=== PATIENT | female | born 1955 | race Caucasian/White ===

== ENCOUNTER 2022-06-17 10:00 | Outpatient (RCR) | payer MEDICARE, SELFPAY | END 2022-06-17 10:05 | disposition home or self-care (01) | LOC: PT 10:00 | PROVIDERS: Visit Provider Nurse Practitioner Family | DX: R26.81 Unsteadiness on feet (principal) | CPT/HCPCS: 97110; 97116; 97163 ==

== ENCOUNTER 2024-07-05 14:23 | Inpatient (IN) | payer MEDICARE, SELFPAY ==
[2024-07-05] VITALS (17 sets, daily range): BP systolic 106–149; BP diastolic 48–80; PULSE 90–120; RESP 20–40; TEMP 33.2–36.8; O2SAT 94–100; BMI 29.1
--- NOTE | 2024-07-05 14:35 | PC.NURSE ---
placed patient on bear hugger
--- NOTE | 2024-07-05 14:38 | ED_ITS ---
<Statement entered by Avelina Conteh MD - 07/06/24 15:49> I was consulted by the JANET, and we discussed the complexity of the problems being addressed. I approved the treatment and management plan for this patient's care in the emergency department, thus performing a substantive portion of the medical decision making. Avelina Conteh MD, VICTORINO, FACEP Discharge Plan Disposition Patient Disposition: Admitted Clinical Impressions Clinical Impression: Shock, Severe sepsis, DKA (diabetic ketoacidosis), DANAY (acute kidney injury), Acute hyponatremia, Hypokalemia, Non-ST elevation [place] (NSTEMI), Urinary tract infectious disease Discharge ED Provider: Hany Cunningham General Adult HPI General Chief complaint: Altered Mental Status Stated complaint: weakness Time Seen by Provider: 07/05/24 14:37 History of Present Illness HPI narrative: Patient presents via EMS for acute encephalopathy. EMS was called to her residence after patient was found sitting in 30 degree weather outside and on heated garage and shorts and a sweatshirt. She was incoherent on EMS arrival. Patient was found by her friend and noted that her blood sugar was high. Last known well was sometime yesterday. At the time of my exam patient is obtunded but is protecting her airway has a good gag reflex is moving all 4 extremities with no focal deficits however she does open her eyes to painful stimuli and is only making incomprehensible sounds. The remainder of her review of systems is unobtainable due to the patient's mental status currently Related Data Home Medications ?Medication ?Instructions ?Recorded ?Confirmed lisinopril 30 mg tablet 30 mg PO DAILY 07/05/24 07/05/24 paroxetine HCl 20 mg tablet 20 mg PO DAILY 07/05/24 07/05/24 Allergies Allergy/AdvReac Type Severity Reaction Status Date / Time Thiothixene Allergy Unknown Uncoded 02/23/19 13:55 [facility] Disclaimer: The information contained in this section may have been updated after the patient was seen, as this information can be updated by other users. Medical History (Updated 07/05/24 @ 18:48 by Giovanna Cordova RN) Diabetes mellitus Diabetes Diabetes Social History (Updated 07/05/24 @ 18:38 by Giovanna Cordova RN) Smoking Status: Unknown if ever smoked alcohol intake: never substance use type: denies use and marijuana (she did try 1 puff on THC back in 1971; nothing since then) current occupational status: disabled Travel in the last 8 weeks: None number of children: 0 Other Medical History Have you received the Pneumonia Vaccine: No ROS Obtained: Yes unobtainable due to mental status Physical Exam General General appearance: obtunded Head Head exam: atraumatic and normal inspection Eye Eye exam: Present normal appearance, PERRL and EOMI ENT ENT exam: Present mucous membranes dry Neck Neck exam: Present normal inspection and full ROM Chest Chest inspection: Present normal inspection and symmetric chest wall rise Respiratory Respiratory exam: Present normal lung sounds bilaterally and other (Tachypnea); Absent respiratory distress or accessory muscle use Cardiovascular Cardiovascular exam: Present tachycardia Neurological Exam Neurological exam: Absent alert or oriented X3 Medical Decision Making Medical Records Medical records reviewed: Yes I reviewed the patient's medical records. Screening: Per USPSTF and CDC recommendations, given the prevalence of disease in our region, it is our hospital?s policy to screen for HIV and viral Hepatitis for all patients aged 18 and over and those with ongoing risk factors. Óscar Inquiry Pt receiving controlled substance: No Vital Signs: 07/05/24 14:23 07/05/24 14:55 07/05/24 15:00 Temperature 91.8 F L 91.9 F L 92.3 F L Temperature Source Rectal Pulse Rate 97 H Pulse Rate [Left Radial] 90 Respiratory Rate 33 H 35 H 34 H Blood Pressure 138/67 138/65 Blood Pressure [Right Arm] 138/67 Blood Pressure Mean [Right Arm] 90 Blood Pressure Source [Right Arm] 02 Sat by Pulse Oximetry 96 94 L Oxygen Delivery Method Nasal Cannula Oxygen Flow Rate (LPM) 2 07/05/24 15:30 07/05/24 16:13 07/05/24 16:30 Temperature 92.1 F L 91.8 F L 91.8 F L Temperature Source Pulse Rate 101 H 114 H 91 H Pulse Rate [Left Radial] Respiratory Rate 32 H 29 H 34 H Blood Pressure 146/70 H 114/67 130/61 Blood Pressure [Right Arm] Blood Pressure Mean [Right Arm] Blood Pressure Source [Right Arm] 02 Sat by Pulse Oximetry 98 99 99 Oxygen Delivery Method Room Air Room Air Room Air Oxygen Flow Rate (LPM) 07/05/24 17:00 07/05/24 17:31 07/05/24 18:00 Temperature 92.1 F L 92.8 F L 98.0 F Temperature Source Pulse Rate 112 H 111 H 120 H Pulse Rate [Left Radial] Respiratory Rate 40 H 33 H 20 Blood Pressure 117/68 112/48 L 130/70 Blood Pressure [Right Arm] Blood Pressure Mean [Right Arm] Blood Pressure Source [Right Arm] 02 Sat by Pulse Oximetry 99 99 Oxygen Delivery Method Room Air Room Air Oxygen Flow Rate (LPM) 07/05/24 18:00 Temperature 93.0 F L Temperature Source Core Pulse Rate Pulse Rate [Left Radial] Respiratory Rate 23 Blood Pressure Blood Pressure [Right Arm] 112/48 L Blood Pressure Mean [Right Arm] 69 Blood Pressure Source [Right Arm] Automatic Cuff 02 Sat by Pulse Oximetry 99 Oxygen Delivery Method Room Air Oxygen Flow Rate (LPM) Lab Data Lab results reviewed: Yes I reviewed the patient's lab results. Lab Results 07/05/24 14:40: WBC 19.5 H, RBC 5.77 H, Hgb 16.4 H, Hct 51.5 H, MCV 89.3, MCH 28.4, MCHC 31.8, RDW 13.3, Plt Count 250, MPV 10.9 H, Neut % (Auto) 81.2 H, L ymph % (Auto) 5.2 L, [place] % (Auto) 11.5 H, Eos % (Auto) 0.0 L, Baso % (Auto) 0.7, Neut # (Auto) 15.8 H, Lymph # (Auto) 1.0, [place] # (Auto) 2.2 H, Eos # (Auto) 0.0, Baso # (Auto) 0.1, Total Counted 100, Neutrophils % (Manual) 93 H, L ymphocytes % (Manual) 4 L, Monocytes % (Manual) 3, Platelet Estimate Normal, RBC Morphology Normal, Sodium 130 L, Potassium 3.3 L, Chloride 100, Carbon Dioxide < 5 L*, Anion Gap 28.3 H, BUN 36 H, Creatinine 1.40 H, Estimated Creat Clear 48, E stimated GFR 37 L, Est GFR ( Amer) 45 L, Glucose 581 H*, Hemoglobin A1c 12.6 H, Calcium 9.9, Phosphorus 3.5, Magnesium 2.9 H, Total Bilirubin 0.6, AST 27, ALT 26, Alkaline Phosphatase 200 H, Troponin I 0.13 H, NT-Pro-B Natriuret Pep 671 H, Total Protein 7.5, Albumin 4.3, Globulin 3.1, Albumin/Globulin Ratio 1.4, Lipase 106, Procalcitonin 2.11 H, Acetone Level Small 07/05/24 14:41: SARS-CoV-2 (PCR) Not detected, Influenza Type A (PCR) Not detected, Influenza Type B (PCR) Not detected, RSV (PCR) Not detected, Rhinovirus (PCR) Not detected 07/05/24 14:47: VBG pH 6.89 L, VBG pCO2 26.9 L, VBG pO2 48.8 H, VBG HCO3 5.0 L, VBG Total CO2 5.8 L, VBG O2 Saturation 75.0 H, VBG Base Excess -28.1 L, VBG Lactic Acid 4.5 H 07/05/24 14:56: Urine Color Yellow, Urine Appearance Sl cloudy, Urine pH 5.5, Ur Specific [place] 1.025, Urine Protein 1+ A, Urine Glucose (UA) 2+, Urine Ketones 3+, Urine Blood 3+ A, Urine Nitrate Negative, Urine Bilirubin 1+ A, Urine Urobilinogen 0.2, Ur Leukocyte Esterase Negative, Urine RBC 3-5, Urine WBC 3-5, Ur Squamous Epith Cells 3-5, Urine Bacteria 1+, Fine Granular Casts 3-5, Urine Opiates Screen Negative, Urine Methadone Screen Negative, Ur Barbituates Screen Negative, Ur Phencyclidine Scrn Negative, Ur Amphetamines Screen Negative, U Benzodiazepines Scrn Negative, Urine Cocaine Screen Negative, U Marijuana (THC) Screen Negative 07/05/24 14:40 07/05/24 18:26 Orders (Tests/Meds): ED MEDICATIONS Generic Name Dose Route Start Last Admin Trade Name Freq PRN Reason Stop Dose Admin Acetaminophen 650 mg 07/05/24 17:31 Acetaminophen 325mg Tab PO 08/04/24 17:30 Q4HP PRN Fever or Mild Pain (1-3) Dextrose 50 ml 07/05/24 17:38 Dextrose 50% 50ml Syringe (Crash Cart) IVP 08/04/24 17:37 NEEDED PRN Per Dka Protocol for FSBS </= 50 Enoxaparin Sodium 40 mg 07/06/24 09:00 Enoxaparin 40mg/0.4ml Syringe SUBCUT 08/05/24 08:59 DAILY POL[facility] Piperacillin Sod/Tazobactam 100 mls @ 200 mls/hr 07/05/24 15:30 07/05/24 15:28 Sod 4.5 gm/ Sodium Chloride IV 07/15/24 15:29 200 mls/hr Q6H POLINA Administration Sodium Bicarbonate 150 meq/ 1,150 mls @ 150 mls/hr 07/05/24 15:30 07/05/24 16:04 Sodium Chloride IV 08/04/24 15:29 200 mls/hr .Q7H40M POLINA Administration Potassium Chloride/Water 100 mls @ 50 mls/hr 07/05/24 17:29 07/05/24 18:49 Potassium Chloride 20meq/100ml Ivpb IV 07/05/24 21:28 50 mls/hr Q2H POLINA Administration Insulin Human Regular 100 unit 101 mls @ 2.02 mls/hr 07/05/24 17:45 / Sodium Chloride IV 08/04/24 17:44 .Q24H POLINA Protocol 2 UNIT/HR Cefepime HCl 2 gm/ Sodium 100 mls @ 200 mls/hr 07/06/24 00:00 Chloride IV 07/16/24 00:00 Q12H [facility] Miscellaneous 1 each 07/05/24 17:45 Vancomycin Consult Request NOTAPPLIC 08/04/24 17:44 CONSULT PHARMACY [facility] Ondansetron HCl 4 mg 07/05/24 17:31 Ondansetron 4mg/2ml Vial IV 08/04/24 17:30 Q8HP PRN Nausea Discontinued Medications Generic Name Dose Route Start Last Admin Trade Name Freq PRN Reason Stop Dose Admin Sodium Chloride 1,710 mls @ 855 mls/hr 07/05/24 15:12 07/05/24 15:16 Sod Chlor 0.9% 1000ml Bag 30 ml/kg infuse over 2 hr (1710 ml) 07/05/24 17:11 855 mls/hr IV Administration .Q2H ONE Piperacillin Sod/Tazobactam 50 mls @ 100 mls/hr 07/05/24 15:15 07/05/24 15:25 Sod 3.375 gm/ Sodium Chloride IV 07/15/24 15:14 Not Given Q6H POLINA Vancomycin/PEG/NADA/Lysine/Water 1.25 gm in 250 mls @ 125 mls/hr 07/05/24 16:00 07/05/24 15:29 Vancomycin 1.25gm/250ml (Peg) Premix IV 07/05/24 17:59 125 mls/hr ONCE ONE Administration Sodium Bicarbonate 150 meq/ 1,150 mls @ 200 mls/hr 07/05/24 15:22 07/05/24 16:51 Dextrose IV 08/04/24 15:21 Not Given .Q5H45M [facility] Insulin Human Regular 100 unit 101 mls @ 5.05 mls/hr 07/05/24 15:30 07/05/24 17:03 / Sodium Chloride IV 08/04/24 15:29 7 unit/hr .Q20H [facility] 7.07 mls/hr Titration Protocol 5 UNIT/HR Sodium Chloride 1,000 mls @ 999 mls/hr 07/05/24 17:29 Sod Chlor 0.9% 1000ml Bag IV 07/05/24 18:29 .Q1H1M ONE Iopamidol 75 ml 07/05/24 15:51 07/05/24 15:53 Iopamidol-370 (76%);100ml Bottle IV 07/05/24 15:52 75 ml ONCE ONE Administration Miscellaneous 1 each 07/05/24 15:15 07/05/24 15:25 Vancomycin Consult Request NOTAPPLIC 08/04/24 15:14 1 each CONSULT PHARMACY [facility] Administration Sodium Chloride 10 ml 07/05/24 15:51 07/05/24 15:52 Sodium Chloride 0.9% 10ml Syr (Rad Only) IV 07/05/24 15:52 10 ml ONCE ONE Administration ORDERS Category Date Time Status CT abdomen pelvis w con Stat Cat Scan 07/05/24 15:[address] chest w con Stat Cat Scan 07/05/24 15:[address] head/brain wo con Stat Cat Scan 07/05/24 14:45 Completed Consult to Physician [CONS] Routine Cons 07/05/24 17:17 Ordered XR chest portable Stat Exams 07/05/24 14:45 Completed Acetone, Serum (Rapid) Stat Lab 07/05/24 14:40 Completed BNP [NT Pro Brain Natriuretic Pep.] Stat Lab 07/05/24 14:40 Completed Basic Metabolic Panel Q4H Lab 07/05/24 18:26 Completed Basic Metabolic Panel Q4H Lab 07/05/24 21:45 Ordered Basic Metabolic Panel Q4H Lab 07/06/24 01:45 Ordered Basic Metabolic Panel Q4H Lab 07/06/24 05:45 Ordered Basic Metabolic Panel Q4H Lab 07/06/24 09:45 Ordered Basic Metabolic Panel Q4H Lab 07/06/24 13:45 Ordered CBC w/Auto Diff [Complete Blood Count Auto Diff] Stat Lab 07/05/24 14:40 Completed CMP [Comprehensive Metabolic Panel] Stat Lab 07/05/24 14:40 Completed Hemoglobin A1C Stat Lab 07/05/24 14:40 Completed Lipase Stat Lab 07/05/24 14:40 Completed Magnesium Q4H Lab 07/05/24 18:26 Completed Magnesium Q4H Lab 07/05/24 21:45 Ordered Magnesium Q4H Lab 07/06/24 01:45 Ordered Magnesium Q4H Lab 07/06/24 05:45 Ordered Magnesium Q4H Lab 07/06/24 09:45 Ordered Magnesium Q4H Lab 07/06/24 13:45 Ordered Magnesium Stat Lab 07/05/24 14:40 Completed Mini Respiratory Panel Stat Lab 07/05/24 14:41 Completed Phosphorous Q4H Lab 07/05/24 18:26 Completed Phosphorous Q4H Lab 07/05/24 21:45 Ordered Phosphorous Q4H Lab 07/06/24 01:45 Ordered Phosphorous Q4H Lab 07/06/24 05:45 Ordered Phosphorous Q4H Lab 07/06/24 09:45 Ordered Phosphorous Q4H Lab 07/06/24 13:45 Ordered Phosphorous Stat Lab 07/05/24 14:40 Completed Procalcitonin Stat Lab 07/05/24 14:40 Completed Trop I [Troponin I] Stat Lab 07/05/24 14:40 Completed Troponin I Q3H Lab 07/05/24 18:26 Completed Troponin I Q3H Lab 07/05/24 21:00 Ordered UA [Urinalysis and Microscopic] Stat Lab 07/05/24 14:56 Completed UDS [Drug Screen,Urine] Stat Lab 07/05/24 14:56 Completed Blood Culture Stat Micro 07/05/24 15:22 Received Urine Culture Stat Micro 07/05/24 14:56 Received VBG [Venous Blood Gas] Stat RT 01/02/25 14:47 Completed Tissue Perfus/Sepsis Re-Eval Sepsis Re-Evaluation Performed: Yes Date Performed: 07/05/24 Time Performed: 17:30 HEART Score History (anamnesis): Slightly suspicious ECG: Non-specific disturbance Age: >65 years Risk factors: 3 or more risk factors Troponin: 1-3x normal limit HEART Score: 6 Medical Decision Narrative: In summary patient is a 68-year-old female who presents to the emergency department for evaluation of her mental status. Patient is normotensive at the time my exam at 138/67 pulse 90 breathing 33 times a minute satting at 96% on room air but is 91.8 rectal temp upon arrival, . Physical exam show that she has a Glascow coma score of 2 3 and 5 for total of 10. There is a strong odor of acetone on her breath and patient has profoundly dry oral mucosa. She responds to deep painful stimuli but immediately seems to be sleeping after noxious stimuli is removed. I can find no focal neurologic deficits other than her level of consciousness and I find no evidence of trauma visible currently.. Differential diagnosis includes DKA versus sepsis versus stroke versus ACS versus undifferentiated shock versus other viral or bacterial infection etc. Initial workup will be conducted with hematologic labs twelve-lead EKG CT scan of the head CT of the chest abdomen pelvis urinalysis urine drug screen VBG blood cultures. Initial interventions include sepsis bolus, rewarming with multipronged approach of Penelope hugger warm fluids warm blankets, broad-spectrum antibiotics. Initial workup reviewed by me shows multiple derangements with a white count of 19.5 however hemoglobin and hematocrit of 16.4 and 51.5 suggesting slight hemoconcentration with an absolute neutrophil count of 15.8 venous blood gas shows a pH of 6.89 pCO2 of 26.9 with a VBG lactic acid of 4.5, CMP is significant for shows pseudohyponatremia with a sodium of 130 potassium 3.3 chloride of 100 CO2 is undetectable at less than 5 gap is 28.3 BUN is 36 creatinine 1.4 GFR of 37 initial serum glucose of 581 with a hemoglobin A1c of 12.6 initial magnesium is 2.9, alk phos is 200 initial troponin is 0.13 NT proBNP is 671 procalcitonin is 2.11 urinalysis shows 1+ protein 2+ glucose 3+ ketones 3+ blood nitrite negative leukocyte Estrace negative on the dipstick however microscopic exam shows 3-5 reds 3-5 whites 3-5 squamous epithelial cells from the catheter specimen 1+ bacteria urine drug screen is negative for all agents tested and a small amount of acetone in her blood and many respiratory panel was negative. Upon repeat evaluation at 1700 hrs. patient's mentation was better she was able to answer questions appropriately but still had confusion. Patient actually showed warming Ro and core body temperature was 94 at that reassessment. Patient still does not know what transpired but does know that she is at [facility] in [place]. Given this had interactive discussion with hospital medicine regarding patient management and she will be admitted to the ICU for further evaluation and care. Critical Care Critical Care Time Critical Care Time: Yes Attestation: On 07/05/24, the high probability of a clinically significant, sudden or life threatening deterioration of the following systems: Cardiovascular, neurologic, cardiopulmonary; required my full and direct attention, intervention and personal management. The time I documented below is in addition to time spent performing reported procedures but includes the following listed in this critical care notation. Total Time Total Critical Care Time: 55
--- NOTE | 2024-07-05 14:40 | PC.NURSE ---
started a liter warmed iv fluids normal saline
--- NOTE | 2024-07-05 14:40 | ECG_ITS ---
APPROVED REPORT Exam: Resting ECG HR:98 bpm ECG Measurements Heart Rate 98 AXES MA 160 P 48 QRSd 91 QRS 3 QT 388 T 89 QTc 443 Conclusion SINUS RHYTHM PROBABLE INFERIOR MYOCARDIAL INFARCTION , OF INDETERMINATE AGE [35 ms Q WAVE IN II/aVF] ABNORMAL ECG UNCONFIRMED REPORT Electronically signed by : ENE DIA, 07/06/2024 06:51:34
--- NOTE | 2024-07-05 14:45 | XR_ITS ---
FINAL REPORT CLINICAL HISTORY: Shock, encephalopathy FINDINGS: A portable view of the chest is obtained. Cardiac and mediastinal silhouettes are normal. The lungs are clear. There is no pleural effusion or pneumothorax. IMPRESSION: No acute process on this portable exam. Reviewed, Interpreted and Dictated by Melissa Chaudhari MD Transcribed by Myra Carlisle Authenticated and [facility]
--- NOTE | 2024-07-05 14:45 | CT_ITS ---
FINAL REPORT TECHNIQUE: Thin section axial images were obtained from skull base to vertex without contrast. Coronal reconstruction images were obtained from the axial data. Exam was performed using dose reduction technique. CLINICAL HISTORY: Acute encephalopathy FINDINGS: There is age-appropriate atrophy. There is no mass effect or midline shift. There is no intracranial hemorrhage. There is no hydrocephalus. The basilar cisterns are preserved. The posterior fossa is without acute abnormality. The soft tissues are without acute abnormality. No acute osseous abnormality is identified. IMPRESSION: No acute intracranial abnormality. Reviewed, Interpreted and Dictated by Melissa Chaudhari MD Transcribed by Myra Carlisle Authenticated and . [facility]
[2024-07-05 14:55] LABS: Coronavirus 19, PCR Not Detected (NotDetected); Human Rhinovirus Not Detected (NotDetected); Influenza A, PCR Not Detected (NotDetected); Influenza B, PCR Not Detected (NotDetected); Respiratory Syncytial Virus Not Detected (NotDetected)
[2024-07-05 14:58] LABS: Albumin Level 4.3 g/dl (3.5-5.0); Basophils # 0.1 K/mm3 (0-0.2); Basophils % 0.7 % (0.1-2.0); Chloride 100 mmol/L (98-107); Hematocrit 51.5 % (37.0-47.0); Hemoglobin 16.4 g/dL (12.2-16.2); Lymphocytes % 5.2 % (10-50); Mean Corpuscular HGB Conc 31.8 g/dL (31.8-35.4); Mean Corpuscular Hemoglobin 28.4 pg (27.0-31.2); Mean Corpuscular Volume 89.3 fl (81-99); Mean Platelet Volume 10.9 fl (7.4-10.4); Monocytes # 2.2 K/mm3 (0.1-1.0); Monocytes % 11.5 % (1.7-9.3); Neutrophils # 15.8 K/mm3 (1.8-7.8); Neutrophils % 81.2 % (37.0-80.0); Platelet Count 250 K/mm3 (142-424); Red Blood Count 5.77 M/mm3 (4.20-5.40); Red Cell Distribution Width 13.3 % (11.5-17.5); White Blood Count 19.5 K/mm3 (4.8-10.8)
[2024-07-05 14:59] LABS: Sodium 130 mmol/L (136-145)
[2024-07-05 15:01] LABS: Microscopic, Urine URINE MICROSCOPIC (MICROSCOPIC)
[2024-07-05 15:03] LABS: Appearance,Urine SL CLOUDY (Clear); Blood, Urine 3+ (Negative); Color,Urine YELLOW (Yellow); Glucose,Urine (UA) 2+ (Negative); Ketones,Urine 3+ (Negative); Leukocyte Esterase,Urine Negative (Negative); Nitrate,Urine Negative (Negative); PH,Urine 5.5 (5.0-8.5); Protein,Urine 1+ (Negative); Specific Gravity, Urine 1.025 (1.005-1.030); Urobilinogen,Urine 0.2 EU/dl (0.2)
[2024-07-05 15:03] LABS: MANUAL DIFFERENTIAL MANUAL DIFFERENTIAL (MANUAL DIFF)
[2024-07-05 15:06] LABS: Bilirubin,Urine 1+ (Negative)
[2024-07-05 15:07] LABS: Alanine Aminotransferase 26 U/L (12-78); Albumin/Globulin Ratio 1.4 (1.1-1.8); Alkaline Phosphatase 200 U/L (38-126); Aspartate Amino Transferase 27 U/L (14-36); Bilirubin,Total 0.6 mg/dl (0.2-1.3); Blood Urea Nitrogen 36 mg/dl (7-17); Calcium 9.9 mg/dl (8.4-10.2); Creatinine Clearance Estimated 48 mL/min (50-200); Estimated Glomerular Filt Rate 37 ml/min (>60); GFR (African American) 45 ML/MIN (>60); Globulin 3.1 g/dL (1.3-3.2); Magnesium 2.9 mg/dl (1.6-2.3); Phosphorous 3.5 mg/dl (2.5-4.5); Total Protein,Serum 7.5 g/dl (6.3-8.2)
[2024-07-05 15:08] LABS: VBG Base Excess -28.1 mmol/L (-2.4-2.3); VBG PCO2 26.9 mmol/L (35-51); VBG PO2 48.8 mmol/L (28-40); VBG Total CO2 5.8 mmol/L (23-27)
--- NOTE | 2024-07-05 15:09 | PC.NURSE ---
CRITICAL VBG PT NAME AND R/V. DR COSTA NOTIFIED
[2024-07-05 15:10] LABS: VBG PH 6.89 mmol/L (7.31-7.41)
[2024-07-05 15:10] LABS: Bacteria,Urine 1+ /lpf
[2024-07-05 15:11] LABS: Lactate Venous 4.5 mmol/L (0.4-2.0)
--- NOTE | 2024-07-05 15:14 | PC.NURSE ---
CRITICAL CO2 LESS THAN 5, GLUCOSE 581. PT NAME AND R/V. DR COSTA NOTIFIED
--- NOTE | 2024-07-05 15:14 | CT_ITS ---
FINAL REPORT TECHNIQUE: Thin section axial images were obtained from the thoracic inlet through the upper abdomen after intravenous contrast injection. Reconstruction images were obtained from the axial data. Exam was performed using dose reduction technique. CLINICAL HISTORY: Shock, hyperglycemia, encephalopathy FINDINGS: There is no mediastinal, hilar, or axillary lymphadenopathy. There is no pleural or pericardial effusion. The heart size is normal. There is a 5 mm subpleural right lower lobe nodule seen on series 3 image 38. The lungs are otherwise clear. No acute osseous abnormality. IMPRESSION: No acute intrathoracic abnormality. Reviewed, Interpreted and Dictated by Melissa Chaudhari MD Transcribed by Myra Carlisle Authenticated and . [facility]
[2024-07-05 15:15] LABS: Carbon Dioxide < 5 mmol/L (22.0-30.0); Glucose 581 mg/dl (74-100)
--- NOTE | 2024-07-05 15:15 | CT_ITS ---
FINAL REPORT TECHNIQUE: Thin section axial images were obtained through the abdomen after intravenous contrast. Reconstruction images were obtained from the axial data. Exam was performed using dose reduction techniques. CLINICAL HISTORY: Shock, hypoglycemia, encephalopathy FINDINGS: The liver is homogeneous. There is no focal lesion. The gallbladder is mildly distended. There is no biliary ductal dilatation. The spleen, adrenal glands, and pancreas are unremarkable. There is no renal stone or hydronephrosis. There is a very small hypodense right renal lesion which is favored to represent a cyst. There is no small bowel obstruction. There is no abdominal lymphadenopathy or ascites. The appendix is not visualized but there are no secondary signs of appendicitis. The GI tract is without acute abnormality. The uterus is lobulated in contour consistent with fibroids. No adnexal masses seen. There is no lymphadenopathy or ascites. No acute osseous changes are seen. IMPRESSION: No CT evidence of acute intra-abdominal or intrapelvic abnormality. Reviewed, Interpreted and Dictated by Melissa Chaudhari MD Transcribed by Myra Carlisle Authenticated and [facility]
[2024-07-05 15:16] LABS: Anion Gap 28.3 mEq/L (5-15); Potassium 3.3 mmoL/L (3.5-5.1)
[2024-07-05] MEDS: SODIUM CHLORIDE 855 ML IV (15:16)
[2024-07-05 15:18] LABS: Lymphocytes % 4 % (10-50); Monocytes % 3 % (2-9); Neutrophils % 93 % (42-76); Total Cells Counted 100
[2024-07-05 15:19] LABS: NT Pro Brain Natriuretic Pep. 671 pg/mL (0-125); Troponin I 0.13 ng/ml (0.00-0.034)
[2024-07-05 15:23] LABS: Procalcitonin 2.11 ng/mL (0.0-2.0)
[2024-07-05] MEDS: VANCOMYCIN CONSULT REQUEST 1 EACH NOTAPPLIC ×2 (15:25→21:09)
--- NOTE | 2024-07-05 15:26 | HMH.PHAINT1 ---
Pharmacy Intervention Comments: MEDICATION RECONCILIATION COMPLETED ON PATIENT USING EXTERNAL FILL HISTORY FROM PHARMACY. -TIANA VALDEZ, MISTYD
[2024-07-05] MEDS: PIPERACILLIN/TAZO 4.5 GM in 0.9 % SODIUM CHLORIDE 100 ML IV ×2 (15:28→21:25)
[2024-07-05] MEDS: VANCOMYCIN/WATER FOR INJ (PEG) 1.25 GM/250 ML PIGGYBACK IV (15:29)
[2024-07-05 15:40] LABS: Acetone, Serum (Rapid) Small (None Detect)
[2024-07-05 15:40] LABS: Barbiturates Screen,Urine Negative ng/ml (<200); Benzodiazepines Screen,Urine Negative ng/ml (<200)
[2024-07-05 15:41] LABS: Amphetamine/Metha Screen,Urine Negative ng/ml (<1000)
[2024-07-05 15:42] LABS: Cannabinoid Screen,Urine Negative ng/ml (<50); Cocaine Screen,Urine Negative ng/ml (<300)
[2024-07-05 15:43] LABS: Methadone Screen,Urine Negative ng/ml (<300); Opiate Screen,Urine Negative ng/ml (<300)
[2024-07-05 15:44] LABS: Phencyclidine Screen,Urine Negative ng/ml (<25)
[2024-07-05 15:51] LABS: Hemoglobin A1C 12.6 % (4.0-6.0)
[2024-07-05] MEDS: SODIUM CHLORIDE 0.9% 10ML SYR (RAD ONLY) 10 ML IV (15:52)
[2024-07-05] MEDS: IOPAMIDOL-370 (76%);100ML BOTTLE 75 ML IV (15:53)
[2024-07-05 15:59] LABS: Platelet Estimate Normal; RBC Morphology Normal
[2024-07-05] MEDS: INSULIN REGULAR, HUMAN 100 UNIT in 0.9 % SODIUM CHLORIDE 100 ML 5.05 UNIT IV (16:01)
[2024-07-05] MEDS: SODIUM BICARBONATE 150 MEQ in 0.9 % SODIUM CHLORIDE 1000ML 1,000 ML 200 MEQ IV (16:04)
--- NOTE | 2024-07-05 17:23 | PC.NURSE ---
CARLOS ALBERTO RIVAS SPEAKING WITH HOSPITALIST
--- NOTE | 2024-07-05 17:27 | PC.NURSE ---
DRAWER IN [facility] NOTIFIED OF ADMISSION
--- NOTE | 2024-07-05 17:31 | P.HP_ITS ---
History of Present Illness *Admission Date: 07/05/24 *Reason for visit:: DKA, sepsis *History of present illness: Le Vogel is a 68-year-old female with a medical history significant for diabetes, hypertension, anxiety/depression who was found by EMS sitting in a nonheated garage, in per patient she was apparently waiting for them. Patient has significant alteration in mental status upon arrival, GCS around 8. Workup in the ED significant for WBC 19.5, VBG pH 6.89, pCO2 26.9, lactic acid 4.5, undetectable bicarb, AGAP 28.3, glucose 581, ketonuria, procalcitonin 2.11, troponin 0.13. CXR, head/chest/abdomen/pelvis CTs did not show acute findings. She was given vancomycin, Zosyn and started on DKA protocol. Case discussed with ED provider decision was made to admit patient for DKA and possible sepsis. [facility] Disclaimer: The information contained in this section may have been updated after the patient was seen, as this information can be updated by other users. Medical History (Updated 07/05/24 @ 18:48 by Giovanna Cordova RN) Diabetes mellitus Diabetes Diabetes Social History (Updated 07/05/24 @ 20:34 by MICAELA Brady) Smoking Status: Unknown if ever smoked alcohol intake: never substance use type: denies use and marijuana (she did try 1 puff on THC back in 1971; nothing since then) current occupational status: disabled Travel in the last 8 weeks: None number of children: 0 Have you lived/traveled outside [place] in past 30 days?: No Contact w/someone who lives/traveled outside US past 30 days?: No Exposure to someone with infectious disease in past 14 days?: No Do you have a fever (greater than 100.4 F or 38 C)?: No Have you tested positive for COVID-19: No Exposed to someone with COVID-19 in past 14 days?: No Do you have a sore throat?: No Do you have a cough?: No Do you have any weakness?: Yes Do you have any diarrhea?: No Are you experiencing any unusual bleeding?: No Do you have any muscle aches/pain?: No Do you have any abdominal pain?: No Are you experiencing loss of taste or smell?: No Other Medical History Have you received the Pneumonia Vaccine: No Meds Home Medications and Allergies Home Medications ?Medication ?Instructions ?Recorded ?Confirmed ?Type lisinopril 30 mg tablet 30 mg PO DAILY 07/05/24 07/05/24 History paroxetine HCl 20 mg tablet 20 mg PO DAILY 07/05/24 07/05/24 History New Prescriptions to Start Prescriptions: Allergies Allergy/AdvReac Type Severity Reaction Status Date / Time Thiothixene Allergy Unknown Uncoded 02/23/19 13:55 Exam Data for Last 24 hours Vital signs and Labs for Last 24 Hours: Temp Pulse Resp BP Pulse Ox O2 Del Method O2 Flow Rate 92.1 F L 112 H 40 H 117/68 99 Room Air 2 07/05/24 17:00 07/05/24 17:00 07/05/24 17:00 07/05/24 17:00 07/05/24 17:00 07/05/24 17:00 07/05/24 14:23 Laboratory Results - last 24 hr 07/05/24 14:40: WBC 19.5 H, RBC 5.77 H, Hgb 16.4 H, Hct 51.5 H, MCV 89.3, MCH 28.4, MCHC 31.8, RDW 13.3, Plt Count 250, MPV 10.9 H, Neut % (Auto) 81.2 H, Lymph % (Auto) 5.2 L, [place] % (Auto) 11.5 H, Eos % (Auto) 0.0 L, Baso % (Auto) 0.7, Neut # (Auto) 15.8 H, Lymph # (Auto) 1.0, [place] # (Auto) 2.2 H, Eos # (Auto) 0.0, Baso # (Auto) 0.1, Total Counted 100, Neutrophils % (Manual) 93 H, Lymphocytes % (Manual) 4 L, Monocytes % (Manual) 3, Platelet Estimate Normal, RBC Morphology Normal, Sodium 130 L, Potassium 3.3 L, Chloride 100, Carbon Dioxide < 5 L*, Anion Gap 28.3 H, BUN 36 H, Creatinine 1.40 H, Estimated Creat Clear 48, Estimated GFR 37 L, Est GFR ( Amer) 45 L, Glucose 581 H*, Hemoglobin A1c 12.6 H, Calcium 9.9, Phosphorus 3.5, Magnesium 2.9 H, Total Bilirubin 0.6, AST 27, ALT 26, Alkaline Phosphatase 200 H, Troponin I 0.13 H, NT-Pro-B Natriuret Pep 671 H, Total Protein 7.5, Albumin 4.3, Globulin 3.1, Albumin/Globulin Ratio 1.4, Procalcitonin 2.11 H, Acetone Level Small 07/05/24 14:41: SARS-CoV-2 (PCR) Not detected, Influenza Type A (PCR) Not detected, Influenza Type B (PCR) Not detected, RSV (PCR) Not detected, Rhinovirus (PCR) Not detected 07/05/24 14:47: VBG pH 6.89 L, VBG pCO2 26.9 L, VBG pO2 48.8 H, VBG HCO3 5.0 L, VBG Total CO2 5.8 L, VBG O2 Saturation 75.0 H, VBG Base Excess -28.1 L, VBG Lactic Acid 4.5 H 07/05/24 14:56: Urine Color Yellow, Urine Appearance Sl cloudy, Urine pH 5.5, Ur Specific [place] 1.025, Urine Protein 1+ A, Urine Glucose (UA) 2+, Urine Ketones 3+, Urine Blood 3+ A, Urine Nitrate Negative, Urine Bilirubin 1+ A, Urine Urobilinogen 0.2, Ur Leukocyte Esterase Negative, Urine RBC 3-5, Urine WBC 3-5, Ur Squamous Epith Cells 3-5, Urine Bacteria 1+, Fine Granular Casts 3-5, Urine Opiates Screen Negative, Urine Methadone Screen Negative, Ur Barbituates Screen Negative, Ur Phencyclidine Scrn Negative, Ur Amphetamines Screen Negative, U Benzodiazepines Scrn Negative, Urine Cocaine Screen Negative, U Marijuana (THC) Screen Negative I & O for Last 24 hours: Intake & Output 07/02/24 07/03/24 07/04/24 07/05/24 23:59 23:59 23:59 23:59 Intake Total 5.218 / 5.218 Output Total 850 / 850 Balance -844.782 / -844.782 Weight 79.379 kg Constitutional Constitutional: no acute distress Comments: Lethargic *Routine HEENT Exam Head: Present normocephalic Eye: Present EOMI and PERRL ENT: Present mucous membranes moist *Routine Neck Exam Neck: Present supple; Absent lymphadenopathy *Routine Respiratory Exam Respiratory: Present CTA bilaterally *Routine Cardiovascular Exam Cardiovascular: Present RRR *Routine Abdominal Exam Abdominal: Present soft and normoactive bowel sounds; Absent tenderness *Routine Rectal Exam Rectal:: deferred *Routine Genitalia Exam Genitalia:: deferred *Routine Extremities Exam Extremities: Absent cyanosis, clubbing or edema *Routine Skin Exam Skin: Present warm; Absent rash *Routine Neurological Exam Neurological: Present alert Assessment and Plan *Assessment and plan (1) DKA (diabetic ketoacidosis): Status: Acute Qualifiers: Diabetes mellitus complication detail: without coma Category: Medical Code(s): E11.10 - Type 2 diabetes mellitus with ketoacidosis without coma Plan Le Vogel is a 68-year-old female with a medical history significant for diabetes, hypertension, anxiety/depression who was found by EMS sitting in a nonheated garage, in per patient she was apparently waiting for them. Patient has significant alteration in mental status upon arrival, GCS around 8. Workup in the ED significant for WBC 19.5, VBG pH 6.89, pCO2 26.9, lactic acid 4.5, undetectable bicarb, AGAP 28.3, glucose 581, ketonuria, procalcitonin 2.11, troponin 0.13. CXR, head/chest/abdomen/pelvis CTs did not show acute findings. She was given vancomycin, Zosyn and started on DKA protocol. Case discussed with ED provider decision was made to admit patient for DKA and possible sepsis. #DKA #Insulin-dependent diabetes ? VBG pH 6.89, lactic acid 4.5, undetectable bicarb, AGAP 28.3, glucose 581, ketonuria, potassium 3.3. Hemoglobin A1c 12.6. ? Patient is mentating better now. States she had yogurt a few days ago and has had diarrhea that has resolved. Has had nausea/vomiting, and significant fatigue over the past few days. ? Given 1.7 L sepsis bolus in the ED. Ordered another 1 L NS bolus. ? Insulin drip held for now, will recheck and replete potassium before restarti ng insulin drip. Can be restarted if potassium greater than 3.5, but IV potassium will need to be added to the bicarb drip as below. ? Ordered IV potassium 40mEq. ? Continue bicarb drip at 150 mL/h. ? BMP every 4 hours. Follow-up potassium, AGAP, bicarb. ? Once AGAP closes x 2 and bicarb greater than 18 and tolerating p.o. intake, bridged with long-acting SQ insulin based on weight. #Leukocytosis, elevated procalcitonin #Sinus tachycardia #Hypothermia ? Patient was found in a cold garage, unclear how long she has been there. Continue Penelope hugger. ? No evidence of infection at this time, though procalcitonin is elevated. ? WBC 19.5 with unclear source at this time. Procalcitonin 2.11. ? Patient complains of sore throat, will test for strep and full respiratory panel. - Continue Vancomycin, Zosyn for emperic coverage. - Follow-up blood cultures. #Hypertension ? Resume home medications once reconciled. #Anxiety/depression ? Resume home medications once reconciled. Full code Lovenox 40 mg
[2024-07-05 17:44] LABS: Lipase 106 U/L (23-300)
[2024-07-05] MEDS: KCl 20mEq/100ml 100 ML 50 MEQ IV ×2 (18:49→22:08)
[2024-07-05 18:54] LABS: Blood Urea Nitrogen 33 mg/dl (7-17); Calcium 9.1 mg/dl (8.4-10.2); Chloride 111 mmol/L (98-107); Creatinine Clearance Estimated 67 mL/min (50-200); Estimated Glomerular Filt Rate 62 ml/min (>60); GFR (African American) 75 ML/MIN (>60); Glucose 367 mg/dl (74-100); Magnesium 2.3 mg/dl (1.6-2.3); Phosphorous 2.6 mg/dl (2.5-4.5); Sodium 136 mmol/L (136-145)
[2024-07-05 19:00] LABS: Anion Gap 22.9 mEq/L (5-15); Carbon Dioxide < 5 mmol/L (22.0-30.0)
[2024-07-05 19:08] LABS: Reflex Lactic Add Lactic Reflex
[2024-07-05 19:10] LABS: Potassium 2.9 mmoL/L (3.5-5.1)
--- NOTE | 2024-07-05 19:11 | PC.NURSE ---
d/c insulin drip due to potassium being below 3.5 per md.
[2024-07-05 19:21] LABS: Troponin I 0.93 ng/ml (0.00-0.034)
[2024-07-05 19:56] LABS: Lactic Acid Follow Up (RFLX 1) 1.8 mmol/L (0.7-2.1)
[2024-07-05] MEDS: ONDANSETRON 4MG/2ML VIAL 4 MG IV (20:25)
[2024-07-05 21:41] LABS: Chloride 106 mmol/L (98-107); Potassium 3.2 mmoL/L (3.5-5.1); Sodium 132 mmol/L (136-145)
[2024-07-05 21:44] LABS: Blood Urea Nitrogen 30 mg/dl (7-17); Calcium 7.6 mg/dl (8.4-10.2); Creatinine Clearance Estimated 67 mL/min (50-200); Estimated Glomerular Filt Rate 99 ml/min (>60); GFR (African American) 120 ML/MIN (>60); Glucose 231 mg/dl (74-100)
[2024-07-05 21:45] LABS: Magnesium 1.9 mg/dl (1.6-2.3)
[2024-07-05 21:46] LABS: Anion Gap 24.2 mEq/L (5-15); Carbon Dioxide < 5 mmol/L (22.0-30.0)
[2024-07-05 21:47] LABS: Phosphorous 1.9 mg/dl (2.5-4.5)
--- NOTE | 2024-07-05 21:48 | PC.NURSE ---
Received critical from Luz in lab. Patient Phos 1.9, CO2 <5. Hospitalist aware.
[2024-07-05 22:00] LABS: Troponin I 3.96 ng/ml (0.00-0.034)
[2024-07-05] MEDS: SODIUM BICARBONATE 150 MEQ in 0.9 % SODIUM CHLORIDE 1000ML 1,000 ML IV (22:00)
--- NOTE | 2024-07-05 22:01 | PC.NURSE ---
Critical called from Luz in lab. Patient troponin 3.96, Hospitalist aware.
[2024-07-05 22:25] LABS: VBG Base Excess -20.3 mmol/L (-2.4-2.3); VBG Oxygen Saturation 95.8 % (50-70); VBG PO2 77.8 mmol/L (28-40); VBG Total CO2 8.6 mmol/L (23-27)
[2024-07-05 22:26] LABS: Lactate Venous 2.1 mmol/L (0.4-2.0); VBG PCO2 21.4 mmol/L (35-51); VBG PH 7.19 mmol/L (7.31-7.41)
--- NOTE | 2024-07-05 22:28 | P.EN_ITS ---
Problem: Patient is in the ICU. Still receiving bicarb drip. Waiting for potassium to elevate above 3.5 then will restart insulin.. Noting that the patient still remains nauseated. And talks with a very raspy voice. Patient was able to talk with me and explained that she believes on 07/02 she had some yogurt and milk and then started to throw up within 30 minutes. She did have s ome bouts of diarrhea but this continued through the next day. She questions whether she got a whole of some food poisoning.. She was unable to contact friends who are coming to get her but she was so weak she could not get down the steps of her apartment so she had to sit on her buttocks and slide down had some difficulty opening the door when her friends arrived and was found lying inside the door and the friends helped her up into a chair but required an ambulance to come to the hospital.. Patient is now awake and alert able to talk to me clearly., Presently on bicarb drip 200 cc an hour for fluid replacement, insulin drip is on hold as the potassium was slightly low. exam:, Patient is alert and oriente having some throat pain related probably to her vomiting . Lozano catheter is in place. IVs are running as directed. Fingerstick blood sugar was 234 Respiratory rate is still 29. Improved labs on last venous blood gas with pH to 7.18. Noting increase in troponin on labs.. Patient denies any shortness of breath or chest pain Plan : Spoke with Dr. Aviles by phone. Monitoring the increase in troponin twelve-lead EKG showed no changes. Do not feel that there is any cardiac event taking place at this time. But due to the changes in the what the patient has been through will consult cardiology and in the morning to help follow. The patient's hemoglobin A1c is 12.5 but find that she has not been on any medication. Was going to give one-time sliding scale of insulin but that has been put on hold have doctor talking to the doctor we will go ahead and restart the insulin drip at this time.. Labs are ordered for 1:45 in the morning so we will be able to monitor potassium. Patient is slowly improving and moving in the right direction we will be looking for a decrease in respiratory rate. Monitor labs and will have serial troponins.
--- NOTE | 2024-07-05 22:39 | ECG_ITS ---
APPROVED REPORT Exam: Resting ECG HR:110 bpm ECG Measurements Heart Rate 110 AXES NC 143 P 34 QRSd 92 QRS 3 QT 358 T 71 QTc 423 Conclusion SINUS TACHYCARDIA NONSPECIFIC T-WAVE ABNORMALITY ABNORMAL RHYTHM ECG UNCONFIRMED REPORT Electronically signed by : Florentino Marley MD 07/07/2024 12:22:44
[2024-07-05] MEDS: PHENOL THROAT SPRAY 177 ML BOTTLE MM (22:58)
[2024-07-05] MEDS: INSULIN REGULAR, HUMAN 100 UNIT in 0.9 % SODIUM CHLORIDE 100 ML 8.02 UNIT IV (23:20)
[2024-07-05] MEDS: INSULIN REGULAR, HUMAN 100 UNIT in 0.9 % SODIUM CHLORIDE 100 ML IV (23:46)
[2024-07-06] VITALS (32 sets, daily range): BP systolic 117–145; BP diastolic 57–79; PULSE 98–117; RESP 15–34; TEMP 36.5–37.6; O2SAT 94–100; BMI 28.9; BMI 29.3
[2024-07-06] MEDS: 0.9% NaCl w/20mEq KCL 1,000 ML 150 ML IV (00:07)
[2024-07-06] MEDS: PHENOL THROAT SPRAY 177 ML BOTTLE MM (01:27)
[2024-07-06] MEDS: CEFEPIME HCL 2 GM in 0.9 % SODIUM CHLORIDE 100 ML IV (01:36)
[2024-07-06 02:01] LABS: Chloride 109 mmol/L (98-107); Sodium 142 mmol/L (136-145)
[2024-07-06 02:04] LABS: Anion Gap 16.3 mEq/L (5-15); Blood Urea Nitrogen 25 mg/dl (7-17); Carbon Dioxide 19 mmol/L (22.0-30.0); Creatinine Clearance Estimated 67 mL/min (50-200); Estimated Glomerular Filt Rate 122 ml/min (>60); GFR (African American) 148 ML/MIN (>60)
[2024-07-06 02:05] LABS: Calcium 6.4 mg/dl (8.4-10.2); Glucose 224 mg/dl (74-100); Magnesium 1.6 mg/dl (1.6-2.3)
[2024-07-06 02:10] LABS: Phosphorous 1.4 mg/dl (2.5-4.5); Potassium 2.3 mmoL/L (3.5-5.1)
[2024-07-06] MEDS: KCl 20mEq/100ml 100 ML 50 MEQ IV ×5 (02:56→13:52)
[2024-07-06] MEDS: POTASSIUM CHLORIDE 20MEQ TAB 40 MEQ PO ×2 (02:56→11:44)
[2024-07-06] MEDS: PIPERACILLIN/TAZO 4.5 GM in 0.9 % SODIUM CHLORIDE 100 ML IV ×4 (03:26→21:46)
--- NOTE | 2024-07-06 03:44 | EXP.EVENT.NO ---
As noted in the other event note decided to start the insulin drip again. Had BMP rechecked and potassium had dropped to 2.3 EXAM: Patient unchanged and stable Plan: Talking with the ICU staff have put in an order for 40 of KCl p.o. and then also to do the 40 by IV. This is because 80 would need to be given by IV would take about [address] I feel we can put the potassium back can at a quicker rate and then consider what to do with the insulin drip if needed depending upon the PA of the venous blood gas that will be drawn here in the next hour and a half Noting that patient is stable at this time and being constantly monitored 0600: Blood cultures t returned with Klebsiella pneumonia, patient is on appropriate antibiotics that should have coverage of that bacteria. Potassium has improved back up to 3.4 after insulin drip start CO2 remains low patient continues to have a respiratory rate close to 30, blood sugars continue to run in the mid 250s presently not receiving insulin at this moment do not want to drive the potassium back into the cells. The patient is stable at this time there is no cardiac activity that is suspicious for problem and patient seems to be stable
[2024-07-06] MEDS: VANCOMYCIN HCL 750 MG in 0.9 % SODIUM CHLORIDE 250 ML 125 MG IV (04:13)
[2024-07-06] MEDS: humaLOG 100 UNITS/ML 10ML VIAL (SSI) SUBCUT ×2 (05:43→23:55)
[2024-07-06 05:47] LABS: VBG Base Excess -23.3 mmol/L (-2.4-2.3); VBG HCO3 6.2 mmol/L (23-30); VBG Oxygen Saturation 99.2 % (50-70); VBG Total CO2 6.8 mmol/L (23-27)
[2024-07-06 05:52] LABS: Chloride 108 mmol/L (98-107); Potassium 3.4 mmoL/L (3.5-5.1); Sodium 133 mmol/L (136-145)
[2024-07-06 05:54] LABS: Lactate Venous 2.7 mmol/L (0.4-2.0); VBG PCO2 19.9 mmol/L (35-51); VBG PH 7.11 mmol/L (7.31-7.41)
[2024-07-06 05:55] LABS: Blood Urea Nitrogen 24 mg/dl (7-17); Creatinine Clearance Estimated 66 mL/min (50-200); Estimated Glomerular Filt Rate 99 ml/min (>60); GFR (African American) 120 ML/MIN (>60)
[2024-07-06 05:56] LABS: Anion Gap 23.4 mEq/L (5-15); Glucose 256 mg/dl (74-100); Phosphorous 2.2 mg/dl (2.5-4.5)
[2024-07-06 05:59] LABS: Carbon Dioxide < 5 mmol/L (22.0-30.0)
--- NOTE | 2024-07-06 06:00 | ECG_ITS ---
APPROVED REPORT Exam: Resting ECG HR:111 bpm ECG Measurements Heart Rate 111 AXES MN 193 P 240 QRSd 100 QRS 19 QT 348 T 64 QTc 414 Conclusion SINUS TACHYCARDIA NONSPECIFIC T-WAVE ABNORMALITY ABNORMAL RHYTHM ECG UNCONFIRMED REPORT Electronically signed by : Florentino Marley MD 07/07/2024 12:22:32
[2024-07-06 07:45] LABS: Basophils % 0.2 % (0.1-2.0); Hematocrit 44.3 % (37.0-47.0); Lymphocytes # 0.5 K/mm3 (0.7-4.5); Lymphocytes % 4.3 % (10-50); Mean Corpuscular HGB Conc 32.3 g/dL (31.8-35.4); Mean Corpuscular Hemoglobin 28.1 pg (27.0-31.2); Mean Platelet Volume 10.9 fl (7.4-10.4); Monocytes # 1.7 K/mm3 (0.1-1.0); Monocytes % 13.1 % (1.7-9.3); Neutrophils # 10.4 K/mm3 (1.8-7.8); Neutrophils % 81.8 % (37.0-80.0); Platelet Count 185 K/mm3 (142-424); Red Blood Count 5.09 M/mm3 (4.20-5.40); Red Cell Distribution Width 13.5 % (11.5-17.5); White Blood Count 12.7 K/mm3 (4.8-10.8)
--- NOTE | 2024-07-06 07:45 | CA_ITS ---
APPROVED REPORT EXAM: Comprehensive 2D, Doppler, and color-flow Echocardiogram [employer]: GAUTAM Hagen, RVS Ht: 5 ft 4 in Wt: 173lbs BSA: 1.84 BP: 112/48 mmHg Indications: DKA, DANAY, NSTEMI, increasedTroponin, Shock, AMS Echo Enhancing Agent Comments: Technically limited due to low paraternal windows 2D Dimensions IVSd 0.87 cm F: 0.6-1.0 LVEF (Visual) 46.20 % PWd 0.82 cm F: 0.6 - 1.0 LA Volume 41.90 mL LVDd 3.70 cm F: 3.9 - 5.3 LA Volume Index [id number] mL/m2 (M/F) 16-34 LVDs 3.16 cm F: 2.2 - 3.5 Left Atrium 3.49 cm F: 2.7 - 3.8 M-Mode Dimensions LA Diam 3.68 cm (1.9-4.0) EPSs 0.39 cm TAPSE 2.34 (<1.7) LV Diastology E Decel Time 180 (160-240 msec) E/A Ratio 0.79 MED A' 12.40 cm/s LAT A' 16.90 cm/s Aortic Valve LISA Index 1.43 cm2/m2 AoV Peak Wil. 145.0 (50-130 cm/s) AO Peak GR. 8.40 mmHg AO Mean GR. 4.10 (<5 mmHg) AO VTI 24.9 (18-25 cm) LISA (VTI) 2.68 (2.5-4.5 cm2) Mitral Valve MV A Velocity 120.0 (40-130 cm/s) E/A Ratio 0.79 Left Ventricle The left ventricle is normal size. The left ventricular systolic function is normal. The left ventricular ejection fraction is within the normal range. There is increased LV wall thickness. There is normal LV segmental wall motion. The left ventricular diastolic function is normal. LVEF is 65%. Right Ventricle The right ventricle is normal size. The right ventricular systolic function is normal. Atria The left atrium size is normal. The right atrium size is normal. There is no Doppler evidence of interatrial shunt. Aortic Valve The aortic valve is mildly thickened. There is no aortic valvular stenosis. Trace aortic regurgitation is present. Mitral Valve The mitral valve is normal in structure. No evidence of mitral valve stenosis. Trace mitral regurgitation. Tricuspid Valve Tricuspid valve is grossly normal in structure and function. Trace tricuspid regurgitation. There is insufficient TR jet to estimate RVSP. Pulmonic Valve The pulmonary valve is normal in structure. Trace pulmonic regurgitation. Great Vessels The aortic root is not well visualized. IVC is normal in size and collapses >50% with inspiration. Pericardium There is no pericardial effusion. Other Information Study Quality: Technically Difficult Conclusion Technically difficult study due to poor accoustic windows. Normal biventricular systolic function. No significant valvular stenosis or regurgitation. Electronically signed by : Caron Burns MD 07/06/2024 11:04:13
--- NOTE | 2024-07-06 08:01 | P.CONPHA_ITS ---
Pharmacy Consult Date: 07/06/24 Time: 08:02 Referring provider: DR. DOMINGUEZ Reason for Consult:: VANCOMYCIN DOSING Allergies Allergy/AdvReac Type Severity Reaction Status Date / Time Thiothixene Allergy Unknown Uncoded 02/23/19 13:55 Home Medications ?Medication ?Instructions ?Recorded ?Confirmed ?Type lisinopril 30 mg tablet 30 mg PO DAILY 07/05/24 07/05/24 History paroxetine HCl 20 mg tablet 20 mg PO DAILY 07/05/24 07/05/24 History New Prescriptions to Start Prescriptions: Height: 1.65 m Weight: 78.698 kg Laboratory Results:: Laboratory Results - last 24 hr 07/05/24 14:40: WBC 19.5 H, RBC 5.77 H, Hgb 16.4 H, Hct 51.5 H, MCV 89.3, MCH 28.4, MCHC 31.8, RDW 13.3, Plt Count 250, MPV 10.9 H, Neut % (Auto) 81.2 H, Lymph % (Auto) 5.2 L, [place] % (Auto) 11.5 H, Eos % (Auto) 0.0 L, Baso % (Auto) 0.7, Neut # (Auto) 15.8 H, Lymph # (Auto) 1.0, [place] # (Auto) 2.2 H, Eos # (Auto) 0.0, Baso # (Auto) 0.1, Total Counted 100, Neutrophils % (Manual) 93 H, Lymphocytes % (Manual) 4 L, Monocytes % (Manual) 3, Platelet Estimate Normal, RBC Morphology Normal, Sodium 130 L, Potassium 3.3 L, Chloride 100, Carbon Dioxide < 5 L*, Anion Gap 28.3 H, BUN 36 H, Creatinine 1.40 H, Estimated Creat Clear 48, Estimated GFR 37 L, Est GFR ( Amer) 45 L, Glucose 581 H*, Hemoglobin A1c 12.6 H, Calcium 9.9, Phosphorus 3.5, Magnesium 2.9 H, Total Bilirubin 0.6, AST 27, ALT 26, Alkaline Phosphatase 200 H, Troponin I 0.13 H, NT-Pro-B Natriuret Pep 671 H, Total Protein 7.5, Albumin 4.3, Globulin 3.1, Albumin/Globulin Ratio 1.4, Lipase 106, Procalcitonin 2.11 H, Acetone Level Small 07/05/24 14:41: SARS-CoV-2 (PCR) Not detected, Influenza Type A (PCR) Not detected, Influenza Type B (PCR) Not detected, RSV (PCR) Not detected, Rhinovirus (PCR) Not detected 07/05/24 14:47: VBG pH 6.89 L, VBG pCO2 26.9 L, VBG pO2 48.8 H, VBG HCO3 5.0 L, VBG Total CO2 5.8 L, VBG O2 Saturation 75.0 H, VBG Base Excess -28.1 L, VBG Lactic Acid 4.5 H 07/05/24 14:56: Urine Color Yellow, Urine Appearance Sl cloudy, Urine pH 5.5, Ur Specific [place] 1.025, Urine Protein 1+ A, Urine Glucose (UA) 2+, Urine Ketones 3+, Urine Blood 3+ A, Urine Nitrate Negative, Urine Bilirubin 1+ A, Urine Urobilinogen 0.2, Ur Leukocyte Esterase Negative, Urine RBC 3-5, Urine WBC 3-5, Ur Squamous Epith Cells 3-5, Urine Bacteria 1+, Fine Granular Casts 3-5, Urine Opiates Screen Negative, Urine Methadone Screen Negative, Ur Barbituates Screen Negative, Ur Phencyclidine Scrn Negative, Ur Amphetamines Screen Negative, U Keshav zodiazepines Scrn Negative, Urine Cocaine Screen Negative, U Marijuana (THC) Screen Negative 07/05/24 18:26: Sodium 136, Potassium 2.9 L*, Chloride 111 H, Carbon Dioxide < 5 L*, Anion Gap 22.9 H, BUN 33 H, Creatinine 0.90 D, Estimated Creat Clear 67, Estimated GFR 62, Est GFR ( Amer) 75 D, Glucose 367 H D, Calcium 9.1, Phosphorus 2.6 D, Magnesium 2.3 D, Troponin I 0.93 H 07/05/24 19:39: Lactate 1.8 07/05/24 21:07: Sodium 132 L, Potassium 3.2 L, Chloride 106, Carbon Dioxide < 5 L*, Anion Gap 24.2 H, BUN 30 H, Creatinine 0.60 D, Estimated Creat Clear 67, Estimated GFR 99, Est GFR ( Amer) 120 D, Glucose 231 H D, Calcium 7.6 L, Phosphorus 1.9 L D, Magnesium 1.9 D, Troponin I 3.96 H 07/05/24 21:54: VBG pH 7.19 L, VBG pCO2 21.4 L, VBG pO2 77.8 H, VBG HCO3 8.0 L, VBG Total CO2 8.6 L, VBG O2 Saturation 95.8 H, VBG Base Excess -20.3 L, VBG Lactic Acid 2.1 H 07/06/24 01:45: Sodium 142, Potassium 2.3 L* D, Chloride 109 H, Carbon Dioxide 19 L, Anion Gap 16.3 H, BUN 25 H, Creatinine 0.50 L, Estimated Creat Clear 67, Estimated GFR 122, Est GFR ( Amer) 148 D, Glucose 224 H, Calcium 6.4 L, Phosphorus 1.4 L D, Magnesium 1.6 D 07/06/24 05:10: WBC 12.7 H D, RBC 5.09, Hct 44.3, MCV 87.0, MCH 28.1, MCHC 32.3, RDW 13.5, Plt Count 185 D, MPV 10.9 H, Neut % (Auto) 81.8 H, Lymph % (Auto) 4.3 L, [place] % (Auto) 13.1 H, Eos % (Auto) 0.0 L, Baso % (Auto) 0.2, Neut # (Auto) 10.4 H, Lymph # (Auto) 0.5 L, [place] # (Auto) 1.7 H, Eos # (Auto) 0.0, Baso # (Auto) 0.0 07/06/24 05:30: VBG pH 7.11 L, VBG pCO2 19.9 L, VBG pO2 196.0 H, VBG HCO3 6.2 L, VBG Total CO2 6.8 L, VBG O2 Saturation 99.2 H, VBG Base Excess -23.3 L, VBG Lactic Acid 2.7 H, Sodium 133 L, Potassium 3.4 L D, Chloride 108 H, Carbon Dioxide < 5 L* D, Anion Gap 23.4 H, BUN 24 H, Creatinine 0.60, Estimated Creat Clear 66, Estimated GFR 99, Est GFR ( Amer) 120, Glucose 256 H, Calcium 8.0 L, Phosphorus 2.2 L D, Magnesium 2.0 D Medical History: Medical History (Updated 07/05/24 @ 18:48 by Giovanna Cordova RN) Diabetes mellitus Diabetes Diabetes Assessment and Plan Assessment and plan all Dx Assessment and Plan for all problems:: Pharmacokinetic dosing service Objective: Patient: Floor: Age: 68 yo Serum creatinine: 0.60 mg/dL Height: 65.0 Inches Weight (kg): 78.7 Assessment: IBW (kg): 57.00 Dosing wt(kg): 78.7 Estimated Creatinine clearance (ml/min): 79.6 CRCL method: Cockcroft and Gault using ibw(default). Drug selected: Vancomycin Loading dose (mg): Vd (liters): 63.0 (factor used: 0.8 L/kg) Angel (hr-1): 0.070 Half life (hrs): 9.90 CLvanco=?? 4.410 L/hr Recommended dose: 1250 mg Interval: 12 hrs Infusion time (hrs): 2.0 Predicted peak (mcg/mL): 32.6 Predicted trough (mcg/mL): 16.19 Total body weight is being used for vancomycin dosing. Recommendations: Give Vancomycin 1250 mg q 12 hrs with an expected Cpeak of 32.6 mcg/ml and an expected Ctrough of 16.19 mcg/ml AUC 0-24 /ANNA Data: ANNA 0.5 mcg/mL:?? AUC/ANNA:? 1133.8 ANNA 1.0 mcg/mL:?? AUC/ANNA:? 566.9 --------- ANNA 1.5 mcg/mL:?? AUC/ANNA:? 377.9 ANNA 2.0 mcg/mL:?? AUC/ANNA:? 283.4 Thank you for the consult, will continue to follow. -MISTY SMYTHD
[2024-07-06 08:08] LABS: Hemoglobin 14.3 g/dL (12.2-16.2)
[2024-07-06 08:27] LABS: Troponin I 1.94 ng/ml (0.00-0.034)
[2024-07-06] MEDS: SODIUM CHLORIDE 999 ML IV (08:37)
[2024-07-06] MEDS: SODIUM BICARBONATE 150 MEQ in 0.9 % SODIUM CHLORIDE 1000ML 1,000 ML IV ×2 (08:38→16:07)
[2024-07-06] MEDS: ONDANSETRON 4MG/2ML VIAL 4 MG IV (09:37)
[2024-07-06 09:51] LABS: Reflex Lactic Add Lactic Reflex
[2024-07-06 10:03] LABS: POC Glucose,Bedside 273 (70-110)
[2024-07-06 10:03] LABS: POC Glucose,Bedside 234 (70-110)
[2024-07-06 10:03] LABS: POC Glucose,Bedside 212 (70-110)
[2024-07-06 10:03] LABS: POC Glucose,Bedside 256 (70-110)
[2024-07-06 10:03] LABS: POC Glucose,Bedside 312 (70-110)
[2024-07-06 10:03] LABS: POC Glucose,Bedside 239 (70-110)
[2024-07-06 10:03] LABS: POC Glucose,Bedside 270 (70-110)
[2024-07-06 10:03] LABS: POC Glucose,Bedside 321 (70-110)
[2024-07-06 10:03] LABS: POC Glucose,Bedside 258 (70-110)
[2024-07-06 10:03] LABS: POC Glucose,Bedside 257 (70-110)
[2024-07-06 10:03] LABS: POC Glucose,Bedside 263 (70-110)
[2024-07-06 10:03] LABS: POC Glucose,Bedside 247 (70-110)
[2024-07-06 10:03] LABS: POC Glucose,Bedside 241 (70-110)
[2024-07-06 10:03] LABS: POC Glucose,Bedside 221 (70-110)
[2024-07-06 10:38] LABS: POC Glucose,Bedside 244 (70-110)
[2024-07-06 10:43] LABS: Blood Urea Nitrogen 24 mg/dl (7-17); Calcium 8.2 mg/dl (8.4-10.2); Chloride 111 mmol/L (98-107); Creatinine Clearance Estimated 67 mL/min (50-200); Estimated Glomerular Filt Rate 99 ml/min (>60); GFR (African American) 120 ML/MIN (>60); Glucose 258 mg/dl (74-100); Potassium 3.5 mmoL/L (3.5-5.1); Sodium 136 mmol/L (136-145)
[2024-07-06 10:44] LABS: Anion Gap 23.5 mEq/L (5-15)
[2024-07-06 10:45] LABS: Carbon Dioxide 5 mmol/L (22.0-30.0)
--- NOTE | 2024-07-06 10:59 | EXP.CARD.CON ---
History of Present Illness History of Present Illness Consult date: 07/06/24 Requesting physician: Nigel Sultana Chief complaint: Elevated troponins Additional Medical History:: 1. History of hypertension 2. Diabetes, unknown type A. DKA with UTI and NSTEMI, 07/2024 B. Echo, 07/2024, EF 65% with no wall motion abnormalities or valve disease. 3. History of major depression History of present illness: Le Vogel is a 68-year-old female with a medical history significant for diabetes, hypertension, anxiety/depression who was found by EMS sitting in a nonheated garage, in per patient she was apparently waiting for them. Patient has significant alteration in mental status upon arrival, GCS around 8. Workup in the ED significant for WBC 19.5, VBG pH 6.89, pCO2 26.9, lactic acid 4.5, undetectable bicarb, AGAP 28.3, glucose 581, ketonuria, procalcitonin 2.11, troponin 0.13. CXR, head/chest/abdomen/pelvis CTs did not show acute findings. She was given vancomycin, Zosyn and started on DKA protocol. Case discussed with ED provider decision was made to admit patient for DKA and possible sepsis. The above per Dr. Sultana Cardiology consulted for elevated troponins in setting of DKA. This AM patient is alert but unsure of where she is located. She knows it is 2024. When asked how long she has been treated for diabetes she states my birthday...1946 (she was born in 1956). She denies any chest pain at this time. Telemetry is sinus tach at about 110 bpm. Echo in progress. [facility] Disclaimer: The information contained in this section may have been updated after the patient was seen, as this information can be updated by other users. Medical History (Updated 07/06/24 @ 11:10 by MICAELA Ernst) Diabetes mellitus Diabetes Diabetes Social History (Updated 07/05/24 @ 20:34 by MICAELA Brady) Smoking Status: Unknown if ever smoked alcohol intake: never substance use type: denies use and marijuana (she did try 1 puff on THC back in 1971; nothing since then) current occupational status: disabled Travel in the last 8 weeks: None number of children: 0 Have you lived/traveled outside [place] in past 30 days?: No Contact w/someone who lives/traveled outside US past 30 days?: No Exposure to someone with infectious disease in past 14 days?: No Do you have a fever (greater than 100.4 F or 38 C)?: No Have you tested positive for COVID-19: No Exposed to someone with COVID-19 in past 14 days?: No Do you have a sore throat?: No Do you have a cough?: No Do you have any weakness?: Yes Do you have any diarrhea?: No Are you experiencing any unusual bleeding?: No Do you have any muscle aches/pain?: No Do you have any abdominal pain?: No Are you experiencing loss of taste or smell?: No Review of Systems Review of Systems Review of systems:: pertinent systems reviewed and negative unless documented below *Cardiovascular Cardiovascular: Denies chest pain and Denies dyspnea *Respiratory Respiratory: Reports cough and Denies dyspnea Exam Data for Last 24 hours Vital signs and Labs for Last 24 Hours: Temp Pulse Resp BP Pulse Ox O2 Del Method O2 Flow Rate 97.9 F 107 H 22 139/72 99 Room Air 2 07/06/24 10:00 07/06/24 09:01 07/06/24 10:00 07/06/24 10:00 07/06/24 09:01 07/06/24 09:01 07/05/24 14:23 Laboratory Results - last 24 hr 07/05/24 14:40: WBC 19.5 H, RBC 5.77 H, Hgb 16.4 H, Hct 51.5 H, MCV 89.3, MCH 28.4, MCHC 31.8, RDW 13.3, Plt Count 250, MPV 10.9 H, Neut % (Auto) 81.2 H, Lymph % (Auto) 5.2 L, [place] % (Auto) 11.5 H, Eos % (Auto) 0.0 L, Baso % (Auto) 0.7, Neut # (Auto) 15.8 H, Lymph # (Auto) 1.0, [place] # (Auto) 2.2 H, Eos # (Auto) 0.0, Baso # (Auto) 0.1, Total Counted 100, Neutrophils % (Manual) 93 H, Lymphocytes % (Manual) 4 L, Monocytes % (Manual) 3, Platelet Estimate Normal, RBC Morphology Normal, Sodium 130 L, Potassium 3.3 L, Chloride 100, Carbon Dioxide < 5 L*, Anion Gap 28.3 H, BUN 36 H, Creatinine 1.40 H, Estimated Creat Clear 48, Estimated GFR 37 L, Est GFR ( Amer) 45 L, Glucose 581 H*, Hemoglobin A1c 12.6 H, Calcium 9.9, Phosphorus 3.5, Magnesium 2.9 H, Total Bilirubin 0.6, AST 27, ALT 26, Alkaline Phosphatase 200 H, Troponin I 0.13 H, NT-Pro-B Natriuret Pep 671 H, Total Protein 7.5, Albumin 4.3, Globulin 3.1, Albumin/Globulin Ratio 1.4, Lipase 106, Procalcitonin 2.11 H, Acetone Level Small 07/05/24 14:41: SARS-CoV-2 (PCR) Not detected, Influenza Type A (PCR) Not detected, Influenza Type B (PCR) Not detected, RSV (PCR) Not detected, Rhinovirus (PCR) Not detected 07/05/24 14:47: VBG pH 6.89 L, VBG pCO2 26.9 L, VBG pO2 48.8 H, VBG HCO3 5.0 L, VBG Total CO2 5.8 L, VBG O2 Saturation 75.0 H, VBG Base Excess -28.1 L, VBG Lactic Acid 4.5 H 07/05/24 14:56: Urine Color Yellow, Urine Appearance Sl cloudy, Urine pH 5.5, Ur Specific [place] 1.025, Urine Protein 1+ A, Urine Glucose (UA) 2+, Urine Ketones 3+, Urine Blood 3+ A, Urine Nitrate Negative, Urine Bilirubin 1+ A, Urine Urobilinogen 0.2, Ur Leukocyte Esterase Negative, Urine RBC 3-5, Urine WBC 3-5, Ur Squamous Epith Cells 3-5, Urine Bacteria 1+, Fine Granular Casts 3-5, Urine Opiates Screen Negative, Urine Methadone Screen Negative, Ur Barbituates Screen Negative, Ur Phencyclidine Scrn Negative, Ur Amphetamines Screen Negative, U Benzodiazepines Scrn Negative, Urine Cocaine Screen Negative, U Marijuana (THC) Screen Negative 07/05/24 18:18: POC Glucose 321 H* 07/05/24 18:26: Sodium 136, Potassium 2.9 L*, Chloride 111 H, Carbon Dioxide < 5 L*, Anion Gap 22.9 H, BUN 33 H, Creatinine 0.90 D, Estimated Creat Clear 67, Estimated GFR 62, Est GFR ( Amer) 75 D, Glucose 367 H D, Calcium 9.1, Phosphorus 2.6 D, Magnesium 2.3 D, Troponin I 0.93 H 07/05/24 19:05: POC Glucose 257 H 07/05/24 19:39: Lactate 1.8 07/05/24 20:15: POC Glucose 221 H 07/05/24 21:07: Sodium 132 L, Potassium 3.2 L, Chloride 106, Carbon Dioxide < 5 L*, Anion Gap 24.2 H, BUN 30 H, Creatinine 0.60 D, Estimated Creat Clear 67, Estimated GFR 99, Est GFR ( Amer) 120 D, Glucose 231 H D, Calcium 7.6 L, Phosphorus 1.9 L D, Magnesium 1.9 D, Troponin I 3.96 H 07/05/24 21:09: POC Glucose 212 H 07/05/24 21:54: VBG pH 7.19 L, VBG pCO2 21.4 L, VBG pO2 77.8 H, VBG HCO3 8.0 L, VBG Total CO2 8.6 L, VBG O2 Saturation 95.8 H, VBG Base Excess -20.3 L, VBG Lactic Acid 2.1 H 07/05/24 22:27: POC Glucose 234 H 07/05/24 23:00: POC Glucose 258 H 07/06/24 00:19: POC Glucose 239 H 07/06/24 01:13: POC Glucose 241 H 07/06/24 01:45: Sodium 142, Potassium 2.3 L* D, Chloride 109 H, Carbon Dioxide 19 L, Anion Gap 16.3 H, BUN 25 H, Creatinine 0.50 L, Estimated Creat Clear 67, Estimated GFR 122, Est GFR ( Amer) 148 D, Glucose 224 H, Calcium 6.4 L, Phosphorus 1.4 L D, Magnesium 1.6 D 07/06/24 03:08: POC Glucose 270 H 07/06/24 04:58: POC Glucose 247 H 07/06/24 05:10: WBC 12.7 H D, RBC 5.09, Hgb 14.3 D, Hct 44.3, MCV 87.0, MCH 28.1, MCHC 32.3, RDW 13.5, Plt Count 185 D, MPV 10.9 H, Neut % (Auto) 81.8 H, Lymph % (Auto) 4.3 L, [place] % (Auto) 13.1 H, Eos % (Auto) 0.0 L, Baso % (Auto) 0.2, Neut # (Auto) 10.4 H, Lymph # (Auto) 0.5 L, [place] # (Auto) 1.7 H, Eos # (Auto) 0.0, Baso # (Auto) 0.0 07/06/24 05:30: VBG pH 7.11 L, VBG pCO2 19.9 L, VBG pO2 196.0 H, VBG HCO3 6.2 L, VBG Total CO2 6.8 L, VBG O2 Saturation 99.2 H, VBG Base Excess -23.3 L, VBG Lactic Acid 2.7 H, Sodium 133 L, Potassium 3.4 L D, Chloride 108 H, Carbon Dioxide < 5 L* D, Anion Gap 23.4 H, BUN 24 H, Creatinine 0.60, Estimated Creat Clear 66, Estimated GFR 99, Est GFR ( Amer) 120, Glucose 256 H, Calcium 8.0 L, Phosphorus 2.2 L D, Magnesium 2.0 D, Troponin I 1.94 H 07/06/24 06:05: POC Glucose 263 H 07/06/24 06:52: POC Glucose 273 H 07/06/24 08:21: POC Glucose 256 H 07/06/24 09:30: Sodium 136, Potassium 3.5, Chloride 111 H, Carbon Dioxide 5 L*, Anion Gap 23.5 H, BUN 24 H, Creatinine 0.60, Estimated Creat Clear 67, Estimated GFR 99, Est GFR ( Amer) 120, Glucose 258 H, Calcium 8.2 L, Phosphorus 2.0 L, Magnesium 2.0 07/06/24 09:52: POC Glucose 312 H* 07/06/24 10:31: POC Glucose 244 H I & O for Last 24 hours: Intake & Output 07/03/24 07/04/24 07/05/24 07/06/24 11:59 11:59 11:59 11:59 Intake Total 1568.325 / 1568.325 Output Total 6700 / 6700 Balance -5131.675 / -5131.675 Weight 176 lb 0.978 oz Microbiology Reports for the Last 24 Hours: Microbiology 07/05/24 15:22 Blood Blood Culture - Preliminary 07/05/24 14:40 Blood Blood Culture - Preliminary Constitutional Constitutional: no acute distress *Routine Respiratory Exam Respiratory: Present decreased breath sounds and rhonchi; Absent wheezes *Routine Cardiovascular Exam Cardiovascular: Present RRR, murmur and tachycardia; Absent gallop or rubs *Routine Extremities Exam Extremities: Present edema Meds Home Medications and Allergies Home Medications ?Medication ?Instructions ?Recorded ?Confirmed ?Type lisinopril 30 mg tablet 30 mg PO DAILY 07/05/24 07/05/24 History paroxetine HCl 20 mg tablet 20 mg PO DAILY 07/05/24 07/05/24 History New Prescriptions to Start Prescriptions: Allergies Allergy/AdvReac Type Severity Reaction Status Date / Time Thiothixene Allergy Unknown Uncoded 02/23/19 13:55 Assessment and Plan *Assessment and plan (1) DKA (diabetic ketoacidosis): Status: Acute Qualifiers: Diabetes mellitus complication detail: without coma Diabetes mellitus type: type 2 Qualified Code(s): E11.10 - Type 2 diabetes mellitus with ketoacidosis without coma Category: Medical Code(s): E11.10 - Type 2 diabetes mellitus with ketoacidosis without coma (2) Acute hyponatremia: Status: Acute Category: Medical Code(s): E87.1 - Hypo-osmolality and hyponatremia (3) Hypokalemia: Status: Acute Category: Medical Code(s): E87.6 - Hypokalemia (4) Non-ST elevation CA (NSTEMI): Status: Acute Category: Medical Code(s): I21.4 - Non-ST elevation (NSTEMI) myocardial infarction (5) Urinary tract infectious disease: Status: Acute Qualifiers: Hematuria presence: with hematuria Urinary tract infection type: site unspecified Qualified Code(s): N39.0 - Urinary tract infection, site not specified; R31.9 - Hematuria, unspecified Category: Medical Code(s): N39.0 - Urinary tract infection, site not specified Plan 1. DKA with hypothermia, multiple electrolyte disorders -per Dr. Sultana -potassium being replaced -on insulin, bicarb -on piperacillin and vancomycin -on lovenox -Hgb A1C 12.6 2. Elevated troponins/NSTEMI type II due to DKA -echo shows normal biventricular function without significant valve disease -no complaints of chest pain -no EKG changes -elevated BNP but chest CT negative for CHF 3. UTI -on piperacillin and vancomycin 4. Confusion -multifactorial 5. History of Hypertension -resume lisinopril as BP allows 6. Blood in stool -Hgb normal 7. History of major depressive disorder -on paroxetine Recommend cardiac cath next week once neuro and clinical status back to baseline and electrolytes back to normal. Hold on ASA and beta celso or GDMT for now.
[2024-07-06 11:05] LABS: Lactic Acid Follow Up (RFLX 1) 0.8 mmol/L (0.7-2.1)
[2024-07-06 11:07] LABS: Occult Blood,Gastric Fluid Positive (Negative)
[2024-07-06 11:14] LABS: POC Glucose,Bedside 253 (70-110)
[2024-07-06] MEDS: ENOXAPARIN 40MG/0.4ML SYRINGE 40 MG SUBCUT (11:48)
[2024-07-06 12:16] LABS: POC Glucose,Bedside 179 (70-110)
[2024-07-06 13:10] LABS: POC Glucose,Bedside 169 (70-110)
[2024-07-06 14:10] LABS: POC Glucose,Bedside 154 (70-110)
[2024-07-06 15:25] LABS: POC Glucose,Bedside 154 (70-110)
[2024-07-06 15:48] LABS: Chloride 113 mmol/L (98-107)
[2024-07-06 15:49] LABS: Potassium 3.8 mmoL/L (3.5-5.1); Sodium 136 mmol/L (136-145)
[2024-07-06 15:51] LABS: Blood Urea Nitrogen 20 mg/dl (7-17); Creatinine Clearance Estimated 67 mL/min (50-200); Estimated Glomerular Filt Rate 122 ml/min (>60); GFR (African American) 148 ML/MIN (>60)
[2024-07-06 15:52] LABS: Anion Gap 14.8 mEq/L (5-15); Calcium 7.4 mg/dl (8.4-10.2); Carbon Dioxide 12 mmol/L (22.0-30.0); Glucose 171 mg/dl (74-100)
[2024-07-06 15:55] LABS: Phosphorous 1.2 mg/dl (2.5-4.5)
[2024-07-06 16:10] LABS: POC Glucose,Bedside 179 (70-110)
[2024-07-06] MEDS: VANCOMYCIN/WATER FOR INJ (PEG) 1.25 GM/250 ML PIGGYBACK IV (17:13)
[2024-07-06 17:29] LABS: POC Glucose,Bedside 146 (70-110)
[2024-07-06] MEDS: D5W/0.45% NaCl w/40mEq KCl 1,000 ML 125 ML IV (17:51)
[2024-07-06 18:20] LABS: POC Glucose,Bedside 140 (70-110)
[2024-07-06 19:16] LABS: POC Glucose,Bedside 141 (70-110)
--- NOTE | 2024-07-06 19:33 | PC.NURSE ---
Nurse spoke with pharmacy to see which of the patients IV medications were compatible. Pharmacy stated the sodium phosphate, d5 0.45NS w/ 40mEq potassium, Inslin drip, bicarb drip are all compatible to be ran concurrent if needed.
[2024-07-06] MEDS: SODIUM PHOSPHATE 15 MMOL in 0.9 % SODIUM CHLORIDE 250 ML 63.75 MMOL IV (19:36)
[2024-07-06 20:08] LABS: POC Glucose,Bedside 126 (70-110)
[2024-07-06 21:12] LABS: POC Glucose,Bedside 178 (70-110)
--- NOTE | 2024-07-06 21:55 | EXP.PN ---
Subjective *Date: 07/06/24 *Time: 21:55 Exam Data for Last 24 hours Vital signs and Labs for Last 24 Hours: Temp Pulse Resp BP Pulse Ox O2 Del Method O2 Flow Rate 99.1 F 98 H 23 132/61 96 Room Air 2 07/06/24 21:00 07/06/24 21:00 07/06/24 21:00 07/06/24 21:00 07/06/24 21:00 07/06/24 19:00 07/05/24 14:23 Laboratory Results - last 24 hr 07/05/24 18:18: POC Glucose 321 H* 07/05/24 19:05: POC Glucose 257 H 07/05/24 20:15: POC Glucose 221 H 07/05/24 21:07: Troponin I 3.96 H 07/05/24 21:09: POC Glucose 212 H 07/05/24 21:54: VBG pH 7.19 L, VBG pCO2 21.4 L, VBG pO2 77.8 H, VBG HCO3 8.0 L, VBG Total CO2 8.6 L, VBG O2 Saturation 95.8 H, VBG Base Excess -20.3 L, VBG Lactic Acid 2.1 H 07/05/24 22:27: POC Glucose 234 H 07/05/24 23:00: POC Glucose 258 H 07/06/24 00:19: POC Glucose 239 H 07/06/24 01:13: POC Glucose 241 H 07/06/24 01:45: Sodium 142, Potassium 2.3 L* D, Chloride 109 H, Carbon Dioxide 19 L, Anion Gap 16.3 H, BUN 25 H, Creatinine 0.50 L, Estimated Creat Clear 67, Estimated GFR 122, Est GFR ( Amer) 148 D, Glucose 224 H, Calcium 6.4 L, Phosphorus 1.4 L D, Magnesium 1.6 D 07/06/24 03:08: POC Glucose 270 H 07/06/24 04:58: POC Glucose 247 H 07/06/24 05:10: WBC 12.7 H D, RBC 5.09, Hgb 14.3 D, Hct 44.3, MCV 87.0, MCH 28.1, MCHC 32.3, RDW 13.5, Plt Count 185 D, MPV 10.9 H, Neut % (Auto) 81.8 H, Lymph % (Auto) 4.3 L, [place] % (Auto) 13.1 H, Eos % (Auto) 0.0 L, Baso % (Auto) 0.2, Neut # (Auto) 10.4 H, Lymph # (Auto) 0.5 L, [place] # (Auto) 1.7 H, Eos # (Auto) 0.0, Baso # (Auto) 0.0 07/06/24 05:30: VBG pH 7.11 L, VBG pCO2 19.9 L, VBG pO2 196.0 H, VBG HCO3 6.2 L, VBG Total CO2 6.8 L, VBG O2 Saturation 99.2 H, VBG Base Excess -23.3 L, VBG Lactic Acid 2.7 H, Sodium 133 L, Potassium 3.4 L D, Chloride 108 H, Carbon Dioxide < 5 L* D, Anion Gap 23.4 H, BUN 24 H, Creatinine 0.60, Estimated Creat Clear 66, Estimated GFR 99, Est GFR ( Amer) 120, Glucose 256 H, Calcium 8.0 L, Phosphorus 2.2 L D, Magnesium 2.0 D, Troponin I 1.94 H 07/06/24 06:05: POC Glucose 263 H 07/06/24 06:52: POC Glucose 273 H 07/06/24 08:21: POC Glucose 256 H 07/06/24 09:30: Sodium 136, Potassium 3.5, Chloride 111 H, Carbon Dioxide 5 L*, Anion Gap 23.5 H, BUN 24 H, Creatinine 0.60, Estimated Creat Clear 67, Estimated GFR 99, Est GFR ( Amer) 120, Glucose 258 H, Calcium 8.2 L, Phosphorus 2.0 L, Magnesium 2.0 07/06/24 09:35: Gastric Occult Blood Positive 07/06/24 09:52: POC Glucose 312 H* 07/06/24 10:31: POC Glucose 244 H 07/06/24 10:45: Lactate 0.8 07/06/24 11:07: POC Glucose 253 H 07/06/24 12:09: POC Glucose 179 H 07/06/24 13:03: POC Glucose 169 H 07/06/24 14:03: POC Glucose 154 H 07/06/24 15:17: POC Glucose 154 H 07/06/24 15:22: Sodium 136, Potassium 3.8, Chloride 113 H, Carbon Dioxide 12 L, Anion Gap 14.8, BUN 20 H, Creatinine 0.50 L, Estimated Creat Clear 67, Estimated GFR 122, Est GFR ( Amer) 148 D, Glucose 171 H D, Calcium 7.4 L, Phosphorus 1.2 L D, Magnesium 2.0 07/06/24 16:03: POC Glucose 179 H 07/06/24 17:22: POC Glucose 146 H 07/06/24 18:13: POC Glucose 140 H 07/06/24 19:09: POC Glucose 141 H 07/06/24 20:00: POC Glucose 126 H 07/06/24 21:04: POC Glucose 178 H I & O for Last 24 hours: Intake & Output 07/03/24 07/04/24 07/05/24 07/06/24 23:59 23:59 23:59 23:59 Intake Total 505.218 / 317.886 7136.687 / 3445.687 Output Total 1850 / 2200 6065 / 6065 Balance -1344.782 / -1694.782 -2619.313 / -2619.313 Weight 79.379 kg 79.86 kg Microbiology Reports for the Last 24 Hours: Microbiology 07/05/24 15:22 Blood Blood Culture - Preliminary 07/05/24 14:40 Blood Blood Culture - Preliminary Constitutional Constitutional: no acute distress *Routine HEENT Exam Head: Present normocephalic Eye: Present EOMI and PERRL ENT: Present mucous membranes moist *Routine Neck Exam Neck: Present supple; Absent lymphadenopathy *Routine Respiratory Exam Respiratory: Present CTA bilaterally *Routine Cardiovascular Exam Cardiovascular: Present RRR *Routine Abdominal Exam Abdominal: Present soft and normoactive bowel sounds; Absent tenderness *Routine Extremities Exam Extremities: Absent cyanosis, clubbing or edema *Routine Skin Exam Skin: Present warm; Absent rash *Routine Neurological Exam Neurological: Present alert and oriented X3 Assessment and Plan *Assessment and plan (1) DKA (diabetic ketoacidosis): Status: Acute Qualifiers: Diabetes mellitus complication detail: without coma Diabetes mellitus type: type 2 Qualified Code(s): E11.10 - Type 2 diabetes mellitus with ketoacidosis without coma Category: Medical Code(s): E11.10 - Type 2 diabetes mellitus with ketoacidosis without coma Plan Le Vogel is a 68-year-old female with a medical history significant for diabetes, hypertension, anxiety/depression who was found by EMS sitting in a nonheated garage, in per patient she was apparently waiting for them. Patient has significant alteration in mental status upon arrival, GCS around 8. Workup in the ED significant for WBC 19.5, VBG pH 6.89, pCO2 26.9, lactic acid 4.5, undetectable bicarb, AGAP 28.3, glucose 581, ketonuria, procalcitonin 2.11, troponin 0.13. CXR, head/chest/abdomen/pelvis CTs did not show acute findings. She was given vancomycin, Zosyn and started on DKA protocol. Case discussed with ED provider decision was made to admit patient for DKA and possible sepsis. #DKA #Insulin-dependent diabetes ? Intial VBG pH 6.89, lactic acid 4.5, undetectable bicarb, AGAP 28.3, glucose 581, ketonuria, potassium 3.3. Hemoglobin A1c 12.6. ? Patient is mentating better now. States she had yogurt a few days ago and has had diarrhea that has resolved. Has had nausea/vomiting, and significant fatigue over the past few days. ? Bicarb improved to 12, discontinued bicarb drip. - Switched to D5 1/2NS with K+ @125ml/hr. - Continue insuline drip. ? Once AGAP closes x 2 and bicarb greater than 18 and tolerating p.o. intake, bridged with long-acting SQ insulin based on weight. #Severe sepsis #Leukocytosis, elevated procalcitonin #Hypothermia #Klebsiella bacteremia ? Patient was found in a cold garage, unclear how long she has been there. Continue Penelope callejas. - WBC improved to 12.7, peaked 19.5. - BC growing Klebsiella, pending sensitivies. - Continue ZOsyn. #Hypertension ? Resume home medications once reconciled. #Anxiety/depression ? Resume home medications once reconciled. Full code Lovenox 40 mg
[2024-07-06 22:05] LABS: Anion Gap 10.9 mEq/L (5-15); Blood Urea Nitrogen 18 mg/dl (7-17); Calcium 7.7 mg/dl (8.4-10.2); Carbon Dioxide 18 mmol/L (22.0-30.0); Chloride 111 mmol/L (98-107); Creatinine Clearance Estimated 67 mL/min (50-200); Estimated Glomerular Filt Rate 122 ml/min (>60); GFR (African American) 148 ML/MIN (>60); Glucose 185 mg/dl (74-100); Magnesium 1.8 mg/dl (1.6-2.3); Sodium 137 mmol/L (136-145)
[2024-07-06 22:09] LABS: Potassium 2.9 mmoL/L (3.5-5.1)
[2024-07-06 22:10] LABS: POC Glucose,Bedside 145 (70-110)
[2024-07-06] MEDS: POTASSIUM CHLORIDE 20MEQ TAB 60 MEQ PO (22:37)
[2024-07-06] MEDS: INSULIN GLARGINE 100 UNITS/ML 10ML VIAL 10 UNIT SUBCUT (22:43)
[2024-07-06] MEDS: 0.45% NaCl w/20mEq KCL 1,000 ML 75 ML IV (22:50)
[2024-07-06 23:23] LABS: POC Glucose,Bedside 203 (70-110)
[2024-07-07] VITALS (26 sets, daily range): BP systolic 110–155; BP diastolic 58–95; PULSE 81–119; RESP 20–24; TEMP 36.8–37.4; O2SAT 95–100; BMI 30.4
[2024-07-07 00:17] LABS: POC Glucose,Bedside 205 (70-110)
[2024-07-07 01:24] LABS: POC Glucose,Bedside 203 (70-110)
[2024-07-07 02:15] LABS: POC Glucose,Bedside 213 (70-110)
[2024-07-07 03:24] LABS: POC Glucose,Bedside 222 (70-110)
[2024-07-07 04:26] LABS: POC Glucose,Bedside 201 (70-110)
[2024-07-07] MEDS: humaLOG 100 UNITS/ML 10ML VIAL (SSI) SUBCUT ×2 (04:38→12:34)
[2024-07-07] MEDS: PIPERACILLIN/TAZO 4.5 GM in 0.9 % SODIUM CHLORIDE 100 ML IV (04:38)
[2024-07-07 05:19] LABS: Chloride 112 mmol/L (98-107); Sodium 147 mmol/L (136-145)
[2024-07-07 05:22] LABS: Anion Gap 23.6 mEq/L (5-15); Blood Urea Nitrogen 15 mg/dl (7-17); Calcium 6.1 mg/dl (8.4-10.2); Carbon Dioxide 14 mmol/L (22.0-30.0); Creatinine Clearance Estimated 69 mL/min (50-200); Estimated Glomerular Filt Rate 158 ml/min (>60); GFR (African American) 191 ML/MIN (>60); Glucose 183 mg/dl (74-100); Magnesium 1.4 mg/dl (1.6-2.3)
[2024-07-07 05:25] LABS: Potassium 2.6 mmoL/L (3.5-5.1)
[2024-07-07 05:30] LABS: POC Glucose,Bedside 184 (70-110)
[2024-07-07] MEDS: KCl 20mEq/100ml 100 ML 50 MEQ IV ×5 (05:57→19:32)
[2024-07-07] MEDS: POTASSIUM CHLORIDE 20MEQ TAB 40 MEQ PO (05:57)
[2024-07-07] MEDS: MAGNESIUM SULFATE IN WATER 2 GM/50 ML PIGGYBACK IV ×3 (06:06→08:25)
[2024-07-07 06:41] LABS: POC Glucose,Bedside 199 (70-110)
[2024-07-07 07:01] LABS: Magnesium 1.9 mg/dl (1.6-2.3)
[2024-07-07 08:40] LABS: Basophils % 0.2 % (0.1-2.0); Hematocrit 36.6 % (37.0-47.0); Hemoglobin 12.8 g/dL (12.2-16.2); Lymphocytes % 10.4 % (10-50); Mean Corpuscular Hemoglobin 28.6 pg (27.0-31.2); Mean Corpuscular Volume 81.9 fl (81-99); Mean Platelet Volume 11.3 fl (7.4-10.4); Monocytes # 1.1 K/mm3 (0.1-1.0); Monocytes % 11.2 % (1.7-9.3); Neutrophils # 7.4 K/mm3 (1.8-7.8); Neutrophils % 77.8 % (37.0-80.0); Platelet Count 133 K/mm3 (142-424); Red Blood Count 4.47 M/mm3 (4.20-5.40); Red Cell Distribution Width 13.2 % (11.5-17.5); White Blood Count 9.5 K/mm3 (4.8-10.8)
[2024-07-07 08:52] LABS: POC Glucose,Bedside 174 (70-110)
[2024-07-07 09:26] LABS: POC Glucose,Bedside 197 (70-110)
[2024-07-07] MEDS: CEFTRIAXONE SODIUM 2 GM in 0.9 % SODIUM CHLORIDE 100 ML IV (10:06)
[2024-07-07 10:12] LABS: Anion Gap 12.5 mEq/L (5-15); Blood Urea Nitrogen 15 mg/dl (7-17); Calcium 7.4 mg/dl (8.4-10.2); Carbon Dioxide 14 mmol/L (22.0-30.0); Chloride 108 mmol/L (98-107); Creatinine Clearance Estimated 69 mL/min (50-200); Estimated Glomerular Filt Rate 158 ml/min (>60); GFR (African American) 191 ML/MIN (>60); Glucose 196 mg/dl (74-100); Magnesium 3.4 mg/dl (1.6-2.3); Potassium 3.5 mmoL/L (3.5-5.1); Sodium 131 mmol/L (136-145)
[2024-07-07 10:18] LABS: POC Glucose,Bedside 171 (70-110)
[2024-07-07 11:10] LABS: POC Glucose,Bedside 199 (70-110)
[2024-07-07] MEDS: ENOXAPARIN 40MG/0.4ML SYRINGE 40 MG SUBCUT (11:16)
[2024-07-07 13:00] LABS: Potassium 4.4 mmoL/L (3.5-5.1)
[2024-07-07 13:54] LABS: POC Glucose,Bedside 238 (70-110)
[2024-07-07 14:02] LABS: Phosphorous 1.1 mg/dl (2.5-4.5)
[2024-07-07] MEDS: PARoxetine 20MG TABLET 20 MG PO (14:10)
[2024-07-07] MEDS: LISINOPRIL 10MG TABLET 30 MG PO (14:10)
[2024-07-07] MEDS: D5W/0.45% NaCl w/40mEq KCl 1,000 ML 75 ML IV ×2 (14:10→14:17)
[2024-07-07] MEDS: INSULIN REGULAR, HUMAN 100 UNIT in 0.9 % SODIUM CHLORIDE 100 ML 8.08 UNIT IV (14:11)
[2024-07-07] MEDS: SODIUM PHOSPHATE 15 MMOL in 0.9 % SODIUM CHLORIDE 250 ML 63.75 MMOL IV (14:17)
[2024-07-07 14:22] LABS: POC Glucose,Bedside 202 (70-110)
[2024-07-07 15:28] LABS: POC Glucose,Bedside 223 (70-110)
[2024-07-07 15:53] LABS: Chloride 108 mmol/L (98-107); Potassium 3.2 mmoL/L (3.5-5.1); Sodium 134 mmol/L (136-145)
[2024-07-07 15:56] LABS: Anion Gap 16.2 mEq/L (5-15); Blood Urea Nitrogen 14 mg/dl (7-17); Calcium 7.5 mg/dl (8.4-10.2); Carbon Dioxide 13 mmol/L (22.0-30.0); Creatinine Clearance Estimated 69 mL/min (50-200); Estimated Glomerular Filt Rate 158 ml/min (>60); GFR (African American) 191 ML/MIN (>60); Glucose 205 mg/dl (74-100); Magnesium 2.7 mg/dl (1.6-2.3)
[2024-07-07 16:13] LABS: POC Glucose,Bedside 209 (70-110)
[2024-07-07] MEDS: INSULIN REGULAR, HUMAN 100 UNIT in 0.9 % SODIUM CHLORIDE 100 ML IV (17:17)
[2024-07-07 18:14] LABS: POC Glucose,Bedside 155 (70-110)
[2024-07-07 19:13] LABS: POC Glucose,Bedside 164 (70-110)
[2024-07-07 20:02] LABS: POC Glucose,Bedside 175 (70-110)
--- NOTE | 2024-07-07 20:20 | PC.NURSE ---
notified Ra RICHARDS of + blood culture results
[2024-07-07] MEDS: FAMOTIDINE 20MG/2ML VIAL 20 MG IV (20:35)
[2024-07-07] MEDS: SODIUM CHLORIDE 0.9% 10ML VIAL 8 ML IV (20:35)
[2024-07-07 21:03] LABS: POC Glucose,Bedside 178 (70-110)
[2024-07-07 21:21] LABS: Chloride 110 mmol/L (98-107); Potassium 3.8 mmoL/L (3.5-5.1); Sodium 133 mmol/L (136-145)
[2024-07-07 21:24] LABS: Anion Gap 10.8 mEq/L (5-15); Blood Urea Nitrogen 14 mg/dl (7-17); Calcium 7.2 mg/dl (8.4-10.2); Carbon Dioxide 16 mmol/L (22.0-30.0); Creatinine Clearance Estimated 69 mL/min (50-200); Estimated Glomerular Filt Rate 221 ml/min (>60); GFR (African American) 267 ML/MIN (>60); Glucose 174 mg/dl (74-100); Magnesium 2.5 mg/dl (1.6-2.3)
[2024-07-07 22:15] LABS: POC Glucose,Bedside 138 (70-110)
--- NOTE | 2024-07-07 23:05 | EXP.PN ---
Subjective *Date: 07/08/24 *Time: 21:30 Exam Data for Last 24 hours Vital signs and Labs for Last 24 Hours: Temp Pulse Resp BP Pulse Ox O2 Del Method O2 Flow Rate 98.6 F 81 20 125/70 95 Room Air 3 07/07/24 22:00 07/07/24 22:00 07/07/24 22:00 07/07/24 22:00 07/07/24 22:00 07/07/24 22:00 07/07/24 03:00 Laboratory Results - last 24 hr 07/06/24 23:17: POC Glucose 203 H 07/07/24 00:10: POC Glucose 205 H 07/07/24 01:17: POC Glucose 203 H 07/07/24 02:07: POC Glucose 213 H 07/07/24 03:14: POC Glucose 222 H 07/07/24 04:17: POC Glucose 201 H 07/07/24 04:57: POC Glucose 184 H 07/07/24 04:58: Sodium 147 H, Potassium 2.6 L*, Chloride 112 H, Carbon Dioxide 14 L, Anion Gap 23.6 H, BUN 15, Creatinine 0.40 L, Estimated Creat Clear 69, Estimated GFR 158, Est GFR ( Amer) 191 D, Glucose 183 H, Calcium 6.1 L, Magnesium 1.4 L D 07/07/24 06:15: Phosphorus 1.1 L 07/07/24 06:30: Magnesium 1.9 D 07/07/24 06:34: POC Glucose 199 H 07/07/24 08:45: POC Glucose 174 H 07/07/24 09:19: POC Glucose 197 H 07/07/24 09:45: Sodium 131 L, Potassium 3.5 D, Chloride 108 H, Carbon Dioxide 14 L, Anion Gap 12.5, BUN 15, Creatinine 0.40 L, Estimated Creat Clear 69, Estimated GFR 158, Est GFR ( Amer) 191, Glucose 196 H, Calcium 7.4 L, Magnesium 3.4 H D 07/07/24 10:11: POC Glucose 171 H 07/07/24 11:04: POC Glucose 199 H 07/07/24 12:15: Potassium 4.4 D 07/07/24 13:47: POC Glucose 238 H 07/07/24 14:15: POC Glucose 202 H 07/07/24 15:21: POC Glucose 223 H 07/07/24 15:30: Sodium 134 L, Potassium 3.2 L D, Chloride 108 H, Carbon Dioxide 13 L, Anion Gap 16.2 H, BUN 14, Creatinine 0.40 L, Estimated Creat Clear 69, Estimated GFR 158, Est GFR ( Amer) 191, Glucose 205 H, Calcium 7.5 L, Magnesium 2.7 H D 07/07/24 16:06: POC Glucose 209 H 07/07/24 18:07: POC Glucose 155 H 07/07/24 19:05: POC Glucose 164 H 07/07/24 19:54: POC Glucose 175 H 07/07/24 20:50: Sodium 133 L, Potassium 3.8, Chloride 110 H, Carbon Dioxide 16 L, Anion Gap 10.8, BUN 14, Creatinine 0.30 L D, Estimated Creat Clear 69, Estimated GFR 221, Est GFR ( Amer) 267 D, Glucose 174 H, Calcium 7.2 L, Magnesium 2.5 H 07/07/24 20:56: POC Glucose 178 H 07/07/24 22:05: POC Glucose 138 H 07/07/24 : WBC 9.5 D, RBC 4.47, Hgb 12.8, Hct 36.6 L, MCV 81.9, MCH 28.6, MCHC 35.0, RDW 13.2, Plt Count 133 L D, MPV 11.3 H, Neut % (Auto) 77.8, Lymph % (Auto) 10.4, [place] % (Auto) 11.2 H, Eos % (Auto) 0.0 L, Baso % (Auto) 0.2, Neut # (Auto) 7.4, Lymph # (Auto) 1.0, [place] # (Auto) 1.1 H, Eos # (Auto) 0.0, Baso # (Auto) 0.0 I & O for Last 24 hours: Intake & Output 07/04/24 07/05/24 07/06/24 07/07/24 23:59 23:59 23:59 23:59 Intake Total 505.218 / 708.215 5935.384 / 3700.384 1983.942 / 1983.942 Output Total 1850 / 2200 6515 / 6515 3020 / 3020 Balance -1344.782 / -1694.782 -2814.616 / -2814.616 -1035.058 / -1035.058 Weight 79.379 kg 79.86 kg 82.69 kg Microbiology Reports for the Last 24 Hours: Microbiology 07/07/24 06:45 Blood Blood Culture - Preliminary 07/05/24 14:56 Urine,Catheterized Urine Culture - Preliminary Gram Negative Rods 07/05/24 14:40 Blood Blood Culture - Final Klebsiella pneumoniae Assessment and Plan *Assessment and plan (1) DKA (diabetic ketoacidosis): Status: Acute Qualifiers: Diabetes mellitus complication detail: without coma Diabetes mellitus type: type 2 Qualified Code(s): E11.10 - Type 2 diabetes mellitus with ketoacidosis without coma Category: Medical Code(s): E11.10 - Type 2 diabetes mellitus with ketoacidosis without coma Plan Le Vogel is a 68-year-old female with a medical history significant for diabetes, hypertension, anxiety/depression who was found by EMS sitting in a nonheated garage, in per patient she was apparently waiting for them. Patient has significant alteration in mental status upon arrival, GCS around 8. Workup in the ED significant for WBC 19.5, VBG pH 6.89, pCO2 26.9, lactic acid 4.5, undetectable bicarb, AGAP 28.3, glucose 581, ketonuria, procalcitonin 2.11, troponin 0.13. CXR, head/chest/abdomen/pelvis CTs did not show acute findings. She was given vancomycin, Zosyn and started on DKA protocol. Case discussed with ED provider decision was made to admit patient for DKA and possible sepsis. #DKA #Insulin-dependent diabetes ? Intial VBG pH 6.89, lactic acid 4.5, undetectable bicarb, AGAP 28.3, glucose 581, ketonuria, potassium 3.3. Hemoglobin A1c 12.6. ? Patient is mentating better now. States she had yogurt a few days ago and has had diarrhea that has resolved. Has had nausea/vomiting, and significant fatigue over the past few days. ? Bicarb improved to 12, discontinued bicarb drip. - Stopped fluids as patient is getting overloaded. - Continue insulin at basal rate of 4u/hr. Patient may eat crackers, light carbs, and drink water. ? Continue IV potassium, monitoring potassium. Of less than 3.3, discontinue insulin drip and replete potassium. - Bicarb slowly improving, currently 14. ? Once AGAP closes x 2 and bicarb greater than 18 and tolerating p.o. intake, bridged with long-acting SQ insulin based on weight. #Severe sepsis #Leukocytosis, elevated procalcitonin #Hypothermia #Klebsiella bacteremia ? Patient was found in a cold garage, unclear how long she has been there. Continue Penelope callejas. - WBC improved to 12.7, peaked 19.5. - BC growing Klebsiella, sensitive to ceftriaxone. - Continue ceftriaxone. #Hypertension ? Resume home medications once reconciled. #Anxiety/depression ? Resume home medications once reconciled. Full code Lovenox 40 mg
[2024-07-07 23:13] LABS: POC Glucose,Bedside 134 (70-110)
[2024-07-08] VITALS (19 sets, daily range): BP systolic 115–152; BP diastolic 54–88; PULSE 77–100; RESP 15–27; TEMP 36.6–37.3; O2SAT 93–97; BMI 32.3
[2024-07-08 00:21] LABS: POC Glucose,Bedside 121 (70-110)
[2024-07-08 01:13] LABS: POC Glucose,Bedside 136 (70-110)
[2024-07-08 01:38] LABS: Chloride 109 mmol/L (98-107)
[2024-07-08 01:39] LABS: Potassium 3.6 mmoL/L (3.5-5.1); Sodium 134 mmol/L (136-145)
[2024-07-08 01:41] LABS: Blood Urea Nitrogen 15 mg/dl (7-17); Creatinine Clearance Estimated 69 mL/min (50-200); Estimated Glomerular Filt Rate 221 ml/min (>60); GFR (African American) 267 ML/MIN (>60)
[2024-07-08 01:42] LABS: Anion Gap 9.6 mEq/L (5-15); Calcium 7.4 mg/dl (8.4-10.2); Carbon Dioxide 19 mmol/L (22.0-30.0); Glucose 127 mg/dl (74-100); Magnesium 2.5 mg/dl (1.6-2.3)
[2024-07-08 02:07] LABS: POC Glucose,Bedside 115 (70-110)
[2024-07-08] MEDS: K-PHOS NEUTRAL 250MG TABLET 250 MG PO ×4 (02:10→21:11)
[2024-07-08 03:09] LABS: POC Glucose,Bedside 136 (70-110)
[2024-07-08] MEDS: ONDANSETRON 4MG/2ML VIAL 4 MG IV (03:45)
[2024-07-08 04:31] LABS: POC Glucose,Bedside 117 (70-110)
[2024-07-08 05:38] LABS: POC Glucose,Bedside 102 (70-110)
[2024-07-08 06:38] LABS: POC Glucose,Bedside 89 (70-110)
[2024-07-08] MEDS: KCl 20mEq/100ml 100 ML 50 MEQ IV (07:06)
[2024-07-08 07:10] LABS: POC Glucose,Bedside 103 (70-110)
[2024-07-08 07:30] LABS: Basophils % 0.3 % (0.1-2.0); Eosinophils % 0.1 % (0.1-12.0); Hematocrit 33.7 % (37.0-47.0); Lymphocytes # 0.7 K/mm3 (0.7-4.5); Lymphocytes % 10.4 % (10-50); Mean Corpuscular HGB Conc 35.6 g/dL (31.8-35.4); Mean Corpuscular Hemoglobin 28.4 pg (27.0-31.2); Mean Corpuscular Volume 79.9 fl (81-99); Mean Platelet Volume 11.1 fl (7.4-10.4); Monocytes # 0.6 K/mm3 (0.1-1.0); Monocytes % 8.2 % (1.7-9.3); Neutrophils # 5.7 K/mm3 (1.8-7.8); Neutrophils % 80.3 % (37.0-80.0); Platelet Count 78 K/mm3 (142-424); Red Blood Count 4.22 M/mm3 (4.20-5.40); Red Cell Distribution Width 13.1 % (11.5-17.5); White Blood Count 7.1 K/mm3 (4.8-10.8)
[2024-07-08 08:12] LABS: POC Glucose,Bedside 117 (70-110)
[2024-07-08 08:39] LABS: Procalcitonin 0.895 ng/mL (0.0-2.0)
[2024-07-08 08:48] LABS: Phosphorous 1.1 mg/dl (2.5-4.5)
[2024-07-08] MEDS: INSULIN GLARGINE 100 UNITS/ML 3ML FLEXPEN 15 UNIT SUBCUT (08:56)
[2024-07-08] MEDS: SODIUM CHLORIDE 0.9% 10ML VIAL 8 ML IV ×2 (09:02→21:11)
[2024-07-08] MEDS: FAMOTIDINE 20MG/2ML VIAL 20 MG IV ×2 (09:02→21:11)
[2024-07-08] MEDS: LISINOPRIL 10MG TABLET 30 MG PO (09:03)
[2024-07-08] MEDS: PARoxetine 20MG TABLET 20 MG PO (09:03)
[2024-07-08] MEDS: ENOXAPARIN 40MG/0.4ML SYRINGE 40 MG SUBCUT (09:03)
[2024-07-08] MEDS: CEFTRIAXONE SODIUM 2 GM in 0.9 % SODIUM CHLORIDE 100 ML IV (09:05)
[2024-07-08] MEDS: CEPACOL THROAT LOZENGES 16 LOZ/BOX 1 EACH MM (09:08)
[2024-07-08 09:12] LABS: POC Glucose,Bedside 165 (70-110)
[2024-07-08 10:29] LABS: Alanine Aminotransferase 20 U/L (12-78); Albumin Level 2.3 g/dl (3.5-5.0); Alkaline Phosphatase 149 U/L (38-126); Anion Gap 5.6 mEq/L (5-15); Aspartate Amino Transferase 28 U/L (14-36); Bilirubin,Total 0.3 mg/dl (0.2-1.3); Blood Urea Nitrogen 15 mg/dl (7-17); Calcium 7.6 mg/dl (8.4-10.2); Carbon Dioxide 21 mmol/L (22.0-30.0); Chloride 109 mmol/L (98-107); Creatinine Clearance Estimated 74 mL/min (50-200); Estimated Glomerular Filt Rate 221 ml/min (>60); GFR (African American) 267 ML/MIN (>60); Globulin 2.3 g/dL (1.3-3.2); Glucose 85 mg/dl (74-100); Magnesium 2.5 mg/dl (1.6-2.3); Potassium 3.6 mmoL/L (3.5-5.1); Sodium 132 mmol/L (136-145); Total Protein,Serum 4.6 g/dl (6.3-8.2)
[2024-07-08] MEDS: humaLOG 100 UNITS/ML 10ML VIAL (SSI) SUBCUT ×3 (11:14→21:57)
[2024-07-08 11:16] LABS: POC Glucose,Bedside 256 (70-110)
[2024-07-08 16:06] LABS: POC Glucose,Bedside 278 (70-110)
--- NOTE | 2024-07-08 18:07 | PC.NURSE ---
PT IS SITTING UP IN THE CHAIR. ALERT AND ORIENTED X3. EATING AND DRINKING FAIR. PT WAS A 2 ASSIST TO GET OOB TO CHAIR. VSS. WILL CONTINUE TO MONITOR.
[2024-07-08 21:29] LABS: POC Glucose,Bedside 257 (70-110)
--- NOTE | 2024-07-08 21:32 | EXP.PN ---
Subjective *Date: 07/08/24 *Time: 21:32 Interval history: Very pleasant, conversational, doing much better. Tolerating p.o. intake. DKA resolved. Exam Data for Last 24 hours Vital signs and Labs for Last 24 Hours: Temp Pulse Resp BP Pulse Ox O2 Del Method O2 Flow Rate 98.0 F 88 18 147/88 H 96 Room Air 3 07/08/24 19:45 07/08/24 19:45 07/08/24 19:45 07/08/24 19:45 07/08/24 19:45 07/08/24 19:45 07/07/24 03:00 Laboratory Results - last 24 hr 07/07/24 22:05: POC Glucose 138 H 07/07/24 23:06: POC Glucose 134 H 07/08/24 00:12: POC Glucose 121 H 07/08/24 01:06: POC Glucose 136 H 07/08/24 01:20: Sodium 134 L, Potassium 3.6, Chloride 109 H, Carbon Dioxide 19 L, Anion Gap 9.6, BUN 15, Creatinine 0.30 L, Estimated Creat Clear 69, Estimated GFR 221, Est GFR ( Amer) 267, Glucose 127 H D, Calcium 7.4 L, Phosphorus 1.0 L, Magnesium 2.5 H 07/08/24 02:00: POC Glucose 115 H 07/08/24 03:02: POC Glucose 136 H 07/08/24 04:22: POC Glucose 117 H 07/08/24 05:25: POC Glucose 102 07/08/24 06:27: WBC 7.1 D, RBC 4.22, Hgb 12.0 L, Hct 33.7 L, MCV 79.9 L, MCH 28.4, MCHC 35.6 H, RDW 13.1, Plt Count 78 L D, MPV 11.1 H, Neut % (Auto) 80.3 H, Lymph % (Auto) 10.4, [place] % (Auto) 8.2, Eos % (Auto) 0.1, Baso % (Auto) 0.3, Neut # (Auto) 5.7, Lymph # (Auto) 0.7, [place] # (Auto) 0.6, Eos # (Auto) 0.0, Baso # (Auto) 0.0, Sodium 132 L, Potassium 3.6, Chloride 109 H, Carbon Dioxide 21 L, Anion Gap 5.6, BUN 15, Creatinine 0.30 L, Estimated Creat Clear 74, Estimated GFR 221, Est GFR ( Amer) 267, Glucose 85 D, Calcium 7.6 L, Phosphorus 1.1 L, Magnesium 2.5 H, Total Bilirubin 0.3, AST 28, ALT 20, Alkaline Phosphatase 149 H, Total Protein 4.6 L D, Albumin 2.3 L, Globulin 2.3, Albumin/Globulin Ratio 1.0 L, Procalcitonin 0.895 07/08/24 06:31: POC Glucose 89 07/08/24 07:03: POC Glucose 103 07/08/24 08:04: POC Glucose 117 H 07/08/24 09:05: POC Glucose 165 H 07/08/24 11:04: POC Glucose 256 H 07/08/24 15:59: POC Glucose 278 H 07/08/24 21:15: POC Glucose 257 H I & O for Last 24 hours: Intake & Output 07/05/24 07/06/24 07/07/24 07/08/24 23:59 23:59 23:59 23:59 Intake Total 505.218 / 658.898 7231.384 / 3700.384 2086.289 / 2086.289 1591.759 / 1591.759 Output Total 1850 / 2200 6515 / 6515 3020 / 3020 580 / 580 Balance -1344.782 / -1694.782 -2814.616 / -2814.616 -933.711 / -127.407 4585.759 / 1011.759 Weight 79.379 kg 79.86 kg 82.69 kg 88.178 kg Microbiology Reports for the Last 24 Hours: Microbiology 07/07/24 06:45 Blood Blood Culture - Preliminary Gram Negative Rods 07/05/24 14:56 Urine,Catheterized Urine Culture - Final Klebsiella pneumoniae 07/07/24 06:45 Blood Blood Culture - Preliminary NO GROWTH AFTER 24 HOURS Constitutional Constitutional: no acute distress *Routine HEENT Exam Head: Present normocephalic Eye: Present EOMI and PERRL ENT: Present mucous membranes moist *Routine Neck Exam Neck: Present supple; Absent lymphadenopathy *Routine Respiratory Exam Respiratory: Present CTA bilaterally *Routine Cardiovascular Exam Cardiovascular: Present RRR *Routine Abdominal Exam Abdominal: Present soft and normoactive bowel sounds; Absent tenderness *Routine Extremities Exam Extremities: Absent cyanosis, clubbing or edema *Routine Skin Exam Skin: Present warm; Absent rash *Routine Neurological Exam Neurological: Present alert and oriented X3 Assessment and Plan *Assessment and plan (1) DKA (diabetic ketoacidosis): Status: Acute Qualifiers: Diabetes mellitus complication detail: without coma Diabetes mellitus type: type 2 Qualified Code(s): E11.10 - Type 2 diabetes mellitus with ketoacidosis without coma Category: Medical Code(s): E11.10 - Type 2 diabetes mellitus with ketoacidosis without coma Plan Le Vogel is a 68-year-old female with a medical history significant for diabetes, hypertension, anxiety/depression who was found by EMS sitting in a nonheated garage, in per patient she was apparently waiting for them. Patient has significant alteration in mental status upon arrival, GCS around 8. Workup in the ED significant for WBC 19.5, VBG pH 6.89, pCO2 26.9, lactic acid 4.5, undetectable bicarb, AGAP 28.3, glucose 581, ketonuria, procalcitonin 2.11, troponin 0.13. CXR, head/chest/abdomen/pelvis CTs did not show acute findings. She was given vancomycin, Zosyn and started on DKA protocol. Case discussed with ED provider decision was made to admit patient for DKA and possible sepsis. #DKA, resolved #Insulin-dependent diabetes ? Intial VBG pH 6.89, lactic acid 4.5, undetectable bicarb, AGAP 28.3, glucose 581, ketonuria, potassium 3.3. Hemoglobin A1c 12.6. ? Patient is mentating better, tolerating p.o. intake. States she had yogurt a few days ago and has had diarrhea that has resolved. Has had nausea/vomiting, and significant fatigue over the past few days. ? Bridged with Lantus 15 units after DKA resolved with AGAP closing, bicarb greater than 18. ? Started diabetic diet. ? Will give additional Lantus 15 units tonight. ? ACHS glucose checks, LDSSI. ? Will need counseling with inpatient associate material handler. ? Will discuss addition of metformin tomorrow. #Severe sepsis #Leukocytosis, elevated procalcitonin #Hypothermia #Klebsiella bacteremia ? Patient was found in a cold garage, unclear how long she has been there. Continue Penelope hugger. - WBC improved to 7.1, peaked 19.5. - BC growing Klebsiella, sensitive to ceftriaxone. - Continue ceftriaxone. ? Follow-up blood cultures also showing Klebsiella. No source of infection based on chest CT, CT abdomen/pelvis. ? Will speak to cardiology tomorrow about JENNIFER. ? Follow-up repeat blood cultures. #Hypertension ? Blood pressure stable at this time. Will resume home medications once appropriate. #Anxiety/depression ? Resume home medications once appropriate. Patient is very pleasant at this time. Full code Lovenox 40 mg
[2024-07-08] MEDS: INSULIN GLARGINE 100 UNITS/ML 10ML VIAL 15 UNIT SUBCUT (22:06)
--- NOTE | 2024-07-09 03:50 | PC.NURSE ---
Patient is alert and oriented, but has explained that she has trouble recalling events that happened at home to recovering from her shock/DKA episode. She is aware of her situation and where she is at. Patient was observed to have eyes closed, respirations even and unlabored on room air, and no apparent distress for the majority of the night. Upon assessment, she stated that she feels better since moving out of ICU. Auscultation of her heart and lungs were within normal findings. Bowel sounds were hypoactive this shift; patient reported during assessment that she was unsure of when her last bowel movement occurred before 07/02/24. She ended up having a bowel movement later on during this shift via brief/bedpan. Patient has a Lozano catheter in place; urine has been emptied and documented accordingly. Appearance yellow and clear. Scheduled medications and insulin regimen was administered appropriately per MAR. ACHS glucose fingersticks performed. Vital signs have been relatively stable. Patient has remained in bed for the majority of the shift due to weakness with ambulation; however, patient has been able to self-turn in bed. At this time, she is resting supine without any further complaints. No acute changes noted thus far. Call light within reach.
[2024-07-09 03:52] VITALS: BP 139/73; PULSE 73; RESP 16; TEMP 37.4; O2SAT 94
[2024-07-09 03:54] VITALS: BMI 30.9
[2024-07-09 05:58] LABS: POC Glucose,Bedside 157 (70-110)
[2024-07-09] MEDS: humaLOG 100 UNITS/ML 10ML VIAL (SSI) SUBCUT ×4 (06:17→21:29)
[2024-07-09 07:37] LABS: Basophils % 0.1 % (0.1-2.0); Eosinophils # 0.1 K/mm3 (0.0-0.4); Eosinophils % 0.7 % (0.1-12.0); Hematocrit 33.2 % (37.0-47.0); Hemoglobin 11.5 g/dL (12.2-16.2); Lymphocytes # 1.5 K/mm3 (0.7-4.5); Lymphocytes % 22.1 % (10-50); Mean Corpuscular HGB Conc 34.6 g/dL (31.8-35.4); Mean Platelet Volume 11.3 fl (7.4-10.4); Monocytes # 1.1 K/mm3 (0.1-1.0); Monocytes % 15.6 % (1.7-9.3); Neutrophils # 4.2 K/mm3 (1.8-7.8); Neutrophils % 60.8 % (37.0-80.0); Platelet Count 84 K/mm3 (142-424); Red Cell Distribution Width 13.2 % (11.5-17.5)
[2024-07-09 08:00] VITALS: BP 150/95; PULSE 92; RESP 20; TEMP 36.9; O2SAT 97
[2024-07-09 08:00] LABS: Alanine Aminotransferase 22 U/L (12-78); Albumin Level 2.2 g/dl (3.5-5.0); Albumin/Globulin Ratio 0.9 (1.1-1.8); Alkaline Phosphatase 179 U/L (38-126); Aspartate Amino Transferase 26 U/L (14-36); Bilirubin,Total 0.4 mg/dl (0.2-1.3); Blood Urea Nitrogen 11 mg/dl (7-17); Calcium 7.4 mg/dl (8.4-10.2); Carbon Dioxide 26 mmol/L (22.0-30.0); Chloride 100 mmol/L (98-107); Creatinine Clearance Estimated 71 mL/min (50-200); Estimated Glomerular Filt Rate 221 ml/min (>60); GFR (African American) 267 ML/MIN (>60); Globulin 2.5 g/dL (1.3-3.2); Glucose 232 mg/dl (74-100); Magnesium 2.2 mg/dl (1.6-2.3); Sodium 125 mmol/L (136-145); Total Protein,Serum 4.7 g/dl (6.3-8.2)
[2024-07-09 08:22] LABS: Anion Gap 2.3 mEq/L (5-15); Potassium 3.3 mmoL/L (3.5-5.1)
[2024-07-09] MEDS: FAMOTIDINE 20MG TABLET 20 MG PO ×2 (08:46→21:28)
[2024-07-09] MEDS: LISINOPRIL 10MG TABLET 30 MG PO (08:46)
[2024-07-09] MEDS: PARoxetine 20MG TABLET 20 MG PO (08:46)
[2024-07-09] MEDS: LEVOFLOXACIN/D5W 750 MG/150 ML 750 MG/150 ML PIGGYBACK 100 MG IV (08:59)
[2024-07-09 09:01] LABS: POC Glucose,Bedside 237 (70-110)
[2024-07-09 09:12] LABS: Hemoglobin A1C 12.7 % (4.0-6.0)
--- NOTE | 2024-07-09 10:43 | HMH.PTEV ---
Physical Therapy Evaluation Rehab PT IP Evaluation Start: 07/09/24 08:33 Freq: ONCE Status: Active Protocol: Document 07/09/24 10:35 JIN (Rec: 07/09/24 10:43 JIN [id number]) Subjective/History History History 8-year-old female with a medical history significant for diabetes, hypertension, anxiety/depression who was found by EMS sitting in a nonheated garage, in per patient she was apparently waiting for them. She reports she lives alone, is generally independent with all mobility using 2 canes, and has [address] the home. She states, I live in a barn, at the [place], that's where my apartment is. Subjective Subjective Pt reports she is feeling well this am and agrees to mobility assessment. She had a bowel movement while in bed and did not realize it per her report. Rehab PT IP Eval Objective Appearance Patient Behavior Appropriate Patient Orientation Person,Place Difficulty following instructions mild Speech Pattern Clear Ambulation Patient Able to Ambulate Yes Ambulation Observation IP General Gait Pattern Observation Wide Based Gait,Shuffling Step Ambulation Distance (feet) 10 Ambulation Assistive Device Rolling Walker Ambulation Ability Minimal x 1 (25% assist) Balance Ability to Arise Able, uses arms to help Sitting Balance Steady, safe Standing Balance Steady, wide stance Dynamic Sitting Balance Ability Fair Dynamic Standing Balance Ability Poor Transfers Bed Transfer Ability Contact Guard/Hand Hold Chair Transfer Ability Contact Guard/Hand Hold Sit to Stand Bed Transfer Ability Contact Guard/Hand Hold Sit to Stand Chair Transfer Ability Contact Guard/Hand Hold Rehab PT IP prob,goals,plan Problems Date of Evaluation: 07/09/24 PT IP Problems Bed Mobility,Transfers,Gait Rehab Potential Rehab Potential Good Plan PT Intervention Plan Bed Mobility,Transfers,Gait, Self care,Safety,Therapeutic Exercise PT Plan Frequency Daily Duration LOS Discharge Goals Bed Transfer Ability Supervision/Stand by Sit to Stand Chair Transfer Ability Supervision/Stand by Ambulation Assistive Device Rolling Walker Ambulation Distance (feet) 25 Discharge Plan PT Discharge Plan Pt is currently most appropriate for rehab placement once medically stable for d/c. She presents with moderate lack of safety awareness and decreased ambulation ability. Skilled therapy is indicated to improve transfers, increase strength, and improve ambulation ability to return pt to [facility]. Eval Complexity Eval Charge Codes 03207 - High Complexity PHYSICIAN CERTIFICATION: I certify the specified therapy services for Le Lela are required, authorized, and reviewed every 30 days.
[2024-07-09 10:52] LABS: POC Glucose,Bedside 286 (70-110)
--- NOTE | 2024-07-09 10:56 | HMH.OTEV ---
OT Inpatient Evaluation Rehab OT IP Evaluation Start: 07/09/24 08:33 Freq: ONCE Status: Active Protocol: Document 07/09/24 10:50 [facility] (Rec: 07/09/24 10:56 [facility] [id number]) Rehab OT IP Assessment Subjective History Pt oriented x 3 on arrival and agreeable to engage in therapy evaluation. Pt is a 68-year-old female with a medical history significant for diabetes, hypertension, anxiety/depression who was found by EMS sitting in a nonheated garage; per patient she was apparently waiting for them. She reports she lives alone, is generally independent with all functional transfers using 2 canes, and has [address] the home . She also claims to be independent with all ADLs and IADLs. She also still drives. She states, I live in a barn, at the top, that's where my apartment is. Subjective Upon arrival, pt agreeable to complete evaluation. Pt had bowel movement in bed and reports she did not know she had a bowel movement. Objective Patient Orientation Person,Place,Birthday Right Upper Extremity Gross ROM WFL Left Upper Extremity Gross ROM WFL Bed Mobility bed mobility-scooting,bed mobility - supine/sit,bed mobility - rolling Assist Level Contact Guard/Hand Hold Transfer Training Sit/Stand Transfer Assist Level Minimal x 2 (25% assist) Chair Transfer Ability Minimal x 2 (25% assist) Chair Transfer Technique Sit to/from Ambulatory Chair Transfer Assistive Devices Rolling Walker Lower Body Dressing Ability Maximum Assistance Performing Toilet Hygiene Ability Maximum Assistance Rehab OT IP prob,goals,plan Problems Date of Evaluation: 07/09/24 OT IP Problems Bed Mobility,Transfers,Balance ,Self care,Safety Rehab Potential Rehab Potential Good Equipment Needs Assistive Devices Rolling / Wheeled Walker Plan OT intervention Plan Bed Mobility,Transfers,Balance ,Self care,Safety,Therapeutic Exercise OT Plan Frequency Daily Duration LOS Discharge Goals Bed Mobility Ability Standby Assistance Sit to Stand Chair Transfer Ability Minimal x 1 (25% assist) Chair Transfer Ability Minimal x 1 (25% assist) Chair Transfer Technique Sit to/from Ambulatory Chair Transfer Assistive Devices Rolling Walker Feeding Ability Assist with Tray Set Up Lower Body Dressing Ability Moderate Assistance Upper Body Dressing Ability Standby Assistance Bathing Ability Moderate Assistance Performing Toilet Hygiene Ability Moderate Assistance Overall Commode/Toilet Transfer Ability Minimal Assistance Commode/Toilet Transfer Technique Sit to/from Ambulatory Discharge Plan OT Discharge Plan Pt will continue to be seen for OT services while at [facility]. Pt would benefit most from short term rehab at SNF following discharge from hospital. Continued skilled therapy is important in order for patient to improve strength, safety, endurance, ADL independence, and functional transfers to reach PLOF. Eval Complexity Eval Charge Codes 05566 - Moderate Complexity PHYSICIAN CERTIFICATION: I certify the specified therapy services for Le Vogel are required, authorized, and reviewed every 30 days.
--- NOTE | 2024-07-09 11:00 | SW/DCPLANNER ---
Addendum entered by Mindy Bai 07/11/24 12:04: patient refers to be transpored via [facility]. Flori Continuous Improvement Engineer Addendum entered by Adrienne [place] 07/11/24 10:59: Per Kizzy patient has been approved SNF level of care. Addendum entered by [facility] 07/11/24 08:42: Kizzy brown/ Ameya Stahl stated a precert will be started this AM. Addendum entered by [facility] 07/10/24 15:53: Kizzy brown/ Ameya Stahl and Luz w/ [facility] are still reviewing patient information at this time. Addendum entered by [facility] 07/10/24 13:19: I spoke w/ this patient regarding discharge plans. Patient is agreeable to placement and confirmed w/ POA. Patient prefers [place] and if not able to go there then would prefer [facility]. Patient information has been faxed to both facilities at this time. Per MD patient is medically stable for discharge. Original Note: I attempted to contact patient in regards to discharge plans: no answer VM left at this time. PT/OT evaluated patient and recommended SNF level of care at time of discharge. I will continue to contact patient. Discharge date is unknown at this time.
[2024-07-09 11:19] LABS: POC Glucose,Bedside 196 (70-110)
[2024-07-09 12:00] VITALS: BP 137/63; PULSE 92; RESP 20; TEMP 36.6; O2SAT 96
[2024-07-09 12:32] LABS: Lactate Venous 1.2 mmol/L (0.4-2.0); VBG Base Excess 0.4 mmol/L (-2.4-2.3); VBG HCO3 23.4 mmol/L (23-30); VBG Oxygen Saturation 96.9 % (50-70); VBG PCO2 29.7 mmol/L (35-51); VBG PH 7.51 mmol/L (7.31-7.41); VBG PO2 81.2 mmol/L (28-40); VBG Total CO2 24.3 mmol/L (23-27)
--- NOTE | 2024-07-09 13:22 | DIET.NUTRFU ---
Reviewed diabetic diet recommendations again today, she was much more alert today. Patient seems aware of what foods are high in simple sugars and avoids. But I am not sure she is clear on portion sizes and label reading. Went over again and included handouts with discharge. Also encouraged to eat 3 routine meals daily and protein with all meals. It sounds like she skips meals at times.
[2024-07-09] MEDS: POTASSIUM CHLORIDE 20MEQ TAB 40 MEQ PO ×2 (14:16→18:06)
[2024-07-09 16:00] VITALS: BP 147/80; PULSE 87; RESP 18; TEMP 36.4; O2SAT 98
--- NOTE | 2024-07-09 17:12 | P.PN_ITS ---
Subjective *Date: 07/09/24 *Time: 18:25 Interval history: Patient continues to be pleasant, conversational. Lozano catheter removed today, likely nidus of Klebsiella UTI and bacteremia. Removed. Tolerating diet well. PT/OT evaluated patient, recommended SNF. Exam Data for Last 24 hours Vital signs and Labs for Last 24 Hours: Temp Pulse Resp BP Pulse Ox O2 Del Method O2 Flow Rate 97.6 F 87 18 147/80 H 98 Room Air 3 07/09/24 16:00 07/09/24 16:00 07/09/24 16:00 07/09/24 16:00 07/09/24 16:00 07/09/24 16:00 07/07/24 03:00 Laboratory Results - last 24 hr 07/07/24 07:00: POC Glucose 196 H 07/08/24 21:15: POC Glucose 257 H 07/09/24 05:40: POC Glucose 157 H 07/09/24 07:20: WBC 7.0, RBC 4.10 L, Hgb 11.5 L, Hct 33.2 L, MCV 81.0, MCH 28.0, MCHC 34.6, RDW 13.2, Plt Count 84 L, MPV 11.3 H, Neut % (Auto) 60.8, Lymph % (Auto) 22.1, [place] % (Auto) 15.6 H, Eos % (Auto) 0.7, Baso % (Auto) 0.1, Neut # (Auto) 4.2, Lymph # (Auto) 1.5, [place] # (Auto) 1.1 H, Eos # (Auto) 0.1, Baso # (Auto) 0.0, Sodium 125 L, Potassium 3.3 L, Chloride 100, Carbon Dioxide 26, Anion Gap 2.3 L, BUN 11 D, Creatinine 0.30 L, Estimated Creat Clear 71, Estimated GFR 221, Est GFR ( Amer) 267, Glucose 232 H, Hemoglobin A1c 12.7 H, Calcium 7.4 L, Magnesium 2.2 D, Total Bilirubin 0.4, AST 26, ALT 22, Alkaline Phosphatase 179 H, Total Protein 4.7 L, Albumin 2.2 L, Globulin 2.5, Albumin/Globulin Ratio 0.9 L 07/09/24 08:38: POC Glucose 237 H 07/09/24 10:45: POC Glucose 286 H 07/09/24 11:00: VBG pH 7.51 H, VBG pCO2 29.7 L, VBG pO2 81.2 H, VBG HCO3 23.4, VBG Total CO2 24.3, VBG O2 Saturation 96.9 H, VBG Base Excess 0.4, VBG Lactic Acid 1.2 I & O for Last 24 hours: Intake & Output 07/06/24 07/07/24 07/08/24 07/09/24 23:59 23:59 23:59 23:59 Intake Total 3700.384 / 3700.384 2086.289 / 2086.289 1591.759 / 2091.759 1340 / 1340 Output Total 6515 / 6515 3020 / 3020 1460 / 1560 100 / 100 Balance -2814.616 / -2814.616 -933.711 / -933.711 131.759 / 785.282 5174 / 1240 Weight 79.86 kg 82.69 kg 88.178 kg 84.141 kg Microbiology Reports for the Last 24 Hours: Microbiology 07/07/24 06:45 Blood Blood Culture - Preliminary NO GROWTH AFTER 48 HOURS 07/07/24 06:45 Blood Blood Culture - Preliminary Klebsiella pneumoniae 07/07/24 00:24 Blood Blood Culture - Preliminary NO GROWTH AFTER 24 HOURS 07/07/24 00:24 Blood Blood Culture - Preliminary NO GROWTH AFTER 24 HOURS Assessment and Plan *Assessment and plan (1) DKA (diabetic ketoacidosis): Status: Acute Qualifiers: Diabetes mellitus complication detail: without coma Diabetes mellitus type: type 2 Qualified Code(s): E11.10 - Type 2 diabetes mellitus with ketoacidosis without coma Category: Medical Code(s): E11.10 - Type 2 diabetes mellitus with ketoacidosis without coma (2) Hypokalemia: Status: Acute Category: Medical Code(s): E87.6 - Hypokalemia (3) Non-ST elevation [place] (NSTEMI): Status: Acute Category: Medical Code(s): I21.4 - Non-ST elevation (NSTEMI) myocardial infarction (4) Urinary tract infectious disease: Status: Acute Qualifiers: Hematuria presence: with hematuria Urinary tract infection type: site unspecified Qualified Code(s): N39.0 - Urinary tract infection, site not specified; R31.9 - Hematuria, unspecified Category: Medical Code(s): N39.0 - Urinary tract infection, site not specified (5) Severe sepsis: Status: Acute Category: Medical Code(s): A41.9 - Sepsis, unspecified organism; R65.20 - Severe sepsis without septic shock Plan Le Vogel is a 68-year-old female with a medical history significant for diabetes, hypertension, anxiety/depression who was found by EMS sitting in a nonheated garage, in per patient she was apparently waiting for them. Patient has significant alteration in mental status upon arrival, GCS around 8. Workup in the ED significant for WBC 19.5, VBG pH 6.89, pCO2 26.9, lactic acid 4.5, undetectable bicarb, AGAP 28.3, glucose 581, ketonuria, procalcitonin 2.11, troponin 0.13. CXR, head/chest/abdomen/pelvis CTs did not show acute findings. She was given vancomycin, Zosyn and started on DKA protocol. Case discussed with ED provider decision was made to admit patient for DKA and possible sepsis. #DKA, resolved #Insulin-dependent diabetes ? Intial VBG pH 6.89, lactic acid 4.5, undetectable bicarb, AGAP 28.3, glucose 581, ketonuria, potassium 3.3. Hemoglobin A1c 12.6. DKA has resolved. ? Had had nausea/vomiting, and significant fatigue over the past few days prior to admission. ? Patient mentation is back to baseline, tolerating p.o. intake. ? Lantus 25 units nightly. ? Started metformin 500 mg twice daily. Avoiding SGLTi due to patient's positive urine culture likely causing bacteremia. ? ACHS glucose checks, LDSSI. ? Nutrition consulted, providing counseling. #Severe sepsis, resolved #Hypothermia, resolved #Klebsiella bacteremia ? Patient was found in a cold garage, unclear how long she has been there. Continue Penelope callejas. - WBC improved to 7.1, peaked 19.5. Lactate initially 4.5. - BC and UC growing Klebsiella, essentially pansensitive. - Started levofloxacin, discontinued ceftriaxone ? Follow-up blood cultures also showing Klebsiella. No other source of infection based on chest CT, CT abdomen/pelvis. ? Upon further evaluation, patient still had her Lozano catheter which may be the nidus of Klebsiella infection and bacteremia. Lozano discontinued today. ? Follow-up repeat blood cultures tomorrow morning. ? Consider JENNIFER if blood cultures are still positive. #NSTEMI ? Troponins peaked at 1.94. ECHO without wall motion abnormalities. ? Cardiology consulted, planning for C this week. Recommended holding off on aspirin, beta-celso. #Physical deconditioning ? PT/OT consulted, recommended SNF. Case management assisting with placement. #Hypertension ? Resumed home lisinopril 30 mg daily. #Anxiety/depression ? Resumed home paroxetine. Full code Lovenox 40 mg
[2024-07-09 17:30] LABS: POC Glucose,Bedside 202 (70-110)
[2024-07-09] MEDS: METFORMIN 500MG TABLET 500 MG PO (18:06)
[2024-07-09 20:00] VITALS: BP 144/74; PULSE 88; RESP 16; TEMP 36.9; O2SAT 95; O2SAT 98
[2024-07-09 20:33] LABS: POC Glucose,Bedside 256 (70-110)
[2024-07-09] MEDS: INSULIN GLARGINE 100 UNITS/ML 3ML FLEXPEN 20 UNIT SUBCUT (21:28)
[2024-07-10] VITALS: BP 134/71; PULSE 85; RESP 16; TEMP 36.8; O2SAT 96
[2024-07-10 03:53] LABS: Anti-DNase B Strep Antibodies <78 U/mL (0-120)
[2024-07-10 04:00] VITALS: BP 155/77; PULSE 80; RESP 16; TEMP 36.8; O2SAT 97; BMI 30.9
--- NOTE | 2024-07-10 04:03 | PC.NURSE ---
68 yo fe pt has been A/O X 3 but forgetful at times. She has denied pain or discomfort and has sat up sleeping in the chair through the night. She has been very pleasant and talkative with appropriate content. Pt tolerates diet,voiding without difficulty using BSC and has brief on as well. Pt reminded in appropriate use of walker. FSBS at 9pm was 256, covered with insulin per SS. VS WNL for pt
[2024-07-10] MEDS: humaLOG 100 UNITS/ML 10ML VIAL (SSI) SUBCUT ×4 (05:50→20:38)
[2024-07-10 06:03] LABS: POC Glucose,Bedside 205 (70-110)
[2024-07-10 08:00] VITALS: BP 140/72; PULSE 81; RESP 17; TEMP 36.6; O2SAT 96
[2024-07-10 08:19] LABS: Basophils % 0.5 % (0.1-2.0); Eosinophils # 0.1 K/mm3 (0.0-0.4); Eosinophils % 0.7 % (0.1-12.0); Hematocrit 37.9 % (37.0-47.0); Hemoglobin 12.8 g/dL (12.2-16.2); Lymphocytes % 24.9 % (10-50); Mean Corpuscular HGB Conc 33.8 g/dL (31.8-35.4); Mean Corpuscular Hemoglobin 27.9 pg (27.0-31.2); Mean Corpuscular Volume 82.6 fl (81-99); Mean Platelet Volume 10.8 fl (7.4-10.4); Monocytes # 1.2 K/mm3 (0.1-1.0); Neutrophils # 4.6 K/mm3 (1.8-7.8); Neutrophils % 56.9 % (37.0-80.0); Platelet Count 153 K/mm3 (142-424); Red Blood Count 4.59 M/mm3 (4.20-5.40); Red Cell Distribution Width 13.5 % (11.5-17.5)
[2024-07-10 08:25] LABS: Alanine Aminotransferase 28 U/L (12-78); Albumin Level 2.7 g/dl (3.5-5.0); Alkaline Phosphatase 249 U/L (38-126); Aspartate Amino Transferase 35 U/L (14-36); Bilirubin,Total 0.6 mg/dl (0.2-1.3); Blood Urea Nitrogen 9 mg/dl (7-17); Calcium 8.2 mg/dl (8.4-10.2); Carbon Dioxide 29 mmol/L (22.0-30.0); Chloride 99 mmol/L (98-107); Creatinine Clearance Estimated 71 mL/min (50-200); Estimated Glomerular Filt Rate 221 ml/min (>60); GFR (African American) 267 ML/MIN (>60); Globulin 2.7 g/dL (1.3-3.2); Glucose 189 mg/dl (74-100); Sodium 133 mmol/L (136-145); Total Protein,Serum 5.4 g/dl (6.3-8.2)
[2024-07-10] MEDS: FAMOTIDINE 20MG TABLET 20 MG PO ×2 (09:04→20:29)
[2024-07-10] MEDS: PARoxetine 20MG TABLET 20 MG PO (09:04)
[2024-07-10] MEDS: METFORMIN 500MG TABLET 500 MG PO ×2 (09:04→17:00)
[2024-07-10] MEDS: LISINOPRIL 10MG TABLET 30 MG PO (09:05)
[2024-07-10 11:21] LABS: POC Glucose,Bedside 233 (70-110)
[2024-07-10] MEDS: levoFLOXacin 750 MG TABLET PO (11:22)
[2024-07-10 11:51] VITALS: BP 142/77; PULSE 82; RESP 17; TEMP 36.8; O2SAT 95
--- NOTE | 2024-07-10 12:55 | P.PN_ITS ---
Subjective Subjective Date: 07/10/24 Time: 09:30 Principal diagnosis: non-stemi, DKA, sepsis Interval history: The patient states she is feeling much better. She is alert and oriented x 3. She denies any chest pain or shortness of breath. She denies any lower extremity edema. She denies any fever, chills, nausea, vomiting or diarrhea. Exam Data for Last 24 hours Vital signs and Labs for Last 24 Hours: Temp Pulse Resp BP Pulse Ox O2 Del Method O2 Flow Rate 98.2 F 82 17 142/77 H 95 Room Air 3 07/10/24 11:51 07/10/24 11:51 07/10/24 11:51 07/10/24 11:51 07/10/24 11:51 07/10/24 11:00 07/07/24 03:00 Laboratory Results - last 24 hr 07/05/24 14:40: Anti-DNase B (Strep) <78 07/09/24 17:20: POC Glucose 202 H 07/09/24 20:14: POC Glucose 256 H 07/10/24 05:49: POC Glucose 205 H 07/10/24 07:30: WBC 8.0, RBC 4.59, Hgb 12.8, Hct 37.9, MCV 82.6, MCH 27.9, MCHC 33.8, RDW 13.5, Plt Count 153 D, MPV 10.8 H, Neut % (Auto) 56.9, Lymph % (Auto) 24.9, [place] % (Auto) 15.0 H, Eos % (Auto) 0.7, Baso % (Auto) 0.5, Neut # (Auto) 4.6, Lymph # (Auto) 2.0, [place] # (Auto) 1.2 H, Eos # (Auto) 0.1, Baso # (Auto) 0.0, Sodium 133 L, Potassium 4.0 D, Chloride 99, Carbon Dioxide 29, Anion Gap 9.0, BUN 9, Creatinine 0.30 L, Estimated Creat Clear 71, Estimated GFR 221, Est GFR ( Amer) 267, Glucose 189 H, Calcium 8.2 L, Magnesium 2.0, Total Bilirubin 0.6, AST 35 D, ALT 28 D, Alkaline Phosphatase 249 H, Total Protein 5.4 L, Albumin 2.7 L D, Globulin 2.7, Albumin/Globulin Ratio 1.0 L 07/10/24 11:11: POC Glucose 233 H I & O for Last 24 hours: Intake & Output 07/07/24 07/08/24 07/09/24 07/10/24 23:59 23:59 23:59 23:59 Intake Total 2086.289 / 2086.289 1591.759 / 2091.759 1700 / 1700 360 / 360 Output Total 3020 / 3020 1460 / 1560 100 / 100 500 / 500 Balance -933.711 / -933.711 131.759 / 957.627 0706 / 1600 -140 / -140 Weight 182 lb 4.8 oz 194 lb 6.4 oz 185 lb 8 oz 185 lb 7.986 oz Microbiology Reports for the Last 24 Hours: Microbiology 07/07/24 06:45 Blood Blood Culture - Preliminary Klebsiella pneumoniae 07/07/24 00:24 Blood Blood Culture - Preliminary NO GROWTH AFTER 48 HOURS 07/07/24 00:24 Blood Blood Culture - Preliminary NO GROWTH AFTER 48 HOURS Constitutional Constitutional: no acute distress and average body habitus *Routine HEENT Exam Head: Present normocephalic and atraumatic ENT: Present mucous membranes moist *Routine Neck Exam Neck: Present supple, full ROM and normal carotid upstroke; Absent JVD, carotid bruit or lymphadenopathy *Routine Respiratory Exam Respiratory: Present CTA bilaterally, normal respiratory effort, able to speak in complete sentences and symmetric chest movement *Routine Cardiovascular Exam Cardiovascular: Present RRR, Normal S1 and Normal S2; Absent murmur or gallop *Routine Abdominal Exam Abdominal: Present soft and normoactive bowel sounds; Absent tenderness, distended or organomegaly *Routine Extremities Exam Extremities: Present full ROM, pulses intact and normal capillary refill; Absent cyanosis, clubbing or edema *Routine Skin Exam Skin: Present intact and warm; Absent erythema *Routine Neurological Exam Neurological: Present alert, oriented X3 and CN II-XII intact; Absent sensory deficit or motor deficit Routine Psychiatric Exam Psychiatric: Present normal affect Progress Note: A&P Assessment and plan (1) Non-ST elevation [place] (NSTEMI): Status: Acute (2) DKA (diabetic ketoacidosis): Status: Acute (3) Urinary tract infectious disease: Status: Acute (4) Severe sepsis: Status: Acute Assessment and Plan Assessment and Plan for All Diagnoses:: Plan: 1. Patient admitted to the hospital with DKA. Hemoglobin A1c is 12.6. Will defer this to the hospitalist. 2. The patient was also diagnosed with UTI and sepsis. She was positive for Klebsiella bacteremia. She is currently getting IV antibiotics. Will defer this to the hospitalist as well. 3. The patient did have an elevated troponin consistent with a non-STEMI. She will need to have left cardiac catheterization but this is not recommended while she is septic with Klebsiella bacteremia. Once the patient has recovered from her sepsis and bacteremia then we can proceed with left cardiac catheterization on an outpatient basis. She is currently asymptomatic and stable. 4. Recommend aspirin 81 mg daily due to her non-STEMI. 5. Start Toprol XL 25 mg daily secondary to her non-STEMI. 6. Her blood pressure is acceptable. Continue lisinopril. 7. Her LDL goal is less than 55. Will get a lipid panel. Will start Lipitor 40 mg p.o. nightly due to her non-STEMI. 8. No further recommendations at this time from a cardiac standpoint. The patient can be discharged from a cardiac standpoint with follow-up in cardiology clinic next week to be set up for outpatient left cardiac catheterization secondary to her non-STEMI. 9. The patient can be discharged on the following cardiac medications: Aspirin 81 mg daily, Lipitor 40 mg p.o. nightly, Toprol XL 25 mg p.o. daily, lisinopril 30 mg p.o. daily. Thank you for the opportunity to help participate in the care of this patient. All recommendations and orders are per Dr. Burns.
[2024-07-10 13:18] LABS: Chol/HDL Ratio 3.6 (1-3.5); Cholesterol 91 mg/dl (140-200); HDL Cholesterol 25 mg/dl (40-60); Triglycerides 108 mg/dl (30-150); VLDL Cholesterol 22 mg/dL (0-40)
[2024-07-10 13:29] LABS: Direct LDL Cholesterol 54.55 mg/dL (100-129)
[2024-07-10] MEDS: ASPIRIN EC 81MG TABLET 81 MG PO (13:45)
[2024-07-10] MEDS: METOPROLOL SUCCINATE XL 25MG TABLET 25 MG PO (13:45)
[2024-07-10] MEDS: BELLADONNA ALKALOIDS 60 ML ML PO (13:50)
[2024-07-10 16:00] VITALS: BP 148/74; PULSE 88; RESP 16; TEMP 36.7; O2SAT 96
[2024-07-10 17:09] LABS: POC Glucose,Bedside 212 (70-110)
--- NOTE | 2024-07-10 17:13 | P.PN_ITS ---
Subjective *Date: 07/10/24 *Time: 20:51 Interval history: Patient states she is feeling better. Complaining of some heartburn today however. Says it hurts when she eats, feels like burning or tearing in her chest when she eats. No nausea or vomiting. Denies any shortness of breath. Awaiting placement for rehab. Medical Exam Vital signs and Labs for Last 24 Hours: Vital Signs Temp Pulse Resp BP Pulse Ox O2 Del Method 07/10/24 17:00 Room Air 07/10/24 16:00 98.1 F 88 16 148/74 H 96 07/10/24 15:00 Room Air 07/10/24 13:00 Room Air 07/10/24 11:51 98.2 F 82 17 142/77 H 95 07/10/24 11:00 Room Air 07/10/24 09:00 Room Air 07/10/24 08:00 Room Air 07/10/24 08:00 97.9 F 81 17 140/72 96 07/10/24 06:54 Room Air 07/10/24 05:00 Room Air 07/10/24 04:00 98.2 F 80 16 155/77 H 97 Room Air 07/10/24 03:00 Room Air 07/10/24 01:00 Room Air 07/10/24 00:00 98.2 F 85 16 134/71 96 Room Air 07/09/24 23:00 Room Air 07/09/24 21:00 Room Air 07/09/24 20:00 98.5 F 88 16 144/74 H 95 Room Air 07/09/24 20:00 98 Room Air 07/09/24 19:00 Room Air Intake and Output 07/10/24 07/10/24 07/10/24 07:59 15:59 23:59 Intake Total 660 / 660 Output Total 500 / 500 Balance -500 / 160 660 / 160 Intake: Intake, Oral Amount 660 / 660 Output: Output, Urine Amount 500 / 500 Other: Number of Unmeasured Voids 1 Number of Bowel Movements 1 Weight 84.141 kg Patient Weight 07/10/24 23:59 Weight 84.141 kg Laboratory Results - last 24 hr 07/05/24 14:40: Anti-DNase B (Strep) <78 07/09/24 17:20: POC Glucose 202 H 07/09/24 20:14: POC Glucose 256 H 07/10/24 05:49: POC Glucose 205 H 07/10/24 07:30: WBC 8.0, RBC 4.59, Hgb 12.8, Hct 37.9, MCV 82.6, MCH 27.9, MCHC 33.8, RDW 13.5, Plt Count 153 D, MPV 10.8 H, Neut % (Auto) 56.9, Lymph % (Auto) 24.9, [place] % (Auto) 15.0 H, Eos % (Auto) 0.7, Baso % (Auto) 0.5, Neut # (Auto) 4.6, Lymph # (Auto) 2.0, [place] # (Auto) 1.2 H, Eos # (Auto) 0.1, Baso # (Auto) 0.0, Sodium 133 L, Potassium 4.0 D, Chloride 99, Carbon Dioxide 29, Anion Gap 9.0, BUN 9, Creatinine 0.30 L, Estimated Creat Clear 71, Estimated GFR 221, Est GFR ( Amer) 267, Glucose 189 H, Calcium 8.2 L, Magnesium 2.0, Total Bi lirubin 0.6, AST 35 D, ALT 28 D, Alkaline Phosphatase 249 H, Total Protein 5.4 L, Albumin 2.7 L D, Globulin 2.7, Albumin/Globulin Ratio 1.0 L, Triglycerides 108, Cholesterol 91 L, LDL Cholesterol Direct 54.55 L, VLDL Cholesterol 22, HDL Cholesterol 25 L, Cholesterol/HDL Ratio 3.6 H 07/10/24 11:11: POC Glucose 233 H 07/10/24 16:40: POC Glucose 212 H I & O for Labs for Last 24 Hours: Intake & Output 07/07/24 07/08/24 07/09/24 07/10/24 23:59 23:59 23:59 23:59 Intake Total 2086.289 / 2086.289 1591.759 / 2091.759 1700 / 1700 660 / 660 Output Total 3020 / 3020 1460 / 1560 100 / 100 500 / 500 Balance -933.711 / -933.711 131.759 / 756.508 7171 / 1600 160 / 160 Weight 82.69 kg 88.178 kg 84.141 kg 84.141 kg Microbiology Reports for the Last 24 Hours: Microbiology 07/07/24 06:45 Blood Blood Culture - Preliminary Klebsiella pneumoniae 07/07/24 00:24 Blood Blood Culture - Preliminary NO GROWTH AFTER 48 HOURS 07/07/24 00:24 Blood Blood Culture - Preliminary NO GROWTH AFTER 48 HOURS Constitutional: Present no acute distress, chronically ill appearing and cooperative Head: Present atraumatic and normocephalic ENT: Present normal exam Neck: Present normal inspection Respiratory: Present normal respiratory effort; Absent rhonchi, wheezes or crackles Cardiac: Present Reg Rate and Rhythm GI: Present soft, tenderness (Epigastric) and normal bowel sounds; Absent distention Extremities: Present normal inspection and full ROM Comment:: Edema in bilateral hands Skin: Present intact; Absent erythema Neuro: Present Grossly Intact, alert, awake, oriented x 3 and moves all extremities Assessment and Plan *Assessment and plan (1) Bacteremia due to Klebsiella pneumoniae: Status: Acute Category: Medical Code(s): R78.81 - Bacteremia; B96.1 - Klebsiella pneumoniae [K. pneumoniae] as the cause of diseases classified elsewhere (2) DKA (diabetic ketoacidosis): Status: Acute Qualifiers: Diabetes mellitus complication detail: without coma Diabetes mellitus type: type 2 Qualified Code(s): E11.10 - Type 2 diabetes mellitus with ketoacidosis without coma Category: Medical Code(s): E11.10 - Type 2 diabetes mellitus with ketoacidosis without coma (3) Hypokalemia: Status: Acute Category: Medical Code(s): E87.6 - Hypokalemia (4) Non-ST elevation [place] (NSTEMI): Status: Acute Category: Medical Code(s): I21.4 - Non-ST elevation (NSTEMI) myocardial infarction (5) Urinary tract infectious disease: Status: Acute Qualifiers: Hematuria presence: with hematuria Urinary tract infection type: site unspecified Qualified Code(s): N39.0 - Urinary tract infection, site not specified; R31.9 - Hematuria, unspecified Category: Medical Code(s): N39.0 - Urinary tract infection, site not specified (6) Severe sepsis: Status: Acute Category: Medical Code(s): A41.9 - Sepsis, unspecified organism; R65.20 - Severe sepsis without septic shock Plan Le Vogel is a 68-year-old female with a medical history significant for diabetes, hypertension, anxiety/depression who was found by EMS sitting in a nonheated garage, in per patient she was apparently waiting for them. Patient has significant alteration in mental status upon arrival, GCS around 8. Workup in the ED significant for WBC 19.5, VBG pH 6.89, pCO2 26.9, lactic acid 4.5, undetectable bicarb, AGAP 28.3, glucose 581, ketonuria, procalcitonin 2.11, troponin 0.13. CXR, head/chest/abdomen/pelvis CTs did not show acute findings. She was given vancomycin, Zosyn and started on DKA protocol. Case discussed with ED provider decision was made to admit patient for DKA and possible sepsis. DKA resolved, found to be bacteremic from Klebsiella. Awaiting placement at this time. Problems addressed as follows: #DKA, resolved #Insulin-dependent diabetes ? Intial VBG pH 6.89, lactic acid 4.5, undetectable bicarb, AGAP 28.3, glucose 581, ketonuria, potassium 3.3. Hemoglobin A1c 12.6. DKA has resolved. ? had nausea/vomiting, and significant fatigue over the past few days prior to admission. ? Patient mentation is back to baseline, tolerating p.o. intake. Mild GERD symptoms. Initiate pantoprazole 40 mg p.o. twice daily. Responding to GI cocktail. Continue every 6 hours as needed. ? Lantus 25 units nightly. ? Started metformin 500 mg twice daily. Avoiding SGLTi due to patient's positive urine culture likely causing bacteremia. ? ACHS glucose checks, LDSSI. ? Nutrition consulted, providing counseling. #Severe sepsis, resolved #Hypothermia, resolved #Klebsiella bacteremia ? Patient was found in a cold garage, unclear how long she has been there. Maintaining body temperature. - WBC improved to 7.1, peaked 19.5. Lactate initially 4.5. - BC and UC growing Klebsiella, essentially pansensitive. Transition to Levaquin 750 mg daily to complete 10 days of antibiotics therapy given bacterem ia. -White count normal at 8. Kidney function normal with BUN 9, creatinine 0.3. Repeat CBC, CMP, magnesium ordered for the morning. #NSTEMI ? Troponins peaked at 1.94. ECHO without wall motion abnormalities. ? Due to bacteremia, will hold on heart cath, plan for follow-up as an outpatient. #Physical deconditioning ? PT/OT consulted, recommended SNF. Case management assisting with placement. #Hypertension: Continue home lisinopril 30 mg daily. #Anxiety/depression: Continue home paroxetine. Full code Lovenox 40 mg
[2024-07-10 20:00] VITALS: BP 140/65; PULSE 73; RESP 16; TEMP 37.3; O2SAT 97
[2024-07-10] MEDS: ATORVASTATIN 40MG TABLET 40 MG PO (20:29)
[2024-07-10] MEDS: INSULIN GLARGINE 100 UNITS/ML 3ML FLEXPEN 20 UNIT SUBCUT (20:38)
[2024-07-10] MEDS: PANTOPRAZOLE 40MG TABLET 40 MG PO (20:39)
[2024-07-11] VITALS: BP 139/69; PULSE 73; RESP 16; TEMP 37.1; O2SAT 95
[2024-07-11 04:00] VITALS: BP 129/64; PULSE 64; RESP 16; TEMP 36.7; O2SAT 95; BMI 30.9
[2024-07-11 07:07] LABS: POC Glucose,Bedside 146 (70-110)
[2024-07-11 07:42] VITALS: BP 146/81; PULSE 77; RESP 17; TEMP 36.6; O2SAT 98
[2024-07-11 07:46] LABS: Basophils # 0.1 K/mm3 (0-0.2); Basophils % 0.6 % (0.1-2.0); Eosinophils # 0.1 K/mm3 (0.0-0.4); Eosinophils % 1.6 % (0.1-12.0); Hematocrit 36.3 % (37.0-47.0); Hemoglobin 12.2 g/dL (12.2-16.2); Lymphocytes # 2.4 K/mm3 (0.7-4.5); Lymphocytes % 28.8 % (10-50); Mean Corpuscular HGB Conc 33.6 g/dL (31.8-35.4); Mean Corpuscular Hemoglobin 28.2 pg (27.0-31.2); Mean Corpuscular Volume 83.8 fl (81-99); Mean Platelet Volume 10.6 fl (7.4-10.4); Monocytes # 1.2 K/mm3 (0.1-1.0); Monocytes % 14.2 % (1.7-9.3); Neutrophils # 4.1 K/mm3 (1.8-7.8); Neutrophils % 50.6 % (37.0-80.0); Platelet Count 222 K/mm3 (142-424); Red Blood Count 4.33 M/mm3 (4.20-5.40); Red Cell Distribution Width 13.4 % (11.5-17.5); White Blood Count 8.2 K/mm3 (4.8-10.8)
[2024-07-11 07:53] LABS: Alanine Aminotransferase 25 U/L (12-78); Albumin Level 2.6 g/dl (3.5-5.0); Alkaline Phosphatase 258 U/L (38-126); Anion Gap 5.8 mEq/L (5-15); Aspartate Amino Transferase 33 U/L (14-36); Bilirubin,Total 0.7 mg/dl (0.2-1.3); Blood Urea Nitrogen 10 mg/dl (7-17); Carbon Dioxide 30 mmol/L (22.0-30.0); Chloride 99 mmol/L (98-107); Creatinine Clearance Estimated 71 mL/min (50-200); Estimated Glomerular Filt Rate 158 ml/min (>60); GFR (African American) 191 ML/MIN (>60); Globulin 2.6 g/dL (1.3-3.2); Glucose 158 mg/dl (74-100); Magnesium 1.9 mg/dl (1.6-2.3); Potassium 3.8 mmoL/L (3.5-5.1); Sodium 131 mmol/L (136-145); Total Protein,Serum 5.2 g/dl (6.3-8.2)
[2024-07-11] MEDS: METFORMIN 500MG TABLET 500 MG PO (08:56)
[2024-07-11] MEDS: MAGNESIUM SULFATE IN WATER 2 GM/50 ML PIGGYBACK IV (08:56)
[2024-07-11] MEDS: LISINOPRIL 10MG TABLET 30 MG PO (08:57)
[2024-07-11] MEDS: FAMOTIDINE 20MG TABLET 20 MG PO (08:57)
[2024-07-11] MEDS: ASPIRIN EC 81MG TABLET 81 MG PO (08:57)
[2024-07-11] MEDS: METOPROLOL SUCCINATE XL 25MG TABLET 25 MG PO (08:57)
[2024-07-11] MEDS: PARoxetine 20MG TABLET 20 MG PO (08:57)
[2024-07-11] MEDS: PANTOPRAZOLE 40MG TABLET 40 MG PO (09:02)
[2024-07-11] MEDS: levoFLOXacin 750 MG TABLET PO (10:31)
[2024-07-11 10:50] LABS: POC Glucose,Bedside 251 (70-110)
[2024-07-11] MEDS: humaLOG 100 UNITS/ML 10ML VIAL (SSI) SUBCUT (11:03)
[2024-07-11 11:31] VITALS: BP 136/63; PULSE 76; RESP 18; TEMP 37.1; O2SAT 95
--- NOTE | 2024-07-11 11:45 | P.DS_ITS ---
General Admission date:: 07/05/24 Discharge date: 07/11/24 HPI HPI HPI: Le Vogel is a 68-year-old female with a medical history significant for diabetes, hypertension, anxiety/depression who was found by EMS sitting in a nonheated garage, in per patient she was apparently waiting for them. Patient has significant alteration in mental status upon arrival, GCS around 8. Workup in the ED significant for WBC 19.5, VBG pH 6.89, pCO2 26.9, lactic acid 4.5, undetectable bicarb, AGAP 28.3, glucose 581, ketonuria, procalcitonin 2.11, troponin 0.13. CXR, head/chest/abdomen/pelvis CTs did not show acute findings. She was given vancomycin, Zosyn and started on DKA protocol. Case discussed with ED provider decision was made to admit patient for DKA and possible sepsis. Hospital Course Hospital Course Hospital Course: Le Vogel is a 68-year-old female with a medical history significant for diabetes, hypertension, anxiety/depression who was found by EMS sitting in a nonheated garage, in per patient she was apparently waiting for them. Patient has significant alteration in mental status upon arrival, GCS around 8. Workup in the ED significant for WBC 19.5, VBG pH 6.89, pCO2 26.9, lactic acid 4.5, undetectable bicarb, AGAP 28.3, glucose 581, ketonuria, procalcitonin 2.11, troponin 0.13. CXR, head/chest/abdomen/pelvis CTs did not show acute findings. She was given vancomycin, Zosyn and started on DKA protocol. Case discussed with ED provider decision was made to admit patient for DKA and possible sepsis. Patient was treated with DKA protocol. DKA gradually resolved. She was found to be bacteremic secondary to her UTI. Positive for Klebsiella. Transition to oral antibiotics to complete course. Overall has done well and is on stable regimen at this time. Excepted by [facility] for further management. Problems addressed as follows: #DKA, resolved #Insulin-dependent diabetes ? Intial VBG pH 6.89, lactic acid 4.5, undetectable bicarb, AGAP 28.3, glucose 581, ketonuria, potassium 3.3. Hemoglobin A1c 12.6. Initiated on DKA protocol. Had gradual improvement with her nausea and vomiting. DKA resolved. Transitioned to basal bolus regimen. Overall doing well at this time. Tolerating Lantus 25 units nightly. Morning glucoses in the 150 range. Continue metformin 500 mg twice daily. Holding on SGLT2 therapy given patient's bacteremia and UTI. Recommend considering initiation in the coming month if does well. Also having significant GERD symptoms. Initiated on pantoprazole. Tolerating p.o. intake without difficulty. Monitor fingerstick glucose before meals and at bedtime. May necessitate further adjustment to her diabetes re gimen. #Severe sepsis, resolved #Hypothermia, resolved #Klebsiella bacteremia ? Patient was found in a cold garage, unclear how long she has been there. Initially hypothermic. Hypothermia resolved and she has maintained her body temperature without issue for at least the past 4 days. White count gradually improved. Normal on day of discharge at 8.2. Hemoglobin stable at 12.2. Lactate normalized. Blood culture and urine cultures grew Klebsiella. Transition to Levaquin 750 mg daily to complete 10 days of therapy. Kidney function normal on day of discharge and BUN 10, creatinine 0.4. Recommend repeat labs in 1 to 2 weeks to monitor CBC, CMP, magnesium. #NSTEMI: Troponins peaked at 1.94. ECHO without wall motion abnormalities. D ue to bacteremia, will hold on heart cath, plan for follow-up as an outpatient with cardiology. Continue aspirin and statin daily along with metoprolol and lisinopril for blood pressure and heart rate. #Physical deconditioning: PT/OT consulted, recommended SNF. Case management assisting with placement. Accepted to [facility] for further care #Hypertension: Continue home lisinopril 30 mg daily. #Anxiety/depression: Continue home paroxetine. Total time spent on discharge 36 minutes in counseling, documentation, chart review, and direct care with patient. Exam Data for Last 24 hours Vital signs and Labs for Last 24 Hours: Temp Pulse Resp BP Pulse Ox O2 Del Method O2 Flow Rate 98.8 F 76 18 136/63 95 Room Air 3 07/11/24 11:31 07/11/24 11:31 07/11/24 11:31 07/11/24 11:31 07/11/24 11:31 07/11/24 11:07/07/24 03:00 Laboratory Results - last 24 hr 07/10/24 07:30: Triglycerides 108, Cholesterol 91 L, LDL Cholesterol Direct 54.55 L, VLDL Cholesterol 22, HDL Cholesterol 25 L, Cholesterol/HDL Ratio 3.6 H 07/10/24 16:40: POC Glucose 212 H 07/11/24 06:57: POC Glucose 146 H 07/11/24 07:04: WBC 8.2, RBC 4.33, Hgb 12.2, Hct 36.3 L, MCV 83.8, MCH 28.2, MCHC 33.6, RDW 13.4, Plt Count 222 D, MPV 10.6 H, Neut % (Auto) 50.6, Lymph % (Auto) 28.8, [place] % (Auto) 14.2 H, Eos % (Auto) 1.6, Baso % (Auto) 0.6, Neut # (Auto) 4.1, Lymph # (Auto) 2.4, [place] # (Auto) 1.2 H, Eos # (Auto) 0.1, Baso # (Auto) 0.1, Sodium 131 L, Potassium 3.8, Chloride 99, Carbon Dioxide 30, Anion Gap 5.8, BUN 10, Creatinine 0.40 L D, Estimated Creat Clear 71, Estimated GFR 158, Est GFR ( Amer) 191 D, Glucose 158 H, Calcium 8.0 L, Magnesium 1.9, Total Bilirubin 0.7, AST 33, ALT 25, Alkaline Phosphatase 258 H, Total Protein 5.2 L, Albumin 2.6 L, Globulin 2.6, Albumin/Globulin Ratio 1.0 L 07/11/24 10:31: POC Glucose 251 H I & O for Last 24 hours: Intake & Output 07/08/24 07/09/24 07/10/24 07/11/24 23:59 23:59 23:59 23:59 Intake Total 1591.759 / 2091.759 1700 / 1700 900 / 900 480 / 480 Output Total 1460 / 1560 100 / 100 1325 / 1325 600 / 600 Balance 131.759 / 251.705 3830 / 1600 -425 / -425 -120 / -120 Weight 88.178 kg 84.141 kg 84.141 kg 84.141 kg Microbiology Reports for the Last 24 Hours: Microbiology 07/07/24 06:45 Blood Blood Culture - Preliminary NO GROWTH AFTER 4 DAYS Constitutional Constitutional: no acute distress, obese, chronically ill appearing and cooperative *Routine HEENT Exam Head: Present normocephalic Eye: Present EOMI and PERRL ENT: Present mucous membranes moist *Routine Neck Exam Neck: Present supple; Absent lymphadenopathy *Routine Respiratory Exam Respiratory: Present CTA bilaterally; Absent rhonchi, stridor, wheezes or crackles *Routine Cardiovascular Exam Cardiovascular: Present RRR *Routine Abdominal Exam Abdominal: Present soft and normoactive bowel sounds; Absent tenderness *Routine Rectal Exam Patient deferred: visual exam *Routine Exam Patient deferred: external exam *Routine Extremities Exam Extremities: Present edema (Bilateral hands); Absent cyanosis or clubbing *Routine Skin Exam Skin: Present intact and warm; Absent cyanosis or rash *Routine Neurological Exam Neurological: Present alert, oriented X3 and moving all extremities; Absent altered mental status or abnormal gait Results Data Completed and Pending Labs on day of discharge: Labs from last 24 hours 07/11/24 07/11/24 07/11/24 10:31 07:04 06:57 WBC 8.2 RBC 4.33 Hgb 12.2 Hct 36.3 L MCV 83.8 MCH 28.2 MCHC 33.6 RDW 13.4 Plt Count 222 D MPV 10.6 H Neut % (Auto) 50.6 Lymph % (Auto) 28.8 [place] % (Auto) 14.2 H Eos % (Auto) 1.6 Baso % (Auto) 0.6 Neut # (Auto) 4.1 Lymph # (Auto) 2.4 [place] # (Auto) 1.2 H Eos # (Auto) 0.1 Baso # (Auto) 0.1 Sodium 131 L Potassium 3.8 Chloride 99 Carbon Dioxide 30 Anion Gap 5.8 BUN 10 Creatinine 0.40 L D Estimated Creat Clear 71 Estimated GFR 158 Est GFR ( Amer) 191 D Glucose 158 H POC Glucose 251 H 146 H Calcium 8.0 L Magnesium 1.9 Total Bilirubin 0.7 AST 33 ALT 25 Alkaline Phosphatase 258 H Total Protein 5.2 L Albumin 2.6 L Globulin 2.6 Albumin/Globulin Ratio 1.0 L Triglycerides Cholesterol LDL Cholesterol Direct VLDL Cholesterol HDL Cholesterol Cholesterol/HDL Ratio 07/10/24 07/10/24 16:40 07:30 WBC RBC Hgb Hct MCV MCH MCHC RDW Plt Count MPV Neut % (Auto) Lymph % (Auto) [place] % (Auto) Eos % (Auto) Baso % (Auto) Neut # (Auto) Lymph # (Auto) [place] # (Auto) Eos # (Auto) Baso # (Auto) Sodium Potassium Chloride Carbon Dioxide Anion Gap BUN Creatinine Estimated Creat Clear Estimated GFR Est GFR ( Amer) Glucose POC Glucose 212 H Calcium Magnesium Total Bilirubin AST ALT Alkaline Phosphatase Total Protein Albumin Globulin Albumin/Globulin Ratio Triglycerides 108 Cholesterol 91 L LDL Cholesterol Direct 54.55 L VLDL Cholesterol 22 HDL Cholesterol 25 L Cholesterol/HDL Ratio 3.6 H Preliminary micro results at discharge 07/07/24 06:45 Blood Culture - Preliminary Blood NO GROWTH AFTER 4 DAYS 07/07/24 06:45 Blood Culture - Preliminary Blood Klebsiella pneumoniae 07/07/24 00:24 Blood Culture - Preliminary Blood NO GROWTH AFTER 48 HOURS 07/07/24 00:24 Blood Culture - Preliminary Blood NO GROWTH AFTER 48 HOURS 07/05/24 15:22 Blood Culture - Preliminary Blood DS: Diagnosis Discharge Diagnosis (1) Bacteremia due to Klebsiella pneumoniae: Status: Acute Code(s): R78.81 - Bacteremia; B96.1 - Klebsiella pneumoniae [K. pneumoniae] as the cause of diseases classified elsewhere (2) DKA (diabetic ketoacidosis): Status: Acute Code(s): E11.10 - Type 2 diabetes mellitus with ketoacidosis without coma Qualifiers: Diabetes mellitus complication detail: without coma Diabetes mellitus type: type 2 Qualified Code(s): E11.10 - Type 2 diabetes mellitus with ketoacidosis without coma (3) Diabetes mellitus: Status: Chronic Code(s): E11.9 - Type 2 diabetes mellitus without complications (4) Hypokalemia: Status: Acute Code(s): E87.6 - Hypokalemia (5) Non-ST elevation [place] (NSTEMI): Status: Acute Code(s): I21.4 - Non-ST elevation (NSTEMI) myocardial infarction (6) Urinary tract infectious disease: Status: Acute Code(s): N39.0 - Urinary tract infection, site not specified Qualifiers: Hematuria presence: with hematuria Urinary tract infection type: site unspecified Qualified Code(s): N39.0 - Urinary tract infection, site not specified; R31.9 - Hematuria, unspecified (7) Severe sepsis: Status: Acute Code(s): A41.9 - Sepsis, unspecified organism; R65.20 - Severe sepsis without septic shock Meds Home Medications and Allergies Home Medications ?Medication ?Instructions ?Recorded ?Confirmed ?Type aspirin 81 mg tablet,delayed 81 mg PO DAILY 30 days #30 tabs 07/11/24 Rx release atorvastatin 40 mg tablet 40 mg PO HS 30 days #30 tabs 07/11/24 Rx dextromethorphan-benzocaine 5 1 sarah mucous membrane Q1HP PRN 07/11/24 Rx mg-7.5 mg lozenges (Cepacol Sore Sore Throat 5 days #16 ea Throat-Cough) insulin glargine 100 unit/mL (3 20 unit (0.2 mL) SQ HS 30 days #15 07/11/24 Rx mL) subcutaneous pen (Lantus mL Solostar U-100 Insulin) levofloxacin 750 mg tablet 750 mg PO 1100 4 days #4 tabs 07/11/24 Rx lisinopril 30 mg tablet 30 mg PO DAILY 30 days #30 tabs 07/11/24 Rx metformin 500 mg tablet 500 mg PO BIDWMEAL 30 days #60 tabs 07/11/24 Rx metoprolol succinate 25 mg 25 mg PO DAILY 30 days #30 tabs 07/11/24 Rx tablet,extended release 24 hr pantoprazole 40 mg tablet,delayed 40 mg PO DAILY 30 days #30 tabs 07/11/24 Rx release paroxetine HCl 20 mg tablet 20 mg PO DAILY 30 days #30 tabs 07/11/24 Rx New Prescriptions to Start Prescriptions: aspirin Chaitanya Zimmer atorvastatin Chaitanya Zimmer dextromethorphan-benzocaine [Cepacol Sore Throat-Cough] Chaitanya Zimmer insulin glargine [Lantus Solostar U-100 Insulin] Chaitanya Zimmer levofloxacin Chaitanya Zimmer lisinopril Chaitanya Zimmer metformin Chaitanya Zimmer metoprolol succinate Chaitanya Zimmer pantoprazole Chaitanya Zimmer paroxetine HCl Chaitanya Zimmer Allergies Allergy/AdvReac Type Severity Reaction Status Date / Time thiothixene Allergy Unknown Unknown Verified 07/07/24 08:31 allergy reaction Discharge Plan Disposition Patient Disposition: [facility] Condition: Fair Discharge Order Discharge Orders: Discharge Order (Routine); Ordered 07/11/24 Ordered By: Chaitanya Zimmer Follow up Plan Follow up with: Kj Burns MD [Staff Physician] - Enter time for follow up Prescriptions/Medication Reconciliation: New atorvastatin 40 mg Tablet 40 mg PO HS 30 Days Qty: 30 0RF aspirin 81 mg Tablet,Delayed Release (Dr/Ec) 81 mg PO DAILY 30 Days Qty: 30 0RF Cepacol Sore Throat-Cough 5-7.5 mg Lozenge 1 sarah mucous membrane Q1HP PRN (Reason: Sore Throat) 5 Days Qty: 16 0RF metformin 500 mg Tablet 500 mg PO BIDWMEAL 30 Days Qty: 60 0RF pantoprazole 40 mg Tablet,Delayed Release (Dr/Ec) 40 mg PO DAILY 30 Days Qty: 30 0RF metoprolol succinate 25 mg Tablet Extended Release 24 Hr 25 mg PO DAILY 30 Days Qty: 30 0RF insulin glargine [Lantus Solostar U-100 Insulin] 100 unit/mL (3 mL) Insulin Pen 20 unit SQ HS 30 Days Qty: 15 0RF levofloxacin 750 mg Tablet 750 mg PO 1100 4 Days Qty: 4 0RF Continued paroxetine HCl 20 mg tablet 20 mg PO DAILY 30 Days Qty: 30 0RF lisinopril 30 mg tablet 30 mg PO DAILY 30 Days Qty: 30 0RF Problem Reconciliation Problems Reviewed?: Yes Patient Discharge Instructions ACTIVITY: Continue current activity DIET: continue same diet Patient Instructions: DI for Heart Attack, Shock, DI for Urinary Tract Infection (UTI), DI for Diabetic Ketoacidosis Print Language: [place] Providers Primary Care Provider: Florentino Diaz Admit Provider: Nigel Sultana Attending Provider: Nigel Sultana
== END 2024-07-11 13:57 | DRG 637 ==
LOC: ER 17:29 → ICU 17:49 → 2ND 07-08 11:24
PROVIDERS: Nurse Practitioner Family; Physician Assistant; Admitting Provider Student in an Organized Health Care Education/Training Program; Emergency Provider Emergency Medicine; PCP Family Medicine; Visit Provider Student in an Organized Health Care Education/Training Program
DX: E11.10 Type 2 diabetes mellitus with ketoacidosis without coma (principal); I21.4 Non-ST elevation (NSTEMI) myocardial infarction; R78.81 Bacteremia; N39.0 Urinary tract infection, site not specified; B96.1 Klebsiella pneumoniae [K. pneumoniae] as the cause of diseases classified elsewhere; E87.6 Hypokalemia; Z60.2 Problems related to living alone; I10 Essential (primary) hypertension; T68.XXXA Hypothermia, initial encounter; X31.XXXA Exposure to excessive natural cold, initial encounter; Z79.899 Other long term (current) drug therapy; Z79.4 Long term (current) use of insulin
CPT/HCPCS: 36415; 51702; 70450; 71045; 71260; 74177; 80048; 80053; 80061; 80307; 81001; 82009; 82272; 82803; 82962; 83036; 83605; 83690; 83735; 83880; 84100; 84132; 84145; 84484; 85007; 85025; 86215; 87040; 87077; 87086; 87088; 87186; 87631; 93005; 93306; 97110; 97163; 97166; 97530; 99291; G0328; J0696; J1650; J1956; J2405; J2543; J3370; J3372; J3475; J7030; Q9967; S0028

== ENCOUNTER 2024-07-29 09:33 | Inpatient (IN) | payer MEDICARE, SELFPAY ==
[2024-07-29] VITALS (10 sets, daily range): BP systolic 114–150; BP diastolic 43–69; PULSE 88–96; RESP 16–18; TEMP 36.6–37.3; O2SAT 91–99; BMI 33.6; BMI 32.8
--- NOTE | 2024-07-29 09:36 | ECG_ITS ---
APPROVED REPORT Exam: Resting ECG HR:96 bpm ECG Measurements Heart Rate 96 AXES IN 152 P 56 QRSd 98 QRS -5 QT 355 T 55 QTc 409 Conclusion SINUS RHYTHM NORMAL ECG UNCONFIRMED REPORT Electronically signed by : Florentino Marley MD 07/30/2024 08:58:55
--- NOTE | 2024-07-29 09:48 | XR_ITS ---
PROCEDURE INFORMATION: Exam: XR Chest Exam date and time: 07/29/2024 9:58 AM Age: 68 years old Clinical indication: Cough and shortness of breath; Additional info: AMS, cough TECHNIQUE: Imaging protocol: Radiologic exam of the chest. Views: 1 view. COMPARISON: CT CHEST W CON 07/05/2024 3:44 PM FINDINGS: Lungs: Nodule measuring 6 mm in the right lung base not seen on the prior CT is likely infectious in nature. Pleural spaces: Unremarkable. No pleural effusion. No pneumothorax. Heart/Mediastinum: Unremarkable. No cardiomegaly. Bones/joints: Unremarkable. IMPRESSION: Nodule measuring 6 mm in the right lung base not seen on the prior CT is likely infectious in nature. A follow-up study can be obtained in 8 weeks.
[2024-07-29 09:53] LABS: Basophils % 0.3 % (0.1-2.0); Hemoglobin 13.2 g/dL (12.2-16.2); Lymphocytes % 14.5 % (10-50); Mean Corpuscular Hemoglobin 28.1 pg (27.0-31.2); Mean Corpuscular Volume 85.1 fl (81-99); Mean Platelet Volume 10.6 fl (7.4-10.4); Monocytes # 0.9 K/mm3 (0.1-1.0); Monocytes % 12.2 % (1.7-9.3); Neutrophils # 5.1 K/mm3 (1.8-7.8); Neutrophils % 72.3 % (37.0-80.0); Platelet Count 168 K/mm3 (142-424); Red Cell Distribution Width 13.2 % (11.5-17.5); White Blood Count 7.1 K/mm3 (4.8-10.8)
[2024-07-29 09:53] LABS: Microscopic, Urine URINE MICROSCOPIC (MICROSCOPIC)
--- NOTE | 2024-07-29 09:53 | PC.NURSE ---
Respiratory notified of VBG.
[2024-07-29 09:56] LABS: Appearance,Urine CLOUDY (Clear); Bilirubin,Urine Negative (Negative); Blood, Urine 1+ (Negative); Color,Urine YELLOW (Yellow); Glucose,Urine (UA) 3+ (Negative); Ketones,Urine 2+ (Negative); Leukocyte Esterase,Urine 1+ (Negative); Nitrate,Urine POSITIVE (Negative); Protein,Urine TRACE (Negative); Specific Gravity, Urine 1.025 (1.005-1.030); Urobilinogen,Urine 0.2 EU/dl (0.2)
--- NOTE | 2024-07-29 09:56 | PC.NURSE ---
Urine specimen obtained via in-and-out urinary catheter using sterile technique x1 attempt. Straw colored and cloudy urine return noted. Assisted by IVIS Moe. Patient tolerated well.
[2024-07-29 09:57] LABS: Albumin Level 3.4 g/dl (3.5-5.0); Chloride 95 mmol/L (98-107)
[2024-07-29 09:58] LABS: Potassium 3.7 mmoL/L (3.5-5.1); Sodium 126 mmol/L (136-145)
--- NOTE | 2024-07-29 09:58 | PC.NURSE ---
XR AT BEDSIDE
[2024-07-29 10:00] LABS: Alanine Aminotransferase 48 U/L (12-78); Aspartate Amino Transferase 44 U/L (14-36); Blood Urea Nitrogen 14 mg/dl (7-17); Creatinine Clearance Estimated 70 mL/min (50-200); Estimated Glomerular Filt Rate 221 ml/min (>60); GFR (African American) 267 ML/MIN (>60)
--- NOTE | 2024-07-29 10:00 | HMH.EDGENADL ---
Discharge Plan Disposition Patient Disposition: Admitted Clinical Impressions Clinical Impression: Acute hyponatremia, Urinary tract infection, Acute metabolic encephalopathy Discharge ED Provider: Hany Cunningham General Adult HPI General Chief complaint: Weakness Stated complaint: Left sided weakness Time Seen by Provider: 07/29/24 09:35 Mode of Arrival: EMS Source of Information: Patient Limitations: No Limitations Description of Symptoms (Recalled from ER Triage Doc. by RN): Patient reports that she is unable to lay flat related to her acid reflux and that she has been weaker than usual. History of Present Illness HPI narrative: Please note that above description of symptoms, in this electronic medical record under categorization of recalled from ER triage doctor by RN are reflective of an initial nursing assessment, however, is not reflective of my full history and physical exam that was personally taken and clarified. Consequentially, this preceding description of symptoms, which may include the patient's categorized chief complaint in the EMR, do not reflect my personal clinical impression, and the ultimate description of history of present illness and patient stated complaints should be deferred to this section of the note. Unless stated otherwise or congruent with this section of the note, additional signs, symptoms, or incongruence should be interpreted as inaccurate with my clinical impression. Related Data Previous Rx's ?Medication ?Instructions ?Recorded aspirin 81 mg tablet,delayed 81 mg PO DAILY 30 days #30 tabs 07/11/24 release atorvastatin 40 mg tablet 40 mg PO HS 30 days #30 tabs 07/11/24 dextromethorphan-benzocaine 5 1 sarah mucous membrane Q1HP PRN 07/11/24 mg-7.5 mg lozenges (Cepacol Sore Sore Throat 5 days #16 ea Throat-Cough) insulin glargine 100 unit/mL (3 20 unit (0.2 mL) SQ HS 30 days #15 07/11/24 mL) subcutaneous pen (Lantus mL Solostar U-100 Insulin) levofloxacin 750 mg tablet 750 mg PO 1100 4 days #4 tabs 07/11/24 lisinopril 30 mg tablet 30 mg PO DAILY 30 days #30 tabs 07/11/24 metformin 500 mg tablet 500 mg PO BIDWMEAL 30 days #60 tabs 07/11/24 metoprolol succinate 25 mg 25 mg PO DAILY 30 days #30 tabs 07/11/24 tablet,extended release 24 hr pantoprazole 40 mg tablet,delayed 40 mg PO DAILY 30 days #30 tabs 07/11/24 release paroxetine HCl 20 mg tablet 20 mg PO DAILY 30 days #30 tabs 07/11/24 Allergies Allergy/AdvReac Type Severity Reaction Status Date / Time thiothixene Allergy Unknown Unknown Verified 07/07/24 08:31 allergy reaction [facility] Disclaimer: The information contained in this section may have been updated after the patient was seen, as this information can be updated by other users. Medical History (Updated 07/29/24 @ 11:10 by Hany Cunningham MD) Non-ST elevation [place] (NSTEMI) Urinary tract infectious disease Hypokalemia DKA (diabetic ketoacidosis) Severe sepsis Diabetes mellitus Diabetes Diabetes Social History (Updated 07/05/24 @ 20:34 by MICAELA Brady) Smoking Status: Never smoker alcohol intake: never substance use type: denies use and marijuana (she did try 1 puff on THC back in 1971; nothing since then) current occupational status: disabled Travel in the last 8 weeks: None number of children: 0 Have you lived/traveled outside US in past 30 days?: No Contact w/someone who lives/traveled outside US past 30 days?: No Exposure to someone with infectious disease in past 14 days?: No Do you have a fever (greater than 100.4 F or 38 C)?: No Have you tested positive for COVID-19: No Exposed to someone with COVID-19 in past 14 days?: No Do you have a sore throat?: No Do you have a cough?: No Do you have any weakness?: Yes Do you have any diarrhea?: No Are you experiencing any unusual bleeding?: No Do you have any muscle aches/pain?: No Do you have any abdominal pain?: No Are you experiencing loss of taste or smell?: No Other Medical History Have you received the Flu Vaccine for this season: No Have you received the Pneumonia Vaccine: No ROS Obtained: Yes All systems reviewed & no additional complaints except as documented Physical Exam General General appearance: alert, in no apparent distress and obese Head Head exam: atraumatic and normocephalic Eye Eye exam: Present normal appearance, PERRL and EOMI Neck Neck exam: Present normal inspection, full ROM and trachea midline Respiratory Respiratory exam: Absent respiratory distress, wheezes, stridor, accessory muscle use or prolonged expiratory phase Cardiovascular Cardiovascular exam: Present other (Pulses equal symmetric in upper and lower extremities) Abdominal Exam Abdominal exam: Present soft; Absent distention, tenderness or pulsatile mass Extremities Exam Extremities exam: Absent edema Neurological Exam Neurological exam: Present alert, oriented X3 and CN II-XII intact; Absent motor sensory deficit Skin Skin exam: Present warm and dry; Absent diaphoresis or erythema Medical Decision Making Medical Records Medical records reviewed: Yes I reviewed the patient's medical records. Screening: Per USPSTF and CDC recommendations, given the prevalence of disease in our region, it is our hospital?s policy to screen for HIV and viral Hepatitis for all patients aged 18 and over and those with ongoing risk factors. Óscar Inquiry Pt receiving controlled substance: No Óscar was queried for this patient: No Vital Signs: 07/29/24 09:33 07/29/24 09:35 07/29/24 09:50 Temperature 97.8 F Temperature Source Oral Pulse Rate 96 H 88 Pulse Rate [Radial] 93 H Respiratory Rate 16 Blood Pressure Blood Pressure [Right Arm] 127/61 Blood Pressure Mean Blood Pressure Mean [Right Arm] 83 Blood Pressure Source [Right Arm] Automatic Cuff Blood Pressure Position [Right Arm] Sitting 02 Sat by Pulse Oximetry 97 96 97 Oxygen Delivery Method Nasal Cannula Nasal Cannula Nasal Cannula Oxygen Flow Rate (LPM) 1 1 1 07/29/24 09:50 07/29/24 10:36 07/29/24 11:00 Temperature Temperature Source Pulse Rate 95 H 90 89 Pulse Rate [Radial] Respiratory Rate Blood Pressure 117/54 L 120/58 L 119/47 L Blood Pressure [Right Arm] Blood Pressure Mean 75 78 Blood Pressure Mean [Right Arm] Blood Pressure Source [Right Arm] Blood Pressure Position [Right Arm] 02 Sat by Pulse Oximetry 98 97 97 Oxygen Delivery Method Nasal Cannula Oxygen Flow Rate (LPM) 1 07/29/24 11:28 07/29/24 11:48 Temperature 98.8 F Temperature Source Oral Pulse Rate 92 H 89 Pulse Rate [Radial] Respiratory Rate 18 Blood Pressure 126/43 L 133/55 L Blood Pressure [Right Arm] Blood Pressure Mean Blood Pressure Mean [Right Arm] Blood Pressure Source [Right Arm] Blood Pressure Position [Right Arm] 02 Sat by Pulse Oximetry 98 Oxygen Delivery Method Room Air Oxygen Flow Rate (LPM) Lab Data Lab Results 07/29/24 09:49: VBG pH 7.40, VBG pCO2 39.8, VBG pO2 46.2 H, VBG HCO3 24.3, VBG Total CO2 25.5, VBG O2 Saturation 81.9 H, VBG Base Excess -0.5, VBG Lactic Acid 1.7 07/29/24 09:52: Urine Color Yellow, Urine Appearance Cloudy, Urine pH 6.0, Ur Specific [place] 1.025, Urine Protein Trace, Urine Glucose (UA) 3+, Urine Ketones 2+, Urine Blood 1+ A, Urine Nitrate Positive A, Urine Bilirubin Negative, Urine Urobilinogen 0.2, Ur Leukocyte Esterase 1+ A, Urine RBC 3-5, Urine WBC 50-100, Ur Squamous Epith Cells 3-5, Urine Bacteria 2+ 07/29/24 Unknown 07/29/24 Unknown Orders (Tests/Meds): ED MEDICATIONS Generic Name Dose Route Start Last Admin Trade Name Freq PRN Reason Stop Dose Admin Sodium Chloride 1,000 mls @ 125 mls/hr 07/29/24 11:15 07/29/24 11:14 Sod Chlor 0.9% 1000ml Bag IV 08/28/24 11:14 125 mls/hr .Q8H POLINA Administration Cefepime HCl 2 gm/ Sodium 100 mls @ 200 mls/hr 07/29/24 18:00 Chloride IV 08/08/24 17:59 Q12H [facility] Insulin Human Lispro 0 unit 07/29/24 16:30 Humalog 100 Units/Ml 10ml Vial ([facility]) SUBCUT 08/28/24 16:29 ACHS [facility] Protocol Discontinued Medications Generic Name Dose Route Start Last Admin Trade Name Freq PRN Reason Stop Dose Admin Magnesium Sulfate 2 gm in 50 mls @ 50 mls/hr 07/29/24 10:26 07/29/24 10:33 Magnesium Sulfate 2gm/50ml Premix IV 07/29/24 11:25 50 mls/hr ONCE ONE Administration Ceftriaxone Sodium 1 gm/ 50 mls @ 100 mls/hr 07/29/24 10:45 07/29/24 10:35 Sodium Chloride IV 07/29/24 11:14 100 mls/hr ONCE ONE Administration ORDERS Category Date Time Status XR chest portable Stat Exams 07/29/24 09:48 Completed Basic Metabolic Panel Q6H Lab 07/29/24 14:00 Ordered Basic Metabolic Panel Q6H Lab 07/29/24 20:00 Ordered Complete Blood Count Auto Diff AMLAB Lab 07/30/24 06:00 Ordered Complete Blood Count Auto Diff Stat Lab 07/29/24 Completed Comprehensive Metabolic Panel AMLAB Lab 07/30/24 06:00 Ordered Comprehensive Metabolic Panel Stat Lab 07/29/24 Completed Hemoglobin A1C Stat Lab 07/29/24 Completed Magnesium AMLAB Lab 07/30/24 06:00 Ordered Magnesium Stat Lab 07/29/24 Completed PT INR [Prothrombin Time INR] Stat Lab 07/29/24 Completed PTT [Activated Partial Thrombo Time] Stat Lab 07/29/24 Completed Troponin I Q3H Lab 07/29/24 13:00 Ordered Troponin I Q3H Lab 07/29/24 16:00 Ordered Troponin I Stat Lab 07/29/24 Completed Urinalysis and Microscopic Stat Lab 07/29/24 09:52 Completed Blood Culture Stat Micro 07/29/24 09:49 Received Urine Culture Stat Micro 07/29/24 09:52 Received Venous Blood Gas Stat RT 07/29/24 09:49 Completed Medical Decision Narrative: 68-year-old female history of hypertension, hyperlipidemia, diabetes presenting with confusion and weakness. Patient at rehab facility currently after recent discharge from hospital. Rehab facility states that she was doing well, until today, 07/29. She was generally weak, confused, not herself. Called EMS to bring her to the emergency department. Patient has no acute complaints on arrival. EMS story without much further to offer. History was obtained via conversation with patient, EMS. On arrival, patient hemodynamically stable, alert, oriented x4, appropriate, GCS 15, moving all extremities spontaneously, pupils equal and reactive to light. Full physical exam performed and significant for chronically ill-appearing female no acute distress. She speaking full sentences, alert and oriented, has no complaints. Lungs are clear, cardiac exam normal. No lower extremity edema. NIHSS 0, cranial nerves, cerebellar, motor and sensory exams normal. Abdomen soft, nontender, nondistended. Differential includes pneumonia, UTI, sepsis, metabolic abnormality, endocrinologic abnormality, among others. Patient placed on continuous cardiac monitoring and continuous pulse ox with initial blood pressure 127/61, heart rate 93, saturation 97% on room air. Independent interpretation of EKG shows sinus rhythm 96 bpm with no obvious acute ischemic change. SD interval 152, QRS 98, QTc 409 with mildly leftward axis. Independent interpretation of workup demonstrates nonactionable CBC. Chemistry with acute hyponatremia 126 down from previous baseline in the 130s just earlier this month. Normal anion gap and kidney function. Patient's glucose 224, magnesium low, this was repleted. Troponin negative. Elevated alkaline phosphatase. Urinalysis concerning for UTI. Given 1 g of ceftriaxone. For symptomatic management and correction of underlying abnormalities. Imaging independently interpreted and significant for no acute intrathoracic abnormality on chest x-ray. On reevaluation, patient remains at baseline. Ceftriaxone administered, magnesium repleted, patient given normal saline on a rate for correction slowly. Tissue perfusion reassessment performed within 3 hours, patient mentating, following commands, good capillary refill and hemodynamically stable. Given patient presentation, workup, history, this most likely represents acute confusion in the setting of hyponatremia and UTI. Hospital medicine consulted and case was discussed at length, agreeable to inpatient admission and correction of underlying abnormalities. Because patient high risk for clinical decompensation, deemed appropriate for inpatient admission. Results were relayed to patient who voiced understanding and patient was agreeable to inpatient admission and management. Patient was admitted to the hospital for further definitive management. Therapeutic Recreation Leader disclaimer Much of this encounter note is an electronic restaurant hourly team member spoken language to printed text. Electronic restaurant hourly team member of the spoken language may permit errors. Although I have reviewed the note, some errors may still exist. Critical Care Critical Care Time Critical Care Time: No
[2024-07-29 10:01] LABS: Lactate Venous 1.7 mmol/L (0.4-2.0); VBG Base Excess -0.5 mmol/L (-2.4-2.3); VBG HCO3 24.3 mmol/L (23-30); VBG Oxygen Saturation 81.9 % (50-70); VBG PCO2 39.8 mmol/L (35-51); VBG PO2 46.2 mmol/L (28-40); VBG Total CO2 25.5 mmol/L (23-27)
[2024-07-29 10:01] LABS: Albumin/Globulin Ratio 1.1 (1.1-1.8); Alkaline Phosphatase 238 U/L (38-126); Anion Gap 10.7 mEq/L (5-15); Bilirubin,Total 1.4 mg/dl (0.2-1.3); Calcium 8.2 mg/dl (8.4-10.2); Carbon Dioxide 24 mmol/L (22.0-30.0); Globulin 3.2 g/dL (1.3-3.2); Glucose 224 mg/dl (74-100); Magnesium 1.4 mg/dl (1.6-2.3); Total Protein,Serum 6.6 g/dl (6.3-8.2)
[2024-07-29 10:02] LABS: Activated Partial Thrombo Time 27.4 seconds (22.5-28.5); INR 0.93 (0.9-1.1); Prothrombin Time 10.3 seconds (9.2-12.1)
[2024-07-29 10:02] LABS: Bacteria,Urine 2+ /lpf; WBC,Urine 50-100 #/hpf (0-3)
[2024-07-29 10:14] LABS: Hemoglobin A1C 11.3 % (4.0-6.0); Troponin I < 0.01 ng/ml (0.00-0.034)
--- NOTE | 2024-07-29 10:31 | PC.NURSE ---
Lab called stating they needed more urine for the culture if possible.
[2024-07-29] MEDS: MAGNESIUM SULFATE IN WATER 2 GM/50 ML PIGGYBACK IV ×2 (10:33→16:02)
[2024-07-29] MEDS: CEFTRIAXONE 1 GM 1 GM in 0.9 % SODIUM CHLORIDE 50 ML IV (10:35)
[2024-07-29] MEDS: 0.9 % SODIUM CHLORIDE 1000ML 1,000 ML 125 ML IV ×3 (11:14→21:11)
--- NOTE | 2024-07-29 11:33 | PC.NURSE ---
DR COSTA SPEAKING WITH DR RDZ
--- NOTE | 2024-07-29 11:35 | PC.NURSE ---
Arsalan, [employer] notified of admission. Currently awaiting bed assignment.
--- NOTE | 2024-07-29 11:36 | EXP.HP ---
History of Present Illness *Admission Date: 07/29/24 *Reason for visit:: Confusion *History of present illness: Ms. Vogel is a 68-year-old female with history of hypertension, hyperlipidemia, diabetes who presented to the ER from [place] with confusion and weakness. Was admitted earlier this month after being found down and hypothermic where she was septic and bacteremic with Klebsiella. Was discharged to rehab for further care. Also has diabetes and had DKA last visit. On presentation today, patient was not able to give much history. Will open her eyes and have conversation but dozes back off. She remains hemodynamically stable. GCS is 15 but she is quite somnolent. Moving all extremities. No focal neurologic deficits. Workup concerning for UTI and hyponatremia. Medicine consulted for admission and further management. On evaluation, patient quite fatigued but will answer questions appropriately and then dozes back off. No acute distress. Sats stable on 2 L oxygen. Chest x-ray per my review with no focal consolidation PFSH [facility] Disclaimer: The information contained in this section may have been updated after the patient was seen, as this information can be updated by other users. Medical History Non-ST elevation [place] (NSTEMI) Urinary tract infectious disease Hypokalemia DKA (diabetic ketoacidosis) Severe sepsis Diabetes mellitus Diabetes Diabetes Family History Other Diabetes Social History Smoking Status: Never smoker alcohol intake: never substance use type: denies use and marijuana (she did try 1 puff on THC back in 1971; nothing since then) current occupational status: disabled Travel in the last 8 weeks: None number of children: 0 Have you lived/traveled outside US in past 30 days?: No Contact w/someone who lives/traveled outside US past 30 days?: No Exposure to someone with infectious disease in past 14 days?: No Do you have a fever (greater than 100.4 F or 38 C)?: No Have you tested positive for COVID-19: No Exposed to someone with COVID-19 in past 14 days?: No Do you have a sore throat?: No Do you have a cough?: No Do you have any weakness?: Yes Do you have any diarrhea?: No Are you experiencing any unusual bleeding?: No Do you have any muscle aches/pain?: No Do you have any abdominal pain?: No Are you experiencing loss of taste or smell?: No Other Medical History Have you received the Flu Vaccine for this season: No Have you received the Pneumonia Vaccine: No Review of Systems Review of Systems Review of systems (narrative): 14 point review of systems performed, pertinent positives and negatives as per [facility] Meds Home Medications and Allergies Home Medications ?Medication ?Instructions ?Recorded ?Confirmed ?Type aspirin 81 mg tablet,delayed 81 mg PO DAILY 30 days #30 tabs 07/11/24 07/29/24 Rx release atorvastatin 40 mg tablet 40 mg PO HS 30 days #30 tabs 07/11/24 07/29/24 Rx dextromethorphan-benzocaine 5 1 sarah mucous membrane Q1HP PRN 07/11/24 07/29/24 Rx mg-7.5 mg lozenges (Cepacol Sore Sore Throat 5 days #16 ea Throat-Cough) insulin glargine 100 unit/mL (3 20 unit (0.2 mL) SQ HS 30 days #15 07/11/24 07/29/24 Rx mL) subcutaneous pen (Lantus mL Solostar U-100 Insulin) levofloxacin 750 mg tablet 750 mg PO 1100 4 days #4 tabs 07/11/24 07/29/24 Rx lisinopril 30 mg tablet 30 mg PO DAILY 30 days #30 tabs 07/11/24 07/29/24 Rx metformin 500 mg tablet 500 mg PO BIDWMEAL 30 days #60 tabs 07/11/24 07/29/24 Rx metoprolol succinate 25 mg 25 mg PO DAILY 30 days #30 tabs 07/11/24 07/29/24 Rx tablet,extended release 24 hr pantoprazole 40 mg tablet,delayed 40 mg PO DAILY 30 days #30 tabs 07/11/24 07/29/24 Rx release paroxetine HCl 20 mg tablet 20 mg PO DAILY 30 days #30 tabs 07/11/24 07/29/24 Rx New Prescriptions to Start Prescriptions: Allergies Allergy/AdvReac Type Severity Reaction Status Date / Time thiothixene Allergy Unknown Unknown Verified 07/07/24 08:31 allergy reaction Exam Data for Last 24 hours Vital signs and Labs for Last 24 Hours: Temp Pulse Resp BP Pulse Ox O2 Del Method O2 Flow Rate 97.8 F 90 16 120/58 L 97 Nasal Cannula 1 07/29/24 09:33 07/29/24 10:36 07/29/24 09:33 07/29/24 10:36 07/29/24 10:36 07/29/24 09:50 07/29/24 09:50 Laboratory Results - last 24 hr 07/29/24 09:49: VBG pH 7.40, VBG pCO2 39.8, VBG pO2 46.2 H, VBG HCO3 24.3, VBG Total CO2 25.5, VBG O2 Saturation 81.9 H, VBG Base Excess -0.5, VBG Lactic Acid 1.7 07/29/24 09:52: Urine Color Yellow, Urine Appearance Cloudy, Urine pH 6.0, Ur Specific [place] 1.025, Urine Protein Trace, Urine Glucose (UA) 3+, Urine Ketones 2+, Urine Blood 1+ A, Urine Nitrate Positive A, Urine Bilirubin Negative, Urine Urobilinogen 0.2, Ur Leukocyte Esterase 1+ A, Urine RBC 3-5, Urine WBC 50-100, Ur Squamous Epith Cells 3-5, Urine Bacteria 2+ 07/29/24 : WBC 7.1, RBC 4.70, Hgb 13.2, Hct 40.0, MCV 85.1, MCH 28.1, MCHC 33.0, RDW 13.2, Plt Count 168, MPV 10.6 H, Neut % (Auto) 72.3, Lymph % (Auto) 14.5, [place] % (Auto) 12.2 H, Eos % (Auto) 0.0 L, Baso % (Auto) 0.3, Neut # (Auto) 5.1, Lymph # (Auto) 1.0, [place] # (Auto) 0.9, Eos # (Auto) 0.0, Baso # (Auto) 0.0, PT 10.3, INR 0.93, APTT 27.4, Sodium 126 L, Potassium 3.7, Chloride 95 L, Carbon Dioxide 24, Anion Gap 10.7, BUN 14, Creatinine 0.30 L, Estimated Creat Clear 70, Estimated GFR 221, Est GFR ( Amer) 267, Glucose 224 H, Hemoglobin A1c 11.3 H, Calcium 8.2 L, Magnesium 1.4 L, Total Bilirubin 1.4 H, AST 44 H, ALT 48, Alkaline Phosphatase 238 H, Troponin I < 0.01, Total Protein 6.6 D, Albumin 3.4 L, Globulin 3.2, Albumin/Globulin Ratio 1.1 I & O for Last 24 hours: Intake & Output 07/26/24 07/27/24 07/28/24 07/29/24 23:59 23:59 23:59 23:59 Weight 83.461 kg Constitutional Constitutional: mild distress, obese, chronically ill appearing and somnolent *Routine HEENT Exam Head: Present normocephalic Eye: Present EOMI and PERRL ENT: Present mucous membranes moist *Routine Neck Exam Neck: Present supple; Absent lymphadenopathy *Routine Respiratory Exam Respiratory: Present CTA bilaterally; Absent respiratory distress, rhonchi, stridor, wheezes or crackles *Routine Cardiovascular Exam Cardiovascular: Present RRR *Routine Abdominal Exam Abdominal: Present soft and normoactive bowel sounds; Absent tenderness *Routine Rectal Exam Rectal:: deferred *Routine Genitalia Exam Genitalia:: deferred *Routine Extremities Exam Extremities: Absent cyanosis, clubbing or edema *Routine Skin Exam Skin: Present intact and warm; Absent rash *Routine Neurological Exam Neurological: Present alert and altered mental status; Absent moving all extremities Comments: Slow to respond to questions but answers appropriate. Knows she is at the hospital Assessment and Plan *Assessment and plan (1) Acute metabolic encephalopathy: Status: Acute Category: Medical Code(s): G93.41 - Metabolic encephalopathy (2) Acute hyponatremia: Status: Acute Category: Medical Code(s): E87.1 - Hypo-osmolality and hyponatremia (3) Urinary tract infection: Status: Acute Category: Medical Code(s): N39.0 - Urinary tract infection, site not specified (4) Diabetes mellitus: Status: Chronic Category: Medical Code(s): E11.9 - Type 2 diabetes mellitus without complications (5) Hypomagnesemia: Status: Acute Category: Medical Code(s): E83.42 - Hypomagnesemia (6) Obesity (BMI 30.0-34.9): Status: Acute Category: Medical Code(s): E66.811 - Obesity, class 1 Plan Le Vogel is a 68-year-old female with a medical history significant for diabetes, hypertension, anxiety/depression who presented from [facility] with increased confusion. On presentation, found to have hyponatremia and UTI. Discussed case with ER physician, request admission for further management. Including antibiotics and monitoring of sodium correction. I agreed to admit for further care. Problems addressed as follows: # Acute metabolic encephalopathy # Hyponatremia -Initial sodium 126, baseline ~133 last visit. Magnesium 1.4, potassium 3.7. Glucose elevated but acceptable at 224. Kidney function normal with BUN 14, creatinine 0.3. -Monitor close correction of sodium. Initiate normal saline at 125 cc an hour. Corrected between 8 and 10 mEq/day. Repeat BMP ordered every 6 hours. Repeat CBC, CMP, magnesium ordered for the morning -Chest X-ray with no focal consolidation per my review #Insulin-dependent diabetes - Holding metformin in setting of confusion - continue Lantus 20 units nightly. - Avoiding SGLTi due to patient's positive urine culture likely causing bacteremia. ? ACHS glucose checks, LDSSI. ? Nutrition consulted, providing counseling. # Urinary tract infection -UTI, Klebsiella bacteremia at last visit earlier this month. Does not appear septic at this time. Initiate on cefepime 2 g twice daily awaiting urine culture. -Urinalysis grossly abnormal concerning for UTI with positive nitrate, leuk esterase, white cells -White cell count 7.1. -Discontinue SGLT2 in the setting of UTI. #Physical deconditioning ? PT/OT consulted, previously recommended SNF. Anticipate returning back to [facility] when medically stable. #Hypertension: #CAD - Continue aspirin 81 mg daily, Lipitor 40 mg nightly - Continue metoprolol succinate 25 mg daily - holding lisinopril in setting of hypotension #GERD: Continue pantoprazole 40 mg daily for GERD #Anxiety/depression: Will hold paroxetine in the setting of confusion and hyponatremia as it may be a culprit Full code Lovenox 40 mg Diabetic diet
--- NOTE | 2024-07-29 11:47 | PC.NURSE ---
Report given to Nigel Sommers RN on the Medical/Surgical unit at this time.
--- NOTE | 2024-07-29 12:08 | PC.NURSE ---
Pt arrived to the floor at this time via stretcher
--- NOTE | 2024-07-29 14:01 | PC.NURSE ---
Called [facility] to fax H&P and SEP.
[2024-07-29 14:06] LABS: Chloride 97 mmol/L (98-107); Sodium 127 mmol/L (136-145)
[2024-07-29 14:07] LABS: Potassium 3.2 mmoL/L (3.5-5.1)
[2024-07-29 14:09] LABS: Blood Urea Nitrogen 14 mg/dl (7-17); Creatinine Clearance Estimated 68 mL/min (50-200); Estimated Glomerular Filt Rate 221 ml/min (>60); GFR (African American) 267 ML/MIN (>60)
[2024-07-29 14:10] LABS: Anion Gap 12.2 mEq/L (5-15); Calcium 7.7 mg/dl (8.4-10.2); Carbon Dioxide 21 mmol/L (22.0-30.0); Glucose 244 mg/dl (74-100)
[2024-07-29 14:41] LABS: Troponin I < 0.01 ng/ml (0.00-0.034)
[2024-07-29] MEDS: humaLOG 100 UNITS/ML 10ML VIAL (SSI) SUBCUT ×2 (16:05→21:04)
[2024-07-29 16:35] LABS: Troponin I < 0.01 ng/ml (0.00-0.034)
[2024-07-29 16:39] LABS: POC Glucose,Bedside 214 (70-110)
[2024-07-29] MEDS: CEFEPIME HCL 2 GM in 0.9 % SODIUM CHLORIDE 100 ML IV (17:06)
[2024-07-29 20:28] LABS: Chloride 97 mmol/L (98-107); Sodium 127 mmol/L (136-145)
[2024-07-29 20:31] LABS: Blood Urea Nitrogen 16 mg/dl (7-17); Carbon Dioxide 24 mmol/L (22.0-30.0); Creatinine Clearance Estimated 68 mL/min (50-200); Estimated Glomerular Filt Rate 122 ml/min (>60); GFR (African American) 148 ML/MIN (>60)
[2024-07-29 20:32] LABS: Calcium 7.5 mg/dl (8.4-10.2); Glucose 259 mg/dl (74-100)
[2024-07-29] MEDS: INSULIN GLARGINE 100 UNITS/ML 3ML FLEXPEN 20 UNIT SUBCUT (21:05)
[2024-07-29] MEDS: ATORVASTATIN 40MG TABLET 40 MG PO (21:12)
[2024-07-30] MEDS: 0.9 % SODIUM CHLORIDE 1000ML 1,000 ML 125 ML IV ×3 (03:43→17:34)
[2024-07-30 04:00] VITALS: BP 107/56; PULSE 80; RESP 18; TEMP 37.2; O2SAT 97; BMI 33.4
--- NOTE | 2024-07-30 05:01 | PC.NURSE ---
This Pt. was admitted for hyponatremia, AMS, UTI. Pt. is alert and orientated x 4. Pt on 2 liters [place] oxygen per [place]. IVF infusing. Pt. has a purewick in place. Pt. denies any c/o pain. sleeping off and on this shift. Pt. comes from [place].. IV antibiotics given. VSS, personal items and call gonzalez in reach.
[2024-07-30] MEDS: CEFEPIME HCL 2 GM in 0.9 % SODIUM CHLORIDE 100 ML IV ×2 (06:15→17:34)
[2024-07-30] MEDS: humaLOG 100 UNITS/ML 10ML VIAL (SSI) SUBCUT ×4 (06:26→20:53)
[2024-07-30 06:28] LABS: POC Glucose,Bedside 171 (70-110)
[2024-07-30 07:28] LABS: Basophils % 0.2 % (0.1-2.0); Eosinophils % 0.4 % (0.1-12.0); Hematocrit 35.3 % (37.0-47.0); Lymphocytes # 1.1 K/mm3 (0.7-4.5); Lymphocytes % 21.3 % (10-50); Mean Corpuscular HGB Conc 32.9 g/dL (31.8-35.4); Mean Corpuscular Hemoglobin 28.2 pg (27.0-31.2); Mean Corpuscular Volume 85.7 fl (81-99); Mean Platelet Volume 10.2 fl (7.4-10.4); Monocytes # 0.5 K/mm3 (0.1-1.0); Monocytes % 10.8 % (1.7-9.3); Neutrophils # 3.4 K/mm3 (1.8-7.8); Neutrophils % 66.7 % (37.0-80.0); Platelet Count 161 K/mm3 (142-424); Red Blood Count 4.12 M/mm3 (4.20-5.40); Red Cell Distribution Width 13.5 % (11.5-17.5)
[2024-07-30 07:52] LABS: Albumin Level 2.7 g/dl (3.5-5.0); Chloride 99 mmol/L (98-107); Potassium 3.4 mmoL/L (3.5-5.1); Sodium 130 mmol/L (136-145)
[2024-07-30 07:55] LABS: Alanine Aminotransferase 39 U/L (12-78); Alkaline Phosphatase 206 U/L (38-126); Anion Gap 10.4 mEq/L (5-15); Aspartate Amino Transferase 45 U/L (14-36); Bilirubin,Total 0.8 mg/dl (0.2-1.3); Blood Urea Nitrogen 11 mg/dl (7-17); Calcium 7.5 mg/dl (8.4-10.2); Carbon Dioxide 24 mmol/L (22.0-30.0); Creatinine Clearance Estimated 69 mL/min (50-200); Estimated Glomerular Filt Rate 221 ml/min (>60); GFR (African American) 267 ML/MIN (>60); Globulin 2.8 g/dL (1.3-3.2); Glucose 165 mg/dl (74-100); Total Protein,Serum 5.5 g/dl (6.3-8.2)
[2024-07-30 07:56] LABS: Magnesium 2.1 mg/dl (1.6-2.3)
[2024-07-30 07:57] LABS: Hemoglobin 11.3 g/dL (12.2-16.2)
[2024-07-30 08:00] VITALS: BP 115/51; PULSE 84; RESP 18; TEMP 37.3; O2SAT 96
--- NOTE | 2024-07-30 08:08 | SW/DCPLANNER ---
Addendum entered by Adrienne Bronx 08/01/24 11:26: Precert is still pending at this time. Addendum entered by [facility] 07/31/24 12:37: Per Kizzy brown/ Ameya Stahl precert is pending at this time. Addendum entered by [facility] 07/30/24 15:32: Per Kizzy Stahl precert will be started today. Addendum entered by [facility] 07/30/24 12:45: Per Kizzy Stahl patient's last covered day was 07/29/24. Patient is attempting to appeal discharge w/ Ameya Stahl. Kizzy is also working to contact patient's POA (Angelic) regarding bedhold. Kizzy stated that she will follow up w/ me once she speaks w/ POA. PT/OT has been ordered and will evaluate patient today. I will continue to fax updated patient information. Per MD patient could potentially be ready for discharge tomorrow pending no setbacks. Original Note: This patient currently resides at [facility] level of care. Updated patient information will be faxed to Kizzy brown/ Ameya Stahl this AM. Discharge date is unknown at this time.
--- NOTE | 2024-07-30 08:15 | HMH.PHAINT1 ---
Pharmacy Intervention Comments: HOME MEDICATION LIST VERIFIED USING LIST FROM [facility]
[2024-07-30] MEDS: METOPROLOL SUCCINATE XL 25MG TABLET 25 MG PO (09:04)
[2024-07-30] MEDS: ASPIRIN EC 81MG TABLET 81 MG PO (09:04)
[2024-07-30] MEDS: ENOXAPARIN 40MG/0.4ML SYRINGE 40 MG SUBCUT (09:04)
--- NOTE | 2024-07-30 09:36 | CT_ITS ---
FINAL REPORT TECHNIQUE: Axial CT images were performed through the head. Coronal reformatted images were submitted. This study was performed with techniques to keep radiation doses as low as reasonably achievable (ALARA). Individualized dose reduction techniques using automated exposure control or adjustment of mA and/or kV according to the patient's size were employed. CLINICAL HISTORY: left sided weakness COMPARISON: None FINDINGS: There is mild atrophy preferentially bifrontal, stable. There is no evidence of acute hemorrhage. There is no mass or edema identified. There is no abnormal extra-axial fluid seen. Minimal mucoperiosteal thickening is noted in the paranasal sinuses. Mastoid air cells are well aerated. IMPRESSION: No acute intracranial process. Reviewed, Interpreted and Dictated by Yobany Ricks MD Transcribed by Jeni Churchill Authenticated and [facility]
[2024-07-30 11:08] LABS: POC Glucose,Bedside 279 (70-110)
[2024-07-30] MEDS: POTASSIUM CHLORIDE 20MEQ TAB 40 MEQ PO ×2 (11:40→16:07)
--- NOTE | 2024-07-30 13:58 | HMH.PTEV ---
Physical Therapy Evaluation Rehab PT IP Evaluation Start: 07/30/24 09:39 Freq: ONCE Status: Active Protocol: Document 07/30/24 13:46 ALTA (Rec: 07/30/24 13:58 ALTA [id number]) Subjective/History History History Per H&P: Ms. Vogel is a 68- year-old female with history of hypertension, hyperlipidemia, diabetes who presented to the ER from [place] with confusion and weakness. Was admitted earlier this month after being found down and hypothermic where she was septic and bacteremic with Klebsiella. Was discharged to rehab for further care. Also has diabetes and had DKA last visit. On presentation today, patient was not able to give much history. Will open her eyes and have conversation but dozes back off. She remains hemodynamically stable. GCS is 15 but she is quite somnolent. Moving all extremities. No focal neurologic deficits. Workup concerning for UTI and hyponatremia. Medicine consulted for admission and further management. Subjective Subjective Pt reports she was discharged from [facility] [place] rehab d/t insurance expiring. Pt reports she required 1-2 person assist for ambulating short distances. Pt reports she used a RW and w/c for mobility. New diagnosis of cancer in past 12 No months? Rehab PT IP Eval Objective Appearance Patient Behavior Appropriate,Cooperative Patient Orientation Person,Place,Birthday, Situation Difficulty following instructions none Speech Pattern Clear Ambulation Patient Able to Ambulate No Balance Ability to Arise Able, uses arms to help Sitting Balance Steady, safe Standing Balance Unsteady Dynamic Sitting Balance Ability Good Dynamic Standing Balance Ability Fair Transfers Sit to Stand Bed Transfer Ability Moderate x 2 (50% assist) Sit to Stand Chair Transfer Ability Moderate x 2 (50% assist) Rehab PT IP prob,goals,plan Problems Date of Evaluation: 07/30/24 PT IP Problems Bed Mobility,Transfers,Gait, Balance,Self care,Safety Rehab Potential Rehab Potential Good Plan PT Intervention Plan Bed Mobility,Transfers,Gait, Balance,Self care,Safety, Therapeutic Exercise Other Intervention Plan 1-2 times PT Plan Frequency Daily Duration LOS Discharge Goals Bed Transfer Ability Minimal x 1 (25% assist) Sit to Stand Chair Transfer Ability Minimal x 1 (25% assist) Discharge Plan PT Discharge Plan Initial physical therapy evaluation performed. Patient presents below baseline at this time in functional mobility, transfers, and strength. PT recommending short-term rehabilitation stay upon d/c from [facility]. Pt would benefit from skilled PT while at [facility] to prevent further functional decline and maximize safety with mobility. Eval Complexity Eval Charge Codes 44452 - Moderate Complexity PHYSICIAN CERTIFICATION: I certify the specified therapy services for Le Vogel are required, authorized, and reviewed every 30 days.
--- NOTE | 2024-07-30 14:26 | HMH.OTEV ---
OT Inpatient Evaluation Rehab OT IP Evaluation Start: 07/30/24 09:40 Freq: ONCE Status: Active Protocol: [facility]30/24 14[facility] (Rec: 07/30/24 14:26 [facility] [id number]) Rehab OT IP Assessment Subjective History Pt oriented x 3 on arrival. Pt agreeable to engage in therapy evaluation. Pt admitted on 07/29/24 due to UTI and confusion. History and physical: Ms. Vogel is a 68-year-old female with history of hypertension, hyperlipidemia, diabetes who presented to the ER from [place] with confusion and weakness. Was admitted earlier this month after being found down and hypothermic where she was septic and bacteremic with Klebsiella. Was discharged to rehab for further care. Also has diabetes and had DKA last visit. On presentation today , patient was not able to give much history. Will open her eyes and have conversation but dozes back off. She remains hemodynamically stable. GCS is 15 but she is quite somnolent. Moving all extremities. No focal neurologic deficits. Workup concerning for UTI and hyponatremia. Medicine consulted for admission and further management. On evaluation, patient quite fatigued but will answer questions appropriately and then dozes back off. No acute distress. Sats stable on 2 L oxygen. Chest x-ray per my review with no focal consolidation Subjective Pt reports she was discharged from [facility] [place] rehab d/t insurance expiring. Pt reports she required 1-2 person assist for ambulating short functional transfers. Pt reports she used a RW and w/c for mobility. Pt also claims she was still requiring assistance with both dressing and bathing. She is dependent upon staff for completion of IADLs. Objective Patient Orientation Person,Place,Birthday Right Upper Extremity Gross ROM Min Limitation <25% Left Upper Extremity Gross ROM Min Limitation <25% Shoulder ROM Limitations Muscle Weakness Elbow ROM Limitations Muscle Weakness Wrist Limitations of Range of Motion Muscle Weakness Transfer Training Sit/Stand Transfer Assist Level Minimal x 1 (25% assist) Chair Transfer Ability Minimal x 1 (25% assist) Chair Transfer Technique Sit to/from Ambulatory Rehab OT IP prob,goals,plan Problems Date of Evaluation: 07/30/24 OT IP Problems Bed Mobility,Transfers,Balance ,Self care,Safety Rehab Potential Rehab Potential Good Equipment Needs Assistive Devices Rolling / Wheeled Walker Plan OT intervention Plan Bed Mobility,Transfers,Balance ,Self care,Safety,Therapeutic Exercise OT Plan Frequency Daily Duration LOS Discharge Goals Bed Mobility Ability Assistance x1 Sit to Stand Chair Transfer Ability Minimal x 1 (25% assist) Chair Transfer Ability Minimal x 1 (25% assist) Chair Transfer Technique Sit to/from Ambulatory Chair Transfer Assistive Devices Rolling Walker Lower Body Dressing Ability Moderate Assistance Upper Body Dressing Ability Minimal Assistance Bathing Ability Moderate Assistance Performing Toilet Hygiene Ability Moderate Assistance Overall Commode/Toilet Transfer Ability Minimal Assistance Commode/Toilet Transfer Technique Sit to/from Ambulatory Decrease in Endurance Yes Discharge Plan OT Discharge Plan Initial occupational therapy evaluation performed. Patient presents below baseline at this time in functional transfers, ADL independence, and strength. OT recommending short-term rehabilitation stay upon d/c from [facility]. Pt would benefit from skilled OT while at [facility] to prevent further functional decline and maximize safety daily activities. Eval Complexity Eval Charge Codes 33883 - Moderate Complexity PHYSICIAN CERTIFICATION: I certify the specified therapy services for Le Vogel are required, authorized, and reviewed every 30 days.
--- NOTE | 2024-07-30 14:47 | EXP.ACUTE.PN ---
Subjective *Date: 07/30/24 *Time: 20:35 Interval history: Patient will bit more alert and awake today. States that she was nearing the end of her time in rehab prior to getting sick again. Denies any nausea or vomiting. Denies any chest pain. Stable on 2 L. Therapy to work with patient today. Medical Exam Vital signs and Labs for Last 24 Hours: Vital Signs Temp Pulse Resp BP Pulse Ox O2 Del Method O2 Flow Rate 07/30/24 08:00 99.1 F 84 18 115/51 L 96 Nasal Cannula 2 07/30/24 07:00 Nasal Cannula 2 07/30/24 05:00 Nasal Cannula 2 07/30/24 04:00 98.9 F 80 18 107/56 L 97 Nasal Cannula 2 07/30/24 03:00 Nasal Cannula 2 07/30/24 01:00 Nasal Cannula 2 07/29/24 23:00 Nasal Cannula 2 07/29/24 21:00 Nasal Cannula 2 07/29/24 20:00 Nasal Cannula 2 07/29/24 20:00 99.2 F 90 16 119/60 93 L Nasal Cannula 2 07/29/24 18:22 Nasal Cannula 2 07/29/24 16:55 Nasal Cannula 2 07/29/24 16:52 Nasal Cannula 2 07/29/24 16:00 98.7 F 88 16 150/69 H 99 Nasal Cannula 2 07/29/24 15:00 Nasal Cannula 2 Intake and Output 07/29/24 07/30/24 07/30/24 23:59 07:59 15:59 Intake Total 330 / 2038 1708 / 2188 480 / 2188 Output Total 900 / 1600 1500 / 1900 400 / 1900 Balance -570 / 438 208 / 288 80 / 288 Intake: Intake, Oral Amount 330 / 1030 700 / 1180 480 / 1180 Intake, Total IV Amount 1008 / 1008 0.9 % Sodium Chloride 1000ML 1, 858 / 858 000 ml @ 125 mls/hr IV .Q8H POLINA Rx#:[id number] Cefepime HCl 2 gm In 0.9 % 100 / 100 Sodium Chloride 100 ml @ 200 mls/hr IV Q12H POLINA Rx#:[id number] Magnesium Sulfate in Water 2 gm 50 / 50 In 50 ml @ 50 mls/hr IV ONCE ONE Rx#:[id number] Output: Output, Urine Amount 900 / 1600 1500 / 1900 400 / 1900 Other: Number of Unmeasured Voids 0 0 Weight 82.418 kg Patient Weight 07/30/24 23:59 Weight 82.418 kg Laboratory Results - last 24 hr 07/29/24 09:52: Urine Color Yellow, Urine Appearance Cloudy, Urine pH 6.0, Ur Specific [place] 1.025, Urine Protein Trace, Urine Glucose (UA) 3+, Urine Ketones 2+, Urine Blood 1+ A, Urine Nitrate Positive A, Urine Bilirubin Negative, Urine Urobilinogen 0.2, Ur Leukocyte Esterase 1+ A, Urine RBC 3-5, Urine WBC 50-100, Ur Squamous Epith Cells 3-5, Urine Bacteria 2+ 07/29/24 16:04: POC Glucose 214 H 07/29/24 16:05: Troponin I < 0.01 07/29/24 20:10: Sodium 127 L, Potassium 4.0 D, Chloride 97 L, Carbon Dioxide 24, Anion Gap 10.0, BUN 16, Creatinine 0.50 L D, Estimated Creat Clear 68, Estimated GFR 122, Est GFR ( Amer) 148 D, Glucose 259 H, Calcium 7.5 L 07/30/24 06:19: POC Glucose 171 H 07/30/24 06:49: WBC 5.0 D, RBC 4.12 L, Hgb 11.3 L D, Hct 35.3 L, MCV 85.7, MCH 28.2, MCHC 32.9, RDW 13.5, Plt Count 161, MPV 10.2, Neut % (Auto) 66.7, Lymph % (Auto) 21.3, [place] % (Auto) 10.8 H, Eos % (Auto) 0.4, Baso % (Auto) 0.2, Neut # (Auto) 3.4, Lymph # (Auto) 1.1, [place] # (Auto) 0.5, Eos # (Auto) 0.0, Baso # (Auto) 0.0, Sodium 130 L, Potassium 3.4 L, Chloride 99, Carbon Dioxide 24, Anion Gap 10.4, BUN 11 D, Creatinine 0.30 L D, Estimated Creat Clear 69, Estimated GFR 221, Est GFR ( Amer) 267 D, Glucose 165 H D, Calcium 7.5 L, Magnesium 2.1 D, Total Bilirubin 0.8, AST 45 H, ALT 39, Alkaline Phosphatase 206 H, Total Protein 5.5 L, Albumin 2.7 L D, Globulin 2.8, Albumin/Globulin Ratio 1.0 L 07/30/24 11:00: POC Glucose 279 H I & O for Labs for Last 24 Hours: Intake & Output 07/27/24 07/28/24 07/29/24 07/30/24 23:59 23:59 23:59 23:59 Intake Total 330 / 2038 2188 / 2188 Output Total 900 / 1600 1900 / 1900 Balance -570 / 438 288 / 288 Weight 80.768 kg 82.418 kg Microbiology Reports for the Last 24 Hours: Microbiology 07/29/24 10:11 Blood Blood Culture - Preliminary NO GROWTH AFTER 24 HOURS 07/29/24 09:49 Blood Blood Culture - Preliminary NO GROWTH AFTER 24 HOURS 07/29/24 09:52 Urine,Clean Catch Urine Culture - Preliminary Gram Negative Rods Constitutional: Present no acute distress, chronically ill appearing and cooperative Head: Present atraumatic and normocephalic ENT: Present normal exam Neck: Present normal inspection Respiratory: Present normal respiratory effort; Absent rhonchi, wheezes or crackles Cardiac: Present Reg Rate and Rhythm GI: Present soft and normal bowel sounds; Absent distention or tenderness Extremities: Present normal inspection, full ROM and edema (Trace) Comment:: Edema in bilateral hands Skin: Present intact; Absent erythema Neuro: Present Grossly Intact, alert, awake, oriented x 3 and moves all extremities Assessment and Plan *Assessment and plan (1) Acute metabolic encephalopathy: Status: Acute Category: Medical Code(s): G93.41 - Metabolic encephalopathy (2) Acute hyponatremia: Status: Acute Category: Medical Code(s): E87.1 - Hypo-osmolality and hyponatremia (3) Urinary tract infection: Status: Acute Category: Medical Code(s): N39.0 - Urinary tract infection, site not specified (4) Diabetes mellitus: Status: Chronic Category: Medical Code(s): E11.9 - Type 2 diabetes mellitus without complications (5) Hypomagnesemia: Status: Acute Category: Medical Code(s): E83.42 - Hypomagnesemia (6) Obesity (BMI 30.0-34.9): Status: Acute Category: Medical Code(s): E66.811 - Obesity, class 1 Plan Le Vogel is a 68-year-old female with a medical history significant for diabetes, hypertension, anxiety/depression who presented from [facility] [place] with increased confusion. On presentation, found to have hyponatremia and UTI. Discussed case with ER physician, request admission for further management. Including antibiotics and monitoring of sodium correction. I agreed to admit for further care. Showing some improvement in mentation. Will have therapy evaluate today. Anticipate she will need placement at discharge. Showing slow improvement in sodium. Problems addressed as follows: # Acute metabolic encephalopathy # Hyponatremia -Initial sodium 126, baseline ~133 last visit. Sodium improved to 130 today. Potassium 3.4, magnesium 2.1. Glucose 165 on morning labs. Kidney function stable with BUN 11, creatinine 0.3. -Monitor close correction of sodium. Discontinue NS today. Initiate oral sodium 500 mg twice daily - Repeat CBC, CMP, magnesium ordered for the morning #Insulin-dependent diabetes - Holding metformin in setting of confusion - continue Lantus 20 units nightly. - Avoiding SGLTi due to patient's positive urine culture likely causing bacteremia. ? ACHS glucose checks, LDSSI. ? Nutrition consulted, providing counseling. # Urinary tract infection -UTI, Klebsiella bacteremia at last visit earlier this month. Does not appear septic at this time. -Continue cefepime 2 g twice daily. - Urine culture growing greater than 100,000 gram-negative rods -White cell count 5 -Discontinue SGLT2 in the setting of UTI. #Physical deconditioning ? PT/OT consulted, rec SNF. Case management assisting with referral. #Hypertension: #CAD - Continue aspirin 81 mg daily, Lipitor 40 mg nightly - Continue metoprolol succinate 25 mg daily - holding lisinopril in setting of hypotension #GERD: Continue pantoprazole 40 mg daily for GERD #Anxiety/depression: Will hold paroxetine in the setting of confusion and hyponatremia as it may be a culprit Full code Lovenox 40 mg Diabetic diet
[2024-07-30 16:00] VITALS: BP 103/58; PULSE 64; RESP 19; TEMP 36.7; O2SAT 100
[2024-07-30 16:26] LABS: POC Glucose,Bedside 322 (70-110)
--- NOTE | 2024-07-30 17:49 | PC.NURSE ---
Patient a&ox4 and vss. Patient got to chair for 4 horus today and worked with PT.
[2024-07-30 20:00] VITALS: BP 121/66; PULSE 60; RESP 18; TEMP 37.2; O2SAT 97
[2024-07-30] MEDS: ATORVASTATIN 40MG TABLET 40 MG PO (20:06)
[2024-07-30] MEDS: PANTOPRAZOLE 40MG TABLET 40 MG PO (20:06)
[2024-07-30 20:21] LABS: POC Glucose,Bedside 351 (70-110)
[2024-07-30] MEDS: INSULIN GLARGINE 100 UNITS/ML 3ML FLEXPEN 20 UNIT SUBCUT (20:53)
--- NOTE | 2024-07-31 03:53 | PC.NURSE ---
Patient is alert and oriented x4; no acute/intermittent periods of confusion were noted this shift. A visitor was present during the early evening. Patient was observed to have both wakeful periods and resting periods (eyes closed, respirations even and unlabored) throughout the night. Her oxygen flow was weaned around shift change from 2 L to 1 L of oxygen via nasal cannula; thus far, the patient has been tolerating 1 L for this shift with oxygen saturations > 90%. Other vital signs have remained stable. Auscultation of her heart, lungs, and bowels were within normal findings. Swelling of the patient's left upper extremity noted. A purewick has been utilized this shift; urine output has been emptied and documented accordingly. Urine appearance transparent and yellow in color. She has been drinking Diet Pepsi sodas and ice water at the bedside; a cup of orange jello (sugar-free) was given to her for a midnight snack. Scheduled medications and insulin coverage administered accordingly per SEP. Normal saline fluid infusion was discontinued during this shift. ACHS glucose fingersticks performed. At this time, the patient is resting in bed without any further complaints. No acute changes noted thus far. Bed alarm on. Call light within reach.
[2024-07-31 04:00] VITALS: BMI 34.9
[2024-07-31] MEDS: CEFEPIME HCL 2 GM in 0.9 % SODIUM CHLORIDE 100 ML IV ×2 (06:04→17:09)
--- NOTE | 2024-07-31 06:13 | PC.NURSE ---
Patient weaned from 1 L of oxygen via nasal cannula to room air at this time.
[2024-07-31 06:17] LABS: POC Glucose,Bedside 210 (70-110)
[2024-07-31] MEDS: humaLOG 100 UNITS/ML 10ML VIAL (SSI) SUBCUT ×4 (06:30→21:07)
[2024-07-31 07:11] LABS: Basophils % 0.3 % (0.1-2.0); Eosinophils # 0.1 K/mm3 (0.0-0.4); Eosinophils % 1.8 % (0.1-12.0); Hematocrit 33.6 % (37.0-47.0); Hemoglobin 10.9 g/dL (12.2-16.2); Lymphocytes # 1.3 K/mm3 (0.7-4.5); Lymphocytes % 34.1 % (10-50); Mean Corpuscular HGB Conc 32.4 g/dL (31.8-35.4); Mean Corpuscular Hemoglobin 28.2 pg (27.0-31.2); Mean Platelet Volume 12.3 fl (7.4-10.4); Monocytes # 0.4 K/mm3 (0.1-1.0); Monocytes % 10.7 % (1.7-9.3); Neutrophils # 2.1 K/mm3 (1.8-7.8); Neutrophils % 52.6 % (37.0-80.0); Platelet Count 186 K/mm3 (142-424); Red Blood Count 3.86 M/mm3 (4.20-5.40); Red Cell Distribution Width 13.8 % (11.5-17.5); White Blood Count 3.9 K/mm3 (4.8-10.8)
[2024-07-31 07:14] LABS: Anion Gap 10.5 mEq/L (5-15); Blood Urea Nitrogen 15 mg/dl (7-17); Calcium 7.7 mg/dl (8.4-10.2); Carbon Dioxide 20 mmol/L (22.0-30.0); Chloride 106 mmol/L (98-107); Creatinine Clearance Estimated 72 mL/min (50-200); Estimated Glomerular Filt Rate 221 ml/min (>60); GFR (African American) 267 ML/MIN (>60); Glucose 217 mg/dl (74-100); Potassium 4.5 mmoL/L (3.5-5.1); Sodium 132 mmol/L (136-145)
[2024-07-31 07:18] LABS: Magnesium 1.9 mg/dl (1.6-2.3)
[2024-07-31 08:00] VITALS: BP 128/69; PULSE 63; RESP 16; TEMP 36.6; O2SAT 99
[2024-07-31] MEDS: SODIUM CHLORIDE 1,000MG TABLET 500 MG PO ×2 (08:26→20:27)
[2024-07-31] MEDS: MAGNESIUM SULFATE IN WATER 2 GM/50 ML PIGGYBACK IV (08:26)
[2024-07-31] MEDS: ASPIRIN EC 81MG TABLET 81 MG PO (08:26)
[2024-07-31] MEDS: METOPROLOL SUCCINATE XL 25MG TABLET 25 MG PO (08:26)
[2024-07-31] MEDS: ENOXAPARIN 40MG/0.4ML SYRINGE 40 MG SUBCUT (08:26)
[2024-07-31 11:54] LABS: POC Glucose,Bedside 286 (70-110)
[2024-07-31 14:11] VITALS: BMI 34.9
[2024-07-31 16:00] VITALS: BP 149/71; PULSE 64; RESP 17; TEMP 36.7; O2SAT 99
[2024-07-31 17:09] LABS: POC Glucose,Bedside 271 (70-110)
--- NOTE | 2024-07-31 17:18 | EXP.PN ---
Subjective *Date: 07/31/24 *Time: 17:18 Interval history: Alert, oriented, pleasant, conversational. No acute concerns. Pending SNF placement. Exam Data for Last 24 hours Vital signs and Labs for Last 24 Hours: Temp Pulse Resp BP Pulse Ox O2 Del Method O2 Flow Rate 98.1 F 64 17 149/71 H 99 Room Air 1 07/31/24 16:00 07/31/24 16:00 07/31/24 16:00 07/31/24 16:00 07/31/24 16:00 07/31/24 11:00 07/31/24 08:00 Laboratory Results - last 24 hr 07/30/24 20:09: POC Glucose 351 H* 07/31/24 06:05: POC Glucose 210 H 07/31/24 06:42: WBC 3.9 L, RBC 3.86 L, Hgb 10.9 L, Hct 33.6 L, MCV 87.0, MCH 28.2, MCHC 32.4, RDW 13.8, Plt Count 186, MPV 12.3 H, Neut % (Auto) 52.6, Lymph % (Auto) 34.1, [place] % (Auto) 10.7 H, Eos % (Auto) 1.8, Baso % (Auto) 0.3, Neut # (Auto) 2.1, Lymph # (Auto) 1.3, [place] # (Auto) 0.4, Eos # (Auto) 0.1, Baso # (Auto) 0.0, Sodium 132 L, Potassium 4.5 D, Chloride 106, Carbon Dioxide 20 L, Anion Gap 10.5, BUN 15 D, Creatinine 0.30 L, Estimated Creat Clear 72, Estimated GFR 221, Est GFR ( Amer) 267, Glucose 217 H D, Calcium 7.7 L, Magnesium 1.9 07/31/24 11:40: POC Glucose 286 H 07/31/24 17:02: POC Glucose 271 H I & O for Last 24 hours: Intake & Output 07/28/24 07/29/24 07/30/24 07/31/24 23:59 23:59 23:59 23:59 Intake Total 330 / 2038 2428 / 3392 1064 / 1064 Output Total 900 / 1600 2100 / 2550 860 / 860 Balance -570 / 438 328 / 842 204 / 204 Weight 80.768 kg 82.418 kg 86 kg Microbiology Reports for the Last 24 Hours: Microbiology 07/29/24 10:11 Blood Blood Culture - Preliminary NO GROWTH AFTER 48 HOURS 07/29/24 09:49 Blood Blood Culture - Preliminary NO GROWTH AFTER 48 HOURS 07/29/24 09:52 Urine,Clean Catch Urine Culture - Final Klebsiella pneumoniae Constitutional Constitutional: no acute distress *Routine HEENT Exam Head: Present normocephalic Eye: Present EOMI and PERRL ENT: Present mucous membranes moist *Routine Neck Exam Neck: Present supple; Absent lymphadenopathy *Routine Respiratory Exam Respiratory: Present CTA bilaterally *Routine Cardiovascular Exam Cardiovascular: Present RRR *Routine Abdominal Exam Abdominal: Present soft and normoactive bowel sounds; Absent tenderness *Routine Extremities Exam Extremities: Absent cyanosis, clubbing or edema *Routine Skin Exam Skin: Present warm; Absent rash *Routine Neurological Exam Neurological: Present alert and oriented X3 Assessment and Plan *Assessment and plan (1) Acute metabolic encephalopathy: Status: Acute Category: Medical Code(s): G93.41 - Metabolic encephalopathy (2) Acute hyponatremia: Status: Acute Category: Medical Code(s): E87.1 - Hypo-osmolality and hyponatremia (3) Urinary tract infection: Status: Acute Category: Medical Code(s): N39.0 - Urinary tract infection, site not specified (4) Diabetes mellitus: Status: Chronic Category: Medical Code(s): E11.9 - Type 2 diabetes mellitus without complications (5) Hypomagnesemia: Status: Acute Category: Medical Code(s): E83.42 - Hypomagnesemia (6) Obesity (BMI 30.0-34.9): Status: Acute Category: Medical Code(s): E66.811 - Obesity, class 1 Plan Le Vogel is a 68-year-old female with a medical history significant for diabetes, hypertension, anxiety/depression who presented from [facility] with increased confusion. On presentation, found to have hyponatremia and UTI. Discussed case with ER physician, request admission for further management. Including antibiotics and monitoring of sodium correction. I agreed to admit for further care. Showing some improvement in mentation. Will have therapy evaluate today. Anticipate she will need placement at discharge. Showing slow improvement in sodium. Problems addressed as follows: # Acute metabolic encephalopathy # Hyponatremia - Initial sodium 126, baseline ~133 last visit. Sodium improved to 132 today. Potassium 4.5, magnesium 1.9. ? Hyponatremia likely secondary to hypovolemia given underlying DANAY as well. - Monitor close correction of sodium. Discontinued NS. ? Continue oral sodium 500 mg twice daily. - Repeat CBC, CMP, magnesium ordered for the morning # Urinary tract infection -UTI, Klebsiella bacteremia at last visit earlier this month. Does not appear septic at this time. ? Urine culture growing Klebsiella sensitive to ceftriaxone. - Transition to ceftriaxone, discontinue cefepime. - Urine culture growing greater than 100,000 gram-negative rods -Discontinue SGLT2 in the setting of recurrent UTI. #Insulin-dependent diabetes ?Hemoglobin A1c 11.3% on admission, improvement from 12.7 a few weeks ago. - Increased Lantus from 20 to 30 units nightly due to SSI needs. ? Continue metformin - Avoiding SGLTi due to patient's history positive urine culture causing bacteremia. ? ACHS glucose checks, LDSSI. ? Nutrition consulted, providing counseling. #Physical deconditioning ? PT/OT consulted, rec SNF. Case management assisting with referral. #Hypertension: #CAD - Continue aspirin 81 mg daily, Lipitor 40 mg nightly - Continue metoprolol succinate 25 mg daily - holding lisinopril with stable pressures. #GERD: Continue pantoprazole 40 mg daily for GERD #Anxiety/depression: Will hold paroxetine in the setting of confusion and hyponatremia as it may be a culprit Full code Lovenox 40 mg Diabetic diet
[2024-07-31] MEDS: METFORMIN 500MG TABLET 500 MG PO (18:27)
[2024-07-31 20:00] VITALS: BP 150/71; PULSE 63; PULSE 64; RESP 14; TEMP 36.8; O2SAT 96
[2024-07-31] MEDS: ATORVASTATIN 40MG TABLET 40 MG PO (20:26)
[2024-07-31] MEDS: PANTOPRAZOLE 40MG TABLET 40 MG PO (20:26)
[2024-07-31 20:43] LABS: POC Glucose,Bedside 278 (70-110)
[2024-07-31] MEDS: INSULIN GLARGINE 100 UNITS/ML 3ML FLEXPEN 30 UNIT SUBCUT (21:07)
[2024-08-01 04:00] VITALS: BP 157/71; PULSE 70; RESP 18; TEMP 36.6; O2SAT 95; BMI 35.1
--- NOTE | 2024-08-01 04:09 | PC.NURSE ---
Patient is alert and oriented x4. Patient was observed to have both wakeful periods and resting periods (eyes closed, respirations even and unlabored) throughout the night. She continues to tolerate room air, with oxygen saturations > 90%. 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 A purewick continues to be utilized; urine output has been emptied and documented accordingly. Urine appearance transparent and yellow. Auscultation of her heart, lungs, bowels were within normal findings. Palpation of abdomen was soft and non-tender. She has been given orange jello and Diet Pepsi as bedtime snacks. Scheduled medications were administered accordingly per SEP. ACHS glucose fingersticks performed. Patient has remained in bed this shift but has been self-turning. At this time, the patient does not have any further complaints. Bed alarm on. Call light within reach.
[2024-08-01 06:07] LABS: POC Glucose,Bedside 207 (70-110)
[2024-08-01] MEDS: humaLOG 100 UNITS/ML 10ML VIAL (SSI) SUBCUT ×2 (06:49→11:09)
[2024-08-01 07:48] LABS: Basophils % 0.4 % (0.1-2.0); Eosinophils # 0.1 K/mm3 (0.0-0.4); Hemoglobin 15.9 g/dL (12.2-16.2); Lymphocytes # 0.9 K/mm3 (0.7-4.5); Lymphocytes % 33.1 % (10-50); Mean Corpuscular HGB Conc 32.4 g/dL (31.8-35.4); Mean Corpuscular Hemoglobin 28.1 pg (27.0-31.2); Mean Corpuscular Volume 86.6 fl (81-99); Mean Platelet Volume 10.3 fl (7.4-10.4); Monocytes # 0.3 K/mm3 (0.1-1.0); Monocytes % 9.7 % (1.7-9.3); Neutrophils # 1.4 K/mm3 (1.8-7.8); Neutrophils % 53.4 % (37.0-80.0); Platelet Count 109 K/mm3 (142-424); Red Blood Count 5.66 M/mm3 (4.20-5.40); Red Cell Distribution Width 13.6 % (11.5-17.5); White Blood Count 2.7 K/mm3 (4.8-10.8)
[2024-08-01 07:53] LABS: Alanine Aminotransferase 97 U/L (12-78); Albumin Level 2.9 g/dl (3.5-5.0); Alkaline Phosphatase 416 U/L (38-126); Anion Gap 9.4 mEq/L (5-15); Aspartate Amino Transferase 104 U/L (14-36); Bilirubin,Total 0.5 mg/dl (0.2-1.3); Blood Urea Nitrogen 11 mg/dl (7-17); Calcium 8.1 mg/dl (8.4-10.2); Carbon Dioxide 28 mmol/L (22.0-30.0); Chloride 101 mmol/L (98-107); Creatinine Clearance Estimated 73 mL/min (50-200); Estimated Glomerular Filt Rate 158 ml/min (>60); GFR (African American) 191 ML/MIN (>60); Globulin 2.8 g/dL (1.3-3.2); Glucose 226 mg/dl (74-100); Magnesium 1.7 mg/dl (1.6-2.3); Potassium 4.4 mmoL/L (3.5-5.1); Sodium 134 mmol/L (136-145); Total Protein,Serum 5.7 g/dl (6.3-8.2)
[2024-08-01 08:00] VITALS: BP 147/68; PULSE 75; RESP 17; TEMP 36.6; O2SAT 96
[2024-08-01] MEDS: METFORMIN 500MG TABLET 500 MG PO (08:23)
[2024-08-01] MEDS: METOPROLOL SUCCINATE XL 25MG TABLET 25 MG PO (08:24)
[2024-08-01] MEDS: ASPIRIN EC 81MG TABLET 81 MG PO (08:24)
[2024-08-01] MEDS: CEFTRIAXONE 1 GM 1 GM in 0.9 % SODIUM CHLORIDE 50 ML IV (08:24)
[2024-08-01] MEDS: SODIUM CHLORIDE 1,000MG TABLET 500 MG PO (08:24)
[2024-08-01] MEDS: ENOXAPARIN 40MG/0.4ML SYRINGE 40 MG SUBCUT (08:24)
[2024-08-01] MEDS: MAGNESIUM SULFATE IN WATER 2 GM/50 ML PIGGYBACK IV ×2 (09:43→11:05)
[2024-08-01 11:12] LABS: POC Glucose,Bedside 225 (70-110)
[2024-08-01 15:24] LABS: Legionella pneumophila Urinary Negative (Negative)
--- NOTE | 2024-08-01 15:38 | PC.NURSE ---
Pt alert and oriented x4. On RA. Pt has gotten up with PT today to bedside chair but does not tolerate it long she states the chair is not comfortable. Pt sleeping at intervals most of day. pt waiting on precert to return back to [facility].
[2024-08-01 16:00] VITALS: BP 131/70; PULSE 65; RESP 17; TEMP 36.8; O2SAT 96
--- NOTE | 2024-08-01 16:41 | P.DS_ITS ---
General Admission date:: 07/29/24 HPI HPI HPI: Ms. Vogel is a 68-year-old female with history of hypertension, hyperlipidemia, diabetes who presented to the ER from [facility] with confusion and weakness. Was admitted earlier this month after being found down and hypothermic where she was septic and bacteremic with Klebsiella. Was discharged to rehab for further care. Also has diabetes and had DKA last visit. On presentation today, patient was not able to give much history. Will open her eyes and have conversation but dozes back off. She remains hemodynamically stable. GCS is 15 but she is quite somnolent. Moving all extremities. No focal neurologic deficits. Workup concerning for UTI and hyponatremia. Medicine consulted for admission and further management. On evaluation, patient quite fatigued but will answer questions appropriately and then dozes back off. No acute distress. Sats stable on 2 L oxygen. Chest x-ray per my review with no focal consolidation Hospital Course Hospital Course Hospital Course: Le Vogel is a 68-year-old female with a medical history significant for diabetes, hypertension, anxiety/depression who presented from [facility] skilled rehab with increased confusion. On presentation, found to have hyponatremia and UTI. Discussed case with ER physician, request admission for further management. Including antibiotics and monitoring of sodium correction. I agreed to admit for further care. Showing some improvement in mentation. Will have therapy evaluate today. Anticipate she will need placement at discharge. Showing slow improvement in sodium. Problems addressed as follows: #Acute metabolic encephalopathy #Hyponatremia - Initial sodium 126, baseline ~133 last visit. Sodium improved to 134 today. Mentation back to baseline. ? Hyponatremia likely secondary to hypovolemia given underlying DANAY as well. ? Patient was given oral sodium chloride 500 mg twice daily during admission, discontinued on discharge. Recommend repeating BMP in 3 days. Can consider restarting sodium chloride if needed. - Will hold paroxetine in the setting of confusion and hyponatremia as it may be a culprit. - [facility] graciously accepted patient to SNF. #Urinary tract infection - UTI, Klebsiella bacteremia at last visit earlier this month. Does not appear septic at this time. Avoiding SGLT2i due to recurrent UTIs. ? Urine culture growing Klebsiella sensitive to ceftriaxone. - Transition to ceftriaxone, discontinue cefepime. - Will need 1 more day of cefdinir starting 08/02/2024. #Insulin-dependent diabetes ? Hemoglobin A1c 11.3% on admission, improvement from 12.7% a few weeks ago. ? Required gradual increase in Lantus during admission. ? Discharged with Lantus 40 units nightly, metformin 1000 mg twice daily. ? Continue diabetic diet. #Physical deconditioning ? PT/OT consulted, rec SNF. [facility] patient to SNF. #Hypertension: #CAD - Continue aspirin 81 mg daily, Lipitor 40 mg nightly - Continue metoprolol succinate 25 mg daily. Continue lisinopril 5 mg. #GERD: Continue pantoprazole 40 mg daily for GERD #Anxiety/depression: Will hold paroxetine in the setting of confusion and hyponatremia as it may be a culprit Total time spent on discharge: 32 minutes on chart review, counseling, documentation, and direct care with patient. Exam Data for Last 24 hours Vital signs and Labs for Last 24 Hours: Temp Pulse Resp BP Pulse Ox O2 Del Method O2 Flow Rate 98.2 F 65 17 131/70 96 Room Air 1 08/01/24 16:00 08/01/24 16:00 08/01/24 16:00 08/01/24 16:00 08/01/24 16:00 08/01/24 16:00 07/31/24 08:00 Laboratory Results - last 24 hr 07/29/24 10:30: Ur L.pneumophila Ag Negative 07/31/24 17:02: POC Glucose 271 H 07/31/24 20:33: POC Glucose 278 H 08/01/24 05:22: POC Glucose 207 H 08/01/24 06:58: WBC 2.7 L D, RBC 5.66 H D, Hgb 15.9, Hct 49.0 H, MCV 86.6, MCH 28.1, MCHC 32.4, RDW 13.6, Plt Count 109 L D, MPV 10.3, Neut % (Auto) 53.4, Lymph % (Auto) 33.1, [place] % (Auto) 9.7 H, Eos % (Auto) 3.0, Baso % (Auto) 0.4, Neut # (Auto) 1.4 L, Lymph # (Auto) 0.9, [place] # (Auto) 0.3, Eos # (Auto) 0.1, Baso # (Auto) 0.0, Sodium 134 L, Potassium 4.4, Chloride 101, Carbon Dioxide 28, Anion Gap 9.4, BUN 11 D, Creatinine 0.40 L D, Estimated Creat Clear 73, Estimated GFR 158, Est GFR ( Amer) 191 D, Glucose 226 H, Calcium 8.1 L, Magnesium 1.7 D, Total Bilirubin 0.5, AST 104 H D, ALT 97 H D, Alkaline Phosphatase 416 H, Total Protein 5.7 L, Albumin 2.9 L, Globulin 2.8, Albumin/Globulin Ratio 1.0 L 08/01/24 11:04: POC Glucose 225 H I & O for Last 24 hours: Intake & Output 07/29/24 07/30/24 07/31/24 08/01/24 23:59 23:59 23:59 23:59 Intake Total 330 / 2038 2428 / 3392 1064 / 1664 1320 / 1320 Output Total 900 / 1600 2100 / 2550 1710 / 2110 1750 / 1750 Balance -570 / 438 328 / 842 -646 / -446 -430 / -430 Weight 80.768 kg 82.418 kg 86 kg 86.545 kg Constitutional Constitutional: no acute distress *Routine HEENT Exam Head: Present normocephalic Eye: Present EOMI and PERRL ENT: Present mucous membranes moist *Routine Neck Exam Neck: Present supple; Absent lymphadenopathy *Routine Respiratory Exam Respiratory: Present CTA bilaterally *Routine Cardiovascular Exam Cardiovascular: Present RRR *Routine Abdominal Exam Abdominal: Present soft and normoactive bowel sounds; Absent tenderness *Routine Extremities Exam Extremities: Absent cyanosis, clubbing or edema *Routine Skin Exam Skin: Present warm; Absent rash *Routine Neurological Exam Neurological: Present alert and oriented X3 Results Data Completed and Pending Labs on day of discharge: Labs from last 24 hours 08/01/24 08/01/24 08/01/24 11:04 06:58 05:22 WBC 2.7 L D RBC 5.66 H D Hgb 15.9 Hct 49.0 H MCV 86.6 MCH 28.1 MCHC 32.4 RDW 13.6 Plt Count 109 L D MPV 10.3 Neut % (Auto) 53.4 Lymph % (Auto) 33.1 [place] % (Auto) 9.7 H Eos % (Auto) 3.0 Baso % (Auto) 0.4 Neut # (Auto) 1.4 L Lymph # (Auto) 0.9 [place] # (Auto) 0.3 Eos # (Auto) 0.1 Baso # (Auto) 0.0 Sodium 134 L Potassium 4.4 Chloride 101 Carbon Dioxide 28 Anion Gap 9.4 BUN 11 D Creatinine 0.40 L D Estimated Creat Clear 73 Estimated GFR 158 Est GFR ( Amer) 191 D Glucose 226 H POC Glucose 225 H 207 H Calcium 8.1 L Magnesium 1.7 D Total Bilirubin 0.5 AST 104 H D ALT 97 H D Alkaline Phosphatase 416 H Total Protein 5.7 L Albumin 2.9 L Globulin 2.8 Albumin/Globulin Ratio 1.0 L Ur L.pneumophila Ag 07/31/24 07/31/24 07/29/24 20:33 17:02 10:30 WBC RBC Hgb Hct MCV MCH MCHC RDW Plt Count MPV Neut % (Auto) Lymph % (Auto) [place] % (Auto) Eos % (Auto) Baso % (Auto) Neut # (Auto) Lymph # (Auto) [place] # (Auto) Eos # (Auto) Baso # (Auto) Sodium Potassium Chloride Carbon Dioxide Anion Gap BUN Creatinine Estimated Creat Clear Estimated GFR Est GFR ( Amer) Glucose POC Glucose 278 H 271 H Calcium Magnesium Total Bilirubin AST ALT Alkaline Phosphatase Total Protein Albumin Globulin Albumin/Globulin Ratio Ur L.pneumophila Ag Negative Preliminary micro results at discharge 07/29/24 10:11 Blood Culture - Preliminary Blood NO GROWTH AFTER 48 HOURS 07/29/24 09:49 Blood Culture - Preliminary Blood NO GROWTH AFTER 48 HOURS DS: Diagnosis Discharge Diagnosis (1) Acute metabolic encephalopathy: Status: Acute Code(s): G93.41 - Metabolic encephalopathy (2) Acute hyponatremia: Status: Acute Code(s): E87.1 - Hypo-osmolality and hyponatremia (3) Urinary tract infection: Status: Acute Code(s): N39.0 - Urinary tract infection, site not specified (4) Diabetes mellitus: Status: Chronic Code(s): E11.9 - Type 2 diabetes mellitus without complications (5) Hypomagnesemia: Status: Acute Code(s): E83.42 - Hypomagnesemia (6) Obesity (BMI 30.0-34.9): Status: Acute Code(s): E66.811 - Obesity, class 1 Meds Home Medications and Allergies Home Medications ?Medication ?Instructions ?Recorded ?Confirmed ?Type aspirin 81 mg tablet,delayed 81 mg PO DAILY 30 days #30 tabs 07/11/24 07/29/24 Rx release atorvastatin 40 mg tablet 40 mg PO HS 30 days #30 tabs 07/11/24 07/29/24 Rx metoprolol succinate 25 mg 25 mg PO DAILY 30 days #30 tabs 07/11/24 07/29/24 Rx tablet,extended release 24 hr pantoprazole 40 mg tablet,delayed 40 mg PO DAILY 30 days #30 tabs 07/11/24 07/29/24 Rx release cefdinir 300 mg capsule 300 mg PO BID 1 day #2 caps 08/01/24 Rx insulin glargine 100 unit/mL (3 40 unit (0.4 mL) SQ HS 30 days #15 08/01/24 Rx mL) subcutaneous pen (Lantus mL Solostar U-100 Insulin) lisinopril 5 mg tablet 5 mg PO DAILY #30 tabs 08/01/24 Rx metformin 500 mg tablet 1,000 mg (2 x 500 mg) PO BIDWMEAL 08/01/24 Rx 30 days #60 tabs New Prescriptions to Start Prescriptions: melquiadesir Nigel Sultana insulin glargine [Lantus Solostar U-100 Insulin] Nigel Sultana lisinopril Nigel Sultana metformin Nigel Sultana Allergies Allergy/AdvReac Type Severity Reaction Status Date / Time thiothixene Allergy Unknown Unknown Verified 07/07/24 08:31 allergy reaction Discharge Plan Disposition Patient Disposition: er SNF Condition: Fair Discharge Order Discharge Orders: Discharge Order (Routine); Ordered 08/01/24 Ordered By: Nigel Sultana Follow up Plan Follow up with: Florentino Diaz MD [Primary Care Provider] - Enter time for follow up Prescriptions/Medication Reconciliation: New lisinopril 5 mg tablet 5 mg PO DAILY Qty: 30 0RF cefdinir 300 mg capsule 300 mg PO BID 1 Days Qty: 2 0RF Continued atorvastatin 40 mg Tablet 40 mg PO HS 30 Days Qty: 30 0RF aspirin 81 mg Tablet,Delayed Release (Dr/Ec) 81 mg PO DAILY 30 Days Qty: 30 0RF pantoprazole 40 mg Tablet,Delayed Release (Dr/Ec) 40 mg PO DAILY 30 Days Qty: 30 0RF metoprolol succinate 25 mg Tablet Extended Release 24 Hr 25 mg PO DAILY 30 Days Qty: 30 0RF Changed metformin 500 mg Tablet 1,000 mg PO BIDWMEAL 30 Days Qty: 60 0RF insulin glargine [Lantus Solostar U-100 Insulin] 100 unit/mL (3 mL) Insulin Pen 40 unit SQ HS 30 Days Qty: 15 0RF Discontinued paroxetine HCl 20 mg tablet 20 mg PO DAILY 30 Days Qty: 30 0RF lisinopril 30 mg tablet 30 mg PO DAILY 30 Days Qty: 30 0RF Problem Reconciliation Problems Reviewed?: Yes Patient Discharge Instructions Patient Instructions: Carbohydrate-Counting Diet, DI for Urinary Tract Infection (UTI), DI for Hyponatremia, Diabetes Diet Label Reading Tips Print Language: Luxembour[place] Providers Primary Care Provider: Florentino Diaz Admit Provider: Chaitanya Zimmer Attending Provider: Chaitanya Zimmer
--- NOTE | 2024-08-01 18:19 | PC.NURSE ---
[facility] given report and pt waiting on ride to arrive to transport her to [facility].
== END 2024-08-01 18:40 | DRG 71 ==
LOC: ER 11:10 → 2ND 11:53
PROVIDERS: Student in an Organized Health Care Education/Training Program; Admitting Provider Internal Medicine Adolescent Medicine; Emergency Provider Emergency Medicine; PCP Family Medicine; Visit Provider Internal Medicine Adolescent Medicine
DX: G93.41 Metabolic encephalopathy (principal); E87.1 Hypo-osmolality and hyponatremia; N39.0 Urinary tract infection, site not specified; B96.1 Klebsiella pneumoniae [K. pneumoniae] as the cause of diseases classified elsewhere; E11.9 Type 2 diabetes mellitus without complications; K21.9 Gastro-esophageal reflux disease without esophagitis; I25.10 Atherosclerotic heart disease of native coronary artery without angina pectoris; I10 Essential (primary) hypertension; E66.9 Obesity, unspecified; I25.2 Old myocardial infarction; F41.9 Anxiety disorder, unspecified; F32.A Depression, unspecified; Z68.35 Body mass index [BMI] 35.0-35.9, adult; Z79.02 Long term (current) use of antithrombotics/antiplatelets; Z79.4 Long term (current) use of insulin; Z79.84 Long term (current) use of oral hypoglycemic drugs; Z79.82 Long term (current) use of aspirin
CPT/HCPCS: 36415; 70450; 71045; 80048; 80053; 81001; 82803; 82962; 83036; 83735; 84484; 85025; 85610; 85730; 87040; 87086; 87088; 87186; 93005; 94761; 97110; 97162; 97166; 97530; 99285; J0696; J1650; J3475; J7030

== ENCOUNTER 2024-10-21 22:34 | Inpatient (IN) | payer MEDICARE, SELFPAY ==
[2024-10-21 22:33] VITALS: BP 174/89; PULSE 124; RESP 20; TEMP 36.7; O2SAT 100; BMI 34.4
--- OUTSIDE RECORDS SUMMARY | 2024-10-21 22:38 | XMS_ITS ---
Author Organization Unknown TREATMENT PLAN [facility] Start Date Provider Encounter for Check-up [id number] SANTOSH Vasquez
[2024-10-21 23:04] VITALS: BP 141/121; PULSE 124; RESP 20; O2SAT 96
[2024-10-21 23:13] LABS: Basophils # 0.1 K/mm3 (0-0.2); Basophils % 0.5 % (0.1-2.0); Hematocrit 47.2 % (37.0-47.0); Hemoglobin 15.4 g/dL (12.2-16.2); Lymphocytes # 0.8 K/mm3 (0.7-4.5); Lymphocytes % 5.8 % (10-50); Mean Corpuscular HGB Conc 32.6 g/dL (31.8-35.4); Mean Corpuscular Volume 85.8 fl (81-99); Mean Platelet Volume 10.5 fl (7.4-10.4); Monocytes % 6.6 % (1.7-9.3); Neutrophils # 12.6 K/mm3 (1.8-7.8); Neutrophils % 86.2 % (37.0-80.0); Nucleated Red Blood Cells # 0 10^3/uL; Nucleated Red Blood Cells % 0 %; Platelet Count 341 K/mm3 (142-424); Red Cell Distribution Width-SD 44.1 fL; White Blood Count 14.6 K/mm3 (4.8-10.8)
[2024-10-21] MEDS: ONDANSETRON 4MG/2ML VIAL 4 MG IV (23:18)
[2024-10-21] MEDS: LACTATED RINGERS 1000ML 1,000 ML 999 ML IV (23:18)
[2024-10-21] MEDS: ACETAMINOPHEN 1,000MG/100ML VIAL 1000 MG IV (23:18)
[2024-10-21 23:20] LABS: Alanine Aminotransferase 28 U/L (12-78); Albumin Level 4.1 g/dl (3.5-5.0); Alkaline Phosphatase 168 U/L (38-126); Anion Gap 31.3 mEq/L (5-15); Aspartate Amino Transferase 27 U/L (14-36); Bilirubin,Total 0.7 mg/dl (0.2-1.3); Blood Urea Nitrogen 21 mg/dl (7-17); Calcium 9.4 mg/dl (8.4-10.2); Chloride 100 mmol/L (98-107); Creatinine Clearance Estimated 71 mL/min (50-200); Estimated Glomerular Filt Rate 62 ml/min (>60); GFR (African American) 75 ML/MIN (>60); Globulin 4.2 g/dL (1.3-3.2); Lipase 141 U/L (23-300); Potassium 4.3 mmoL/L (3.5-5.1); Sodium 132 mmol/L (136-145); Total Protein,Serum 8.3 g/dl (6.3-8.2)
[2024-10-21 23:21] LABS: Carbon Dioxide < 5 mmol/L (22.0-30.0); Glucose 429 mg/dl (74-100)
[2024-10-21 23:23] LABS: INR 0.95 (0.9-1.1); Prothrombin Time 10.7 seconds (10.1-12.5)
--- NOTE | 2024-10-21 23:26 | PC.NURSE ---
critical called from MD arelis notified
[2024-10-21 23:27] LABS: Acetone, Serum (Rapid) Moderate (None Detect)
[2024-10-21 23:37] LABS: Magnesium 2.4 mg/dl (1.6-2.3); Phosphorous 5.1 mg/dl (2.5-4.5)
[2024-10-21 23:40] LABS: Hemoglobin A1C 11.2 % (4.0-6.0)
[2024-10-21 23:45] LABS: Troponin I < 0.01 ng/ml (0.00-0.034)
[2024-10-21 23:47] VITALS: BP 164/77; PULSE 126; RESP 34; O2SAT 100
[2024-10-22] VITALS (27 sets, daily range): BP systolic 103–187; BP diastolic 53–110; PULSE 72–126; RESP 13–31; TEMP 36.4–36.8; O2SAT 93–100; BMI 30.8
--- NOTE | 2024-10-22 00:05 | HMH.ITSTN ---
pt unable to lie flat, still for exam. wants to wait for exam. RNs will call when pt is ready to try again
[2024-10-22 00:14] LABS: VBG Base Excess -25.2 mmol/L (-2.4-2.3); VBG HCO3 6.5 mmol/L (23-30); VBG Oxygen Saturation 70.4 % (50-70); VBG PCO2 28.7 mmol/L (35-51); VBG PO2 47.1 mmol/L (28-40); VBG Total CO2 7.4 mmol/L (23-27)
--- NOTE | 2024-10-22 00:19 | HMH.EDGENADL ---
Discharge Plan Disposition Patient Disposition: Admitted Condition: Critical Prescriptions Prescriptions: No Action atorvastatin 40 mg Tablet 40 mg PO HS 30 Days Qty: 30 0RF aspirin 81 mg Tablet,Delayed Release (Dr/Ec) 81 mg PO DAILY 30 Days Qty: 30 0RF pantoprazole 40 mg Tablet,Delayed Release (Dr/Ec) 40 mg PO DAILY 30 Days Qty: 30 0RF metoprolol succinate 25 mg Tablet Extended Release 24 Hr 25 mg PO DAILY 30 Days Qty: 30 0RF lisinopril 5 mg tablet 5 mg PO DAILY Qty: 30 0RF metformin 500 mg Tablet 1,000 mg PO BIDWMEAL 30 Days Qty: 60 0RF insulin glargine [Lantus Solostar U-100 Insulin] 100 unit/mL (3 mL) Insulin Pen 40 unit SQ HS 30 Days Qty: 15 0RF cefdinir 300 mg capsule 300 mg PO BID 1 Days Qty: 2 0RF Referrals Follow up/Referrals: Ngoc Rice APRN [Primary Care Provider] - See instructions Clinical Impressions Clinical Impression: DKA (diabetic ketoacidosis), Kussmaul respiration, Leukocytosis, Sepsis, Nausea & vomiting, Hyponatremia Instructions Patient Instructions: DI for Diarrhea and Traveler's Diarrhea -- Adult, DI for Diarrhea and Traveler's Diarrhea -- Child, DI for Nausea -- Adult, DI for Nausea -- Child Print Language Print Language: Citizen Of [place] Discharge ED Provider: Flaquito Tong General Adult HPI General Chief complaint: Nausea/Vomiting/Diarrhea Stated complaint: N/V Time Seen by Provider: 10/21/24 23:06 Mode of Arrival: EMS Source of Information: Patient Description of Symptoms (Recalled from ER Triage Doc. by RN): patient complains of nausea and difficulty breathing for two days. History of Present Illness HPI narrative: 68-year-old female presented via EMS for nausea, vomiting, difficulty breathing for 2 days. Patient presents with POA at bedside. POA helps provide history. Reportedly patient called her few days ago stating she was not feeling well. Symptoms progressively worsened. POA encouraged her to come to the hospital earlier today but patient refused. Tonight her symptoms had worsened enough that patient wanted to come to the ER. She reports nonbloody, nonbilious emesis. Last bowel movement 2 days ago. No history of abdominal surgeries reported by the patient. Living conditions reported by EMS and by the patient's POA are reportedly terrible. Reportedly she lives in a multilevel barn with multiple dogs that do not go outside and defecate inside the facility. According to her POA, the patient also wears depends and just throws them on the floor. There is no electricity or lights at the facility so patient has been wearing a headlamp. She has not been checking her glucose or managing her blood sugar. According to POA and EMS there are massive cockroaches and bedbugs. Patient reports she was admitted in July with urinary infection and I do not know what else . She denies fevers. She states she has been having rapid breathing and deep breathing since her nausea and vomiting worsened. She denies chest pain. She denies dysuria or hematuria. According to POA, after patient's last admission she was at [place] and had dramatically improved but then she decided she wanted to be back home despite the terrible living conditions. POA states that she cannot even go into the patient's home because of the conditions. Related Data Previous Rx's ?Medication ?Instructions ?Recorded aspirin 81 mg tablet,delayed 81 mg PO DAILY 30 days #30 tabs 07/11/24 release atorvastatin 40 mg tablet 40 mg PO HS 30 days #30 tabs 07/11/24 metoprolol succinate 25 mg 25 mg PO DAILY 30 days #30 tabs 07/11/24 tablet,extended release 24 hr pantoprazole 40 mg tablet,delayed 40 mg PO DAILY 30 days #30 tabs 07/11/24 release cefdinir 300 mg capsule 300 mg PO BID 1 day #2 caps 08/01/24 insulin glargine 100 unit/mL (3 40 unit (0.4 mL) SQ HS 30 days #15 08/01/24 mL) subcutaneous pen (Lantus mL Solostar U-100 Insulin) lisinopril 5 mg tablet 5 mg PO DAILY #30 tabs 08/01/24 metformin 500 mg tablet 1,000 mg (2 x 500 mg) PO BIDWMEAL 08/01/24 30 days #60 tabs Allergies Allergy/AdvReac Type Severity Reaction Status Date / Time thiothixene Allergy Unknown Unknown Verified 07/07/24 08:31 allergy reaction [facility] Disclaimer: The information contained in this section may have been updated after the patient was seen, as this information can be updated by other users. Medical History Non-ST elevation OK (NSTEMI) Urinary tract infectious disease Hypokalemia DKA (diabetic ketoacidosis) Severe sepsis Diabetes mellitus Diabetes Diabetes Family History Other Diabetes Social History Smoking Status: Never smoker alcohol intake: never substance use type: denies use and marijuana (she did try 1 puff on THC back in 1971; nothing since then) current occupational status: disabled Travel in the last 8 weeks: None number of children: 0 Have you lived/traveled outside US in past 30 days?: No Contact w/someone who lives/traveled outside US past 30 days?: No Exposure to someone with infectious disease in past 14 days?: No Do you have a fever (greater than 100.4 F or 38 C)?: No Have you tested positive for COVID-19: No Exposed to someone with COVID-19 in past 14 days?: No Do you have a sore throat?: No Do you have a cough?: No Do you have any weakness?: No Do you have any diarrhea?: No Are you experiencing any unusual bleeding?: No Do you have any muscle aches/pain?: No Do you have any abdominal pain?: No Are you experiencing loss of taste or smell?: No Other Medical History Have you received the Flu Vaccine for this season: No Have you received the Pneumonia Vaccine: No ROS Obtained: Yes Systems reviewed as appropriate & no additional complaints except as documented Per HPI Physical Exam General General appearance: alert and in distress Comment: Ill-appearing, in extremis, patient is also unkempt and malodorous Head Head exam: atraumatic and normocephalic Eye Eye exam: Present PERRL and EOMI ENT ENT exam: Present mucous membranes moist Neck Neck exam: Present normal inspection and full ROM Chest Chest inspection: Present symmetric chest wall rise Respiratory Respiratory exam: Present other (Patient is oxygenating well and has no adventitious sounds but has Kussmaul respirations and tachypnea); Absent stridor Cardiovascular Cardiovascular exam: Present normal rhythm and tachycardia Abdominal Exam Abdominal exam: Present soft; Absent distention, tenderness, guarding or rebound Comment: Abdomen benign Extremities Exam Extremities exam: Present full ROM; Absent edema Neurological Exam Neurological exam: Present alert and oriented X3; Absent motor sensory deficit Psychiatric Psychiatric exam: Present normal affect and normal mood Skin Skin exam: Present warm and dry Medical Decision Making Medical Records Medical records reviewed: Yes I reviewed the patient's medical records. Screening: Per USPSTF and CDC recommendations, given the prevalence of disease in our region, it is our hospital?s policy to screen for HIV and viral Hepatitis for all patients aged 18 and over and those with ongoing risk factors. MR Comment: Patient had 2 admissions in July 2024. I reviewed these notes. Patient had bacteremia with Klebsiella in DKA, she was then sent to [place] and came back and ended up admitted for UTI and hyponatremia. Óscar Inquiry Pt receiving controlled substance: No Vital Signs: 10/21/24 22:33 10/21/24 23:04 10/21/24 23:47 Temperature 98.1 F Temperature Source Oral Pulse Rate 124 H 126 H Pulse Rate [Left] 124 H Respiratory Rate 20 20 34 H Blood Pressure 141/121 H 164/77 H Blood Pressure [Right Arm] 174/89 H Blood Pressure Mean [Right Arm] 117 Blood Pressure Source [Right Arm] Automatic Cuff Blood Pressure Position [Right Arm] Sitting 02 Sat by Pulse Oximetry 100 96 100 Oxygen Delivery Method Room Air 10/22/24 00:07 Temperature Temperature Source Pulse Rate 126 H Pulse Rate [Left] Respiratory Rate Blood Pressure Blood Pressure [Right Arm] Blood Pressure Mean [Right Arm] Blood Pressure Source [Right Arm] Blood Pressure Position [Right Arm] 02 Sat by Pulse Oximetry 99 Oxygen Delivery Method Lab Data Lab Results 10/21/24 00:08: Lactate 2.3 H 10/21/24 22:11: WBC 14.6 H, RBC 5.50 H, Hgb 15.4, Hct 47.2 H, MCV 85.8, MCH 28.0, MCHC 32.6, RDW 14.0, Plt Count 341, MPV 10.5 H, Neut % (Auto) 86.2 H, Lymph % (Auto) 5.8 L, [place] % (Auto) 6.6, Eos % (Auto) 0.0 L, Baso % (Auto) 0.5, Neut # (Auto) 12.6 H, Lymph # (Auto) 0.8, [place] # (Auto) 1.0, Eos # (Auto) 0.0, Baso # (Auto) 0.1, PT 10.7, INR 0.95, Sodium 132 L, Potassium 4.3, Chloride 100, Carbon Dioxide < 5 L*, Anion Gap 31.3 H, BUN 21 H, Creatinine 0.90, Estimated Creat Clear 71, Estimated GFR 62, Est GFR ( Amer) 75, Glucose 429 H*, Hemoglobin A1c 11.2 H, Calcium 9.4, Phosphorus 5.1 H, Magnesium 2.4 H, Total Bilirubin 0.7, AST 27, ALT 28, Alkaline Phosphatase 168 H, Troponin I < 0.01, Total Protein 8.3 H D, Albumin 4.1, Globulin 4.2 H, Albumin/Globulin Ratio 1.0 L, Lipase 141, Acetone Level Moderate 10/22/24 00:10: VBG pH 6.97 L, VBG pCO2 28.7 L, VBG pO2 47.1 H, VBG HCO3 6.5 L, VBG Total CO2 7.4 L, VBG O2 Saturation 70.4 H, VBG Base Excess -25.2 L, VBG Lactic Acid 2.9 H 10/21/24 22:11 10/21/24 22:11 Orders (Tests/Meds): ED MEDICATIONS Generic Name Dose Route Start Last Admin Trade Name Freq PRN Reason Stop Dose Admin Insulin Human Regular 100 unit 101 mls @ 8.08 mls/hr 10/21/24 23:30 10/22/24 00:29 / Sodium Chloride IV 11/20/24 23:29 8 unit/hr .[id number] [facility] 8.08 mls/hr Administration Protocol 8 UNIT/HR Vancomycin HCl 2,000 mg/ 250 mls @ 125 mls/hr 10/21/24 23:45 10/22/24 00:20 Sodium Chloride IV 10/22/24 01:44 125 mls/hr ONCE ONE Administration Miscellaneous 1 each 10/21/24 23:30 Vancomycin Consult Request NOTAPPLIC 11/20/24 23:29 CONSULT PHARMACY [facility] Discontinued Medications Generic Name Dose Route Start Last Admin Trade Name Freq PRN Reason Stop Dose Admin Acetaminophen 1,000 mg 10/21/24 23:06 10/21/24 23:18 Acetaminophen 1,000mg/100ml Vial IV 10/21/24 23:07 1,000 mg ONCE ONE Administration Lactated Ringer's 1,000 mls @ 999 mls/hr 10/21/24 23:06 10/21/24 23:18 Lactated Ringer's 1000 Ml Bag IV 10/22/24 00:06 999 mls/hr .Q1H1M ONE Administration Piperacillin Sod/Tazobactam 100 mls @ 200 mls/hr 10/21/24 23:20 10/22/24 00:20 Sod 4.5 gm/ Sodium Chloride IV 10/21/24 23:49 200 mls/hr ONCE ONE Administration Ondansetron HCl 4 mg 10/21/24 23:06 10/21/24 23:18 Ondansetron 4mg/2ml Vial IV 10/21/24 23:07 4 mg ONCE ONE Administration ORDERS Category Date Time Status CT angio abdomen pelvis Stat Cat Scan 10/21/24 23:[address] angio chest PE protocol Stat Cat Scan 10/21/24 23:18 Ordered Consult to Case Management [CONS] Routine Cons 10/21/24 23:23 Active Acetone, Serum (Rapid) Stat Lab 10/21/24 22:11 Completed Complete Blood Count Auto Diff Stat Lab 10/21/24 22:11 Completed Comprehensive Metabolic Panel Stat Lab 10/21/24 22:11 Completed Hemoglobin A1C Stat Lab 10/21/24 22:11 Completed Lactic Acid Stat Lab 10/21/24 00:08 Completed Lipase Stat Lab 10/21/24 22:11 Completed Magnesium Stat Lab 10/21/24 22:11 Completed Phosphorous Stat Lab 10/21/24 22:11 Completed Potassium Timed Lab 10/22/24 12:45 Ordered Prothrombin Time INR Stat Lab 10/21/24 22:11 Completed Trop I [Troponin I] Stat Lab 10/21/24 22:11 Completed Troponin I Q3H Lab 10/22/24 02:30 Ordered Troponin I Q3H Lab 10/22/24 05:30 Ordered Urinalysis and Microscopic Stat Lab 10/21/24 23:06 Ordered Blood Culture Stat Micro 10/21/24 00:15 Received Urine Culture Stat Micro 10/21/24 23:25 Ordered VBG [Venous Blood Gas] Stat RT 10/22/24 00:10 Completed ECG Request Stat Y 10/21/24 23:24 Ordered Tissue Perfus/Sepsis Re-Eval Sepsis Re-Evaluation Performed: Yes Date Performed: 10/22/24 Time Performed: 00:37 HEART Score History (anamnesis): Slightly suspicious ECG: Non-specific disturbance Age: >65 years Risk factors: 3 or more risk factors Troponin: </= normal limit HEART Score: 5 Medical Decision Narrative: In summary, this 68-year-old female presents to the emergency department today with nausea, vomiting, deep breathing. 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 Differential diagnosis includes but is not limited to DKA, sepsis, urinary tract infection, pneumonia, PE, ACS, electrolyte abnormality, kidney dysfunction, bacteremia, among others. [id number] glucose on arrival over 400. Ruling out the most morbid conditions drove my assessment. Based on these concerns, I ordered serum labs, CT imaging, cardiac workup, broad-spectrum antibiotics, IV fluids. ECG personally interpreted demonstrates sinus tachycardia, rate 119, normal axis, normal AR and QTc, no STEMI. Patient received IV fluids and Zofran initially for treatment before labs resulted. She is also receiving broad-spectrum antibiotics with vancomycin and Zosyn. Labs personally reviewed demonstrate leukocytosis, no anemia, normal platelets, PT/INR normal, CMP with mild hyponatremia, significant hyperglycemia, CO2 undetectably low, less than 5, HbA1c 11.2, hyperphosphatemia, hypomagnesemia, initial troponin undetectably low less than 0.01, VBG with pH 6.97, VBG lactic 2.9, VBG pCO2 28.7. Patient has elevated anion gap and moderate acetone. Labs are consistent with DKA which also fits clinically. Insulin infusion has been added. Patient was sent to CT scan, she was agitated refusing to lay flat reporting back pain. She also reports she cannot be restrained so when they were going to put the seatbelt on her, she became more agitated. She came back to the room and was asking me to sedate her for CT. I explained to her that this would be extremely dangerous since her rapid respiratory rate and deep breathing is vital to keeping her safe at this time and sedation will depress this drive. She is also asking to eat and drink and I asked her to remain n.p.o. at this time until we are able to do CT scans. She thinks that once she feels better she will be able to lay for CTs. Her abdominal exam is very benign so I have lower suspicion for acute intra-abdominal pathology and do not believe her tachycardia and deep breathing is likely related to her DKA much less likely to be a PE. At this time CTs are not going to be immediately performed and we are going to continue treating her other problems. I discussed this case with the hospitalist including the inability to do CTs at this time. She has evaluated the patient at bedside and patient was graciously accepted for admission to the ICU for continued management of significant DKA. Patient remains alert, oriented x 3, she was admitted in critical condition. Due to patient's poor living conditions, consulted case management was placed prior to admission. Critical Care Critical Care Time Critical Care Time: Yes Attestation: On 10/21/24, the high probability of a clinically significant, sudden or life threatening deterioration of the following system(s) (hemodynamic, respiratory, metabolic) required my full and direct attention, intervention and personal management. The time I documented below is in addition to time spent performing reported procedures but includes the following listed in this critical care notation. Total Time Total Critical Care Time: 65
[2024-10-22 00:20] LABS: Lactate Venous 2.9 mmol/L (0.4-2.0); VBG PH 6.97 mmol/L (7.31-7.41)
[2024-10-22] MEDS: VANCOMYCIN HCL 2,000 MG in 0.9 % SODIUM CHLORIDE 250 ML 125 MG IV (00:20)
[2024-10-22] MEDS: PIPERACILLIN/TAZO 4.5 GM in 0.9 % SODIUM CHLORIDE 100 ML IV ×4 (00:20→20:04)
[2024-10-22] MEDS: INSULIN REGULAR, HUMAN 100 UNIT in 0.9 % SODIUM CHLORIDE 100 ML 8.08 UNIT IV (00:29)
[2024-10-22 00:35] LABS: Lactic Acid 2.3 mmol/L (0.7-2.1)
--- NOTE | 2024-10-22 01:06 | PC.NURSE ---
Report called to [facility]en for transfer to the floor
--- NOTE | 2024-10-22 01:49 | P.HP_ITS ---
<Statement entered by Nigel Sultana MD - 10/23/24 23:30> Personally evaluated patient and agree with plan of care as outlined by the HEEL BRUSHER. History of Present Illness *Admission Date: 10/22/24 *Reason for visit:: Nausea and vomiting *History of present illness: This is a 68-year-old female with a past medical history of diabetes who presents with her friend/POA at the bedside. POA provides extra collateral and states that patient called a few days ago stating she was not feeling well and that she has progressively worsened. POA encouraged her to come to the hospital but patient refused. Tonight patient had worsening symptoms with nausea vomiting that prompted her to want to come to the ER. POA reports that patient lives in a barn with multiple dogs that do not go outside and defecate in the facility. She also does not clean up after herself. There are no electricity or lites at the facility so patient has been wearing a headlamp and not monitoring her glucose. Reportedly patient resided at [place] prior to the last several months. Was admitted 4 months ago for UTI, discharged to [place] and then improved and discharged home Emergency Department workup notable for DKA with Kussmaul respirations initial assessment. Labs revealed the same. pH of 6.97, glucose in the 400s, anion gap of 33, CO2 of less than 5. He hemoglobin of 11. CT chest abdomen pelvis was obtained given sepsis picture but patient mildly agitated unable to lie still. Will obtain CT scan when able. Will continue treatment for DKA and reassess She is admitted to the hospital service at this time [facility] Disclaimer: The information contained in this section may have been updated after the patient was seen, as this information can be updated by other users. Medical History Non-ST elevation DC (NSTEMI) Urinary tract infectious disease Hypokalemia DKA (diabetic ketoacidosis) Severe sepsis Diabetes mellitus Diabetes Diabetes Family History Other Diabetes Social History Smoking Status: Never smoker alcohol intake: never substance use type: denies use and marijuana (she did try 1 puff on THC back in 1971; nothing since then) current occupational status: disabled Travel in the last 8 weeks: None number of children: 0 Have you lived/traveled outside US in past 30 days?: No Contact w/someone who lives/traveled outside US past 30 days?: No Exposure to someone with infectious disease in past 14 days?: No Do you have a fever (greater than 100.4 F or 38 C)?: No Have you tested positive for COVID-19: No Exposed to someone with COVID-19 in past 14 days?: No Do you have a sore throat?: No Do you have a cough?: No Do you have any weakness?: No Do you have any diarrhea?: No Are you experiencing any unusual bleeding?: No Do you have any muscle aches/pain?: No Do you have any abdominal pain?: No Are you experiencing loss of taste or smell?: No Other Medical History Have you received the Flu Vaccine for this season: No Have you received the Pneumonia Vaccine: No Review of Systems Review of Systems Review of systems:: pertinent systems reviewed and negative unless documented below Review of systems (narrative): Negative except for HPI Meds Home Medications and Allergies Home Medications ?Medication ?Instructions ?Recorded ?Confirmed ?Type aspirin 81 mg tablet,delayed 81 mg PO DAILY 30 days #30 tabs 07/11/24 07/29/24 Rx release atorvastatin 40 mg tablet 40 mg PO HS 30 days #30 tabs 07/11/24 07/29/24 Rx metoprolol succinate 25 mg 25 mg PO DAILY 30 days #30 tabs 07/11/24 07/29/24 Rx tablet,extended release 24 hr pantoprazole 40 mg tablet,delayed 40 mg PO DAILY 30 days #30 tabs 07/11/24 07/29/24 Rx release cefdinir 300 mg capsule 300 mg PO BID 1 day #2 caps 08/01/24 Rx insulin glargine 100 unit/mL (3 40 unit (0.4 mL) SQ HS 30 days #15 08/01/24 Rx mL) subcutaneous pen (Lantus mL Solostar U-100 Insulin) lisinopril 5 mg tablet 5 mg PO DAILY #30 tabs 08/01/24 Rx metformin 500 mg tablet 1,000 mg (2 x 500 mg) PO BIDWMEAL 08/01/24 Rx 30 days #60 tabs New Prescriptions to Start Prescriptions: Allergies Allergy/AdvReac Type Severity Reaction Status Date / Time thiothixene Allergy Unknown Unknown Verified 07/07/24 08:31 allergy reaction Exam Data for Last 24 hours Vital signs and Labs for Last 24 Hours: Temp Pulse Resp BP Pulse Ox O2 Del Method 98.0 F 118 H 30 H 159/80 H 99 Room Air 10/22/24 01:31 10/22/24 01:31 10/22/24 01:31 10/22/24 01:31 10/22/24 00:07 10/22/24 01:31 Laboratory Results - last 24 hr 10/21/24 00:08: Lactate 2.3 H 10/21/24 22:11: WBC 14.6 H, RBC 5.50 H, Hgb 15.4, Hct 47.2 H, MCV 85.8, MCH 28.0, MCHC 32.6, RDW 14.0, Plt Count 341, MPV 10.5 H, Neut % (Auto) 86.2 H, Lymph % (Auto) 5.8 L, [place] % (Auto) 6.6, Eos % (Auto) 0.0 L, Baso % (Auto) 0.5, Neut # (Auto) 12.6 H, Lymph # (Auto) 0.8, [place] # (Auto) 1.0, Eos # (Auto) 0.0, Baso # (Auto) 0.1, PT 10.7, INR 0.95, Sodium 132 L, Potassium 4.3, Chloride 100, Carbon Dioxide < 5 L*, Anion Gap 31.3 H, BUN 21 H, Creatinine 0.90, Estimated Creat Clear 71, Estimated GFR 62, Est GFR ( Amer) 75, Glucose 429 H*, Hem oglobin A1c 11.2 H, Calcium 9.4, Phosphorus 5.1 H, Magnesium 2.4 H, Total Bilirubin 0.7, AST 27, ALT 28, Alkaline Phosphatase 168 H, Troponin I < 0.01, Total Protein 8.3 H D, Albumin 4.1, Globulin 4.2 H, Albumin/Globulin Ratio 1.0 L , Lipase 141, Acetone Level Moderate 10/22/24 00:10: VBG pH 6.97 L, VBG pCO2 28.7 L, VBG pO2 47.1 H, VBG HCO3 6.5 L, VBG Total CO2 7.4 L, VBG O2 Saturation 70.4 H, VBG Base Excess -25.2 L, VBG Lactic Acid 2.9 H 10/22/24 : Troponin I Cancelled I & O for Last 24 hours: Intake & Output 10/19/24 10/20/24 10/21/24 10/22/24 23:59 23:59 23:59 23:59 Weight 85.275 kg Constitutional Constitutional: mild distress, obese, chronically ill appearing and somnolent *Routine HEENT Exam Head: Present normocephalic Eye: Present EOMI and PERRL ENT: Present mucous membranes moist *Routine Neck Exam Neck: Present supple; Absent lymphadenopathy *Routine Respiratory Exam Respiratory: Present accessory muscle use and CTA bilaterally; Absent respiratory distress, rhonchi, stridor, wheezes or crackles Comments: Tachypnea noted. Kussmaul respirations noted. *Routine Cardiovascular Exam Cardiovascular: Present RRR and tachycardia *Routine Abdominal Exam Abdominal: Present soft and normoactive bowel sounds; Absent tenderness *Routine Rectal Exam Rectal:: deferred *Routine Genitalia Exam Genitalia:: deferred *Routine Extremities Exam Extremities: Absent cyanosis, clubbing or edema *Routine Skin Exam Skin: Present intact and warm; Absent rash *Routine Neurological Exam Neurological: Present alert and altered mental status; Absent moving all extremities Comments: Slow to respond to questions but answers appropriate. Knows she is at the hospital Assessment and Plan *Assessment and plan (1) DKA (diabetic ketoacidosis): Status: Acute Category: Medical Code(s): E11.10 - Type 2 diabetes mellitus with ketoacidosis without coma (2) Hyponatremia: Status: Acute Category: Medical Code(s): E87.1 - Hypo-osmolality and hyponatremia (3) Nausea & vomiting: Status: Acute Category: Medical Code(s): R11.2 - Nausea with vomiting, unspecified (4) Sepsis: Status: Acute Category: Medical Code(s): A41.9 - Sepsis, unspecified organism (5) Housing instability: Status: Acute Category: Social Hx Code(s): Z59.819 - Housing instability, housed unspecified Plan #DKA pH of 6.97, anion gap of 33, CO2 less than 5, glucose of 429 Continue insulin drip and copious IV fluid administration Serial BMPs and VBG Currently awake alert and oriented, able to participate in full exam. Reports feeling improved since presenting to the emergency department. A1c of 11 Hold long-acting insulin until gap closes x 2 #Sepsis Meets sepsis criteria for tachycardia, tachypnea, leukocytosis and lactic acidosis No infection source noted. Does have history of Klebsiella pneumoniae UTIs. Obtain urine when able Continue broad-spectrum coverage with vancomycin and Zosyn Follow-up blood cultures Repeat lactic acid pending #Hyponatremia Secondary to elevated glucose Monitor with BMP #Nausea vomiting Improved, no vomiting noted since admission Continue antiemetics #Housing instability No electricity and poor living conditions. Care management consult initiated.
[2024-10-22 02:24] LABS: Lactate Venous 1.9 mmol/L (0.4-2.0); VBG Base Excess -26.1 mmol/L (-2.4-2.3); VBG PO2 147.2 mmol/L (28-40); VBG Total CO2 5.6 mmol/L (23-27)
[2024-10-22 02:26] LABS: VBG PCO2 19.9 mmol/L (35-51); VBG PH 7.02 mmol/L (7.31-7.41)
[2024-10-22 02:27] LABS: Chloride 116 mmol/L (98-107)
[2024-10-22 02:28] LABS: Potassium 3.4 mmoL/L (3.5-5.1); Sodium 137 mmol/L (136-145)
[2024-10-22 02:31] LABS: Blood Urea Nitrogen 18 mg/dl (7-17); Calcium 6.5 mg/dl (8.4-10.2); Creatinine Clearance Estimated 71 mL/min (50-200); Estimated Glomerular Filt Rate 122 ml/min (>60); GFR (African American) 148 ML/MIN (>60); Glucose 264 mg/dl (74-100)
[2024-10-22 02:35] LABS: Anion Gap 19.4 mEq/L (5-15)
[2024-10-22 02:36] LABS: Carbon Dioxide < 5 mmol/L (22.0-30.0)
[2024-10-22 02:45] LABS: Troponin I < 0.01 ng/ml (0.00-0.034)
[2024-10-22] MEDS: SODIUM BICARB 8.4% 50ML SYRINGE (CRASH CART) 50 MEQ IV (03:31)
[2024-10-22] MEDS: CALCIUM GLUC IN NACL, ISO-OSM 1 GM/50 ML BAG IV (03:33)
[2024-10-22] MEDS: SODIUM BICARBONATE 150 MEQ in DEXTROSE 5 % IN WATER 1,000 ML IV (03:34)
[2024-10-22] MEDS: POTASSIUM CHLORIDE 20MEQ TAB 60 MEQ PO (03:35)
[2024-10-22 04:36] LABS: Chloride 107 mmol/L (98-107)
[2024-10-22 04:37] LABS: Potassium 3.5 mmoL/L (3.5-5.1); Sodium 136 mmol/L (136-145)
[2024-10-22 04:40] LABS: Anion Gap 21.5 mEq/L (5-15); Blood Urea Nitrogen 22 mg/dl (7-17); Calcium 9.4 mg/dl (8.4-10.2); Carbon Dioxide 11 mmol/L (22.0-30.0); Creatinine Clearance Estimated 64 mL/min (50-200); Estimated Glomerular Filt Rate 99 ml/min (>60); GFR (African American) 120 ML/MIN (>60); Glucose 233 mg/dl (74-100); Lactic Acid 1.3 mmol/L (0.7-2.1)
[2024-10-22 04:40] LABS: Microscopic, Urine URINE MICROSCOPIC (MICROSCOPIC)
--- NOTE | 2024-10-22 04:40 | PC.NURSE ---
pt arrived to the unit, was being noncompliant, began to rip iv's out and continued to say she wanted socks before she would stop pulling out lines and pulling at tubing. 2 ivs were d/estuardo due to her behavior and 2 new lines inserted, multiple attempts made by different nurses to get iv's. patient provider pavel duke aware, she does not want the fluids originally ordered to be given and wanted to start hc03 gtt and the 1 amp ordered given, remaining on insulin gtt with no maint. fluids besides the bicarb going at 150/hr per order.
[2024-10-22 04:42] LABS: Bilirubin,Urine Negative (Negative); Blood, Urine 2+ (Negative); Color,Urine YELLOW (Yellow); Glucose,Urine (UA) 2+ (Negative); Ketones,Urine 3+ (Negative); Leukocyte Esterase,Urine Negative (Negative); Nitrate,Urine Negative (Negative); PH,Urine 5.5 (5.0-8.5); Protein,Urine 1+ (Negative); Specific Gravity, Urine >= 1.030 (1.005-1.030); Urobilinogen,Urine 0.2 EU/dl (0.2)
[2024-10-22 04:44] LABS: Appearance,Urine Slightly Cloudy (Clear)
[2024-10-22 04:47] LABS: Bacteria,Urine Trace /lpf; Squamous Epithelial Cell,Urine Occasional #/hpf (0-5); WBC,Urine Occasional #/hpf (0-3)
[2024-10-22 05:10] LABS: POC Glucose,Bedside 292 (70-110)
[2024-10-22 05:10] LABS: POC Glucose,Bedside 365 (70-110)
[2024-10-22 05:10] LABS: POC Glucose,Bedside 267 (70-110)
[2024-10-22 05:10] LABS: POC Glucose,Bedside 281 (70-110)
--- NOTE | 2024-10-22 05:46 | EXP.SEPSISRE ---
[facility] Tissue Perfusion Eval Sepsis Re-Evaluation Performed: Yes Date Performed: 10/22/24 Time Performed: 05:46
[2024-10-22 06:06] LABS: POC Glucose,Bedside 206 (70-110)
[2024-10-22 07:05] LABS: Lactate Venous 1.7 mmol/L (0.4-2.0); VBG Base Excess -9.8 mmol/L (-2.4-2.3); VBG HCO3 14.8 mmol/L (23-30); VBG Oxygen Saturation 95.9 % (50-70); VBG PCO2 23.8 mmol/L (35-51); VBG PH 7.41 mmol/L (7.31-7.41); VBG PO2 73.6 mmol/L (28-40); VBG Total CO2 15.5 mmol/L (23-27)
--- NOTE | 2024-10-22 07:50 | XR_ITS ---
FINAL REPORT CLINICAL HISTORY: Sepsis workup COMPARISON: 07/29/2024 FINDINGS: A portable view of the chest was obtained. Cardiac and mediastinal silhouettes are within normal limits. There is a right basilar opacity which is increased from the prior exam and could represent atelectasis or pneumonia. There is no pleural effusion or pneumothorax. IMPRESSION: Increased right basilar opacity could represent atelectasis or pneumonia. Reviewed, Interpreted and Dictated by Melissa Chaudhari MD Transcribed by Jeni Churchill Authenticated and [facility]
[2024-10-22 08:11] LABS: Basophils % 0.3 % (0.1-2.0); Lymphocytes # 1.4 K/mm3 (0.7-4.5); Lymphocytes % 12.4 % (10-50); Mean Corpuscular HGB Conc 33.8 g/dL (31.8-35.4); Mean Corpuscular Hemoglobin 28.2 pg (27.0-31.2); Mean Corpuscular Volume 83.5 fl (81-99); Mean Platelet Volume 10.3 fl (7.4-10.4); Monocytes # 1.1 K/mm3 (0.1-1.0); Monocytes % 9.7 % (1.7-9.3); Neutrophils # 8.9 K/mm3 (1.8-7.8); Nucleated Red Blood Cells # 0 10^3/uL; Nucleated Red Blood Cells % 0 %; Platelet Count 261 K/mm3 (142-424); Red Blood Count 4.79 M/mm3 (4.20-5.40); Red Cell Distribution Width-SD 42.6 fL; White Blood Count 11.6 K/mm3 (4.8-10.8)
[2024-10-22 08:14] LABS: POC Glucose,Bedside 238 (70-110)
[2024-10-22 08:20] LABS: Phosphorous 1.7 mg/dl (2.5-4.5)
[2024-10-22 08:28] LABS: Hemoglobin 13.6 g/dL (12.2-16.2)
[2024-10-22] MEDS: LACTATED RINGERS 1000ML 1,000 ML 999 ML IV (08:28)
[2024-10-22 09:05] LABS: POC Glucose,Bedside 165 (70-110)
--- NOTE | 2024-10-22 09:07 | PC.NURSE ---
unable to assess ability to walk stairs, as no stairs on unit.
[2024-10-22 09:18] LABS: Troponin I 0.23 ng/ml (0.00-0.034)
[2024-10-22] MEDS: D5W/0.9% NaCl w/20mEq KCL 1,000 ML 150 ML IV ×2 (09:29→17:03)
--- NOTE | 2024-10-22 09:39 | HMH.PHAINT1 ---
Pharmacy Intervention Comments: DKA, INSULIN DRIP RUNNING. HOME MEDS CHECKED WITH RECENT PHARMACY FILL HISTORY.
[2024-10-22 10:01] LABS: Chloride 109 mmol/L (98-107); Potassium 3.1 mmoL/L (3.5-5.1); Sodium 135 mmol/L (136-145)
[2024-10-22 10:04] LABS: Chloride 111 mmol/L (98-107); Potassium 3.5 mmoL/L (3.5-5.1); Sodium 134 mmol/L (136-145)
[2024-10-22 10:04] LABS: Anion Gap 17.1 mEq/L (5-15); Blood Urea Nitrogen 22 mg/dl (7-17); Carbon Dioxide 12 mmol/L (22.0-30.0); Creatinine Clearance Estimated 64 mL/min (50-200); Estimated Glomerular Filt Rate 122 ml/min (>60); GFR (African American) 148 ML/MIN (>60); Glucose 190 mg/dl (74-100)
[2024-10-22 10:07] LABS: Blood Urea Nitrogen 21 mg/dl (7-17); Creatinine Clearance Estimated 64 mL/min (50-200); Estimated Glomerular Filt Rate 158 ml/min (>60); GFR (African American) 191 ML/MIN (>60)
[2024-10-22 10:08] LABS: Anion Gap 9.5 mEq/L (5-15); Calcium 8.8 mg/dl (8.4-10.2); Carbon Dioxide 17 mmol/L (22.0-30.0); Glucose 130 mg/dl (74-100)
[2024-10-22 10:13] LABS: POC Glucose,Bedside 131 (70-110)
[2024-10-22] MEDS: POTASSIUM PHOSPHATE 9 MMOL in 0.9 % SODIUM CHLORIDE 250 ML 63.25 MMOL IV (10:50)
--- NOTE | 2024-10-22 11:00 | CA_ITS ---
APPROVED REPORT EXAM: Limited 2D Echocardiogram with contrast Tooling Engineer: Claire Lizarraga RVT Ht: 5 ft 1 in Wt: 167lbs BSA: 1.75 BP: 159/80 mmHg Indications: EF CHECK,DKA,ELEVATED TROP,DM,N/V TDS Echo Enhancing Agent Indication: Endocardial border delineation Agent(s) / Amount(s) Used: Definity 2 cc 2D Dimensions IVSd 1.57 cm F: 0.6-1.0 LVEF (Visual) 71.90 % PWd 1.14 cm F: 0.6 - 1.0 LVDd 3.79 cm F: 3.9 - 5.3 LVDs 2.26 cm F: 2.2 - 3.5 Other Information Study Quality: Technically Difficult Conclusion This is a limited TTE to evaluate for LV systolic function. Limited windows are obtained. Administration of ultrasound enhancing agent is performed. Technically difficult study. The left ventricle is normal in size. There is increased LV wall thickness. There is mild reduction of global LV systolic function. There is moderate hypokinesis of the inferior, and inferoseptal LV martinez. LVEF is 45%. Electronically signed by : Caron Burns MD 10/22/2024 12:07:23
[2024-10-22 11:10] LABS: POC Glucose,Bedside 163 (70-110)
--- NOTE | 2024-10-22 12:01 | EXP.CARD.CON ---
History of Present Illness History of Present Illness Consult date: 10/22/24 Requesting physician: Nigel Sultana Consult reason: known to you Chief complaint: DKA, elevated troponin Additional Medical History:: 1. History of hypertension 2. Diabetes, unknown type A. DKA with UTI and NSTEMI, 07/2024 B. Echo, 07/2024, EF 65% with no wall motion abnormalities or valve disease. 3. History of major depression History of present illness: This is a 68-year-old female with a past medical history of diabetes who presents with her friend/POA at the bedside. POA provides extra collateral and states that patient called a few days ago stating she was not feeling well and that she has progressively worsened. POA encouraged her to come to the hospital but patient refused. Tonight patient had worsening symptoms with nausea vomiting that prompted her to want to come to the ER. POA reports that patient lives in a barn with multiple dogs that do not go outside and defecate in the facility. She also does not clean up after herself. There are no electricity or lites at the facility so patient has been wearing a headlamp and not monitoring her glucose. Reportedly patient resided at [facility] prior to the last several months. Was admitted 4 months ago for UTI, discharged to [facility] and then improved and discharged home Emergency Department workup notable for DKA with Kussmaul respirations initial assessment. Labs revealed the same. pH of 6.97, glucose in the 400s, anion gap of 33, CO2 of less than 5. He hemoglobin of 11. CT chest abdomen pelvis was obtained given sepsis picture but patient mildly agitated unable to lie still. Will obtain CT scan when able. Will continue treatment for DKA and reassess She is admitted to the hospital service at this time The above per CARRIE Turner for the Hospitalist service. Cardiology consulted due to elevated troponin in setting of DKA which is being treated and improving. Similar picture in 07/2024 at which time cardiac cath was recommended but postponed due to klebsiella infection. Plan was for patient to see us as outpatient to schedule cardiac cath but she never kept her follow-up appointment. I had a very paulino discussion with the patient regarding her poor control of her diabetes and now her second admission for DKA with elevated troponins. We again discussed the recommendation for cardiac catheterization but she declines to proceed at this time. PFSH PFSH Disclaimer: The information contained in this section may have been updated after the patient was seen, as this information can be updated by other users. Medical History Non-ST elevation VT (NSTEMI) Urinary tract infectious disease Hypokalemia DKA (diabetic ketoacidosis) Severe sepsis Diabetes mellitus Diabetes Diabetes Family History Other Diabetes Social History (Updated 10/22/24 @ 04:19 by Jennifer Miller RN) Smoking Status: Never smoker alcohol intake: never substance use type: denies use and marijuana (she did try 1 puff on THC back in 1971; nothing since then) current occupational status: disabled Travel in the last 8 weeks: None number of children: 0 Have you lived/traveled outside US in past 30 days?: No Contact w/someone who lives/traveled outside US past 30 days?: No Exposure to someone with infectious disease in past 14 days?: No Do you have a fever (greater than 100.4 F or 38 C)?: No Have you tested positive for COVID-19: No Exposed to someone with COVID-19 in past 14 days?: No Do you have a sore throat?: No Do you have a cough?: No Do you have any weakness?: No Do you have any diarrhea?: No Are you experiencing any unusual bleeding?: No Do you have any muscle aches/pain?: No Do you have any abdominal pain?: No Are you experiencing loss of taste or smell?: No Review of Systems Review of Systems Review of systems:: pertinent systems reviewed and negative unless documented below *Cardiovascular Cardiovascular: Reports chest pain *Gastrointestinal Gastrointestinal: Reports vomiting Exam Data for Last 24 hours Vital signs and Labs for Last 24 Hours: Temp Pulse Resp BP Pulse Ox O2 Del Method 97.9 F 100 H 25 H 157/80 H 98 Room Air 10/22/24 04:00 10/22/24 11:00 10/22/24 11:00 10/22/24 11:00 10/22/24 11:00 10/22/24 11:00 Laboratory Results - last 24 hr 10/21/24 00:08: Lactate 2.3 H 10/21/24 04:35: Urine Color Yellow, Urine Appearance Slightly cloudy, Urine pH 5.5, Ur Specific Wentworth >= 1.030, Urine Protein 1+ A, Urine Glucose (UA) 2+, Urine Ketones 3+, Urine Blood 2+ A, Urine Nitrate Negative, Urine Bilirubin Negative, Urine Urobilinogen 0.2, Ur Leukocyte Esterase Negative, Urine RBC 5-10, Urine WBC Occasional, Ur Squamous Epith Cells Occasional, Urine Bacteria Trace 10/21/24 22:11: WBC 14.6 H, RBC 5.50 H, Hgb 15.4, Hct 47.2 H, MCV 85.8, MCH 28.0, MCHC 32.6, RDW 14.0, Plt Count 341, MPV 10.5 H, Neut % (Auto) 86.2 H, Lymph % (Auto) 5.8 L, [place] % (Auto) 6.6, Eos % (Auto) 0.0 L, Baso % (Auto) 0.5, Neut # (Auto) 12.6 H, Lymph # (Auto) 0.8, [place] # (Auto) 1.0, Eos # (Auto) 0.0, Baso # (Auto) 0.1, PT 10.7, INR 0.95, Sodium 132 L, Potassium 4.3, Chloride 100, Carbon Dioxide < 5 L*, Anion Gap 31.3 H, BUN 21 H, Creatinine 0.90, Estimated Creat Clear 71, Estimated GFR 62, Est GFR ( Amer) 75, Glucose 429 H*, Hemoglobin A1c 11.2 H, Calcium 9.4, Phosphorus 5.1 H, Magnesium 2.4 H, Total Bilirubin 0.7, AST 27, ALT 28, Alkaline Phosphatase 168 H, Troponin I < 0.01, Total Protein 8.3 H D, Albumin 4.1, Globulin 4.2 H, Albumin/Globulin Ratio 1.0 L, Lipase 141, Acetone Level Moderate 10/22/24 00:10: VBG pH 6.97 L, VBG pCO2 28.7 L, VBG pO2 47.1 H, VBG HCO3 6.5 L, VBG Total CO2 7.4 L, VBG O2 Saturation 70.4 H, VBG Base Excess -25.2 L, VBG Lactic Acid 2.9 H 10/22/24 01:50: POC Glucose 365 H* 10/22/24 02:00: VBG pH 7.02 L, VBG pCO2 19.9 L, VBG pO2 147.2 H, VBG HCO3 5.0 L, VBG Total CO2 5.6 L, VBG O2 Saturation 98.0 H, VBG Base Excess -26.1 L, VBG Lactic Acid 1.9 10/22/24 02:13: Sodium 137, Potassium 3.4 L D, Chloride 116 H, Carbon Dioxide < 5 L*, Anion Gap 19.4 H, BUN 18 H, Creatinine 0.50 L D, Estimated Creat Clear 71, Estimated GFR 122, Est GFR ( Amer) 148 D, Glucose 264 H D, Calcium 6.5 L, Troponin I < 0.01 10/22/24 03:05: POC Glucose 281 H 10/22/24 03:45: POC Glucose 267 H 10/22/24 04:22: Sodium 136, Potassium 3.5, Chloride 107, Carbon Dioxide 11 L, Anion Gap 21.5 H, BUN 22 H, Creatinine 0.60, Estimated Creat Clear 64, Estimated GFR 99, Est GFR ( Amer) 120, Glucose 233 H, Lactate 1.3, Calcium 9.4 10/22/24 05:02: POC Glucose 292 H 10/22/24 05:58: POC Glucose 206 H 10/22/24 06:54: WBC 11.6 H, RBC 4.79, Hgb 13.6 D, Hct 40.0, MCV 83.5, MCH 28.2, MCHC 33.8, RDW 14.0, Plt Count 261, MPV 10.3, Neut % (Auto) 77.0, Lymph % (Auto) 12.4, [place] % (Auto) 9.7 H, Eos % (Auto) 0.0 L, Baso % (Auto) 0.3, Neut # (Auto) 8.9 H, Lymph # (Auto) 1.4, [place] # (Auto) 1.1 H, Eos # (Auto) 0.0, Baso # (Auto) 0.0, VBG pH 7.41, VBG pCO2 23.8 L, VBG pO2 73.6 H, VBG HCO3 14.8 L, VBG Total CO2 15.5 L, VBG O2 Saturation 95.9 H, VBG Base Excess -9.8 L, VBG Lactic Acid 1.7, Sodium 135 L, Potassium 3.1 L, Chloride 109 H, Carbon Dioxide 12 L, Anion Gap 17.1 H, BUN 22 H, Creatinine 0.50 L, Estimated Creat Clear 64, Estimated GFR 122, Est GFR ( Amer) 148 D, Glucose 190 H, Calcium 9.0, Phosphorus 1.7 L D, Magnesium 2.0 D, Troponin I 0.23 H 10/22/24 08:05: POC Glucose 238 H 10/22/24 08:57: POC Glucose 165 H 10/22/24 09:50: Sodium 134 L, Potassium 3.5, Chloride 111 H, Carbon Dioxide 17 L, Anion Gap 9.5, BUN 21 H, Creatinine 0.40 L, Estimated Creat Clear 64, Estimated GFR 158, Est GFR ( Amer) 191 D, Glucose 130 H D, Calcium 8.8 10/22/24 10:01: POC Glucose 131 H 10/22/24 11:01: POC Glucose 163 H 10/22/24 : Troponin I Cancelled I & O for Last 24 hours: Intake & Output 10/20/24 10/21/24 10/22/24 10/23/24 11:59 11:59 11:59 11:59 Intake Total 1929.356 / 1929.356 Output Total 950 / 950 Balance 979.356 / 979.356 Weight 167 lb 8.821 oz Constitutional Constitutional: no acute distress *Routine Respiratory Exam Respiratory: Present decreased breath sounds; Absent wheezes *Routine Cardiovascular Exam Cardiovascular: Present RRR; Absent murmur, gallop or rubs *Routine Extremities Exam Comments: right ankle swollen/bruised with scabbed over abrasions. *Routine Neurological Exam Neurological: Present alert, oriented X3 and CN II-XII intact Meds Home Medications and Allergies Home Medications ?Medication ?Instructions ?Recorded ?Confirmed ?Type aspirin 81 mg tablet,delayed 81 mg PO DAILY 30 days #30 tabs 07/11/24 10/22/24 Rx release metoprolol succinate 25 mg 25 mg PO DAILY 30 days #30 tabs 07/11/24 10/22/24 Rx tablet,extended release 24 hr pantoprazole 40 mg tablet,delayed 40 mg PO DAILY 30 days #30 tabs 07/11/24 10/22/24 Rx release insulin glargine 100 unit/mL (3 40 unit (0.4 mL) SQ HS 30 days #15 08/01/24 10/22/24 Rx mL) subcutaneous pen (Lantus mL Solostar U-100 Insulin) atorvastatin 20 mg tablet 20 mg PO HS 10/22/24 10/22/24 History gabapentin 100 mg capsule 100 mg PO TID 10/22/24 10/22/24 History lisinopril 30 mg tablet 30 mg PO DAILY 10/22/24 10/22/24 History metformin 1,000 mg tablet 1,000 mg PO BIDWMEAL 10/22/24 10/22/24 History paroxetine HCl 20 mg tablet 20 mg PO DAILY 10/22/24 10/22/24 History terbinafine HCl 250 mg tablet 250 mg PO DAILY 10/22/24 10/22/24 History New Prescriptions to Start Prescriptions: Allergies Allergy/AdvReac Type Severity Reaction Status Date / Time thiothixene Allergy Unknown Unknown Verified 07/07/24 08:31 allergy reaction Assessment and Plan *Assessment and plan (1) DKA (diabetic ketoacidosis): Status: Acute Qualifiers: Diabetes mellitus complication detail: without coma Diabetes mellitus type: type 2 Qualified Code(s): E11.10 - Type 2 diabetes mellitus with ketoacidosis without coma Category: Medical Code(s): E11.10 - Type 2 diabetes mellitus with ketoacidosis without coma (2) Nausea & vomiting: Status: Acute Qualifiers: Vomiting type: unspecified Qualified Code(s): R11.2 - Nausea with vomiting, unspecified Category: Medical Code(s): R11.2 - Nausea with vomiting, unspecified (3) Diabetes mellitus: Status: Chronic Qualifiers: Diabetes mellitus complication detail: without coma Diabetes mellitus complication status: with ketoacidosis Diabetes mellitus mcc insulin use: with mcc use Diabetes mellitus type: type 2 Qualified Code(s): E11.10 - Type 2 diabetes mellitus with ketoacidosis without coma; 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 DM with DKA -per Hospitalist -improving with anion gap down from 31 to 9 -Hgb A1C 11.2 2. Elevated troponin -0.23 -check echo -declines cath at this time -continue ASA 81 mg daily, metoprolol succinate 25 mg daily, atorvastatin 20 mg daily and lisinopril at 10 mg daily 3. Abnormal CXR -on piperacillin/tazobactam check limited echo resume home cardiac meds with slight modification of lisinopril dose Echo shows EF 45% with inferior hypokinesis. Will discuss LHC again prior to discharge in light of NSTEMI with new wall motion abnormalities.
[2024-10-22 12:26] LABS: POC Glucose,Bedside 182 (70-110)
[2024-10-22] MEDS: DEFINITY US ECHO CONTRAST 2ML INJ 2 MG IV (12:50)
[2024-10-22] MEDS: INSULIN REGULAR, HUMAN 100 UNIT in 0.9 % SODIUM CHLORIDE 100 ML IV (13:09)
[2024-10-22 13:25] LABS: POC Glucose,Bedside 185 (70-110)
[2024-10-22] MEDS: PANTOPRAZOLE 40MG TABLET 40 MG PO (13:26)
[2024-10-22] MEDS: ASPIRIN EC 81MG TABLET 81 MG PO (13:26)
[2024-10-22] MEDS: METOPROLOL SUCCINATE XL 25MG TABLET 25 MG PO (13:26)
[2024-10-22] MEDS: PARoxetine 20MG TABLET 20 MG PO (13:26)
--- NOTE | 2024-10-22 13:58 | HMH.PTWOUND ---
Rehab Inpt Wound Evaluation Rehab IP Wound Evaluation Start: 10/22/24 04:01 Freq: ONCE Status: Active Protocol: Document 10/22/24 13:51 JIN (Rec: 10/22/24 13:58 PHORUBY [id number]) Rehab PT Wound Assessment Subjective Subjective 68-year-old female with a past medical history of diabetes who presents with her friend/ POA at the bedside. POA provides extra collateral and states that patient called a few days ago stating she was not feeling well and that she has progressively worsened. POA encouraged her to come to the hospital but patient refused. Tonight patient had worsening symptoms with nausea vomiting that prompted her to want to come to the ER. POA reports that patient lives in a barn with multiple dogs that do not go outside and defecate in the facility. She also does not clean up after herself. There are no electricity or lights at the facility so patient has been wearing a headlamp and not monitoring her glucose. Pt reports she lives alone, 1 flight of stairs to enter the home, and generally uses a cane in her apt and a RW outside of her apt. She presents with R lateral ankle wound upon admission. Wound Right Lateral Ankle Wound Type Abrasion Is This a Chronic Wound No Wound Length (cm) 4.0 Wound Width (cm) 2.0 Wound Depth (cm) 0.1 Wound Bed Appearance [place] Wound Margins Description Well Defined Surrounding Tissue Appearance [place] Drainage Amount None Dressing Change Patient Tolerance Tolerated Well Plan/Recommendation Comment Currently her wound is dry and healing appropriately without intervention. No further needs for acute inpatient PT wound care at this time. Thank you for involving the would care team in the care of this patient. Eval Complexity Eval Charge Codes 42247 - High Complexity PHYSICIAN CERTIFICATION: I certify the specified therapy services for Le Vogel are required, authorized, and reviewed every 30 days.
--- NOTE | 2024-10-22 14:04 | HMH.PTEV ---
Physical Therapy Evaluation Rehab PT IP Evaluation Start: 10/22/24 13:59 Freq: ONCE Status: Active Protocol: Document 10/22/24 14:00 JIN (Rec: 10/22/24 14:04 PHORUBY [id number]) Subjective/History History History 68-year-old female with a past medical history of diabetes who presents with her friend/ POA at the bedside. POA provides extra collateral and states that patient called a few days ago stating she was not feeling well and that she has progressively worsened. POA encouraged her to come to the hospital but patient refused. Tonight patient had worsening symptoms with nausea vomiting that prompted her to want to come to the ER. POA reports that patient lives in a barn with multiple dogs that do not go outside and defecate in the facility. She also does not clean up after herself. There are no electricity or lights at the facility so patient has been wearing a headlamp and not monitoring her glucose. Pt reports she lives alone, 1 flight of stairs to enter the home, and generally uses a cane in her apt and a RW outside of her apt. Subjective Subjective Pt reports general weakness, no nausea at this time. Agrees to OOB mobility assessment. [facility] How much help from another person do you currently need... Turning from your back to your side None while in a flat bed without using bedrails? Moving from lying on back to sitting on None the side of a flat bed without using bedrails? Moving to and from a bed to a chair ( A little including a wheelchair)? Standing up from a chair using your arms A little ? (e.g., wheelchair, bedside chair) Walking in hospital room? A little Climbing 3-5 steps with a railing? A little Mobility Score 20 Mobility Level [facility] Mobility Calculator Mobility 6 Walk 10 steps or more Rehab PT IP Eval Objective Appearance Patient Behavior Appropriate Patient Orientation Person,Place,Time Difficulty following instructions none Speech Pattern Clear Ambulation Patient Able to Ambulate Yes Ambulation Observation IP General Gait Pattern Observation Wide Based Gait Ambulation Distance (feet) 15 Ambulation Assistive Device Rolling Walker Ambulation Ability Contact Guard/Hand Hold Balance Ability to Arise Able, uses arms to help Sitting Balance Steady, safe Standing Balance Steady, wide stance Dynamic Standing Balance Ability Fair Transfers Bed Transfer Ability Contact Guard/Hand Hold Chair Transfer Ability Contact Guard/Hand Hold Sit to Stand Bed Transfer Ability Contact Guard/Hand Hold Sit to Stand Chair Transfer Ability Contact Guard/Hand Hold Rehab PT IP prob,goals,plan Problems Date of Evaluation: 10/22/24 PT IP Problems Transfers,Gait Plan PT Intervention Plan Transfers,Gait,Therapeutic Exercise PT Plan Frequency Daily Duration LOS Discharge Goals Bed Transfer Ability Supervision/Stand by Sit to Stand Chair Transfer Ability Supervision/Stand by Ambulation Assistive Device Rolling Walker Ambulation Distance (feet) 50 Discharge Plan PT Discharge Plan Pt is currently most appropriate for rehab placement once medically stable for d/c. Skilled therapy is indicated to increase general strength in all extremities, improve transfers, and improve ambulation in order to return pt to [facility] with all ADLs. Eval Complexity Eval Charge Codes 94987 - High Complexity PHYSICIAN CERTIFICATION: I certify the specified therapy services for Le Vogel are required, authorized, and reviewed every 30 days.
[2024-10-22 14:11] LABS: POC Glucose,Bedside 200 (70-110)
[2024-10-22 14:30] LABS: Chloride 113 mmol/L (98-107); Potassium 4.1 mmoL/L (3.5-5.1); Sodium 135 mmol/L (136-145)
[2024-10-22 14:33] LABS: Anion Gap 12.1 mEq/L (5-15); Blood Urea Nitrogen 21 mg/dl (7-17); Calcium 8.4 mg/dl (8.4-10.2); Carbon Dioxide 14 mmol/L (22.0-30.0); Creatinine Clearance Estimated 64 mL/min (50-200); Estimated Glomerular Filt Rate 158 ml/min (>60); GFR (African American) 191 ML/MIN (>60); Glucose 159 mg/dl (74-100)
[2024-10-22 14:44] LABS: Magnesium 1.6 mg/dl (1.6-2.3)
[2024-10-22 14:48] LABS: Phosphorous 1.8 mg/dl (2.5-4.5)
[2024-10-22 15:08] LABS: POC Glucose,Bedside 167 (70-110)
[2024-10-22 16:01] LABS: POC Glucose,Bedside 145 (70-110)
[2024-10-22 17:18] LABS: Chloride 115 mmol/L (98-107); Potassium 3.1 mmoL/L (3.5-5.1); Sodium 136 mmol/L (136-145)
[2024-10-22 17:21] LABS: Anion Gap 10.1 mEq/L (5-15); Blood Urea Nitrogen 21 mg/dl (7-17); Carbon Dioxide 14 mmol/L (22.0-30.0); Creatinine Clearance Estimated 64 mL/min (50-200); Estimated Glomerular Filt Rate 122 ml/min (>60); GFR (African American) 148 ML/MIN (>60); Glucose 132 mg/dl (74-100)
[2024-10-22 17:22] LABS: Calcium 8.6 mg/dl (8.4-10.2)
[2024-10-22 18:02] LABS: POC Glucose,Bedside 134 (70-110)
[2024-10-22 18:25] LABS: Magnesium 1.6 mg/dl (1.6-2.3)
[2024-10-22 18:28] LABS: Phosphorous 1.2 mg/dl (2.5-4.5)
[2024-10-22 19:01] LABS: POC Glucose,Bedside 173 (70-110)
--- NOTE | 2024-10-22 19:38 | PC.NURSE ---
Insulin drip stopped at this time and pt is now receiving 40 units of lantus. Pt blood glucose at this time is 194.
[2024-10-22] MEDS: INSULIN GLARGINE 100 UNITS/ML 10ML VIAL 40 UNIT SUBCUT (19:39)
[2024-10-22] MEDS: POTASSIUM PHOS IN 0.9 % NACL 15 MMOL/250 ML PIGGYBACK 62.5 MMOL IV (20:03)
[2024-10-22] MEDS: ATORVASTATIN 20MG TABLET 20 MG PO (20:04)
[2024-10-22 21:01] LABS: Chloride 114 mmol/L (98-107); Potassium 3.8 mmoL/L (3.5-5.1); Sodium 135 mmol/L (136-145)
[2024-10-22] MEDS: humaLOG 100 UNITS/ML 10ML VIAL (SSI) SUBCUT (21:03)
[2024-10-22 21:04] LABS: Anion Gap 9.8 mEq/L (5-15); Blood Urea Nitrogen 21 mg/dl (7-17); Calcium 8.3 mg/dl (8.4-10.2); Carbon Dioxide 15 mmol/L (22.0-30.0); Creatinine Clearance Estimated 64 mL/min (50-200); Estimated Glomerular Filt Rate 122 ml/min (>60); GFR (African American) 148 ML/MIN (>60); Glucose 205 mg/dl (74-100)
[2024-10-22 21:05] LABS: Magnesium 1.7 mg/dl (1.6-2.3)
--- NOTE | 2024-10-22 23:24 | ECG_ITS ---
APPROVED REPORT Exam: Resting ECG HR:119 bpm ECG Measurements Heart Rate 119 AXES QRSd 95 QRS 21 QT 314 T 81 QTc 385 Conclusion Sinus Tachycardia No STEMI Electronically signed by : MARIPOSA PETERSEN, 10/22/2024 04:22:15
[2024-10-23] VITALS (17 sets, daily range): BP systolic 110–174; BP diastolic 55–93; PULSE 62–90; RESP 16–22; TEMP 36.4–36.9; O2SAT 95–100; BMI 33.0
[2024-10-23] MEDS: POTASSIUM PHOS IN 0.9 % NACL 15 MMOL/250 ML PIGGYBACK 62.5 MMOL IV (00:15)
[2024-10-23] MEDS: PIPERACILLIN/TAZO 4.5 GM in 0.9 % SODIUM CHLORIDE 100 ML IV ×4 (02:45→21:05)
[2024-10-23] MEDS: humaLOG 100 UNITS/ML 10ML VIAL (SSI) SUBCUT ×4 (05:47→21:05)
[2024-10-23 06:47] LABS: Basophils % 0.3 % (0.1-2.0); Eosinophils % 0.3 % (0.1-12.0); Hematocrit 34.1 % (37.0-47.0); Lymphocytes # 0.7 K/mm3 (0.7-4.5); Lymphocytes % 7.2 % (10-50); Mean Corpuscular HGB Conc 33.7 g/dL (31.8-35.4); Mean Corpuscular Hemoglobin 27.8 pg (27.0-31.2); Mean Corpuscular Volume 82.4 fl (81-99); Mean Platelet Volume 10.1 fl (7.4-10.4); Monocytes # 0.9 K/mm3 (0.1-1.0); Monocytes % 8.9 % (1.7-9.3); Neutrophils # 8.4 K/mm3 (1.8-7.8); Neutrophils % 82.8 % (37.0-80.0); Nucleated Red Blood Cells # 0 10^3/uL; Nucleated Red Blood Cells % 0 %; Platelet Count 218 K/mm3 (142-424); Red Blood Count 4.14 M/mm3 (4.20-5.40); Red Cell Distribution Width 14.5 % (11.5-17.5); Red Cell Distribution Width-SD 43.5 fL; White Blood Count 10.1 K/mm3 (4.8-10.8)
[2024-10-23 06:50] LABS: Chloride 114 mmol/L (98-107)
[2024-10-23 06:51] LABS: Albumin Level 2.7 g/dl (3.5-5.0); Potassium 3.8 mmoL/L (3.5-5.1); Sodium 137 mmol/L (136-145)
[2024-10-23 06:53] LABS: Alanine Aminotransferase 17 U/L (12-78); Alkaline Phosphatase 114 U/L (38-126); Anion Gap 13.8 mEq/L (5-15); Aspartate Amino Transferase 21 U/L (14-36); Bilirubin,Total 0.6 mg/dl (0.2-1.3); Blood Urea Nitrogen 23 mg/dl (7-17); Carbon Dioxide 13 mmol/L (22.0-30.0); Creatinine Clearance Estimated 68 mL/min (50-200); Estimated Glomerular Filt Rate 99 ml/min (>60); GFR (African American) 120 ML/MIN (>60)
[2024-10-23 06:54] LABS: Albumin/Globulin Ratio 0.9 (1.1-1.8); Calcium 8.4 mg/dl (8.4-10.2); Globulin 2.9 g/dL (1.3-3.2); Glucose 239 mg/dl (74-100); Total Protein,Serum 5.6 g/dl (6.3-8.2)
[2024-10-23 07:39] LABS: Hemoglobin 11.6 g/dL (12.2-16.2)
--- NOTE | 2024-10-23 08:04 | SW/DCPLANNER ---
Addendum entered by Mindy Bai 10/24/24 14:25: [facility] is able to take and has the auth back. Spoke with patient's POA and she stated that she isnt able to take patient over there and suggest that if we can get the [facility] bus to transport the patient from our facility to [facility] that would help. We are going to try and transport patient with our car a van if its in the time frame and if not then we will sit patient up with [facility]. Flori TATUM [employer] Group Director Addendum entered by Mindy Bai 10/23/24 14:25: Sent patients info to [facility] in [place]. Will update when i hear back. Flori TATUM Svp Group Director Addendum entered by Adrienne Bui 10/23/24 13:39: [facility] are unable to meet patient's needs at this time. Addendum entered by Adrienne Baldwin 10/23/24 11:28: [facility] is unable to accept patient. Patient request that information be faxed to [facility]. I will follow up w/ Luz at [facility] once information is reviewed. Addendum entered by Adrienne Bui 10/23/24 08:32: At patient's request I did call and update her POA ([facility]). [facility] stated that patient was skilled at beginning of 2024 and changed to [facility] under private pay. Patient discharged home from [facility] at patient's request. [facility] stated that patient is needing LTC. Original Note: I spoke w/ this patient regarding plans once medically stable for discharge. PT/OT evaluated patient and recommended SNF level of care. Patient stated that she was discharged from [facility] in Aug. Patient stated that she is currently living alone but agreeable to placement. Patient prefers [facility]. I will fax patient information to [facility]/ [facility] this AM. Discharge date is unknown at this time. I will continue to follow up.
[2024-10-23 08:17] LABS: Magnesium 1.7 mg/dl (1.6-2.3); Phosphorous 2.9 mg/dl (2.5-4.5)
[2024-10-23] MEDS: ASPIRIN EC 81MG TABLET 81 MG PO (09:09)
[2024-10-23] MEDS: PANTOPRAZOLE 40MG TABLET 40 MG PO (09:10)
[2024-10-23] MEDS: LISINOPRIL 10MG TABLET 10 MG PO ×2 (09:10→22:47)
[2024-10-23] MEDS: METOPROLOL SUCCINATE XL 25MG TABLET 25 MG PO (09:10)
[2024-10-23] MEDS: SODIUM BICARBONATE 650MG TABLET 650 MG PO ×3 (09:11→22:47)
[2024-10-23] MEDS: PARoxetine 20MG TABLET 20 MG PO (09:11)
--- NOTE | 2024-10-23 10:04 | P.PN_ITS ---
Subjective Subjective Date: 10/23/24 Time: 10:05 Principal diagnosis: DKA, NSTEMI Interval history: 68-year-old white female in bed in no acute distress. Feeling better today. Insulin drip has been discontinued. She is now on subcutaneous insulin. Klebsiella noted in blood culture this admission. Previously had Klebsiella UTI in July of this year. She is afebrile. She is on piperacillin/tazobactam. We discussed recommendation for cardiac catheterization and she is agreeable to proceed once her Klebsiella infection has been treated. Exam Data for Last 24 hours Vital signs and Labs for Last 24 Hours: Temp Pulse Resp BP Pulse Ox O2 Del Method 98.2 F 90 19 174/93 H 99 Room Air 10/23/24 08:02 10/23/24 08:02 10/23/24 08:02 10/23/24 08:02 10/23/24 08:02 10/23/24 08:02 Laboratory Results - last 24 hr 10/22/24 06:54: Sodium 135 L, Potassium 3.1 L, Chloride 109 H, Carbon Dioxide 12 L, Anion Gap 17.1 H, BUN 22 H, Creatinine 0.50 L, Estimated Creat Clear 64, Estimated GFR 122, Est GFR ( Amer) 148 D, Glucose 190 H, Calcium 9.0 10/22/24 09:50: Sodium 134 L, Potassium 3.5, Chloride 111 H, Carbon Dioxide 17 L , Anion Gap 9.5, BUN 21 H, Creatinine 0.40 L, Estimated Creat Clear 64, Estimated GFR 158, Est GFR ( Amer) 191 D, Glucose 130 H D, Calcium 8.8 10/22/24 10:01: POC Glucose 131 H 10/22/24 11:01: POC Glucose 163 H 10/22/24 12:17: POC Glucose 182 H 10/22/24 13:09: POC Glucose 185 H 10/22/24 13:10: Sodium 135 L, Potassium 4.1, Chloride 113 H, Carbon Dioxide 14 L , Anion Gap 12.1, BUN 21 H, Creatinine 0.40 L, Estimated Creat Clear 64, Estimated GFR 158, Est GFR ( Amer) 191, Glucose 159 H D, Calcium 8.4, Phosphorus 1.8 L, Magnesium 1.6 D, Troponin I 0.20 H 10/22/24 14:04: POC Glucose 200 H 10/22/24 15:00: POC Glucose 167 H 10/22/24 15:54: POC Glucose 145 H 10/22/24 16:45: Sodium 136, Potassium 3.1 L D, Chloride 115 H, Carbon Dioxide 14 L, Anion Gap 10.1, BUN 21 H, Creatinine 0.50 L D, Estimated Creat Clear 64, Estimated GFR 122, Est GFR ( Amer) 148 D, Glucose 132 H, Calcium 8.6, Phosphorus 1.2 L D, Magnesium 1.6 10/22/24 17:54: POC Glucose 134 H 10/22/24 18:54: POC Glucose 173 H 10/22/24 20:40: Sodium 135 L, Potassium 3.8 D, Chloride 114 H, Carbon Dioxide 15 L, Anion Gap 9.8, BUN 21 H, Creatinine 0.50 L, Estimated Creat Clear 64, Estimated GFR 122, Est GFR ( Amer) 148, Glucose 205 H D, Calcium 8.3 L, Phosphorus 1.6 L D, Magnesium 1.7 10/23/24 06:20: WBC 10.1, RBC 4.14 L, Hgb 11.6 L D, Hct 34.1 L, MCV 82.4, MCH 27.8, MCHC 33.7, RDW 14.5, Plt Count 218, MPV 10.1, Neut % (Auto) 82.8 H, Lymph % (Auto) 7.2 L, [place] % (Auto) 8.9, Eos % (Auto) 0.3, Baso % (Auto) 0.3, Neut # (Auto) 8.4 H, Lymph # (Auto) 0.7, [place] # (Auto) 0.9, Eos # (Auto) 0.0, Baso # (Auto) 0.0, Sodium 137, Potassium 3.8, Chloride 114 H, Carbon Dioxide 13 L, Anion Gap 13.8, BUN 23 H, Creatinine 0.60, Estimated Creat Clear 68, Estimated GFR 99, Est GFR ( Amer) 120, Glucose 239 H, Calcium 8.4, Total Bilirubin 0.6, AST 21, ALT 17 D, Alkaline Phosphatase 114, Total Protein 5.6 L D, Albumin 2.7 L D, Globulin 2.9, Albumin/Globulin Ratio 0.9 L 10/23/24 06:30: Phosphorus 2.9 D, Magnesium 1.7 I & O for Last 24 hours: Intake & Output 10/20/24 10/21/24 10/22/24 10/23/24 11:59 11:59 11:59 11:59 Intake Total 1929.356 / 7546.906 4997.767 / 2588.767 Output Total 950 / 950 1100 / 1100 Balance 979.356 / 551.901 5726.767 / 1488.767 Weight 167 lb 8.821 oz 179 lb 14.355 oz Microbiology Reports for the Last 24 Hours: Microbiology 10/22/24 04:30 Urine,Clean Catch Urine Culture - Preliminary 10/22/24 06:54 Blood Blood Culture - Preliminary Constitutional Constitutional: no acute distress *Routine Respiratory Exam Respiratory: Present decreased breath sounds and CTA bilaterally; Absent wheezes *Routine Cardiovascular Exam Cardiovascular: Present RRR; Absent murmur, gallop or rubs Progress Note: A&P Assessment and plan (1) DKA (diabetic ketoacidosis): Status: Acute (2) Nausea & vomiting: Status: Acute (3) Diabetes mellitus: Status: Chronic (4) Non-ST elevation [place] (NSTEMI): Status: Acute Assessment and Plan Assessment and Plan for All Diagnoses:: 1. DM with DKA -per Hospitalist -improving -Hgb A1C 11.2 2. Elevated troponin/NSTEMI -Max of 0.23 -echo shows EF 45% with inferior hypokinesis (new since 07/2024 echo) -continue ASA 81 mg daily, metoprolol succinate 25 mg daily, atorvastatin 20 mg daily and lisinopril at 10 mg BID 3. Abnormal CXR -on piperacillin/tazobactam -blood culture showing Klebsiella pneumonia 4. Hypertension -on combo of metoprolol and lisinopril 5. Ischemic cardiomyopathy -GDMT including BB, LAWRENCE. Holding SGLT2i due to infection. Holding spironolactone due to DKA /dehydration. 6. Hyperlipidemia -on statin -LDL 55 in 07/2024 Continue current meds Increase lisinopril to 10 mg BID Recommend cardiac cath prior to discharge
[2024-10-23 11:18] LABS: POC Glucose,Bedside 370 (70-110)
--- NOTE | 2024-10-23 11:42 | HMH.OTEV ---
OT Inpatient Evaluation Rehab OT IP Evaluation Start: 10/23/24 08:18 Freq: ONCE Status: Active Protocol: Document 10/23/24 11:37 RUDY (Rec: 10/23/24 11:41 [id number] Rehab OT IP Assessment Subjective History 68-year-old female with a past medical history of diabetes who presents with her friend/ POA at the bedside. POA provides extra collateral and states that patient called a few days ago stating she was not feeling well and that she has progressively worsened. POA encouraged her to come to the hospital but patient refused. Tonight patient had worsening symptoms with nausea vomiting that prompted her to want to come to the ER. POA reports that patient lives in a barn with multiple dogs that do not go outside and defecate in the facility. She also does not clean up after herself. There are no electricity or lights at the facility so patient has been wearing a headlamp and not monitoring her glucose. Pt reports she lives alone, 1 flight of stairs to enter the home, and generally uses a cane in her apt and a RW outside of her apt. Subjective Pt reports she is very nauseated at this time. Pt agreeable to engage in therapy evaluation. Pt required min x2 to complete bed mobility to go from supine to sitting at eob. Pt required sit to stand from eob with mod assist x 2. Objective Patient Orientation Person,Place,Birthday Right Upper Extremity Gross ROM WFL Left Upper Extremity Gross ROM WFL Bed Mobility bed mobility-scooting,bed mobility - supine/sit Assist Level Minimal x 2 (25% assist) Transfer Training Sit/Stand Transfer Assist Level Moderate x 2 (50% assist) Rehab OT IP prob,goals,plan Problems Date of Evaluation: 10/23/24 OT IP Problems Bed Mobility,Transfers,Balance ,Self care,Safety Rehab Potential Rehab Potential Good Equipment Needs Assistive Devices Rolling / Wheeled Walker Plan OT intervention Plan Bed Mobility,Transfers,Balance ,Self care,Safety,Therapeutic Exercise OT Plan Frequency Daily Duration LOS Discharge Goals Bed Mobility Ability Assistance x1 Sit to Stand Chair Transfer Ability Minimal x 1 (25% assist) Chair Transfer Ability Minimal x 1 (25% assist) Chair Transfer Technique Sit to/from Ambulatory Chair Transfer Assistive Devices Rolling Walker Feeding Ability Assist with Tray Set Up Lower Body Dressing Ability Moderate Assistance Upper Body Dressing Ability Minimal Assistance Bathing Ability Moderate Assistance Performing Toilet Hygiene Ability Moderate Assistance Overall Commode/Toilet Transfer Ability Moderate Assistance Commode/Toilet Transfer Technique Sit to/from Ambulatory Discharge Plan OT Discharge Plan Pt is currently most appropriate for rehab placement once medically stable for d/c. Skilled therapy is indicated to increase general strength in all extremities, improve transfers, and improve ADL independence in order to return pt to [facility] with all ADLs. [ End ] Eval Complexity Eval Charge Codes 61418 - Moderate Complexity PHYSICIAN CERTIFICATION: I certify the specified therapy services for Le Vogel are required, authorized, and reviewed every 30 days.
[2024-10-23 14:07] LABS: Phosphorous 1.6 mg/dl (2.5-4.5)
[2024-10-23 16:47] LABS: POC Glucose,Bedside 386 (70-110)
[2024-10-23] MEDS: METFORMIN 500MG TABLET 1000 MG PO (16:49)
--- NOTE | 2024-10-23 18:36 | PC.NURSE ---
Pt has rested and remained in bed this shift. she was able to get up and walk in the room with a walker and the assistance of PT/OT. pt is a/o x 4 and communicated with a soft tone to her voice d/t dryness of her vocal chords. pt took medications with applesauce due to her throat feeling dry. bowel sounds are active in all quads. abdomen is soft and non tender. pt is on room air with sats in the upper 90's. pt lung sounds contain fine crackles in the bases on assessment.
[2024-10-23 21:01] LABS: POC Glucose,Bedside 275 (70-110)
[2024-10-23] MEDS: ATORVASTATIN 20MG TABLET 20 MG PO (21:05)
[2024-10-23] MEDS: INSULIN GLARGINE 100 UNITS/ML 10ML VIAL 40 UNIT SUBCUT (21:05)
--- NOTE | 2024-10-23 22:56 | EXP.PN ---
Subjective *Date: 10/23/24 *Time: 22:56 Interval history: Patient feeling today, but still feeling weak. PT/OT evaluating, recommending SNF. Continue Zosyn for Klebsiella bacteremia, possibly LHC in the morning. Exam Data for Last 24 hours Vital signs and Labs for Last 24 Hours: Temp Pulse Resp BP Pulse Ox O2 Del Method 98.5 F 85 18 110/61 98 Room Air 10/23/24 20:00 10/23/24 20:00 10/23/24 20:00 10/23/24 20:00 10/23/24 20:00 10/23/24 20:00 Laboratory Results - last 24 hr 10/22/24 20:40: Phosphorus 1.6 L D 10/23/24 06:20: WBC 10.1, RBC 4.14 L, Hgb 11.6 L D, Hct 34.1 L, MCV 82.4, MCH 27.8, MCHC 33.7, RDW 14.5, Plt Count 218, MPV 10.1, Neut % (Auto) 82.8 H, Lymph % (Auto) 7.2 L, [place] % (Auto) 8.9, Eos % (Auto) 0.3, Baso % (Auto) 0.3, Neut # (Auto) 8.4 H, Lymph # (Auto) 0.7, [place] # (Auto) 0.9, Eos # (Auto) 0.0, Baso # (Auto) 0.0, Sodium 137, Potassium 3.8, Chloride 114 H, Carbon Dioxide 13 L, Anion Gap 13.8, BUN 23 H, Creatinine 0.60, Estimated Creat Clear 68, Estimated GFR 99, Est GFR ( Amer) 120, Glucose 239 H, Calcium 8.4, Total Bilirubin 0.6, AST 21, ALT 17 D, Alkaline Phosphatase 114, Total Protein 5.6 L D, Albumin 2.7 L D, Globulin 2.9, Albumin/Globulin Ratio 0.9 L 10/23/24 06:30: Phosphorus 2.9 D, Magnesium 1.7 10/23/24 11:09: POC Glucose 370 H* 10/23/24 16:38: POC Glucose 386 H* 10/23/24 20:53: POC Glucose 275 H I & O for Last 24 hours: Intake & Output 10/20/24 10/21/24 10/22/24 04/22/25 23:59 23:59 23:59 23:59 Intake Total 3508.123 / 3643.123 2241 / 2241 Output Total 1650 / 1650 1200 / 1200 Balance 1858.123 / 9648.937 8341 / 1041 Weight 85.275 kg 76 kg 81.6 kg Microbiology Reports for the Last 24 Hours: Microbiology 10/22/24 04:30 Urine,Clean Catch Urine Culture - Preliminary Constitutional Constitutional: no acute distress *Routine HEENT Exam Head: Present normocephalic Eye: Present EOMI and PERRL ENT: Present mucous membranes moist *Routine Neck Exam Neck: Present supple; Absent lymphadenopathy *Routine Respiratory Exam Respiratory: Present CTA bilaterally *Routine Cardiovascular Exam Cardiovascular: Present RRR *Routine Abdominal Exam Abdominal: Present soft and normoactive bowel sounds; Absent tenderness *Routine Extremities Exam Extremities: Absent cyanosis, clubbing or edema *Routine Skin Exam Skin: Present warm; Absent rash *Routine Neurological Exam Neurological: Present alert and oriented X3 Assessment and Plan *Assessment and plan (1) DKA (diabetic ketoacidosis): Status: Acute Qualifiers: Diabetes mellitus complication detail: without coma Diabetes mellitus type: type 2 Qualified Code(s): E11.10 - Type 2 diabetes mellitus with ketoacidosis without coma Category: Medical Code(s): E11.10 - Type 2 diabetes mellitus with ketoacidosis without coma (2) Hyponatremia: Status: Acute Category: Medical Code(s): E87.1 - Hypo-osmolality and hyponatremia (3) Nausea & vomiting: Status: Acute Qualifiers: Vomiting type: unspecified Qualified Code(s): R11.2 - Nausea with vomiting, unspecified Category: Medical Code(s): R11.2 - Nausea with vomiting, unspecified (4) Sepsis: Status: Acute Category: Medical Code(s): A41.9 - Sepsis, unspecified organism (5) Housing instability: Status: Acute Category: Social Hx Code(s): Z59.819 - Housing instability, housed unspecified Plan Le Vogel is a 68-year-old female with a medical history significant for diabetes, hypertension, anxiety/depression who presented with intractable nausea/vomiting and was admitted for DKA. Hospital course complicated by NSTEMI, Klebsiella pneumonia bacteremia, physical deconditioning. #DKA #Insulin-dependent diabetes ? DKA improved with IV fluids, insulin. Bicarb still low 13, but improving. Started sodium bicarb. ? Hemoglobin A1c 11.2% percent on admission, relatively unchanged since a few months ago. Patient reports adherence to insulin. ? Increased Lantus to 55 units nightly, blood sugars in the 300s today. ? Continue home metformin 1000 mg twice daily. ? ACHS glucose checks, LDSSI. ? Continue diabetic diet. #NSTEMI #HFmrEF ? Troponin 0.23, EKG without acute ischemic changes. ? ECHO LVEF 45%, with wall motion abnormalities. ? Cardiology consulted, planning C once blood cultures clear. Tentative planning for tomorrow. ? Aspirin, statin, metoprolol succinate 25 mg. ? GDMT with metoprolol, lisinopril. Hold off on Jardiance due to recurrent UTIs, spironolactone in the setting of DKA. #Klebsiella pneumonia bacteremia #Possible community-acquired pneumonia ? Recurrent episodes of Klebsiella bacteremia over the past admissions, however this time without UTI. ? Patient does live with a parent and 2 dogs, no transmission seems to be unlikely. ? Discussed with cardiology regarding possible endocarditis, will defer JENNIFER at this time. ? CXR shows right lower lobe opacity, possible pneumonia. ? Continue Zosyn. Follow-up sputum culture. ? Follow-up repeat blood cultures. #Physical deconditioning ? PT/OT consulted, recommended SNF. discussed with case management, assisting with placement. #Hypertension: #CAD - Continue aspirin 81 mg daily, Lipitor 40 mg nightly - Continue metoprolol succinate 25 mg daily. Continue lisinopril 10 mg twice daily. #GERD: Continue pantoprazole 40 mg daily for GERD #Anxiety/depression: Continue home paroxetine. Full code DVT prophylaxis: Lovenox 40 mg
[2024-10-24] VITALS (14 sets, daily range): BP systolic 101–155; BP diastolic 49–84; PULSE 68–80; RESP 15–25; TEMP 36.4–37.2; O2SAT 94–96; BMI 33.7
[2024-10-24] MEDS: INSULIN GLARGINE 100 UNITS/ML 10ML VIAL 15 UNIT SUBCUT (00:16)
[2024-10-24] MEDS: PIPERACILLIN/TAZO 4.5 GM in 0.9 % SODIUM CHLORIDE 100 ML IV ×3 (03:06→13:45)
[2024-10-24] MEDS: TRAMADOL 50MG TABLET 25 MG PO (03:19)
[2024-10-24 06:18] LABS: Basophils % 0.2 % (0.1-2.0); Eosinophils # 0.1 Kmm3 (0.0-0.4); Eosinophils % 1.5 % (0.1-12.0); Hematocrit 33.1 % (37.0-47.0); Hemoglobin 11.4 g/dL (12.2-16.2); Lymphocytes % 21.2 % (10-50); Mean Corpuscular HGB Conc 34.4 g/dL (31.8-35.4); Mean Corpuscular Hemoglobin 28.1 pg (27.0-31.2); Mean Corpuscular Volume 81.7 fl (81-99); Mean Platelet Volume 10.2 fl (7.4-10.4); Monocytes # 0.9 K/mm3 (0.1-1.0); Monocytes % 9.9 % (1.7-9.3); Neutrophils # 6.2 K/mm3 (1.8-7.8); Neutrophils % 66.6 % (37.0-80.0); Nucleated Red Blood Cells # 0 10^3/uL; Nucleated Red Blood Cells % 0 %; Platelet Count 225 K/mm3 (142-424); Red Blood Count 4.05 M/mm3 (4.20-5.40); Red Cell Distribution Width 14.1 % (11.5-17.5); Red Cell Distribution Width-SD 41.9 fL; White Blood Count 9.4 K/mm3 (4.8-10.8)
[2024-10-24 06:26] LABS: Albumin Level 2.6 g/dl (3.5-5.0); Chloride 107 mmol/L (98-107); Sodium 135 mmol/L (136-145)
[2024-10-24 06:29] LABS: Alanine Aminotransferase 22 U/L (12-78); Albumin/Globulin Ratio 0.8 (1.1-1.8); Alkaline Phosphatase 113 U/L (38-126); Aspartate Amino Transferase 26 U/L (14-36); Bilirubin,Total 0.3 mg/dl (0.2-1.3); Blood Urea Nitrogen 17 mg/dl (7-17); Calcium 8.2 mg/dl (8.4-10.2); Carbon Dioxide 22 mmol/L (22.0-30.0); Creatinine Clearance Estimated 70 mL/min (50-200); Estimated Glomerular Filt Rate 99 ml/min (>60); GFR (African American) 120 ML/MIN (>60); Globulin 3.1 g/dL (1.3-3.2); Glucose 128 mg/dl (74-100); Total Protein,Serum 5.7 g/dl (6.3-8.2)
[2024-10-24 06:59] LABS: Magnesium 1.7 mg/dl (1.6-2.3); Phosphorous 2.3 mg/dl (2.5-4.5)
--- NOTE | 2024-10-24 07:18 | PC.NURSE ---
Pt is A/O x4. Pt complained of lower back pain 1x during shift. MD notified and tramadol ordered and administered. Pt states relief. Pt has not slept throughout shift. Tolerated RA well with sat >90%. FS 123 this AM. Bed alarm on. Call light within reach.
[2024-10-24] MEDS: SODIUM CHLORIDE 3% 15ML NEB 3 ML IH (09:16)
--- NOTE | 2024-10-24 09:31 | P.PN_ITS ---
Subjective Subjective Date: 10/24/24 Time: 09:31 Principal diagnosis: DKA, NSTEMI Interval history: 68 yo WF in bed in NAD She is agreeable to the [facility] Exam Data for Last 24 hours Vital signs and Labs for Last 24 Hours: Temp Pulse Resp BP Pulse Ox O2 Del Method 97.9 F 78 18 139/68 96 Room Air 10/24/24 08:00 10/24/24 09:19 10/24/24 09:19 10/24/24 08:00 10/24/24 08:00 10/24/24 08:00 Laboratory Results - last 24 hr 10/22/24 20:40: Phosphorus 1.6 L D 10/23/24 11:09: POC Glucose 370 H* 10/23/24 16:38: POC Glucose 386 H* 10/23/24 20:53: POC Glucose 275 H 10/24/24 05:47: WBC 9.4, RBC 4.05 L, Hgb 11.4 L, Hct 33.1 L, MCV 81.7, MCH 28.1, MCHC 34.4, RDW 14.1, Plt Count 225, MPV 10.2, Neut % (Auto) 66.6, Lymph % (Auto) 21.2, [place] % (Auto) 9.9 H, Eos % (Auto) 1.5, Baso % (Auto) 0.2, Neut # (Auto) 6.2, Lymph # (Auto) 2.0, [place] # (Auto) 0.9, Eos # (Auto) 0.1, Baso # (Auto) 0.0, Sodium 135 L, Potassium 3.0 L D, Chloride 107, Carbon Dioxide 22, Anion Gap 9.0, BUN 17 D, Creatinine 0.60, Estimated Creat Clear 70, Estimated GFR 99, Est GFR ( Amer) 120, Glucose 128 H D, Calcium 8.2 L, Phosphorus 2.3 L, Magnesium 1.7, Total Bilirubin 0.3, AST 26, ALT 22 D, Alkaline Phosphatase 113, Total Protein 5.7 L, Albumin 2.6 L, Globulin 3.1, Albumin/Globulin Ratio 0.8 L I & O for Last 24 hours: Intake & Output 10/21/24 10/22/24 10/23/24 10/24/24 11:59 11:59 11:59 11:59 Intake Total 1929.356 / 3031.176 0687.767 / 2588.767 1671 / 1671 Output Total 950 / 950 1550 / 1550 650 / 650 Balance 979.356 / 955.280 2511.767 / 3097.456 4459 / 1021 Weight 167 lb 8.821 oz 179 lb 14.355 oz 183 lb 11.2 oz Microbiology Reports for the Last 24 Hours: Microbiology 10/23/24 06:20 Blood Blood Culture - Preliminary NO GROWTH AFTER 24 HOURS 10/23/24 06:20 Blood Blood Culture - Preliminary NO GROWTH AFTER 24 HOURS 10/21/24 06:54 Blood Blood Culture - Preliminary 10/22/24 06:54 Blood Blood Culture - Preliminary 10/22/24 04:30 Urine,Clean Catch Urine Culture - Preliminary Constitutional Constitutional: no acute distress *Routine Respiratory Exam Respiratory: Absent wheezes or crackles *Routine Cardiovascular Exam Cardiovascular: Present RRR Progress Note: A&P Assessment and plan (1) DKA (diabetic ketoacidosis): Status: Acute (2) Hyponatremia: Status: Acute (3) Nausea & vomiting: Status: Acute (4) Sepsis: Status: Acute (5) Housing instability: Status: Acute (6) Diabetes mellitus: Status: Chronic (7) Non-ST elevation [place] (NSTEMI): Status: Acute Assessment and Plan Assessment and Plan for All Diagnoses:: 1. DM with DKA -per Hospitalist -improving -Hgb A1C 11.2 2. Elevated troponin/NSTEMI -Max of 0.23 -echo shows EF 45% with inferior hypokinesis (new since 07/2024 echo) -continue ASA 81 mg daily, metoprolol succinate 25 mg daily, atorvastatin 20 mg daily and lisinopril at 10 mg BID 3. Abnormal CXR -on piperacillin/tazobactam -blood culture showing Klebsiella pneumonia initially but follow up cultures negative. 4. Hypertension -on combo of metoprolol and lisinopril 5. Ischemic cardiomyopathy -GDMT including BB, LAWRENCE. Holding SGLT2i due to infection. Holding spironolactone due to DKA /dehydration. 6. Hyperlipidemia -on statin -LDL 55 in 07/2024 7. Hypokalemia at 3.0 -replacement started Continue current meds Proceed with [facility] today
[2024-10-24] MEDS: METFORMIN 500MG TABLET 1000 MG PO (09:34)
[2024-10-24] MEDS: ASPIRIN EC 81MG TABLET 81 MG PO (09:34)
[2024-10-24] MEDS: SODIUM BICARBONATE 650MG TABLET 650 MG PO ×2 (09:34→13:46)
[2024-10-24] MEDS: METOPROLOL SUCCINATE XL 25MG TABLET 25 MG PO (09:35)
[2024-10-24] MEDS: PARoxetine 20MG TABLET 20 MG PO (09:35)
[2024-10-24] MEDS: LISINOPRIL 10MG TABLET 10 MG PO (09:35)
[2024-10-24] MEDS: PANTOPRAZOLE 40MG TABLET 40 MG PO (09:35)
[2024-10-24] MEDS: POTASSIUM CHLORIDE 20MEQ TAB 40 MEQ PO ×2 (09:54→13:46)
[2024-10-24] MEDS: MAGNESIUM SULFATE IN WATER 2 GM/50 ML PIGGYBACK IV ×2 (09:54→12:06)
--- NOTE | 2024-10-24 10:32 | IR_ITS ---
APPROVED REPORT Patient Location: Inpatient Fire Adjuster: JOHNY Odonnell RT (R) PROCEDURES Left heart catheterization Left ventriculogram Selective coronary angiogram Attempted angioplasty of a chronically occluded mid LAD INDICATION Non-ST elevation myocardial infarction, Coronary artery disease, Chronically occluded LAD, Informed consent was obtained prior to the procedure. COMPLICATIONS NONE Estimated Blood Loss: LESS THAN 10 ML TECHNIQUE One percent lidocaine used to anesthetize the right anterior aspect of the wrist. The right radial artery was accessed via the Seldinger technique. A 6 [place] sheath was placed in the right radial artery. 2.5 mg of Verapamil, 800 mcg of nitroglycerin, 1mg Lidocaine and 5000 U Heparin were given through the arterial sheath. The 6 [place] JL 3 guide catheter was also used to perform left heart catheterization, left ventriculogram and selective coronary angiogram. At the end of the diagnostic angiogram therapeutic heparin was administered giving a therapeutic ACT and the guide cath was placed in the left main artery. A Choice PT extra-support wire was placed into the mid LAD and attempts were made to push through the chronic occlusion. A 2 mm x 12 mm compliant balloon was advanced and placed at the chronic occlusion in order to provide support and direct the wire into the occlusion. Despite the assistance of the balloon with attempted angioplasty the vessel still would not accept the Choice PT extra-support wire. Because of the small caliber nature of the vessel I felt more aggressive technique was not appropriate for this particular patient therefore the procedure was terminated. The apparatus was removed the sheath was removed and hemostasis was achieved using TR banding patient was transferred to the postop putting her in stable condition ANGIOGRAPHIC RESULTS The left main artery Normal The left anterior descending artery Is small caliber approximately 2 mm in the proximal segment. It gives rise to a large first diagonal artery which is also about 1.75 mm in diameter and has an ostial proximal 70% stenosis. After the third diagonal artery the LAD is occluded. The distal segment fills via left to left collaterals The circumflex artery Is nondominant has a proximal concentric 60% stenosis mid vessel 50% and distal 60% stenosis The right coronary artery Is dominant and has a proximal 40 to 50% stenosis with distal long 50% stenosis The NAVA ventriculogram reveals Reduced ejection fraction at 45% with mild anteroapical hypokinesis The left ventricular end-diastolic pressure 20 mmHg IMPRESSION Chronically occluded LAD Attempted angioplasty of a chronically occluded LAD which was unsuccessful and open the calcified chronically occluded vessel Coronary artery disease as described above Reduced ejection fraction with regional wall motion abnormality Elevated LVEDP PLAN 1. Believe medical management is most appropriate at this time. Patient requires tighter hemoglobin A1c control 2. LDL less than 55 achieved with high intensity statin 3. I do not believe patient would be an appropriate surgical candidate due to the small caliber of her stenoses. If her diabetes becomes better managed and a second opinion is desired, I would recommend referring her angiogram to for surgical evaluation 4. Cardiac rehabilitation 5. GDMT for LV dysfunction and coronary artery disease Electronically signed by : Bryan Ramsey MD 10/24/2024 11:57:21
--- NOTE | 2024-10-24 10:49 | PC.NURSE ---
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
[2024-10-24] MEDS: HEPARIN 1,000 UNITS/500ML NS (CATH LAB) 3000 UNIT IV (11:13)
[2024-10-24] MEDS: 0.9 % SODIUM CHLORIDE 500 ML 25 ML IV (11:13)
[2024-10-24] MEDS: NITROGLYCERIN 800MCG/8ML SYR (CATH LAB) 800 MCG IA (11:14)
[2024-10-24] MEDS: LIDOCAINE 1% 10ML MDV 10 ML IJ (11:14)
[2024-10-24] MEDS: VERAPAMIL 2.5MG/ML 2ML VIAL 2.5 MG IV (11:16)
[2024-10-24] MEDS: HEPARIN 1,000 UNITS/ML 10ML VIAL (CATH LAB) 5000 UNIT IV ×2 (11:16→11:31)
[2024-10-24] MEDS: diphenhydrAMINE 50MG/ML VIAL 50 MG IV (11:17)
[2024-10-24] MEDS: FENTANYL 100MCG/2ML VIAL 50 MCG IV (11:47)
[2024-10-24] MEDS: MIDAZOLAM HCL 1MG/ML 5ML VIAL 1 MG IV (11:47)
[2024-10-24 12:16] LABS: POC Glucose,Bedside 144 (70-110)
[2024-10-24] MEDS: IOPAMIDOL-370 (76%);100ML BOTTLE 120 ML IV (12:41)
[2024-10-24 12:43] LABS: CATHL Activated Clotting Time 241 SEC (74-125)
--- NOTE | 2024-10-24 14:27 | P.DS_ITS ---
General Admission date:: 10/22/24 Discharge date: 10/24/24 HPI HPI HPI: This is a 68-year-old female with a past medical history of diabetes who presents with her friend/POA at the bedside. POA provides extra collateral and states that patient called a few days ago stating she was not feeling well and that she has progressively worsened. POA encouraged her to come to the hospital but patient refused. Tonight patient had worsening symptoms with nausea vomiting that prompted her to want to come to the ER. POA reports that patient lives in a barn with multiple dogs that do not go outside and defecate in the facility. She also does not clean up after herself. There are no electricity or lites at the facility so patient has been wearing a headlamp and not monitoring her glucose. Reportedly patient resided at [facility] prior to the last several months. Was admitted 4 months ago for UTI, discharged to [facility] and then improved and discharged home Emergency Department workup notable for DKA with Kussmaul respirations initial assessment. Labs revealed the same. pH of 6.97, glucose in the 400s, anion gap of 33, CO2 of less than 5. He hemoglobin of 11. CT chest abdomen pelvis was obtained given sepsis picture but patient mildly agitated unable to lie still. Will obtain CT scan when able. Will continue treatment for DKA and reassess She is admitted to the hospital service at this time Hospital Course Hospital Course Hospital Course: Le Vogel is a 68-year-old female with a medical history significant for diabetes, hypertension, anxiety/depression who presented with intractable nausea/vomiting and was admitted for DKA. Hospital course complicated by NSTEMI, Klebsiella pneumonia bacteremia, physical deconditioning. Found to be positive for Klebsiella. Patient had NSTEMI. Taken for heart cath on 10/24. Found to have chronic occlusion of LAD. No stents deployed. Continue medical management. Stable to discharge to snf for further management. Graciously accepted by signature for further medical management and rehab. Problems addressed as follows: #DKA #Insulin-dependent diabetes ? Presented with DKA with high anion gap. Bicarb low at 13. DKA improved with IV fluids and insulin. Gap is remained closed for over 24 hours. Normal glucose at 128 on morning of discharge. Kidney function doing well BUN 17, creatinine 0.6. Sodium 135, bicarb 22. Replacing potassium orally at this time with 40 mEq daily. A1c of 11.2 this admission. Patient reports adherence to insulin but has not had any doses adjusted. Increase Lantus to 55 units nightly. Continue metformin at 1000 mg twice daily. Avoiding SGLT2 medications in the setting of UTI/bacteremia. Continue 8 units with meals 3 times a day. - Needs repeat A1c in 3 months - Continue diabetic diet #NSTEMI #HFmrEF ? Troponin 0.23, EKG without acute ischemic changes. ECHO LVEF 45%, with wall motion abnormalities. Cardiology was consulted. Taken for left heart cath today with the following findings: -Chronically occluded LAD. Attempted angioplasty with unsuccessful opening of the calcified chronically occluded vessel. No stents were deployed. Plan to continue aspirin 81 mg daily, Lipitor 20 mg daily, metoprolol succinate 25 mg daily. -After discussion with cardiology, believe medical management is most appropriate at this time with tighter control of her diabetes/A1c. Goal LDL less than 55. They do not believe at this time the patient would be an appropriate surgical candidate due to the small caliber of her stenosis. If her diabetes becomes better managed and a second opinion is desired, recommend referring for angiogram for surgical eval. #Klebsiella pneumonia bacteremia #Possible community-acquired pneumonia ? Recurrent episodes of Klebsiella bacteremia over the past admissions, however this time without UTI. Urine remains negative. Transition to levofloxacin at discharge to complete 10-day course of antibiotics. CXR shows right lower lobe opacity, possible pneumonia. #Physical deconditioning ? PT/OT consulted, recommended SNF. discussed with case management, assisting with placement. Graciously excepted by [facility] for further manage ment #Hypertension: #CAD - Continue aspirin 81 mg daily, Lipitor 20 mg nightly. Continue metoprolol succinate 25 mg daily. Continue lisinopril 10 mg twice daily. #GERD: Continue pantoprazole 40 mg daily for GERD #Anxiety/depression: Continue home paroxetine. Total time spent on discharge 38 minutes in counseling, documentation, chart review, and direct care with patient. Exam Data for Last 24 hours Vital signs and Labs for Last 24 Hours: Temp Pulse Resp BP Pulse Ox O2 Del Method 97.8 F 71 19 140/78 95 Room Air 10/24/24 12:15 10/24/24 14:21 10/24/24 14:21 10/24/24 14:21 10/24/24 14:21 10/24/24 14:21 Laboratory Results - last 24 hr 10/23/24 16:38: POC Glucose 386 H* 10/23/24 20:53: POC Glucose 275 H 10/24/24 05:47: WBC 9.4, RBC 4.05 L, Hgb 11.4 L, Hct 33.1 L, MCV 81.7, MCH 28.1, MCHC 34.4, RDW 14.1, Plt Count 225, MPV 10.2, Neut % (Auto) 66.6, Lymph % (Auto) 21.2, Posey % (Auto) 9.9 H, Eos % (Auto) 1.5, Baso % (Auto) 0.2, Neut # (Auto) 6.2, Lymph # (Auto) 2.0, Posey # (Auto) 0.9, Eos # (Auto) 0.1, Baso # (Auto) 0.0, Sodium 135 L, Potassium 3.0 L D, Chloride 107, Carbon Dioxide 22, Anion Gap 9.0, BUN 17 D, Creatinine 0.60, Estimated Creat Clear 70, Estimated GFR 99, Est GFR ( Amer) 120, Glucose 128 H D, Calcium 8.2 L, Phosphorus 2.3 L, Magnesium 1.7, Total Bilirubin 0.3, AST 26, ALT 22 D, Alkaline Phosphatase 113, Total Protein 5.7 L, Albumin 2.6 L, Globulin 3.1, Albumin/Globulin Ratio 0.8 L 10/24/24 11:25: Activated Clotting Time 241 H* 10/24/24 12:09: POC Glucose 144 H I & O for Last 24 hours: Intake & Output 10/21/24 10/22/24 10/23/24 10/24/24 23:59 23:59 23:59 23:59 Intake Total 3508.123 / 3643.123 2341 / 2581 640 / 640 Output Total 1650 / 1650 1200 / 1200 300 / 300 Balance 1858.123 / 1682.397 9903 / 1381 340 / 340 Weight 85.275 kg 76 kg 81.6 kg 83.325 kg Microbiology Reports for the Last 24 Hours: Microbiology 10/22/24 04:30 Urine,Clean Catch Urine Culture - Preliminary Gram Negative Rods 10/22/24 06:54 Blood Blood Culture - Final Klebsiella pneumoniae 10/21/24 06:54 Blood Blood Culture - Final Klebsiella pneumoniae 10/23/24 06:20 Blood Blood Culture - Preliminary NO GROWTH AFTER 24 HOURS 10/23/24 06:20 Blood Blood Culture - Preliminary NO GROWTH AFTER 24 HOURS Constitutional Constitutional: no acute distress, obese, chronically ill appearing and cooperative *Routine HEENT Exam Head: Present normocephalic Eye: Present EOMI and PERRL ENT: Present mucous membranes moist Comments: hirsutism *Routine Neck Exam Neck: Present supple; Absent lymphadenopathy *Routine Respiratory Exam Respiratory: Present CTA bilaterally; Absent rhonchi, stridor, wheezes or crackles *Routine Cardiovascular Exam Cardiovascular: Present RRR *Routine Abdominal Exam Abdominal: Present soft and normoactive bowel sounds; Absent tenderness *Routine Rectal Exam Patient deferred: visual exam *Routine Exam Patient deferred: external exam *Routine Extremities Exam Extremities: Present edema (Bilateral hands); Absent cyanosis or clubbing *Routine Skin Exam Skin: Present intact and warm; Absent cyanosis or rash *Routine Neurological Exam Neurological: Present alert, oriented X3 and moving all extremities; Absent altered mental status or abnormal gait Results Data Completed and Pending Labs on day of discharge: Labs from last 24 hours 10/24/24 10/24/24 10/24/24 12:09 11:25 05:47 WBC 9.4 RBC 4.05 L Hgb 11.4 L Hct 33.1 L MCV 81.7 MCH 28.1 MCHC 34.4 RDW 14.1 Plt Count 225 MPV 10.2 Neut % (Auto) 66.6 Lymph % (Auto) 21.2 Posey % (Auto) 9.9 H Eos % (Auto) 1.5 Baso % (Auto) 0.2 Neut # (Auto) 6.2 Lymph # (Auto) 2.0 Posey # (Auto) 0.9 Eos # (Auto) 0.1 Baso # (Auto) 0.0 Activated Clotting Time 241 H* Sodium 135 L Potassium 3.0 L D Chloride 107 Carbon Dioxide 22 Anion Gap 9.0 BUN 17 D Creatinine 0.60 Estimated Creat Clear 70 Estimated GFR 99 Est GFR ( Amer) 120 Glucose 128 H D POC Glucose 144 H Calcium 8.2 L Phosphorus 2.3 L Magnesium 1.7 Total Bilirubin 0.3 AST 26 ALT 22 D Alkaline Phosphatase 113 Total Protein 5.7 L Albumin 2.6 L Globulin 3.1 Albumin/Globulin Ratio 0.8 L 10/23/24 10/23/24 20:53 16:38 WBC RBC Hgb Hct MCV MCH MCHC RDW Plt Count MPV Neut % (Auto) Lymph % (Auto) Posey % (Auto) Eos % (Auto) Baso % (Auto) Neut # (Auto) Lymph # (Auto) Posey # (Auto) Eos # (Auto) Baso # (Auto) Activated Clotting Time Sodium Potassium Chloride Carbon Dioxide Anion Gap BUN Creatinine Estimated Creat Clear Estimated GFR Est GFR ( Amer) Glucose POC Glucose 275 H 386 H* Calcium Phosphorus Magnesium Total Bilirubin AST ALT Alkaline Phosphatase Total Protein Albumin Globulin Albumin/Globulin Ratio Preliminary micro results at discharge 10/22/24 04:30 Urine Culture - Preliminary Urine,Clean Catch Gram Negative Rods 10/23/24 06:20 Blood Culture - Preliminary Blood NO GROWTH AFTER 24 HOURS 10/23/24 06:20 Blood Culture - Preliminary Blood NO GROWTH AFTER 24 HOURS DS: Diagnosis Discharge Diagnosis (1) DKA (diabetic ketoacidosis): Status: Acute Code(s): E11.10 - Type 2 diabetes mellitus with ketoacidosis without coma Qualifiers: Diabetes mellitus complication detail: without coma Diabetes mellitus type: type 2 Qualified Code(s): E11.10 - Type 2 diabetes mellitus with ketoacidosis without coma (2) Hyponatremia: Status: Acute Code(s): E87.1 - Hypo-osmolality and hyponatremia (3) Nausea & vomiting: Status: Acute Code(s): R11.2 - Nausea with vomiting, unspecified Qualifiers: Vomiting type: unspecified Qualified Code(s): R11.2 - Nausea with vomiting, unspecified (4) Sepsis: Status: Acute Code(s): A41.9 - Sepsis, unspecified organism (5) Housing instability: Status: Acute Code(s): Z59.819 - Housing instability, housed unspecified (6) Diabetes mellitus: Status: Chronic Code(s): E11.9 - Type 2 diabetes mellitus without complications Qualifiers: Diabetes mellitus complication detail: without coma Diabetes mellitus complication status: with ketoacidosis Diabetes mellitus fpc insulin use: with termite inspector use Diabetes mellitus type: type 2 Qualified Code(s): E11.10 - Type 2 diabetes mellitus with ketoacidosis without coma; Z79.4 - terminal gauger supervisor (current) use of insulin (7) Non-ST elevation LA (NSTEMI): Status: Acute Code(s): I21.4 - Non-ST elevation (NSTEMI) myocardial infarction (8) Obesity (BMI 30.0-34.9): Status: Acute Code(s): E66.811 - Obesity, class 1 Meds Home Medications and Allergies Home Medications ?Medication ?Instructions ?Recorded ?Confirmed ?Type aspirin 81 mg tablet,delayed 81 mg PO DAILY 30 days #30 tabs 10/24/24 Rx release atorvastatin 20 mg tablet 20 mg PO HS 30 days #30 tabs 10/24/24 Rx gabapentin 100 mg capsule 100 mg PO TID 30 days #90 caps 10/24/24 Rx insulin glargine 100 unit/mL (3 55 unit (0.55 mL) SQ HS 30 days 10/24/24 Rx mL) subcutaneous pen (Lantus #15 mL Solostar U-100 Insulin) insulin lispro 100 unit/mL 8 unit (0.08 mL) SQ AC 30 days 10/24/24 Rx subcutaneous solution (Humalog #7.2 mL U-100 Insulin) levofloxacin 750 mg tablet 750 mg PO Q24H #7 tabs 10/24/24 Rx lisinopril 30 mg tablet 30 mg PO DAILY 30 days #30 tabs 10/24/24 Rx metformin 1,000 mg tablet 1,000 mg PO BIDWMEAL 30 days #60 10/24/24 Rx tabs metoprolol succinate 25 mg 25 mg PO DAILY 30 days #30 tabs 10/24/24 Rx tablet,extended release 24 hr pantoprazole 40 mg tablet,delayed 40 mg PO DAILY 30 days #30 tabs 10/24/24 Rx release paroxetine HCl 20 mg tablet 20 mg PO DAILY 30 days #30 tabs 10/24/24 Rx potassium chloride 20 mEq 40 meq (2 x 20 mEq) PO DAILY 10 10/24/24 Rx tablet,extended days #20 tabs release(part/cryst) (Klor-Con M) terbinafine HCl 250 mg tablet 250 mg PO DAILY 30 days #30 tabs 10/24/24 Rx New Prescriptions to Start Prescriptions: aspirin Chaitanya Zimmer atorvastatin Goran,Chaitanya gabapentin Chaitanya Zimmer insulin glargine [Lantus Solostar U-100 Insulin] Chaitanya Zimmer insulin lispro [Humalog U-100 Insulin] Chaitanya Zimmer levofloxacin Goran,Chaitanya lisinopril Goran,Chaitanya metformin Goran,Chaitanya metoprolol succinate Goran,Chaitanya pantoprazole Goran,Chaitanya paroxetine HCl Goran,Chaitanya potassium chloride [Klor-Con M20] Goran,Chaitanya terbinafine HCl Chaitanya Zimmer Allergies Allergy/AdvReac Type Severity Reaction Status Date / Time thiothixene Allergy Unknown Unknown Verified 07/07/24 08:31 allergy reaction Discharge Plan Disposition Patient Disposition: Xfer SNF Condition: Fair Discharge Order Discharge Orders: Discharge Order (Routine); Ordered 10/24/24 Ordered By: Chaitanya Zimmer Follow up Plan Follow up with: Vinny Patel PA [Physician Curriculum Specialist] - Enter time for follow up Prescriptions/Medication Reconciliation: New potassium chloride [Klor-Con M20] 20 mEq Tablet,Er Particles/Crystals 40 meq PO DAILY 10 Days Qty: 20 0RF levofloxacin 750 mg tablet 750 mg PO Q24H Qty: 7 0RF Rx Instructions: please give in afternoons insulin lispro [Humalog U-100 Insulin] 100 unit/mL Solution 8 unit SQ AC 30 Days Qty: 7.2 0RF Continued atorvastatin 20 mg tablet 20 mg PO HS 30 Days Qty: 30 0RF aspirin 81 mg Tablet,Delayed Release (Dr/Ec) 81 mg PO DAILY 30 Days Qty: 30 0RF terbinafine HCl 250 mg tablet 250 mg PO DAILY 30 Days Qty: 30 0RF paroxetine HCl 20 mg tablet 20 mg PO DAILY 30 Days Qty: 30 0RF pantoprazole 40 mg Tablet,Delayed Release (Dr/Ec) 40 mg PO DAILY 30 Days Qty: 30 0RF metformin 1,000 mg tablet 1,000 mg PO BIDWMEAL 30 Days Qty: 60 0RF lisinopril 30 mg tablet 30 mg PO DAILY 30 Days Qty: 30 0RF gabapentin 100 mg capsule 100 mg PO TID 30 Days Qty: 90 0RF metoprolol succinate 25 mg Tablet Extended Release 24 Hr 25 mg PO DAILY 30 Days Qty: 30 0RF Changed insulin glargine [Lantus Solostar U-100 Insulin] 100 unit/mL (3 mL) Insulin Pen 55 unit SQ HS 30 Days Qty: 15 0RF Problem Reconciliation Problems Reviewed?: Yes Patient Discharge Instructions ACTIVITY: Continue current activity DIET: continue same diet and diabetic diet Patient Instructions: Sepsis, DI for Hyponatremia, Diabetic Ketoacidosis, DI for Diabetic Ketoacidosis, Nausea and Vomiting-Adult, Hyponatremia-Adult Print Language: Kiswahili Providers Primary Care Provider: Ngoc Rice Provider: Nigel Sultana Attending Provider: Nigel Sultana
--- NOTE | 2024-10-24 16:42 | PC.NURSE ---
Report called to [facility]. Pt's POA will be transporting her to facility.
[2024-10-24] MEDS: levoFLOXacin 750 MG TABLET PO (16:58)
[2024-10-24] MEDS: humaLOG 100 UNITS/ML 10ML VIAL (SSI) SUBCUT (16:58)
== END 2024-10-24 17:06 | DRG 250 ==
LOC: ER 10-22 00:30 → 2ND 10-22 00:49
PROVIDERS: Internal Medicine; Internal Medicine Adolescent Medicine; Nurse Practitioner Acute Care; Admitting Provider Student in an Organized Health Care Education/Training Program; Emergency Provider Emergency Medicine; PCP Nurse Practitioner; Visit Provider Student in an Organized Health Care Education/Training Program
PROC: 4A023N7 Measurement of Cardiac Sampling and Pressure, Left Heart, Percutaneous Approach (ICD-10-PCS; principal; 2024-10-24 11:00)
DX: I21.4 Non-ST elevation (NSTEMI) myocardial infarction (principal); E11.10 Type 2 diabetes mellitus with ketoacidosis without coma; J18.9 Pneumonia, unspecified organism; Z59.812 Housing instability, housed, homelessness in past 12 months; Z59.11 Inadequate housing environmental temperature; I50.20 Unspecified systolic (congestive) heart failure; R78.81 Bacteremia; E87.1 Hypo-osmolality and hyponatremia; Z79.4 Long term (current) use of insulin; Z58.81 Basic services unavailable in physical environment; Z91.128 Patient's intentional underdosing of medication regimen for other reason; I25.10 Atherosclerotic heart disease of native coronary artery without angina pectoris; I25.84 Coronary atherosclerosis due to calcified coronary lesion; B96.1 Klebsiella pneumoniae [K. pneumoniae] as the cause of diseases classified elsewhere; K21.9 Gastro-esophageal reflux disease without esophagitis; F41.8 Other specified anxiety disorders; E66.811 Obesity, class 1; Z68.33 Body mass index [BMI] 33.0-33.9, adult; I25.2 Old myocardial infarction; I11.0 Hypertensive heart disease with heart failure
CPT/HCPCS: 36415; 71045; 80048; 80053; 81001; 82009; 82803; 82962; 83036; 83605; 83690; 83735; 84100; 84484; 85025; 85347; 85610; 87040; 87070; 87086; 87088; 87186; 87205; 93005; 93308; 93458; 97163; 97166; 97530; 99152; 99153; 99291; C1725; C1769; J0131; J1200; J1644; J2250; J2405; J2543; J3010; J3370; J3475; J7060; J7120; Q9957; Q9967

== ENCOUNTER 2025-06-05 15:43 | Emergency (ER) | payer MEDICARE, SELFPAY ==
--- NOTE | 2025-06-05 15:52 | XR_ITS ---
PROCEDURE INFORMATION: Exam: XR Right Ankle Exam date and time: 06/05/2025 4:04 PM Age: 69 years old Clinical indication: Injury or trauma; Fall; Blunt trauma; Ankle; Right; Additional info: Injury/pain/swelling TECHNIQUE: Imaging protocol: Radiologic exam of the right ankle. Views: 1 or 2 views. COMPARISON: CR XR FOOT RT 2V 06/05/2025 4:04 PM FINDINGS: Bones/joints: Acute comminuted fractures of the distal tibia and fibula metadiaphysis. There is mild medial and posterior displacement of the larger fracture fragments. The ankle mortise is congruent. Soft tissues: Soft tissue nodules of the medial lower leg and ankle of uncertain etiology. Correlate clinically. Soft tissue swelling around the fracture site. IMPRESSION: Acute displaced comminuted fractures of the distal tibia and fibular metadiaphyses.
--- NOTE | 2025-06-05 15:52 | XR_ITS ---
PROCEDURE INFORMATION: Exam: XR Right Tibia and Fibula Exam date and time: 06/05/2025 4:04 PM Age: 69 years old Clinical indication: Injury or trauma; Fall; Blunt trauma; Ankle; Right; Additional info: Injury/pain/swelling TECHNIQUE: Imaging protocol: Radiologic exam of the right tibia and fibula. Views: 2 views. COMPARISON: CR XR ANKLE RT 2V 06/05/2025 4:04 PM FINDINGS: Bones/joints: Comminuted fractures of the distal tibia and fibula metadiaphysis with posterior displacement of the largest fracture fragments. Soft tissues: Diffuse soft tissue swelling. Soft tissue nodules along the medial aspect of the lower leg. IMPRESSION: Acute comminuted fractures of the distal tibia and fibula metadiaphyses.
--- NOTE | 2025-06-05 15:52 | XR_ITS ---
PROCEDURE INFORMATION: Exam: XR Right Foot Exam date and time: 06/05/2025 4:04 PM Age: 69 years old Clinical indication: Injury or trauma; Fall; Blunt trauma; Ankle; Right; Additional info: Injury/pain/swelling TECHNIQUE: Imaging protocol: Radiologic exam of the right foot. Views: 1 or 2 views. COMPARISON: CR XR ANKLE RT 2V 06/05/2025 4:04 PM FINDINGS: Bones/joints: Diffuse osteopenia. No acute fracture in the foot. Midfoot degenerative changes. Comminuted distal tibia/fibula fractures seen on lateral view. Soft tissues: Nodular densities associated with the soft tissues around the ankle. Correlate clinically. IMPRESSION: No acute fracture or dislocation in the foot.
--- NOTE | 2025-06-05 15:52 | CA_ITS ---
FINAL REPORT TECHNIQUE: Multiple transverse and longitudinal images were performed of the right femoral-popliteal deep venous system with augmentation and compression maneuvers. CLINICAL HISTORY: Right ankle fracture on tuesday has laid in bed x 4 days FINDINGS: Right lower extremity duplex ultrasound demonstrates normal flow in the deep venous system. There is no abnormal echogenicity to suggest thrombus. There is normal compression and augmentation. IMPRESSION: No evidence of right DVT. Reviewed, Interpreted and Dictated by Yobany Ricks MD Transcribed by Pari Birch Authenticated and [facility]
--- NOTE | 2025-06-05 15:53 | CT_ITS ---
PROCEDURE INFORMATION: Exam: CTA Chest With Contrast Exam date and time: 06/05/2025 5:48 PM Age: 69 years old Clinical indication: Other: Dyspnea, injury with immobility days ago TECHNIQUE: Imaging protocol: Computed tomographic angiography of the chest with contrast. Exam focused on the arteries. 3D rendering (Not supervised by radiologist): MIP and/or 3D reconstructed images were created by the technologist. Radiation optimization: All CT scans at this facility use at least one of these dose optimization techniques: automated exposure control; mA and/or kV adjustment per patient size (includes targeted exams where dose is matched to clinical indication); or iterative reconstruction. Contrast material: ISO 370; Contrast volume: 70 ml; Contrast route: INTRAVENOUS (IV); COMPARISON: CT CHEST W CON 07/05/2024 3:44 PM FINDINGS: Pulmonary arteries: No pulmonary emboli in the main, lobar, or segmental pulmonary arteries. Limited evaluation of more distal branches due to motion artifact. Aorta: Unremarkable. No aortic aneurysm. No aortic dissection. Trachea: Patent central airways. Lungs: Stable 5 mm right lower lobe nodule. Stable 4 mm nodule in the superior segment of the left lower lobe. Pleural spaces: No pneumothorax or pleural effusion. Heart: Heart size is normal. No pericardial effusion. Coronary arteries: No coronary artery calcifications. Esophagus: Circumferential mural thickening of the distal esophagus. Lymph nodes: No supraclavicular, axillary, mediastinal, or hilar adenopathy. Bones/joints: No acute fracture or dislocation. Degenerative changes of the thoracic spine. Soft tissues: Unremarkable. IMPRESSION: 1. No pulmonary emboli in the main, lobar, or segmental pulmonary arteries. Limited evaluation of more distal branches due to motion artifact. 2. Stable lung nodules since 07/05/2024.
--- NOTE | 2025-06-05 15:54 | ECG_ITS ---
APPROVED REPORT Exam: Resting ECG HR:127 bpm ECG Measurements Heart Rate 127 AXES QRSd 76 QRS 21 QT 306 T 106 QTc 381 Conclusion SUPRAVENTRICULAR TACHYCARDIA LOW QRS VOLTAGE IN PRECORDIAL LEADS [QRS DEFLECTION < 1.0 mV IN CHEST LEADS] NONSPECIFIC T-WAVE ABNORMALITY ABNORMAL ECG UNCONFIRMED REPORT Electronically signed by : Chaitanya Conteh, 06/05/2025 23:27:24
--- NOTE | 2025-06-05 15:55 | ED_ITS ---
Discharge Plan Disposition Patient Disposition: Xfer Other Prescriptions Prescriptions: No Action potassium chloride [Klor-Con M20] 20 mEq Tablet,Er Particles/Crystals 40 meq PO DAILY 10 Days Qty: 20 0RF levofloxacin 750 mg tablet 750 mg PO Q24H Qty: 7 0RF Rx Instructions: please give in afternoons atorvastatin 20 mg tablet 20 mg PO HS 30 Days Qty: 30 0RF aspirin 81 mg Tablet,Delayed Release (Dr/Ec) 81 mg PO DAILY 30 Days Qty: 30 0RF terbinafine HCl 250 mg tablet 250 mg PO DAILY 30 Days Qty: 30 0RF paroxetine HCl 20 mg tablet 20 mg PO DAILY 30 Days Qty: 30 0RF pantoprazole 40 mg Tablet,Delayed Release (Dr/Ec) 40 mg PO DAILY 30 Days Qty: 30 0RF metformin 1,000 mg tablet 1,000 mg PO BIDWMEAL 30 Days Qty: 60 0RF lisinopril 30 mg tablet 30 mg PO DAILY 30 Days Qty: 30 0RF gabapentin 100 mg capsule 100 mg PO TID 30 Days Qty: 90 0RF metoprolol succinate 25 mg Tablet Extended Release 24 Hr 25 mg PO DAILY 30 Days Qty: 30 0RF insulin glargine [Lantus Solostar U-100 Insulin] 100 unit/mL (3 mL) Insulin Pen 55 unit SQ HS 30 Days Qty: 15 0RF insulin lispro [Humalog U-100 Insulin] 100 unit/mL Solution 8 unit SQ AC 30 Days Qty: 7.2 0RF Referrals Follow up/Referrals: Bryan Ramsey MD [Primary Care Provider, Cardiology] - See instructions Clinical Impressions Clinical Impression: Fracture of tibia and fibula, Cellulitis, Sepsis, Metabolic acidosis, DKA (diabetic ketoacidosis) Stand Alone Forms Stand Alone Forms: Transfer Record - ED Print Language Print Language: Trinidadian Discharge ED Provider: Avelina Conteh General Adult HPI General Chief complaint: Extremity Injury, Lower Stated complaint: Fall Time Seen by Provider: 06/05/25 15:45 History of Present Illness HPI narrative: Patient is a 69-year-old female presenting today with multiple complaints. She fell on Tuesday injuring her right lower extremity injury was so severe that she has been unable to walk or move since that time. She states when this first happened she was able to gather food and water and get close to her bed and she has since been laying in bed wearing depends changing them herself and barely eating and drinking. She states that over the last 24 to 48 hours she has developed significant worsening pain and shortness of breath leg swelling. Denies any fevers. She states that she has felt very ill since yesterday including nausea and vomiting. Related Data Previous Rx's ?Medication ?Instructions ?Recorded aspirin 81 mg tablet,delayed 81 mg PO DAILY 30 days #3 0 tabs 10/24/24 release atorvastatin 20 mg tablet 20 mg PO HS 30 days #30 tabs 10/24/24 gabapentin 100 mg capsule 100 mg PO TID 30 days #90 ca ps 10/24/24 insulin glargine 100 unit/mL (3 55 unit (0.55 mL) SQ H S 30 days 10/24/24 mL) subcutaneous pen (Lantus #15 mL Solostar U-100 Insulin) insulin lispro 100 unit/mL 8 unit (0.08 mL) SQ AC 30 d ays 10/24/24 subcutaneous solution (Humalog #7.2 mL U-100 Insulin) levofloxacin 750 mg tablet 750 mg PO Q24H #7 tabs 10/03 09/25 lisinopril 30 mg tablet 30 mg PO DAILY 30 days #30 t abs 10/24/24 metformin 1,000 mg tablet 1,000 mg PO BIDWMEAL 30 days #60 10/24/24 tabs metoprolol succinate 25 mg 25 mg PO DAILY 30 days #30 tabs 10/24/24 tablet,extended release 24 hr pantoprazole 40 mg tablet,delayed 40 mg PO DAILY 30 da ys #30 tabs 10/24/24 release paroxetine HCl 20 mg tablet 20 mg PO DAILY 30 days #30 tabs 10/24/24 potassium chloride 20 mEq 40 meq (2 x 20 mEq) PO DAILY 10 10/24/24 tablet,extended days #20 tabs release(part/cryst) (Klor-Con M) terbinafine HCl 250 mg tablet 250 mg PO DAILY 30 days #30 tabs 10/24/24 Allergies Allergy/AdvReac Type Severity Reaction Status Date / Time thiothixene Allergy Unknown Unknown Verified 07/07/24 08:31 allergy reaction [facility] Disclaimer: The information contained in this section may have been updated after the patient was seen, as this information can be updated by other users. Medical History (Updated 06/05/25 @ 17:21 by Avelina Conteh MD) Non-ST elevation DC (NSTEMI) Hypomagnesemia Acute metabolic encephalopathy Bacteremia due to Klebsiella pneumoniae Urinary tract infectious disease Hypokalemia DKA (diabetic ketoacidosis) Severe sepsis Diabetes mellitus Diabetes Diabetes Family History Other Diabetes Social History (Updated 10/22/24 @ 04:19 by Jennifer Miller RN) Smoking Status: Unknown if ever smoked alcohol intake: never substance use type: denies use and marijuana (she did try 1 puff on THC back in 1971; nothing since then) current occupational status: disabled Travel in the last 8 weeks?: None number of children: 0 Have you lived/traveled outside [place] in past 30 days?: No Contact w/someone who lives/traveled outside US past 30 days?: No Exposure to someone with infectious disease in past 14 days?: No Do you have a fever (greater than 100.4 F or 38 C)?: No Have you tested positive for COVID-19?: No Exposed to someone with COVID-19 in past 14 days?: No Do you have a sore throat?: No Do you have a cough?: No Do you have any weakness?: No Do you have any diarrhea?: No Are you experiencing any unusual bleeding?: No Do you have any muscle aches/pain?: No Do you have any abdominal pain?: No Are you experiencing loss of taste or smell?: No Other Medical History Have you received the Flu Vaccine for this season: No Have you received the Pneumonia Vaccine: No ROS Obtained: Yes All systems reviewed & no additional complaints except as documented Physical Exam General General appearance: in distress (Appears very uncomfortable tachypneic and in pain) Respiratory Respiratory exam: Present normal lung sounds bilaterally; Absent respiratory distress Cardiovascular Cardiovascular exam: Present tachycardia Extremities Exam Extremities exam: Present other (Patient has significant swelling of her right lower extremity from the knee down is twice the circumference of the left lower extremity there is erythema and tenderness patient also has significant pain and swelling over the ankle and what appeared to be numerous blood-filled blisters) Neurological Exam Neurological exam: Present alert and oriented X3 Medical Decision Making Medical Records Screening: Per USPSTF and CDC recommendations, given the prevalence of disease in our region, it is our hospital?s policy to screen for HIV and viral Hepatitis for all patients aged 18 and over and those with ongoing risk factors. Óscar Inquiry Pt receiving controlled substance: No Vital Signs: 06/05/25 16:05 06/05/25 16:30 Temperature 95.5 F L Temperature Source Rectal Pulse Rate 117 H Pulse Rate [Right Radial] 125 H Respiratory Rate 20 19 Blood Pressure 139/52 L Blood Pressure [Right Arm] 169/80 H Blood Pressure Mean [Right Arm] 109 Blood Pressure Source [Right Arm] Automatic Cuff Blood Pressure Position [Right Arm] Supine 02 Sat by Pulse Oximetry 100 100 Oxygen Delivery Method Room Air Lab Data Lab results reviewed: Yes I reviewed the patient's lab results. Lab Results 06/05/25 15:24: WBC 15.0 H, RBC 5.48 H, Hgb 15.0, Hct 48.1 H, MCV 87.8, MCH 27.4, MCHC 31.2 L, RDW 14.2, Plt Count 358, MPV 10.1, Neut % (Auto) 86.1 H, L ymph % (Auto) 7.2 L, Jasper % (Auto) 4.6, Eos % (Auto) 0.0 L, Baso % (Auto) 0.5, N eut # (Auto) 12.9 H, Lymph # (Auto) 1.1, Jasper # (Auto) 0.7, Eos # (Auto) 0.0, Baso # (Auto) 0.1, Sodium 136, Potassium 4.4, Chloride 102, Carbon Dioxide < 5 L*, Anion Gap 33.4 H, BUN 23 H, Creatinine 0.90, Estimated Creat Clear 56, Estimated GFR 62, Est GFR ( Amer) 75, Glucose 260 H, Calcium 9.3, Total Bilirubin 1.1, AST 41 H, ALT 31, Alkaline Phosphatase 154 H, Total Creatine Kinase 215 H, Troponin I < 0.01, C-Reactive Protein 221.6 H, NT-Pro-B Natriuret Pep 301 H, Total Protein 8.8 H D, Albumin 4.8, Globulin 4.0 H, Albumin/Globulin Ratio 1.2 06/05/25 16:06: Salicylates 1.2 L, Acetaminophen < 10 L, Plasma/Serum Alcohol < 10 06/05/25 16:41: Lactate 2.9 H 06/05/25 17:05: VBG pH 7.12 L, VBG pCO2 22.7 L, VBG pO2 37.0, VBG HCO3 7.2 L, V BG Total CO2 7.9 L, VBG O2 Saturation 64.6, VBG Base Excess -22.2 L, VBG Lactic Acid 3.9 H 06/05/25 15:24 06/05/25 15:24 Orders (Tests/Meds): ED MEDICATIONS Generic Name Dose Route Start Last Admin Trade Name Trae PRN Reason Stop Dose Admin Lactated Ringer's 1,640 mls @ 820 mls/hr 06/05/25 17:04 Lactated Ringer's 1000 Ml Bag 30 ml/kg infuse over 2 hr (1640 ml) 06/05/25 19:03 IV .Q2H ONE Vancomycin/PEG/NADA/Lysine/Water 1.5 gm in 300 mls @ 150 mls/hr 06/05/25 17:15 Vancomycin 1.5gm/300ml (Peg) Premix IV 06/05/25 19:14 ONCE ONE Insulin Human Regular 100 unit 101 mls @ 6.872 mls/hr 06/05/25 17:19 / Sodium Chloride IV 07/05/25 17:18 .[id number] POLINA Protocol 0.1 UNITS/KG/HR Dextrose/Sodium Chloride 1,000 mls @ 200 mls/hr 06/05/25 17:30 Dextrose 10%-0.45% Nacl 1000ml IV 07/05/25 17:29 .Q5H POLINA Miscellaneous 1 each 06/05/25 17:15 Vancomycin Consult Request NOTAPPLIC 07/05/25 17:14 CONSULT PHARMACY POLINA Discontinued Medications Generic Name Dose Route Start Last Admin Trade Name Trae PRN Reason Stop Dose Admin Lactated Ringer's 1,000 mls @ 999 mls/hr 06/05/25 16:00 06/05/25 16:15 Lactated Ringer's 1000 Ml Bag IV 06/05/25 17:00 999 mls/hr .Q1H1M POLINA Administration Morphine Sulfate 4 mg 06/05/25 15:52 06/05/25 16:16 Morphine 4mg/Ml Syringe IV 06/05/25 15:53 4 mg ONCE ONE Administration Ondansetron HCl 4 mg 06/05/25 15:52 06/05/25 16:16 Ondansetron 4mg/2ml Vial IV 06/05/25 15:53 4 mg ONCE ONE Administration ORDERS Category Date Time Status CT angio chest PE protocol Stat Cat Scan 06/05/25 15:53 Ordered Ankle XR -Right minimum 3 Views [XR ankle RT min 3V] Exams 06/05/25 17:03 Completed Stat Tibia/fibula XR right 2 views [XR tibia fibula RT 2V] Exams 06/05/25 15:52 Completed Stat XR ankle RT 2V Stat Exams 06/05/25 15:52 Completed XR foot RT 2V Stat Exams 06/05/25 15:52 Completed Acetaminophen Stat Lab 06/05/25 16:06 Completed BNP [NT Pro Brain Natriuretic Pep.] Stat Lab 06/05/25 15:24 Completed CBC w/Auto Diff [Complete Blood Count Auto Diff] Stat Lab 06/05/25 15:24 Completed CK [Creatine Kinase] Stat Lab 06/05/25 15:24 Completed CMP [Comprehensive Metabolic Panel] Stat Lab 06/05/25 15:24 Completed CRP [C-Reactive Protein] Stat Lab 06/05/25 15:24 Completed Ethanol [Ethyl Alcohol] Stat Lab 06/05/25 16:06 Completed Lactic Acid Stat Lab 06/05/25 16:41 Completed Salicylate Stat Lab 06/05/25 16:06 Completed Trop I [Troponin I] Stat Lab 06/05/25 15:24 Completed Troponin I Q3H Lab 06/05/25 19:00 Ordered Troponin I Q3H Lab 06/05/25 22:00 Ordered UDS [Drug Screen,Urine] Stat Lab 06/05/25 16:52 Ordered Blood Culture Stat Micro 06/05/25 17:28 Received Venous Blood Gas Stat RT 06/05/25 17:05 Completed CA venous doppler LE RT Stat Y 06/05/25 15:52 Completed Medical Decision Narrative: Patient is a 69-year-old female with above history physical. She appears to have obvious significant injury to her right ankle area will get plain films her bullous lesions or blisters appear to be most likely fracture blisters secondary to the significant edema and swelling in this lower extremity. Patient also has significant dyspnea and prehospital coronary EMS had some hypoxemia. Given the fact that she has been immobile for the last several days I am highly concerned about a DVT and/or PE. Will get a DVT ultrasound and a CT PE in addition to working her up for her injury. IV fluids pain medicine have been administered. Additionally patient could be septic as there is significant erythema swelling after this injury and she has been immobile since that time but most likely this is venous insufficiency and localized swelling and ecchymosis secondary to an injury. Reassessment 5:05 PM patient remains tachypneic and tachycardic labs have returned she has profound metabolic acidosis with an elevated anion gap I presume this is secondary to dehydration and/or possibly DKA. Venous blood gases pending she has no beta glucose. Also has a leukocytosis at 15 is hypothermic with a core body temperature of 95 was placed on a Penelope hugger. Clinically this is consistent with sepsis as she has significant erythema DVT ultrasound was negative. Vancomycin has been initiated IV fluids have also been initiated serial perfusion assessments are stable. CT PE is currently pending at the moment. Posterior slab and stirrup splint placed with traction onto the patient. Discussed the case with our orthopedic surgeon who is out of town at the moment she will be transferred to a trauma center for further workup after her PE study is performed Reassessment I spoke with [facility] transfer center and Dr. Garay ultimately accepted the patient to [place] ED. Of note patient was started on 0.1 units/kg/h of insulin as well as D10 half- normal saline in addition to fluid resuscitation with LR. Vancomycin initiated in the ED as well. Working diagnosis is sepsis DKA and comminuted tib-fib fracture without any definitive evidence of compartment syndrome at the moment. Procedures Orthopedic Splinting/Casting Injury #1: Side: right Lower Extremity Injury Location: lower leg Lower Extremity Immobilizer: posterior splint and stirrup splint Post Cast/Splinting Neuro Status: intact and no change Post Cast/Splinting Vasc Status: intact and no change Critical Care Critical Care Time Critical Care Time: Yes Attestation: On 06/05/25, the high probability of a clinically significant, sudden or life threatening deterioration of the following system(s) required my full and direct attention, intervention and personal management. The time I documented below is in addition to time spent performing reported procedures but includes the following listed in this critical care notation. Total Time Total Critical Care Time: 65
--- OUTSIDE RECORDS SUMMARY | 2025-06-05 15:58 | XMS_ITS | Clinical Summary ---
Author Organization [facility] Address [address] [place] [address] Phone Care Team Providers Care Student Outreach Coordinator Name Role Phone Unavailable Primary Care Provider Unavailabl e Allergies No known active allergies Medications * This document contains information received from the source organization and may not represent a complete record from that organization. No known medications Active Problems Problem Noted Date Diagnosed Date Depression, major, single episode, moderate 08/04 Medical History Medical History Date Comments Hypertension Diabetes mellitus (HCC) Social History Tobacco Use Types Packs/Day Years Used Date Smoking Tobacco: Never Smokeless Tobacco: Never Alcohol Use Standard Drinks/Week Comments No 0 (1 standard drink = 0.6 oz pur e alcohol) Sexually Active Control Partners Comments Not Currently Comments Unknown Sex and Gender Information Value Date Recorded Sex Assigned at Not on file Legal Sex Female 9:36 AM EST Gender Identity Not on file Sexual Orientation Not on file Last Filed Vital Signs Vital Sign Reading Time Taken Comments Blood Pressure - - Pulse - - Temperature - - Respiratory Rate - - Oxygen Saturation - - Inhaled Oxygen Concentration - - Weight 79.4 kg (175 lb) 08/19/2016 1:39 PM EST Height 157.5 cm (5' 2 ) 08/19/2016 1:39 PM EST Body Mass Index 32.01 08/19/2016 1:39 PM EST Plan of Treatment Health Maintenance Due Date Last Done Comments Wellness Exam Medicare 1958 Hepatitis C Screening 1972 DTaP/TDaP/Td (1 - Tdap) 1973 Breast Cancer Screening 1994 Cologuard 11/09/1999 Colon Cancer Screening 11/09/1999 Colonoscopy 11/09/1999 FIT 11/09/1999 Sigmoidoscopy 11/09/1999 Virtual Colonography 11/09/1999 Pneumococcal Vaccine 50+ (1 of 1 - PCV) 2004 Zoster (1 of 2) 2004 Bone Density Screening 11/09/2019 COVID-19 Vaccine (1 - 2024-2 6 season) 2025 Influenza Vaccine (#1) 2025 Hepatitis B Vaccine Aged Out No longe r eligible based on patient's age to complete this topic Meningococcal B Vaccine Aged Out No l onger eligible based on patient's age to complete this topic Insurance [facility] MEDICARE HMO MR
[2025-06-05 16:05] VITALS: BP 169/80; PULSE 125; RESP 20; TEMP 35.3; O2SAT 100; BMI 25.7
[2025-06-05 16:06] LABS: Hematocrit 48.1 % (37.0-47.0); Hemoglobin 15.0 g/dL (12.2-16.2); Immature Granulocytes % 1.6 %; Mean Corpuscular HGB Conc 31.2 g/dL (31.8-35.4); Mean Corpuscular Hemoglobin 27.4 pg (27.0-31.2); Mean Corpuscular Volume 87.8 fl (81-99); Nucleated Red Blood Cells % 0 %; Platelet Count 358 K/mm3 (142-424); Red Blood Count 5.48 M/mm3 (4.20-5.40); Red Cell Distribution Width-SD 45.7 fL; White Blood Count 15.0 K/mm3 (4.8-10.8)
[2025-06-05] MEDS: LACTATED RINGERS 1000ML 1,000 ML 999 ML IV (16:15)
[2025-06-05] MEDS: ONDANSETRON 4MG/2ML VIAL 4 MG IV (16:16)
[2025-06-05] MEDS: MORPHINE 4MG/ML SYRINGE 4 MG IV (16:16)
[2025-06-05 16:23] LABS: Albumin Level 4.8 g/dl (3.5-5.0); Potassium 4.4 mmoL/L (3.5-5.1); Sodium 136 mmol/L (136-145)
[2025-06-05 16:26] LABS: Alanine Aminotransferase 31 U/L (12-78); Albumin/Globulin Ratio 1.2 (1.1-1.8); Alkaline Phosphatase 154 U/L (38-126); Aspartate Amino Transferase 41 U/L (14-36); Bilirubin,Total 1.1 mg/dl (0.2-1.3); Blood Urea Nitrogen 23 mg/dl (7-17); Calcium 9.3 mg/dl (8.4-10.2); Chloride 102 mmol/L (98-107); Creatine Kinase 215 U/L (30-135); Creatinine Clearance Estimated 56 mL/min (50-200); Creatinine,Serum 0.90 mg/dl (0.52-1.04); Estimated Glomerular Filt Rate 62 ml/min (>60); GFR (African American) 75 ML/MIN (>60); Globulin 4.0 g/dL (1.3-3.2); Glucose 260 mg/dl (74-100); Total Protein,Serum 8.8 g/dl (6.3-8.2)
[2025-06-05 16:29] LABS: Anion Gap 33.4 mEq/L (5-15)
[2025-06-05 16:30] VITALS: BP 139/52; PULSE 117; RESP 19; O2SAT 100
[2025-06-05 16:30] LABS: Carbon Dioxide < 5 mmol/L (22.0-30.0)
[2025-06-05 16:32] LABS: C-Reactive Protein 221.6 mg/L (0-4)
--- NOTE | 2025-06-05 16:35 | PC.NURSE ---
francisco callejas applied at this time per Dr Conteh
[2025-06-05 16:45] LABS: Troponin I < 0.01 ng/ml (0.00-0.034)
[2025-06-05 17:02] LABS: Salicylate 1.2 mg/dL (2.0-20.0)
--- NOTE | 2025-06-05 17:03 | XR_ITS ---
PROCEDURE INFORMATION: Exam: XR Right Ankle Exam date and time: 06/05/2025 5:14 PM Age: 69 years old Clinical indication: Injury or trauma; Fall; Blunt trauma; Ankle; Right; Additional info: Post splint TECHNIQUE: Imaging protocol: Radiologic exam of the right ankle. Views: 3 or more views. COMPARISON: CR XR ANKLE RT 2V 06/05/2025 4:04 PM FINDINGS: Bones/joints: Overlying splint material limits evaluation of fine osseous detail. Redemonstrated comminuted fractures of the distal tibia and fibula, not significantly changed. Soft tissues: Limited evaluation. IMPRESSION: Redemonstrated comminuted fractures of the tibia and fibula status post splint. No significant change to bony alignment.
[2025-06-05 17:06] LABS: Acetaminophen < 10 ug/ml (10-30)
[2025-06-05 17:07] LABS: NT Pro Brain Natriuretic Pep. 301 pg/mL (0-125)
[2025-06-05 17:10] LABS: VBG HCO3 7.2 mmol/L (23-30); VBG PO2 37.0 mmol/L (28-40)
[2025-06-05 17:11] LABS: Lactate Venous 3.9 mmol/L (0.4-2.0); VBG PCO2 22.7 mmol/L (35-51); VBG PH 7.12 mmol/L (7.31-7.41)
--- NOTE | 2025-06-05 17:14 | PC.NURSE ---
lab called to obtain blood cultures x2
--- NOTE | 2025-06-05 17:24 | PC.NURSE ---
calling [facility] at this time.
[2025-06-05 17:30] VITALS: BP 168/81; PULSE 118; RESP 24; O2SAT 99
[2025-06-05] MEDS: 0.9 % SODIUM CHLORIDE 50 ML VIAL IV (17:49)
[2025-06-05] MEDS: SODIUM CHLORIDE 0.9% 10ML SYR (RAD ONLY) 10 ML IV (17:49)
[2025-06-05] MEDS: IOPAMIDOL-370 (76%);100ML BOTTLE 70 ML IV (17:50)
--- NOTE | 2025-06-05 17:55 | PC.NURSE ---
called and notified EMS of transfer to ER
[2025-06-05] MEDS: VANCOMYCIN/WATER FOR INJ (PEG) 1.5 GM/300 ML PIGGYBACK IV (18:08)
[2025-06-05] MEDS: LACTATED RINGERS 1000ML 1,640 ML 820 ML IV (18:09)
[2025-06-05] MEDS: INSULIN REGULAR, HUMAN 100 UNIT in 0.9 % SODIUM CHLORIDE 100 ML 6.87 UNIT IV (18:10)
[2025-06-05 18:21] LABS: Microscopic, Urine URINE MICROSCOPIC (MICROSCOPIC)
[2025-06-05 18:29] LABS: Bilirubin,Urine Negative (Negative); Color,Urine YELLOW (Yellow); Glucose,Urine (UA) 2+ (Negative); Ketones,Urine 3+ (Negative); Leukocyte Esterase,Urine Negative (Negative); PH,Urine 5.5 (5.0-8.5); Protein,Urine TRACE (Negative); Specific Gravity, Urine >= 1.030 (1.005-1.030); Urobilinogen,Urine 0.2 EU/dl (0.2)
[2025-06-05 18:39] LABS: Barbiturates Screen,Urine Negative ng/ml (<200)
[2025-06-05 18:40] LABS: Benzodiazepines Screen,Urine Negative ng/ml (<200)
[2025-06-05 18:41] LABS: Amphetamine/Metha Screen,Urine Negative ng/ml (<1000); Methadone Screen,Urine Negative ng/ml (<300)
[2025-06-05 18:43] LABS: Opiate Screen,Urine Positive ng/ml (<300)
[2025-06-05 18:44] LABS: Phencyclidine Screen,Urine Negative ng/ml (<25)
[2025-06-05] MEDS: DEXTROSE 10 % AND 0.45 % NACL 1,000 ML 200 ML IV (18:44)
[2025-06-05 18:57] LABS: Bacteria,Urine Trace /lpf; Squamous Epithelial Cell,Urine Occasional #/hpf (0-5)
[2025-06-05 19:22] VITALS: BP 153/82; PULSE 114; RESP 20; TEMP 36.4; O2SAT 99
[2025-06-05 20:47] LABS: Reflex Lactic Add Lactic Reflex
--- NOTE | 2025-06-05 23:45 | PC.NURSE ---
RECORDS SENT TO [facility]
--- NOTE | 2025-06-07 08:02 | PC.NURSE ---
Urine culture results faxed to [facility]
== END 2025-06-05 19:22 | disposition other institution (70) ==
PROVIDERS: Emergency Provider Student in an Organized Health Care Education/Training Program; PCP Internal Medicine
DX: A41.9 Sepsis, unspecified organism (principal); R09.02 Hypoxemia; E11.10 Type 2 diabetes mellitus with ketoacidosis without coma; R74.02 Elevation of levels of lactic acid dehydrogenase [LDH]; S82.251A Displaced comminuted fracture of shaft of right tibia, initial encounter for closed fracture; S82.451A Displaced comminuted fracture of shaft of right fibula, initial encounter for closed fracture; L03.115 Cellulitis of right lower limb; W19.XXXA Unspecified fall, initial encounter; Z79.4 Long term (current) use of insulin
CPT/HCPCS: 29515; 51702; 71275; 73590; 73600; 73610; 73620; 80053; 80307; 80320; 80329; 81001; 82550; 82803; 83605; 83880; 84484; 85025; 86140; 87040; 87086; 87088; 87186; 93005; 93971; 96361; 96365; 96366; 96375; 99285; 99291; J2270; J2405; J3375; J7120; Q9967